=== PATIENT | female | born 1945 | race Caucasian/White ===

== ENCOUNTER 2017-05-21 22:20 | Inpatient (IN) | payer OTHER, MEDICARE ==
[~2017-05-21] VITALS: Ht 152.4 cm; Wt 88.5 kg
[~2017-05-21 22:20] MED LIST: AMLO10TA2 PO; ASPI1TAB69 PO; ATOR40TA16 PO; BACT800T5 PO; CARV3.125 PO; ENAL10TA PO; IMDU60TA PO; SPIRCAP INH; SYNT112T PO; TRIA.025%T TOPICAL
[2017-05-21 22:25] VITALS: BP 148/74; PULSE 82; RESP 20; O2SAT 96
--- NOTE | 2017-05-21 22:58 | PD ---
HPI Chief Complaint: Numbness/Tingling Time Seen by Provider: 22:43 Travel History International Travel<30 days: No Contact w/Intl Traveler<30days: No Traveled to known affect area: No History of Present Illness HPI 72-year-old female presents to the emergency department by private transportation the care of her granddaughter for evaluation of intermittent numbness and weakness of the left upper extremity for the past 2 hours. Patient is also been experiencing right shoulder pain and neck pain. Patient has also been experiencing intermittent headache and dizziness over the past 2 days. Granddaughter states 2 days ago she was having episodes of drooling intermittently that has resolved. Patient's had no facial droop no change in mentation no visual disturbance or difficulty with swallowing. Patient denies any balance disturbance. Granddaughter states that patient has chronic balance disturbance which patient confirms and denies having any increased balance disturbance. Patient presently states that she is having no numbness tingling or weakness of the left upper extremity that has resolved upon arrival into the emergency room. Patient denies any lower extremity numbness tingling or weakness. Patient denies any chest pain or shortness of breath has had no nausea or vomiting and no recent febrile illness. Past history is significant for left breast cancer with lumpectomy for invasive ductal tumor and DCIS as well as completing postoperative radiation and chemotherapy 04/06/15 patient was last seen by her radiation oncologist 05/2015 patient is also the care of Dr. Ponce her park keeper for history of TIAs and possible cardiac arrhythmia and patient is currently being managed with a loop recorder as well as history of CAD hypertension hypothyroidism dyslipidemia and hypothyroidism. Headache the patient describes is not sudden onset thunderclap or worst ever. Patient denies any double vision blurred vision or loss of vision and denies any change in her peripheral vision. PFSH Past Medical History Narrative Medical TIA dyslipidemia hypertension anxiety depression asthma arthritis breast cancer fibromyalgia lumpectomy chemotherapy hysterectomy appendectomy tobacco use nursing notes reviewed Hx Anticoagulant Therapy: Yes AAA: Yes Arthritis: Yes Asthma: Yes Anxiety: Yes Depression: No Heart Rhythm Problems: No Cancer: Yes (RIGHT BREAST, CERVICAL) Cardiac Catheterization: Yes Cardiovascular Problems: Yes (hx TIA) High Cholesterol: Yes Chemotherapy: No Chest Pain: No Congestive Heart Failure: No COPD: Yes Cerebrovascular Accident: Yes (hx) Diabetes: No Diminished Hearing: No Endocrine: Yes Fibromyalgia: Yes Gastrointestinal Disorders: Yes (ACID REFLEX, CURRENT GASTRIC BLEED) GERD: Yes Genitourinary: No Headaches: Yes Hepatitis: No Hiatal Hernia: No Hypertension: Yes Immune Disorder: Yes (FIBROMYALGIA) Kidney Stones: No Musculoskeletal: Yes (BACK PAIN,ARTHRITIS) Neurologic: Yes (STROKE HX) Psychiatric: Yes Reproductive: No Respiratory: Yes (ASTHMA, COPD) 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) Immunizations Current: Yes Migraines: No Myocardial Infarction: Yes Radiation Therapy: Yes Renal Failure: No Seizures: No Sleep Apnea: No Thyroid Disease: Yes Ulcer: Yes (PEPTIC) ?: Not Menopausal: Yes : 2 Para: 2 Past Surgical History Abdominal Surgery: No AICD: No Appendectomy: Yes Cardiac Surgery: No Cholecystectomy: No Coronary Artery Bypass Graft: No Ear Surgery: No Endocrine Surgery: No Eye Surgery: No Genitourinary Surgery: No Gynecologic Surgery: Yes (CERVICAL BX, HYSTERECTOMY) Hysterectomy: Yes Joint Replacement: No Mastectomy: Yes (RT) Oral Surgery: No Pacemaker: No Thoracic Surgery: No Other Surgery: Yes (RT MASTECTOMY WITH BREAST RECONSTRUCTION) Social History Alcohol Use: No Tobacco Use: Yes (1PPD) Substance Use: No Allergies-Medications (Allergen,Severity, Reaction): Coded Allergies: doxycycline (Unverified Allergy, Severe, SHORTNESS OF BREATH, 02/28/17) minocycline (Unverified Allergy, Severe, SHORTNESS OF BREATH, 02/28/17) oxycodone (Unverified Allergy, Severe, UNKNOWN, 02/28/17) penicillin G (Unverified Allergy, Severe, SHORTNESS OF BREATH, 02/28/17) tetanus toxoid, adsorbed (Unverified Allergy, Severe, SHORTNESS OF BREATH , 02/28/17) tigecycline (Unverified Allergy, Severe, SHORTNESS OF BREATH, 02/28/17) diazepam (Unverified Adverse Reaction, Intermediate, HYPER, 02/28/17) Uncoded Allergies: PAPER TAPE (Allergy, Severe, SKIN BLISTERS, 05/17/16) . Reported Meds & Prescriptions Reported Meds & Active Scripts Active Reported Tylenol (Acetaminophen) 325 Mg Tab 500 Mg PO ONCE PRN Isosorbide Mononitrate ER (Isosorbide Mononitrate) 60 Mg Tab 60 Mg PO DAILY Prilosec (Omeprazole Magnesium) 20 Mg Tab DAILY Aspirin Children's (Aspirin) 81 Mg Chew 81 Mg CHEW DAILY Amlodipine (Amlodipine Besylate) 10 Mg Tab 10 Mg PO DAILY Enalapril (Enalapril Maleate) 10 Mg Tab 10 Mg PO DAILY Synthroid (Levothyroxine Sodium) 112 Mcg Tab 112 Mcg PO DAILY Coreg (Carvedilol) 3.125 Mg Tab 3.125 Mg PO DAILY Atorvastatin (Atorvastatin Calcium) 40 Mg Tab 40 Mg PO HS Spiriva Handihaler (Tiotropium Inh) 18 Mcg Cap 18 Mcg INH DAILY 1 capsule = 18 mcg Review of Systems Except as stated in HPI: all other systems reviewed are Neg Physical Exam Narrative GENERAL: Well-developed well-nourished female in distress and appears anxious but no respiratory distress. GCS 15 SKIN: Warm and dry. HEAD: Atraumatic. Normocephalic. EYES: Pupils equal and round. No scleral icterus. No injection or drainage. ENT: No nasal bleeding or discharge. Mucous membranes pink and moist. NECK: Trachea midline. No JVD. CARDIOVASCULAR: Regular rate and rhythm. RESPIRATORY: No accessory muscle use. Clear to auscultation. Breath sounds equal bilaterally. GASTROINTESTINAL: Abdomen soft, non-tender, nondistended. Hepatic and splenic margins not palpable. MUSCULOSKELETAL: Extremities without clubbing, cyanosis, or edema. No obvious deformities. NEUROLOGICAL: Awake and alert. No obvious cranial nerve deficits. Motor grossly within normal limits. Five out of 5 muscle strength in the arms and legs. Normal speech. PSYCHIATRIC: Appropriate mood and affect; insight and judgment normal. Data Data Last Documented VS Vital Signs Date Time Temp Pulse Resp B/P (MAP) Pulse Ox O2 Delivery O2 Flow Rate FiO2 05/21/17 23:01 98 Nasal Cannula 2.00 05/21/17 23:01 97.9 75 20 126/63 (84) Orders Orders Ct Brain W/O Iv Contrast(Rout) (05/21/17 ) Electrocardiogram (05/21/17 23:42) Prothrombin Time / Inr (Pt) (05/21/17 23:42) Act Partial Throm Time (Ptt) (05/21/17 23:42) Complete Blood Count With Diff (05/21/17 23:42) Comprehensive Metabolic Panel (05/21/17 23:42) Creatine Kinase (Cpk) (05/21/17 23:42) Drug Screen, Random Urine (05/21/17 23:42) Troponin I (05/21/17 23:42) Urinalysis - C+S If Indicated (05/21/17 23:42) Chest, Single Ap (05/21/17 23:42) Ecg Monitoring (05/21/17 23:42) Iv Access Insert/Monitor (05/21/17 23:42) Oximetry (05/21/17 23:42) Blood Glucose (05/21/17 23:42) Sodium Chloride 0.9% Flush (Ns Flush) (05/21/17 23:45) Acetaminophen (Tylenol) (05/22/17 00:15) Urine Culture (05/22/17 00:00) Blood Culture (05/22/17 01:04) Ceftriaxone Inj (Rocephin Inj) (05/22/17 01:15) Admit Order (Ed Use Only) (05/22/17 ) Boiler Inspector / Telemetry [id number].[id number] (05/22/17 01:31) Activity Oob With Assistance (05/22/17 01:31) Notify Dr: Other (05/22/17 01:31) Labs Laboratory Tests Test 05/21/17 23:25 05/22/17 00:00 White Blood Count 9.3 TH/MM3 Red Blood Count 3.84 MIL/MM3 Hemoglobin 9.9 GM/DL Hematocrit 31.5 % Mean Corpuscular Volume 82.0 FL Mean Corpuscular Hemoglobin 25.9 PG Mean Corpuscular Hemoglobin Concent 31.6 % Red Cell Distribution Width 17.6 % Platelet Count 310 TH/MM3 Mean Platelet Volume 10.5 FL Neutrophils (%) (Auto) 64.0 % Lymphocytes (%) (Auto) 28.1 % Monocytes (%) (Auto) 3.3 % Eosinophils (%) (Auto) 3.2 % Basophils (%) (Auto) 1.4 % Neutrophils # (Auto) 6.0 TH/MM3 Lymphocytes # (Auto) 2.6 TH/MM3 Monocytes # (Auto) 0.3 TH/MM3 Eosinophils # (Auto) 0.3 TH/MM3 Basophils # (Auto) 0.1 TH/MM3 CBC Comment DIFF FINAL Differential Comment Prothrombin Time 9.9 SEC Prothromb Time International Ratio 0.9 RATIO Activated Partial Thromboplast Time 24.5 SEC Blood Urea Nitrogen 10 MG/DL Creatinine 1.20 MG/DL Random Glucose 121 MG/DL Total Protein 7.9 GM/DL Albumin 3.6 GM/DL Calcium Level 9.0 MG/DL Alkaline Phosphatase 152 U/L Aspartate Amino Transf (AST/SGOT) 9 U/L Alanine Aminotransferase (ALT/SGPT) 16 U/L Total Bilirubin 0.3 MG/DL Sodium Level 137 MEQ/L Potassium Level 3.7 MEQ/L Chloride Level 102 MEQ/L Carbon Dioxide Level 27.7 MEQ/L Anion Gap 7 MEQ/L Estimat Glomerular Filtration Rate 44 ML/MIN Total Creatine Kinase 32 U/L Troponin I LESS THAN 0.02 NG/ML Urine Color YELLOW Urine Turbidity SLIGHT Urine pH 5.5 Urine Specific [place] 1.021 Urine Protein NEG mg/dL Urine Glucose (UA) NEG mg/dL Urine Ketones TRACE mg/dL Urine Occult Blood NEG Urine Nitrite NEG Urine Bilirubin NEG Urine Leukocyte Esterase SMALL Urine WBC 6-8 /hpf Urine WBC Clumps FEW Urine Squamous Epithelial Cells > 8 /hpf Urine Amorphous Sediment SMALL Urine Bacteria FEW /hpf Urine Hyaline Casts 0-2 /lpf Urine Mucus OCC /lpf Microscopic Urinalysis Comment CULTURE INDICATED Hemoglobin A1c 6.3 % Urine Opiates Screen NEG Urine Barbiturates Screen NEG Urine Amphetamines Screen NEG Urine Benzodiazepines Screen NEG Urine Cocaine Screen NEG Urine Cannabinoids Screen NEG MDM Medical Decision Making Medical Screen Exam Complete: Yes Emergency Medical Condition: Yes Medical Record Reviewed: Yes Interpretation(s) @ 23:10 CT brain w/o --no acute process CONCLUSION: 1. No evidence of acute intracranial pathology. No masses are identified. Mark Kirkland MD on May 21, 2017 at 23:08 Board Certified Radiologist. This report was verified electronically. Vital Signs Date Time Temp Pulse Resp B/P (MAP) Pulse Ox O2 Delivery O2 Flow Rate FiO2 05/21/17 23:01 97.9 75 20 126/63 (84) 98 Nasal Cannula 2.00 05/21/17 22:25 82 20 148/74 (98) 96 05/21/17 22:25 Nasal Cannula 2.00 EKG normal sinus rhythm rate [address] elevation or injury pattern or ectopy noted CBC & BMP Diagram 05/21/17 23:25 Total Protein 7.9, Albumin 3.6, Calcium Level 9.0, Alkaline Phosphatase 152 H, Aspartate Amino Transf (AST/SGOT) 9 L, Alanine Aminotransferase (ALT/SGPT) 16, Total Bilirubin 0.3 Troponin I less than 0.02, not elevated Differential Diagnosis Generalized weakness, TIA, stuttering TIA, CVA, adverse medication reaction Narrative Course NIHSS:0 Patient placed on monitor IV access obtained specimens collected and sent for resulting EKG performed patient sent for stat CT brain noncontrast call placed to neurology @ 2305 patient has return to the exam room sitting upright conversing with granddaughter are at bedside complaining of 7/10 headache but no facial numbness or weakness no change in vision no double vision no dizziness no difficulty with speech no difficulty swallowing no upper extremity numbness tingling or weakness no lower extremity numbness tingling or weakness no balance disturbance no chest pain no shortness of breath no nausea no abdominal pain no flank pain. Patient states she feels well except for her headache which is not worst ever. NIHSS: 0. Patient states she would normally take Ramona aspirin for her headache and did take Ramona before she came to the emergency room and would take an extra strength Tylenol 500 mg which she typically takes for her chronic recurrent back pain or headaches. Patient now reports that since medications for her blood pressure have been changes in the past 3 months she has noticed frequent episodes of dizziness and weakness but has not contacted her primary care/managing provider regarding these symptoms. 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 president industrial relations neurologist Dr Sanderson regarding stuttering symptoms take asa 81 mg daily loop recorder--not tpa candidate --admit for further tia/cva evaluation --no change current asa regimen at this time @ 1:05 AM call placed to [facility] service Diagnosis Primary Impression: TIA (transient ischemic attack) Qualified Codes: G45.9 - Transient cerebral ischemic attack, unspecified Additional Impression: UTI (urinary tract infection) Qualified Codes: N39.0 - Urinary tract infection, site not specified Admitting Information Admitting Physician Requests: Observation Daisy De Luna MD May 21, 2017 22:58
[2017-05-21 23:01] VITALS: BP 126/63; PULSE 75; RESP 20; TEMP 97.9; O2SAT 98
--- NOTE | 2017-05-21 23:10 | RADRPT ---
EXAM DATE/TIME: 05/21/2017 22:45 [facility] COMPARISON: CT BRAIN W/O CONTRAST, December 31, 2014, 14:51. INDICATIONS : Left side weakness. Evaluate for cerebrovascular accident. RADIATION DOSE: 58.86 CTDIvol (mGy) MEDICAL HISTORY : Cerebrovascular disease. Chronic obstructive pulmonary disease. Hypertension. SURGICAL HISTORY : None. ENCOUNTER: Initial ACUITY: 1 day PAIN SCALE: 0/10 LOCATION: cranial TECHNIQUE: Multiple contiguous axial images were obtained of the head. Using automated exposure control and adj ustment of the mA and/or kV according to patient size, radiation dose was kept as low as reasonably a chievable to obtain optimal diagnostic quality images. DICOM format image data is available electro nically for review and comparison. FINDINGS: CEREBRUM: The ventricles are normal for age. No evidence of midline shift, mass lesion, hemorrhage or acute in farction. No extra-axial fluid collections are seen. POSTERIOR FOSSA: The cerebellum and brainstem are intact. The 4th ventricle is midline. The cerebellopontine angle i s unremarkable. EXTRACRANIAL: The visualized portion of the orbits is intact. SKULL: The calvaria is intact. No evidence of skull fracture. CONCLUSION: 1. No evidence of acute intracranial pathology. No masses are identified. Mark Kirkland MD on May 21, 2017 at 23:08 Board Certified Radiologist. This report was verified electronically.
[2017-05-21] MEDS ORDERED: PRIL20TA2 (23:18)
[2017-05-21] MEDS ORDERED: ISOS60TA PO (23:18)
[2017-05-21] MEDS ORDERED: ASPI81CH7 CHEW (23:18)
[2017-05-21] MEDS ORDERED: TYLE325T PO (23:20)
[2017-05-21] MEDS ORDERED: SODIUM CHLORIDE 0.9% FLUSH 10 ML FLUSH IVF PRN (23:45)
[2017-05-22] VITALS (10 sets, daily range): BP systolic 103–142; BP diastolic 53–64; PULSE 61–80; RESP 18–20; TEMP 96.3–99.7; O2SAT 92–97
[2017-05-22 00:13] LABS: BASOPHIL # 0.1 TH/MM3 (0-0.2); BASOPHIL % 1.4 % (0.0-2.0); EOSINOPHIL # 0.3 TH/MM3 (0-0.4); EOSINOPHIL % 3.2 % (0.0-4.0); HEMATOCRIT 31.5 % (35.0-46.0); LYMPH % 28.1 % (9.0-44.0); LYMPHOCYTE # 2.6 TH/MM3 (1.0-4.8); MEAN CORPUSCULAR HEMOGLOBIN 25.9 PG (27.0-34.0); MEAN CORPUSCULAR HGB CONC 31.6 % (32.0-36.0); MONO % 3.3 % (0.0-8.0); PLATELET COUNT 310 TH/MM3 (150-450); RED BLOOD COUNT 3.84 MIL/MM3 (4.00-5.30); RED CELL DISTRIBUTION WIDTH 17.6 % (11.6-17.2); WHITE BLOOD COUNT 9.3 TH/MM3 (4.0-11.0)
[2017-05-22] MEDS ORDERED: ACETAMINOPHEN 325 MG TAB PO ONE (00:15)
--- NOTE | 2017-05-22 00:16 | RADRPT ---
EXAM DATE/TIME: 05/21/2017 23:50 [facility] COMPARISON: CHEST SINGLE AP, December 31, 2014, 15:03. INDICATIONS : Shortness of breath. MEDICAL HISTORY : Hypertension. Chronic obstructive pulmonary disease. Aneurysm, abdominal. Myocardial infarction. Asthma. Carcinoma, breast. SURGICAL HISTORY : Mastectomy, right. Kyphoplasty. Cardiac catheterization. Breast reconstruction. ENCOUNTER: Initial ACUITY: 1 day PAIN SCORE: 0/10 LOCATION: Bilateral chest FINDINGS: The cardiac silhouette is normal in transverse diameter. There is prominence of the aortic knob is wi th calcification characteristic of atherosclerotic vascular disease. The lungs are free of acute pare nchymal opacity. No effusions are identified. Multiple previous kyphoplasties are present. CONCLUSION: 1. No acute cardiopulmonary disease. Mark Kirkland MD on May 22, 2017 at 0:14 Board Certified Radiologist. This report was verified electronically.
[2017-05-22 00:18] LABS: BLOOD, URINE NEG (NEG); GLUCOSE,URINE NEG (NEG); KETONE, URINE TRACE mg/dL (NEG); NITRITE,URINE NEG (NEG); PH, URINE 5.5 (5.0-8.5)
[2017-05-22 00:21] LABS: HEMO FLAGS DIFF FINAL
[2017-05-22 00:26] LABS: CHLORIDE 102 MEQ/L (98-107); POTASSIUM 3.7 MEQ/L (3.5-5.1); SODIUM (NA) 137 MEQ/L (136-145)
[2017-05-22 00:29] LABS: ANION GAP 7 MEQ/L (5-15); BICARBONATE 27.7 MEQ/L (21.0-32.0)
[2017-05-22 00:29] LABS: URINE COLOR YELLOW (YELLW/STRAW)
[2017-05-22 00:30] LABS: BLOOD UREA NITROGEN 10 MG/DL (7-18)
[2017-05-22 00:31] LABS: HYALINE CAST, URINE 0-2 /lpf (RARE); MUCUS URINE OCC /lpf (OCC)
[2017-05-22 00:32] LABS: BACTERIA, URINE FEW /hpf; SQUAMOUS EPITHELIAL CELL URINE > 8 /hpf (0-5)
[2017-05-22 00:32] LABS: ALT (GPT) 16 U/L (10-53); APTT (PATIENT) 24.5 SEC (24.3-30.1); INTERNATIONAL NORMALIZED RATIO 0.9 RATIO; PROTHROMBIN TIME - PATIENT 9.9 SEC (9.8-11.6)
[2017-05-22 00:33] LABS: COMMENT (UR) CULTURE INDICATED; CULTURE IF INDICATED CULTURE INDICATED
[2017-05-22 00:33] LABS: AST (GOT) 9 U/L (15-37); GLOMERULAR FILTRATION RATE 44 ML/MIN (>89)
[2017-05-22 00:34] LABS: TOTAL BILIRUBIN ADULT 0.3 MG/DL (0.2-1.0)
[2017-05-22 00:35] LABS: ALKALINE PHOSPHATASE 152 U/L (45-117)
[2017-05-22 00:55] LABS: CREATINE KINASE 32 U/L (26-192)
[2017-05-22] MEDS ORDERED: cefTRIAXone INJ 1,000 MG in SODIUM CHLORIDE 0.9% INJ 100 ML IV ONE (01:15)
[2017-05-22] MEDS ORDERED: DEXTROSE 50% IN WATER 50 ML VIAL(D50) IV PUSH PRN (01:30)
[2017-05-22] MEDS ORDERED: SODIUM CHLORIDE 0.9% FLUSH 5 ML FLUSH IV FLUSH PRN (01:30)
[2017-05-22] MEDS ORDERED: GLUCAGON 1 MG/ML VIAL OTHER PRN (01:30)
[2017-05-22] MEDS: SODIUM CHLOR 0.9% 1000 ML INJ 1,000 ML IV SCH ×2 (01:49→15:47)
[2017-05-22] MEDS: INSULIN ASPART SUPPLEMENTAL SCALE SQ SCH ×4 (08:00→20:38)
--- NOTE | 2017-05-22 08:21 | EKG ---
Date Performed: 05/21/2017 Time Performed: 23:48:53 PTAGE: 72 years EKG: Sinus rhythm BORDERLINE LEFT AXIS DEVIATION BORDERLINE ECG PREVIOUS TRACING : 12/31/2014 15.13 No significant change from previous tracing noted. DOCTOR: Wesley Gaffney Interpretating Date/Time 05/22/2017 08:20:30
[2017-05-22] MEDS: HEPARIN SODIUM - SQ 10,000 UNITS/ML VIAL SQ SCH ×2 (09:00→20:37)
[2017-05-22] MEDS: SODIUM CHLORIDE 0.9% FLUSH 5 ML FLUSH IV FLUSH SCH ×2 (09:00→20:38)
--- NOTE | 2017-05-22 09:13 | RADRPT ---
EXAM DATE/TIME: 05/22/2017 13:10 [facility] COMPARISON: CTA CAROTID ARTERIES W 3D RECON, December 31, 2014, 18:18. INDICATIONS : Transient ischemic attack. MEDICAL HISTORY : Chronic obstructive pulmonary disease. Gastroesophageal reflux disease. Thyroid disease. Cerebrova scular accident. Myocardial infarction. Abdominal aortic aneurysm. Hypercholesterolemia. Hyperten lizett. Fibromyalgia. Osteoporosis. Cervical cancer. Right breast cancer. SURGICAL HISTORY : Appendectomy. Mastectomy, right. Hysterectomy. Cardiac catheterization. Thoracic kyphoplasty. ENCOUNTER: Initial ACUITY: 1 day PAIN SCORE: 0/10 LOCATION: Bilateral neck PEAK SYSTOLIC VELOCITIES (cm/sec): ICA/CCA RATIO: Right: 2.2 Left: 2.0 ICA: Right: 150.1 Left: 263.7 CCA: Right: 69.8 Left: 132.2 ECA: Right: NOT VISUALIZED Left: 72.7 VERTEBRAL: Right: NOT VISUALIZED antegrade Left: 95.0 antegrade Elevated flow velocities and ICA/CCA ratios have been found to correlate with increased degrees of vessel stenosis, calculated as percentage of diameter relative to a normal segment of distal ICA/CCA FINDINGS: RIGHT CAROTID: There increased ratios in the right internal carotid extensive calcific plaque. LEFT CAROTID: Increased ratios and velocities consistent with be hemodynamically significant stenosis, borderl ine critical. VERTEBRAL ARTERIES: Right vertebral is not visualized. MISCELLANEOUS: None. CONCLUSION: Hemodynamically significant stenosis slightly worse on the left than the right. CT angiogram would b e of benefit. Dennis Dumont MD FACR on May 22, 2017 at 9:09 Board Certified Radiologist. This report was verified electronically.
--- NOTE | 2017-05-22 10:01 | HHI.HP ---
[facility] Jhony Curtis MD Admission Diagnosis TIA; poss uti Diagnoses: (1) Left arm numbness Diagnosis: Principal (2) Left arm weakness Diagnosis: Principal (3) TIA (transient ischemic attack) Diagnosis: Principal (4) UTI (urinary tract infection) Diagnosis: Principal Travel History International Travel<30 Days: No Contact w/Intl Traveler <30 Da: No Traveled to Known Affected Are: No History of Present Illness Mrs. Peterson is a 72-year-old female. She came into the hospital overnight secondary to left arm weakness. She has a history of numerous TIAs in the past with her last TIA approximately 6 months ago. Typically her TIA causes left facial numbness and weakness. She will have slurred speech with these episodes. This episode did not include her left face or speech. She has left arm numbness and weakness that was lasting 2 hours prior to arrival to the ER. CT of the brain shows no evidence of CVA. She will not be able to obtain an MRI secondary to electrical recorder implant. This morning when seen she has full resolution of her symptoms from yesterday. She says that her left arm feels back to normal for her. No headaches at the time I see her this morning. She did complain of a headache last night. Additionally, UTI was discovered in the ER and she's been started on treatment of Rocephin probiotics. No other complaints today. No changes in cognition, vision, or speech pattern. Review of Systems Constitutional: DENIES: Diaphoretic episodes, Fatigue, Fever, Chills, Night Sweats Eyes: DENIES: Blurred vision, Diplopia, Eye inflammation, Eye pain Ears, nose, mouth, throat: DENIES: Hearing loss, Vertigo, Nasal discharge Respiratory: DENIES: Apneas, Cough, Snoring, Wheezing, Hemoptysis Cardiovascular: DENIES: Chest pain, Palpitations, Syncope Gastrointestinal: DENIES: Abdominal pain, Black stools, Bloody stools, Constipation Musculoskeletal: DENIES: Joint pain, Muscle aches, Stiffness, Joint Swelling, Back pain, Neck pain Integumentary: DENIES: Abnormal pigmentation, Pruritus, Rash, Nail changes Hematologic/lymphatic: DENIES: Bruising, Lymphadenopathy Immunologic/allergic: DENIES: Eczema, Urticaria Neurologic: COMPLAINS OF: Localized weakness, DENIES: Abnormal gait, Headache, Paresthesias, Speech Problems Psychiatric: DENIES: Anxiety, Confusion, Hallucinations Past Family Social History Past Medical History Abdominal aortic aneurysm Osteoarthritis Asthma Gen. anxiety disorder History of right breast cancer History of cervical cancer Coronary artery disease History of TIA Hyperlipidemia next line COPD History of CVA Fibromyalgia Gastroesophageal reflux disease History of gastric bleed Headaches Hypertension Chronic back pain History of melanoma hand, removed Myocardial infarction History of radiation therapy Hypothyroidism Peptic ulcer Past Surgical History Appendectomy Hysterectomy Mastectomy of right breast Reported Medications Reported Meds & Active Scripts Active Reported Tylenol (Acetaminophen) 325 Mg Tab 500 Mg PO ONCE PRN Isosorbide Mononitrate ER (Isosorbide Mononitrate) 60 Mg Tab 60 Mg PO DAILY Prilosec (Omeprazole Magnesium) 20 Mg Tab DAILY Aspirin Children's (Aspirin) 81 Mg Chew 81 Mg CHEW DAILY Amlodipine (Amlodipine Besylate) 10 Mg Tab 10 Mg PO DAILY Enalapril (Enalapril Maleate) 10 Mg Tab 10 Mg PO DAILY Synthroid (Levothyroxine Sodium) 112 Mcg Tab 112 Mcg PO DAILY Coreg (Carvedilol) 3.125 Mg Tab 3.125 Mg PO DAILY Atorvastatin (Atorvastatin Calcium) 40 Mg Tab 40 Mg PO HS Spiriva Handihaler (Tiotropium Inh) 18 Mcg Cap 18 Mcg INH DAILY 1 capsule = 18 mcg Allergies: Coded Allergies: acetaminophen (Unverified Allergy, Severe, UNKNOWN, 05/21/17) takes apap 500 mg a day- per pt doxycycline (Unverified Allergy, Severe, SHORTNESS OF BREATH, 02/28/17) minocycline (Unverified Allergy, Severe, SHORTNESS OF BREATH, 02/28/17) oxycodone (Unverified Allergy, Severe, UNKNOWN, 02/28/17) penicillin G (Unverified Allergy, Severe, SHORTNESS OF BREATH, 02/28/17) tetanus toxoid, adsorbed (Unverified Allergy, Severe, SHORTNESS OF BREATH , 02/28/17) tigecycline (Unverified Allergy, Severe, SHORTNESS OF BREATH, 02/28/17) diazepam (Unverified Adverse Reaction, Intermediate, HYPER, 02/28/17) Uncoded Allergies: PAPER TAPE (Allergy, Severe, SKIN BLISTERS, 05/17/16) . Active Ordered Medications Administered Medications Medications (Trade) Dose Ordered Sig/Carlo Route PRN Reason Start Time Stop Time Status Last Admin Dose Admin Sodium Chloride 1,000 ml @ 70 mls/hr [id number] IV 05/22/17 01:29 05/22/17 01:49 Heparin Sodium (Porcine) (Heparin Inj) 5,000 units Q12HR SQ 05/22/17 09:00 05/22/17 09:00 Family History Myocardial infarction in patient's mother Social History Patient smokes 1 pack per day nicotine No illicit drug abuse No alcohol use Physical Exam Vital Signs Vital Signs Date Time Temp Pulse Resp B/P (MAP) Pulse Ox O2 Delivery O2 Flow Rate FiO2 05/22/17 09:09 Nasal Cannula 2.00 05/22/17 09:00 61 05/22/17 08:00 97.4 65 18 111/63 (79) 94 05/22/17 04:00 98.3 67 20 103/53 (70) 97 05/22/17 03:51 67 05/22/17 03:36 97 Nasal Cannula 2.00 05/21/17 23:01 98 Nasal Cannula 2.00 05/21/17 23:01 97.9 75 20 126/63 (84) 98 Nasal Cannula 2.00 05/21/17 22:25 82 20 148/74 (98) 96 05/21/17 22:25 Nasal Cannula 2.00 05/21/17 22:25 96 Nasal Cannula 2.00 Physical Exam GENERAL: NAD, A&Ox3 HEAD: Normocephalic. NECK: Supple, trachea midline. No lymphadenopathy. EYES: No scleral icterus. No injection or drainage. CARDIOVASCULAR: Regular rate and rhythm without murmurs, gallops, or rubs. RESPIRATORY: Breath sounds equal bilaterally. No accessory muscle use. GASTROINTESTINAL: Abdomen soft, non-tender, nondistended. MUSCULOSKELETAL: No cyanosis, or edema. SKIN: Warm and dry. NEURO: No focal neurological deficitis. Laboratory Laboratory Tests Test 05/21/17 23:25 05/22/17 00:00 White Blood Count 9.3 Red Blood Count 3.84 Hemoglobin 9.9 Hematocrit 31.5 Mean Corpuscular Volume 82.0 Mean Corpuscular Hemoglobin 25.9 Mean Corpuscular Hemoglobin Concent 31.6 Red Cell Distribution Width 17.6 Platelet Count 310 Mean Platelet Volume 10.5 Neutrophils (%) (Auto) 64.0 Lymphocytes (%) (Auto) 28.1 Monocytes (%) (Auto) 3.3 Eosinophils (%) (Auto) 3.2 Basophils (%) (Auto) 1.4 Neutrophils # (Auto) 6.0 Lymphocytes # (Auto) 2.6 Monocytes # (Auto) 0.3 Eosinophils # (Auto) 0.3 Basophils # (Auto) 0.1 CBC Comment DIFF FINAL Differential Comment Prothrombin Time 9.9 Prothromb Time International Ratio 0.9 Activated Partial Thromboplast Time 24.5 Blood Urea Nitrogen 10 Creatinine 1.20 Random Glucose 121 Total Protein 7.9 Albumin 3.6 Calcium Level 9.0 Alkaline Phosphatase 152 Aspartate Amino Transf (AST/SGOT) 9 Alanine Aminotransferase (ALT/SGPT) 16 Total Bilirubin 0.3 Sodium Level 137 Potassium Level 3.7 Chloride Level 102 Carbon Dioxide Level 27.7 Anion Gap 7 Estimat Glomerular Filtration Rate 44 Total Creatine Kinase 32 Troponin I LESS THAN 0.02 Urine Color YELLOW Urine Turbidity SLIGHT Urine pH 5.5 Urine Specific Jber 1.021 Urine Protein NEG Urine Glucose (UA) NEG Urine Ketones TRACE Urine Occult Blood NEG Urine Nitrite NEG Urine Bilirubin NEG Urine Leukocyte Esterase SMALL Urine WBC 6-8 Urine WBC Clumps FEW Urine Squamous Epithelial Cells > 8 Urine Amorphous Sediment SMALL Urine Bacteria FEW Urine Hyaline Casts 0-2 Urine Mucus OCC Microscopic Urinalysis Comment CULTURE INDICATED Urine Opiates Screen NEG Urine Barbiturates Screen NEG Urine Amphetamines Screen NEG Urine Benzodiazepines Screen NEG Urine Cocaine Screen NEG Urine Cannabinoids Screen NEG Date/Time Source Procedure Growth Status 05/22/17 01:50 Blood Peripheral Aerobic Blood Culture Pending Received 05/22/17 01:50 Blood Peripheral Anaerobic Blood Culture Pending Received 05/22/17 00:00 Urine Clean Catch Urine Culture Pending Received Result Diagram: 05/21/17 2325 05/21/172324 Imaging Last Impressions Carotid Artery Ultrasound 05/22/17 0000 Signed Impressions: Service Date/Time: Monday, May 22, 2017 13:10 - CONCLUSION: Hemodynamically significant stenosis slightly worse on the left than the right. CT angiogram would be of benefit. Dennis Dumont MD FACR Chest X-Ray 05/21/17 [id number] Signed Impressions: Service Date/Time: Sunday, May 21, 2017 23:50 - CONCLUSION: 1. No acute cardiopulmonary disease. Mark Kirkland MD Head CT 05/21/17 0000 Signed Impressions: Service Date/Time: Sunday, May 21, 2017 22:45 - CONCLUSION: 1. No evidence of acute intracranial pathology. No masses are identified. MD Irasema Chavarria VTE Risk Assessment Irasema VTE Risk Assessment: Mod/High Risk (score >= 2) VTE Pharm Contraindication: High risk for bleeding Caprini Risk Assessment Model Point Value = 1 Point Value = 2 Point Value = 3 Point Value = 5 Age 41-60 Minor surgery BMI > 25 kg/m2 Swollen legs Varicose veins or History of unexplained or recurrent spontaneous Oral contraceptives or hormone replacement Sepsis (< 1 month) Serious lung disease, including pneumonia (< 1 month) Abnormal pulmonary function Acute myocardial infarction Congestive heart failure (< 1 month) History of inflammatory bowel disease Medical patient at bed rest Age 61-74 Arthroscopic surgery Major open surgery (> 45 min) Laparoscopic surgery (> 45 min) Malignancy Confined to bed (> 72 hours) Immobilizing plaster cast Central venous access Age >= 75 History of VTE Family history of VTE Factor V Leiden Prothrombin [id number] Lupus anticoagulant Anticardiolipin antibodies Elevated serum homocysteine Heparin-induced thrombocytopenia Other congenital or acquired thrombophilia Stroke (< 1 month) Elective arthroplasty Hip, pelvis, or leg fracture Acute spinal cord injury (< 1 month) Prophylaxis Regimen Total Risk Factor Score Risk Level Prophylaxis Regimen 0-1 Low Early ambulation 2 Moderate Order ONE of the following: *Sequential Compression Device (SCD) *Heparin 5000 units SQ BID 3-4 Higher Order ONE of the following medications: *Heparin 5000 units SQ TID *Enoxaparin/Lovenox 40 mg SQ daily (WT < 150 kg, CrCl > 30 mL/min) *Enoxaparin/Lovenox 30 mg SQ daily (WT < 150 kg, CrCl > 10-29 mL/min) *Enoxaparin/Lovenox 30 mg SQ BID (WT < 150 kg, CrCl > 30 mL/min) AND/OR *Sequential Compression Device (SCD) 5 or more Highest Order ONE of the following medications: *Heparin 5000 units SQ TID (Preferred with Epidurals) *Enoxaparin/Lovenox 40 mg SQ daily (WT < 150 kg, CrCl > 30 mL/min) *Enoxaparin/Lovenox 30 mg SQ daily (WT < 150 kg, CrCl > 10-29 mL/min) *Enoxaparin/Lovenox 30 mg SQ BID (WT < 150 kg, CrCl > 30 mL/min) AND *Sequential Compression Device (SCD) Assessment and Plan Problem List: (1) Left arm weakness ICD Code: R29.898 - Other symptoms and signs involving the musculoskeletal system (2) Left arm numbness ICD Code: R20.0 - Anesthesia of skin (3) UTI (urinary tract infection) ICD Code: N39.0 - Urinary tract infection, site not specified Status: Acute (4) TIA (transient ischemic attack) ICD Code: G45.9 - Transient cerebral ischemic attack, unspecified Status: Acute Assessment and Plan Assessment and plan 72-year-old female admitted secondary to left arm weakness and numbness, with UTI. Left arm weakness Left arm numbness History of TIA Symptoms not resolved MRI and MRA pending CTA of carotid arteries pending Neurology following Continue to monitor neurologic status UTI Rocephin Follow urine cultures May be contributory to neurologic changes Hypertension Allow for elevations in blood pressures for now till CVA is ruled out Follow blood pressures Abdominal aortic aneurysm Osteoarthritis Asthma Gen. anxiety disorder History of right breast cancer History of cervical cancer Coronary artery disease Hyperlipidemia COPD History of CVA Fibromyalgia Gastroesophageal reflux disease History of gastric bleed Headaches Chronic back pain History of melanoma hand, removed Myocardial infarction history History of radiation therapy Hypothyroidism Peptic ulcer No acute changes of these chronic conditions Follow clinically No change to baseline treatments DVT Prophylaxis SCDs Problem Qualifiers (1) TIA (transient ischemic attack): Qualified Codes: G45.9 - Transient cerebral ischemic attack, unspecified (2) UTI (urinary tract infection): Qualified Codes: N39.0 - Urinary tract infection, site not specified Gary Terrazas MD May 22, 2017 10:01
--- NOTE | 2017-05-22 11:59 | RADRPT ---
EXAM DATE/TIME: 05/22/2017 11:32 [facility] COMPARISON: MRI BRAIN W & W/O CONTRAST, December 31, 2014, 16:10. INDICATIONS : TIA. Left sided numbness. MEDICAL HISTORY : Hypertension. Myocardial infarction. Carcinoma, breast. SURGICAL HISTORY : Mastectomy, right. Abdominal aortic aneurysm repair. [employer] loop recorder ENCOUNTER: Initial ACUITY: 2 day PAIN SCORE: 2/10 LOCATION: Left hand and forearm. TECHNIQUE: Multiplanar, multisequence MRI of the brain was performed without contrast. FINDINGS: CEREBRUM: Tiny area of restricted diffusion along the left insular cortex. No definite correlative T2 signal ab normality. The ventricles are normal for age. No evidence of midline shift, mass lesion, hemorrhage or acute infarction. No extraaxial fluid collections are seen. The pituitary gland and suprasellar cistern are normal in configuration. WHITE MATTER: Scattered foci of bright T2 signal abnormalities are seen in the white matter. POSTERIOR FOSSA: The cerebellum and brainstem are intact. The 4th ventricle is midline. The cerebellopontine angle is unremarkable. The cerebellar tonsils are normal in position. DIFFUSION IMAGING: No focal areas of restricted diffusion are seen. No evidence of acute infarction. EXTRACRANIAL: The visualized portions of the orbits and paranasal sinuses are unremarkable. CONCLUSION: 1. Tiny punctate restricted effusion along the left insular cortex but uncertain if this is related t o acute lacunar infarct versus artifact. 2. No midline shift or mass effect. 3. Nonspecific white matter changes. Lawrence Ramirez MD on May 22, 2017 at 11:51 Board Certified Radiologist. This report was verified electronically.
[2017-05-22] MEDS ORDERED: ACETAMINOPHEN 500 MG CPLT PO PRN (12:00)
[2017-05-22 12:08] LABS: HEMOGLOBIN A1a 1.2 %; HEMOGLOBIN A1b 1.8 %; HEMOGLOBIN Ao 84.6 %; HEMOGLOBIN P3 3.7 %
[2017-05-22] MEDS: LACTOBACILLUS ACIDOPHILUS TAB PO SCH ×2 (12:47→17:42)
--- NOTE | 2017-05-22 13:13 | RADRPT ---
EXAM DATE/TIME: 05/22/2017 11:32 [facility] COMPARISON: CTA BRAIN W 3D RECON, December 31, 2014, 18:18. MRI BRAIN W/O CONTRAST, May 22, 2017, 11:32. MRA B RAIN W/O CONTRAST, December 31, 2014, 16:10. INDICATIONS : TIA. Left sided weakness. MEDICAL HISTORY : Hypertension. Carcinoma, breast. Myocardial infarction. COPD SURGICAL HISTORY : Mastectomy, right. Abdominal aortic aneurysm repair. [employer] loop recorder. ENCOUNTER: Initial ACUITY: 2 day PAIN SCORE: 2/10 LOCATION: Left hand and forearm. Please note a normal MRA of the brain does not entirely exclude the possibility of a small aneurysm, nor the possibility of distal intracranial vessel disease. TECHNIQUE: 3D time of flight MRA was performed. Source images, multiplanar STS MIP, and 3D volume MIP reconstru ctions were reviewed. FINDINGS: One revisualization M1 segment right anterior super artery. takeoff of right posterior several artery. There is no major branch vessel occlusion. Mild atherosclerotic disease is present in the carotid siphon worse on the left than the right. CONCLUSION: Atherosclerotic disease as described above. Significant disease in the carotid siphon on the left. Dennis Dumont MD FACR on May 22, 2017 at 13:09 Board Certified Radiologist. This report was verified electronically.
[2017-05-22] MEDS: ACETAMINOPHEN/HYDROcodone 325 MG/5 MG TAB PO PRN (15:26)
--- NOTE | 2017-05-22 15:56 | ECHRPT ---
Indication: CVA/TIA CONCLUSIONS Normal left ventricular size. Mild concentric left ventricular hypertrophy. The left ventricular systolic function is low normal with an estimated ejection fraction in the rang e of 50%. BP: / HR: Rhythm: MEASUREMENTS (Male / Female) Normal Values Technical Quality:Fair 2D ECHO LV Diastolic Diameter PLAX 3.9 cm 4.2 - 5.9 / 3.9 - 5.3 cm LV Systolic Diameter PLAX 3.1 cm IVS Diastolic Thickness 1.4 cm 0.6 - 1.0 / 0.6 - 0.9 cm LVPW Diastolic Thickness 0.8 cm 0.6 - 1.0 / 0.6 - 0.9 cm LV Relative Wall Thickness 0.6 RV Internal Dim ED PLAX 1.3 cm LA Systolic Diameter LX 2.5 cm 3.0 - 4.0 / 2.7 - 3.8 cm M-MODE Aortic Root Diameter MM 3.0 cm AV Cusp Separation MM 1.8 cm DOPPLER Mitral E Point Velocity 68.1 cm/s Mitral A Point Velocity 114.0 cm/s Mitral E to A Ratio 0.6 TR Peak Velocity 145.0 cm/s TR Peak Gradient 8.4 mmHg FINDINGS LEFT VENTRICLE Normal left ventricular size. Mild concentric left ventricular hypertrophy. The left ventricular systolic function is low normal with an estimated ejection fraction in the rang e of 50%. RIGHT VENTRICLE Normal right ventricular size and systolic function. LEFT ATRIUM The left atrial size is normal. RIGHT ATRIUM The right atrial size is normal. ATRIAL SEPTUM Normal atrial septal thickness without atrial level shunting by limited color doppler interrogation. AORTA The aortic root and proximal ascending aorta are normal in size on limited imaging. MITRAL VALVE Structurally normal mitral valve. No mitral valve stenosis or regurgitation. AORTIC VALVE Trileaflet aortic valve. No aortic valve stenosis or regurgitation. TRICUSPID VALVE Structurally normal tricuspid valve. No tricuspid valve stenosis or regurgitation. PULMONARY VALVE The pulmonary valve is not well visualized. VESSELS The inferior vena cava is normal in size. PERICARDIUM No pericardial effusion. Mina Hernandez MD (Electronically Signed) Final Date:22 May 2017 15:55
[2017-05-22] MEDS ORDERED: CLOPIDOGREL 75 MG TAB PO ONE (19:45)
--- NOTE | 2017-05-22 21:17 | MB ---
cc: ANABEL HUGHES M.D. DATE OF CONSULTATION: 05/22/2017 REASON FOR CONSULTATION: Left upper extremity numbness. HISTORY OF PRESENT ILLNESS: The patient is a 72-year-old seen in neurological consultation in regards to left upper extremity numbness. The patient had symptoms yesterday and the day before. They lasted about 30 minutes each time. She describes some numbness in the left hand that radiated up towards the shoulder. There was no other symptoms such as difficulty with speech, leg symptoms. She has had some headaches as well but she describes that this is nothing unusual. She normally takes a baby aspirin daily. She denies stroke or TIAs. She has a history of hypertension, coronary artery disease. She takes blood pressure medications and she also takes a statin. No cancer history. SOCIAL HISTORY: She smokes and she does not drink alcohol. NEUROLOGICAL EXAMINATION: The neurological exam showed an alert and pleasant woman. Mentation was normal. There is slight flattening on the left face of questionable value. Ocular movements and visual french full. Reflexes were 1+ at the knees and trace at the elbows and ankles. She seems to have symmetrical strength in the upper and lower extremities though there was some questionable drift of the left upper extremity. IMAGING STUDIES: She has had a number of studies. MRI brain showed questionable tiny acute lacunar on the left insular region. MRA head with questionable significant stenosis on the left carotid siphon. Carotid ultrasound showed suggestion of significant stenosis left more than right. LABORATORY DATA: CBC with white count 9.3, hemoglobin 9.9, platelet count 310, creatinine 1.2, glucose 121, sodium, potassium normal. Negative toxicology. ASSESSMENT TIA involving left upper extremity on two occasions. The imaging studies is not showing obvious disease in relationship to the TIA except for some possible carotid artery disease. Actually the carotid artery disease seems worse on the left than right. The MRI showed a questionable tiny acute lacunar on the left insular which does not correlate to her symptoms. The echocardiogram is unremarkable and the EKG is sinus rhythm. PLAN: There is a plan for CT angio. We will see if this can be done and I would agree with CT angio head and neck. We will check a lipid profile. Continue the aspirin therapy and possibly start Plavix for 6 weeks as well. I will follow the neurological course. Thank you for asking us to assist in her care. MD HAYDE Roe/IVY /7:44 PM /8:19 PM
[2017-05-23] VITALS (9 sets, daily range): BP systolic 118–168; BP diastolic 58–70; PULSE 74–79; RESP 18–22; TEMP 97.2–97.8; O2SAT 93–95
[2017-05-23] MEDS ORDERED: IOHEXOL 350 MG/ML 10 ML VIAL (for RAD DIAG) IVCONTRAST ONE (00:15)
--- NOTE | 2017-05-23 02:08 | RADRPT ---
EXAM DATE/TIME: 05/23/2017 00:05 [facility] COMPARISON: CTA BRAIN W 3D RECON, December 31, 2014, 18:18. INDICATIONS : Evaluate for stenosis. Abnormal carotid ultrasound. IV CONTRAST: 100 cc Omnipaque 350 (iohexol) IV ; Cumulative dose for multiple exams. RADIATION DOSE: 13.74 CTDIvol (mGy) ; Combined studies MEDICAL HISTORY : Cerebrovascular disease. Hypertension. Chronic obstructive pulmonary disease. SURGICAL HISTORY : Appendectomy. Mastectomy, right. Hysterectomy. Cardiac catheterization. Thoracic kyphoplasty. ENCOUNTER: Initial ACUITY: 1 day PAIN SCALE: 0/10 LOCATION: cranial TECHNIQUE: Volumetric scanning was performed using a multi-row detector CT scanner. The data was post processed with a variety of visualization algorithms including full volume maximum intensity projection, multi -planar sliding thin slab reformation, curved planar reformation, and surface rendering techniques. Using automated exposure control and adjustment of the mA and/or kV according to patient size, radiat ion dose was kept as low as reasonably achievable to obtain optimal diagnostic quality images. DICO M format image data is available electronically for review and comparison. FINDINGS: Examination of the anterior circulation demonstrates no evidence of aneurysm or vascular information. No intracranial stenosis is identified. The distal cerebral vessels fill normally. There is a hypopl astic A1 segment on the right. There is a origin of the posterior cerebral artery on the right. The right vertebral artery is not visualized. The left vertebral artery and basilar segment are paten t. CONCLUSION: 1. Unremarkable CT angiography of the brain. Mark Kirkland MD on May 23, 2017 at 1:59 Board Certified Radiologist. This report was verified electronically.
--- NOTE | 2017-05-23 02:16 | RADRPT ---
EXAM DATE/TIME: 05/23/2017 00:05 [place] COMPARISON: US CAROTID ARTERIES, May 22, 2017, 13:10. CTA CAROTID ARTERIES W 3D RECON, December 31, 2014, 18:18 . INDICATIONS : Evaluate for stenosis. Abnormal carotid ultrasound. IV CONTRAST: 100 cc Omnipaque 350 (iohexol) IV ; Cumulative dose for multiple exams. RADIATION DOSE: 13.74 CTDIvol (mGy) ; Combined studies MEDICAL HISTORY : Cerebrovascular disease. Hypertension. Chronic obstructive pulmonary disease. Gastroesophageal reflux disease. Thyroid disease. Cerebrovascular accident. Myocardial infarction. Abdominal aortic aneurysm . Hypercholesterolemia. Hypertension. Fibromyalgia. Osteoporosis. Cervical cancer. Right breast cance r. SURGICAL HISTORY : Appendectomy. Mastectomy, right. Hysterectomy. Cardiac catheterization. Thoracic kyphoplasty. ENCOUNTER: Initial ACUITY: 1 day PAIN SCALE: 0/10 LOCATION: neck Elevated flow velocities and ICA/CCA ratios have been found to correlate with increased degrees of vessel stenosis, calculated as percentage of diameter relative to a normal segment of distal ICA/CCA. TECHNIQUE: Volumetric scanning was performed using a multirow detector CT scanner. The data was post processed with a variety of visualization algorithms including full-volume maximum intensity projection, multip lanar sliding thin-slab reformation, curved-planar reformation, and surface-rendering techniques. Us ing automated exposure control and adjustment of the mA and/or kV according to patient size, radiatio n dose was kept as low as reasonably achievable to obtain optimal diagnostic quality images. DICOM f ormat image data is available electronically for review and comparison. FINDINGS: No abnormality is identified within the lung apices. There is normal origin of vessels from the arch without evidence of proximal stenosis. There is extensive atherosclerotic disease involving the trans verse arch. The right vertebral artery is not visualized with a patent left vertebral artery Examination of the right common carotid artery demonstrates the vessel to be widely patent. There is greater than 90% stenosis at the origin of the right internal carotid artery with extensive calcific plaque present. More distally the cervical internal carotid artery is intact. Examination of the left common carotid artery demonstrates the vessel to be widely patent. There is g reater than 80% stenosis at the origin of the left internal carotid artery. Extensive calcific plaque is present More distally the cervical internal carotid artery is intact. Percent stenosis is calculated using the diameter of the stenotic region over the diameter of the nor mal distal internal carotid artery. CONCLUSION: 1. High grade stenosis bilaterally 90% on the right and 80% on the left. Extensive calcific plaque is present Mark Kirkland MD on May 23, 2017 at 2:07 Board Certified Radiologist. This report was verified electronically.
[2017-05-23] MEDS: SODIUM CHLOR 0.9% 1000 ML INJ 1,000 ML IV SCH (05:32)
[2017-05-23] MEDS: INSULIN ASPART SUPPLEMENTAL SCALE SQ SCH ×4 (08:00→20:21)
[2017-05-23] MEDS: LACTOBACILLUS ACIDOPHILUS TAB PO SCH ×3 (08:31→17:36)
[2017-05-23] MEDS: ASPIRIN 325 MG TAB PO SCH (08:31)
[2017-05-23] MEDS: HEPARIN SODIUM - SQ 10,000 UNITS/ML VIAL SQ SCH ×2 (08:32→20:19)
[2017-05-23] MEDS: SODIUM CHLORIDE 0.9% FLUSH 5 ML FLUSH IV FLUSH SCH ×2 (08:32→20:20)
[2017-05-23] MEDS: ACETAMINOPHEN/HYDROcodone 325 MG/5 MG TAB PO PRN ×2 (08:36→18:46)
[2017-05-23 09:26] LABS: HDL CHOLESTEROL 26.2 MG/DL (40.0-60.0)
[2017-05-23] MEDS ORDERED: ATORVASTATIN 40 MG TAB PO ONE (10:15)
--- NOTE | 2017-05-23 11:42 | HHI.PR ---
Subjective Remarks No acute deterioration since last night. Patient herself denies any persistent focal weakness in the left arm but says that overall she feels weaker and more short of breath today. She does admit to having COPD and does admit to having a runny nose and a cold for the past few days prior to admission. She denies any recurrent symptoms of double vision or acute visual loss in the last 24 hours. She does mention something about drooling at home from the right side of her mouth over the last 2 weeks intermittently, says she has not drooled since coming to the hospital. Objective Vital Signs Date Time Temp Pulse Resp B/P (MAP) Pulse Ox O2 Delivery O2 Flow Rate FiO2 05/23/17 09:36 18 05/23/17 08:00 95 Room Air 05/23/17 08:00 97.4 77 20 148/65 (92) 95 05/23/17 07:49 95 21 05/23/17 04:00 97.6 79 18 143/65 (91) 93 05/23/17 00:00 97.6 74 18 118/58 (78) 95 05/22/17 23:45 95 Nasal Cannula 2.00 05/22/17 20:35 92 21 05/22/17 20:00 92 Room Air 05/22/17 20:00 74 05/22/17 20:00 96.3 65 18 112/57 (75) 94 05/22/17 16:00 97.2 68 20 110/61 (77) 94 05/22/17 12:00 99.7 80 18 142/64 (90) 95 I/O 05/22/17 05/22/17 05/22/17 05/23/17 05/23/17 05/23/17 07:00 15:00 23:00 07:00 15:00 23:00 Intake Total 100 ml 550 ml 240 ml Output Total 450 ml Balance 100 ml 550 ml -210 ml Intake Oral 0 ml 550 ml 240 ml IV Total 100 ml Output Urine Total 450 ml # Voids 1 2 1 # Bowel Movements 0 0 0 Result Diagram: 05/21/17232405/21/172324 Objective Remarks Extracted motions intact, pupils equal and reactive bilaterally, symmetrical face he's, no facial droop, no slurred speech, uvula and tongue are in midline Has 4 out of 5 strength bilaterally in proximal upper and lower extremities with no focal weakness appreciated on either side Unable to appreciate any carotid bruits bilaterally, instead I hear expiratory wheezing which is likely being transmitted from her airway Mildly labored abdominal breathing with mild expiratory wheezing over lung french bilaterally, no conversive dyspnea A/P Assessment and Plan Assessment and plan 72-year-old female admitted secondary to left arm weakness and numbness, with possible UTI. Left arm weakness - resolved History of TIA MRI showing questionable left-sided lesion which may or may not be infarct, but per neurology does not correlate with the patient's symptoms However there is significant carotid atherosclerosis which is a new finding, discussed case with vascular surgery, if patient is okay with at least the consultation, will transfer patient over to main unit continue Plavix (per neurology), aspirin, and Lipitor Shortness of breath - new problem - Suspect COPD exacerbation, will start patient on 125 g every 8 hours of starting Medrol, plan to taper tomorrow - Starting duo nebs possible UTI Rocephin Follow urine cultures - still pending, needs to stop Rocephin once culture shows no growth May be contributory to neurologic changes Hypertension completed permissive HTN window, will stop permissive HTN and now control pressures w/ home BPs Abdominal aortic aneurysm Osteoarthritis Asthma Gen. anxiety disorder History of right breast cancer History of cervical cancer Coronary artery disease Hyperlipidemia COPD History of CVA Fibromyalgia Gastroesophageal reflux disease History of gastric bleed Headaches Chronic back pain History of melanoma hand, removed Myocardial infarction history History of radiation therapy Hypothyroidism Peptic ulcer No acute changes of these chronic conditions Follow clinically No change to baseline treatments DVT Prophylaxis heparin Negrito Tay MD May 23, 2017 11:42
[2017-05-23] MEDS: methylPREDNISolone SOD SUCC 125 MG/2 ML VIAL IV PUSH SCH ×2 (12:21→20:20)
--- NOTE | 2017-05-23 17:24 | HHI.PR ---
Review/Management Daily Summary 05/23 Patient not seen today but ct angio results reviewed Hospitalist note seen Agree with vascular surgery consultation, would suggest Right CEA first due to tia sx involving left upper extremity Subjective Active Medications Current Medications Medications (Trade) Dose Ordered Sig/Carlo Route Start Time Stop Time Status Last Admin (NS Flush) 2 ml BID IV FLUSH 05/22/17 09:00 05/22/17 20:38 (NS Flush) 2 ml UNSCH PRN IV FLUSH 05/22/17 01:30 Sodium Chloride 1,000 ml @ 70 mls/hr [id number] IV 05/22/17 01:29 05/23/17 05:32 (NovoLOG SUPPLEMENTAL SCALE) 1 ACHS SQ 05/22/17 08:00 (D50w (Vial) Inj) 50 ml UNSCH PRN IV PUSH 05/22/17 01:30 (Glucagon Inj) 1 mg UNSCH PRN OTHER 05/22/17 01:30 (Heparin Inj) 5,000 units Q12HR SQ 05/22/17 09:00 05/23/17 08:32 (Lactinex) 1 tab TID PO 05/22/17 13:00 05/23/17 12:21 ([place] 5-325 Mg) 1 tab Q4H PRN PO 05/22/17 14:45 05/23/17 08:36 ([place] 10-325 Mg) 1 tab Q4H PRN PO 05/22/17 14:45 (Aspirin) 325 mg DAILY PO 05/23/17 09:00 05/23/17 08:31 (Lipitor) 40 mg HS PO 05/24/17 21:00 (SoluMEDROL INJ) 125 mg Q8H IV PUSH 05/23/17 12:00 05/23/17 12:21 Allergies Allergies Coded Allergies doxycycline (Unverified Allergy, Severe, SHORTNESS OF BREATH, 02/28/17) minocycline (Unverified Allergy, Severe, SHORTNESS OF BREATH, 02/28/17) oxycodone (Unverified Allergy, Severe, UNKNOWN, 02/28/17) penicillin G (Unverified Allergy, Severe, SHORTNESS OF BREATH, 02/28/17) tetanus toxoid, adsorbed (Unverified Allergy, Severe, SHORTNESS OF BREATH, ) tigecycline (Unverified Allergy, Severe, SHORTNESS OF BREATH, 02/28/17) diazepam (Unverified Adverse Reaction, Intermediate, HYPER, 02/28/17) Uncoded Allergies PAPER TAPE ( Allergy, Severe, SKIN BLISTERS, 05/17/16) Exam I&O / VS Vital Signs Date Time Temp Pulse Resp B/P (MAP) Pulse Ox O2 Delivery O2 Flow Rate FiO2 05/23/17 16:00 97.8 76 18 142/70 (94) 95 05/23/17 12:00 97.2 74 20 151/66 (94) 94 05/23/17 09:36 18 05/23/17 08:00 95 Room Air 05/23/17 08:00 97.4 77 20 148/65 (92) 95 05/23/17 07:49 95 21 05/23/17 04:00 97.6 79 18 143/65 (91) 93 05/23/17 00:00 97.6 74 18 118/58 (78) 95 05/22/17 23:45 95 Nasal Cannula 2.00 05/22/17 20:35 92 21 05/22/17 20:00 92 Room Air 05/22/17 20:00 74 05/22/17 20:00 96.3 65 18 112/57 (75) 94 Objective Micro and Labs Laboratory Tests Test 05/23/17 06:47 Triglycerides Level 162 Cholesterol Level 117 LDL Cholesterol 58 HDL Cholesterol 26.2 Cholesterol/HDL Ratio 4.46 Date/Time Source Procedure Growth Status 05/22/17 01:50 Blood Peripheral Aerobic Blood Culture - Preliminary NO GROWTH IN 1 DAY Resulted 05/22/17 01:50 Blood Peripheral Anaerobic Blood Culture - Preliminary NO GROWTH IN 1 DAY Resulted 05/22/17 00:00 Urine Clean Catch Urine Culture - Final 50-100,000 CFU/ML MIXED GRAM POSITIVE... Complete Rolando Lee MD May 23, 2017 17:24
[2017-05-23] MEDS ORDERED: SODIUM CHLOR 0.9% 1000 ML INJ 1,000 ML IV ONE (17:30)
[2017-05-23] MEDS: LEVOTHYROXINE SODIUM 112 MCG TAB PO SCH (18:15)
[2017-05-23] MEDS ORDERED: TIOTROPIUM BROMIDE 18 MCG INH INH SCH (18:15)
[2017-05-23] MEDS ORDERED: CARVEDILOL 3.125 MG TAB PO SCH (18:30)
[2017-05-23] MEDS: CARVEDILOL 3.125 MG TAB PO SCH (20:19)
[2017-05-23] MEDS: ATORVASTATIN 40 MG TAB PO SCH (20:20)
[2017-05-24] VITALS (9 sets, daily range): BP systolic 108–139; BP diastolic 53–61; PULSE 69–88; RESP 18–24; TEMP 97.9–98.8; O2SAT 91–96
[2017-05-24] MEDS: ACETAMINOPHEN/HYDROcodone 325 MG/5 MG TAB PO PRN ×2 (03:28→08:25)
[2017-05-24] MEDS: TIOTROPIUM BROMIDE 18 MCG INH INH SCH ×2 (03:31→08:17)
[2017-05-24] MEDS: LEVOTHYROXINE SODIUM 112 MCG TAB PO SCH (05:12)
[2017-05-24] MEDS: methylPREDNISolone SOD SUCC 125 MG/2 ML VIAL IV PUSH SCH (05:13)
[2017-05-24 07:07] LABS: BICARBONATE 22.9 MEQ/L (21.0-32.0)
[2017-05-24] MEDS: ASPIRIN 325 MG TAB PO SCH (08:17)
[2017-05-24] MEDS: CARVEDILOL 3.125 MG TAB PO SCH ×2 (08:17→21:41)
[2017-05-24] MEDS: HEPARIN SODIUM - SQ 10,000 UNITS/ML VIAL SQ SCH ×2 (08:17→21:42)
[2017-05-24] MEDS: LACTOBACILLUS ACIDOPHILUS TAB PO SCH ×3 (08:17→18:05)
[2017-05-24] MEDS: INSULIN ASPART SUPPLEMENTAL SCALE SQ SCH ×4 (08:18→21:00)
[2017-05-24] MEDS: SODIUM CHLORIDE 0.9% FLUSH 5 ML FLUSH IV FLUSH SCH ×2 (08:18→21:00)
--- NOTE | 2017-05-24 08:32 | HHI.PR ---
Subjective Remarks in no distress. no weakness of the left arm. no new complaints. d/w the RN and no acute issues over night. Objective Vitals Vital Signs Date Time Temp Pulse Resp B/P (MAP) Pulse Ox O2 Delivery O2 Flow Rate FiO2 05/24/17 04:00 98.2 80 20 125/58 (80) 94 05/24/17 00:00 97.9 80 24 139/60 (86) 95 05/23/17 21:24 Room Air 05/23/17 21:00 97.4 76 22 168/70 (102) 94 05/23/17 20:45 94 21 05/23/17 20:00 97.2 78 18 137/64 (88) 93 05/23/17 20:00 93 Room Air 05/23/17 16:00 97.8 76 18 142/70 (94) 95 05/23/17 12:00 97.2 74 20 151/66 (94) 94 05/23/17 09:36 18 I/O 05/23/17 05/23/17 05/23/17 05/24/17 05/24/17 05/24/17 06:59 14:59 22:59 06:59 14:59 22:59 Intake Total 240 ml 575 ml 800 ml 440 ml Output Total 450 ml 600 ml Balance -210 ml 575 ml 800 ml -160 ml Intake Oral 240 ml 575 ml 440 ml IV Total 800 ml Output Urine Total 450 ml 600 ml # Voids 1 3 2 # Bowel Movements 0 0 Result Diagram: 05/21/17 2325 05/24/17 0600 Imaging Last Impressions Head CTA 05/23/17 0028 Signed Impressions: Service Date/Time: Tuesday, May 23, 2017 00:05 - CONCLUSION: 1. Unremarkable CT angiography of the brain. Mark Kirkland MD Neck CTA 05/23/17 0000 Signed Impressions: Service Date/Time: Tuesday, May 23, 2017 00:05 - CONCLUSION: 1. High grade stenosis bilaterally 90%% on the right and 80%% on the left. Extensive calcific plaque is present Mark Kirkland MD Head Magnetic Resonance Angiography 05/22/17 0000 Signed Impressions: Service Date/Time: Monday, May 22, 2017 11:32 - CONCLUSION: Atherosclerotic disease as described above. Significant disease in the carotid siphon on the left. Dennis Dumont MD FACR Carotid Artery Ultrasound 05/22/17 0000 Signed Impressions: Service Date/Time: Monday, May 22, 2017 13:10 - CONCLUSION: Hemodynamically significant stenosis slightly worse on the left than the right. CT angiogram would be of benefit. Dennis Dumont MD FACR Brain MRI 05/22/17 0000 Signed Impressions: Service Date/Time: Monday, May 22, 2017 11:32 - CONCLUSION: 1. Tiny punctate restricted effusion along the left insular cortex but uncertain if this is related to acute lacunar infarct versus artifact. 2. No midline shift or mass effect. 3. Nonspecific white matter changes. Lawrence Ramirez MD Chest X-Ray 05/21/17 2342 Signed Impressions: Service Date/Time: Sunday, May 21, 2017 23:50 - CONCLUSION: 1. No acute cardiopulmonary disease. Mark Kirkland MD Head CT 05/21/17 0000 Signed Impressions: Service Date/Time: Sunday, May 21, 2017 22:45 - CONCLUSION: 1. No evidence of acute intracranial pathology. No masses are identified. Mark Kirkland MD Objective Remarks GENERAL: This is a well-nourished, well-developed patient, in no apparent distress. CARDIOVASCULAR: Regular rate and regular rhythm without murmurs, gallops, or rubs. RESPIRATORY: Clear to auscultation. Breath sounds equal bilaterally. No wheezes , rales, or rhonchi. GASTROINTESTINAL: Abdomen soft, non-tender, nondistended. Normal, active bowel sounds MUSCULOSKELETAL: Extremities without clubbing, cyanosis, or edema. NEURO: Alert & Oriented x4 to person, place, time, situation. Moves all ext x4 Medications and IVs Current Medications Sodium Chloride (NS Flush) 2 ml UNSCH PRN IVF FLUSH AFTER USING IV ACCESS; Start 05/21/17 at 23:45; Stop 05/22/17 at 01:36; Status DC Acetaminophen (Tylenol) 650 mg ONCE ONCE PO Last administered on 05/22/17 00: 10; Start 05/22/17 at 00:15; Stop 05/22/17 at 00:16; Status DC Ceftriaxone Sodium 1000 mg/ Sodium Chloride 100 ml @ 200 mls/hr ONCE ONCE IV Last administered on 05/22/17 01:49; Start 05/22/17 at 01:15; Stop 05/22/17 at 01:44; Status DC IV Flush (NS Flush) 2 ml BID IV FLUSH Last administered on 05/23/17 20:20; Start 05/22/17 at 09:00 IV Flush (NS Flush) 2 ml UNSCH PRN IV FLUSH FLUSH AFTER USING IV ACCESS; Start 05/22/17 at 01:30 Sodium Chloride 1,000 ml @ 70 mls/hr [id number] IV Last administered on 05:32; Start 05/22/17 at 01:29; Stop 05/23/17 at 18:14; Status DC Insulin Aspart (NovoLOG SUPPLEMENTAL SCALE) 1 ACHS SQ Last administered on 05/23 20:21; Start 05/22/17 at 08:00 Dextrose (D50w (Vial) Inj) 50 ml UNSCH PRN IV PUSH HYPOGLYCEMIA-SEE COMMENTS; Start 05/22/17 at 01:30 Glucagon (Glucagon Inj) 1 mg UNSCH PRN OTHER HYPOGLYCEMIA-SEE COMMENTS; Start 05/22/17 at 01:30 Heparin Sodium (Porcine) (Heparin Inj) 5,000 units Q12HR SQ Last administered on 05/23/17 20:19; Start 05/22/17 at 09:00 Lactobacillus Acidophilus (Lactinex) 1 tab TID PO Last administered on 17:36; Start 05/22/17 at 13:00 Acetaminophen (Tylenol) 500 mg Q6H PRN PO Headache Last administered on 12:47; Start 05/22/17 at 12:00; Stop 05/22/17 at 14:37; Status DC Acetaminophen/ Hydrocodone Bitart ([place] 5-325 Mg) 1 tab Q4H PRN PO Pain 3 to 6 Last administered on 05/24/17 03:28; Start 05/22/17 at 14:45 Acetaminophen/ Hydrocodone Bitart ([place] 10-325 Mg) 1 tab Q4H PRN PO Pain 7 to 10; Start 05/22/17 at 14:45 Aspirin (Aspirin) 325 mg DAILY PO Last administered on 05/23/17 08:31; Start 05/23/17 at 09:00 Clopidogrel Bisulfate (Plavix) 75 mg ONCE ONCE PO Last administered on 20:36; Start 05/22/17 at 19:45; Stop 05/22/17 at 19:51; Status DC Iohexol (Omnipaque 350 Inj) 100 ml STK-MED ONCE IVCONTRAST Last administered on 05/23/17 00:15; Start 05/23/17 at 00:15; Stop 05/23/17 at 01:36; Status DC Atorvastatin Calcium (Lipitor) 40 mg ONCE ONCE PO Last administered on 10:53; Start 05/23/17 at 10:15; Stop 05/23/17 at 10:16; Status DC Atorvastatin Calcium (Lipitor) 40 mg HS PO ; Start 05/24/17 at 21:00; Stop 05/24 at 21:00; Status DC Methylprednisolone Sodium Succinate (SoluMEDROL INJ) 125 mg Q8H IV PUSH Last administered on 05/24/17 05:13; Start 05/23/17 at 12:00 Sodium Chloride 1,000 ml @ 999 mls/hr BOLUS ONCE IV ; Start 05/23/17 at 17:30 ; Stop 05/23/17 at 18:14; Status DC Atorvastatin Calcium (Lipitor) 40 mg HS PO Last administered on 05/23/17 20:20 ; Start 05/23/17 at 21:00 Levothyroxine Sodium (Synthroid) 112 mcg DAILY@0600 PO Last administered on 05:12; Start 05/23/17 at 18:15 Tiotropium [place] (Spiriva Inh) 18 mcg DAILY INH ; Start 05/23/17 at 18:15; Stop 05/23/17 at 18:41; Status DC Carvedilol (Coreg) 3.125 mg BID PO ; Start 05/23/17 at 18:30; Stop 05/23/17 at 18:39; Status DC Tiotropium [place] (Spiriva Inh) 18 mcg DAILY INH Last administered on 03:31; Start 05/23/17 at 21:00 Carvedilol (Coreg) 3.125 mg BID PO Last administered on 05/23/17 20:19; Start 05/23/17 at 21:00 A/P Problem List: (1) Left arm weakness ICD Code: R29.898 - Other symptoms and signs involving the musculoskeletal system (2) Left arm numbness ICD Code: R20.0 - Anesthesia of skin (3) UTI (urinary tract infection) ICD Code: N39.0 - Urinary tract infection, site not specified Status: Acute (4) TIA (transient ischemic attack) ICD Code: G45.9 - Transient cerebral ischemic attack, unspecified Status: Acute Assessment and Plan A/P Left arm weakness - resolved History of TIA MRI showing questionable left-sided lesion which may or may not be infarct, but per neurology does not correlate with the patient's symptoms However there is significant carotid atherosclerosis which is a new finding- vascular surgery consulted. continue aspirin, and Lipitor Shortness of breath - new problem - Suspect COPD exacerbation, will start to taper IV steroids. - cntinue duo nebs abnormal UA - however with UC with gram-positive mixed tyrone dc IV antibiotic. Hypertension resumed home meds- continue to monitor. Abdominal aortic aneurysm Osteoarthritis Asthma Gen. anxiety disorder History of right breast cancer History of cervical cancer Coronary artery disease Hyperlipidemia COPD History of CVA Fibromyalgia Gastroesophageal reflux disease History of gastric bleed Headaches Chronic back pain History of melanoma hand, removed Myocardial infarction history History of radiation therapy Hypothyroidism Peptic ulcer No acute changes of these chronic conditions Follow clinically No change to baseline treatments Discharge Planning awaiting vascular surgery evaluation. Problem Qualifiers (1) UTI (urinary tract infection): Qualified Codes: N39.0 - Urinary tract infection, site not specified (2) TIA (transient ischemic attack): Qualified Codes: G45.9 - Transient cerebral ischemic attack, unspecified Davide Holman MD May 24, 2017 08:32
--- NOTE | 2017-05-24 12:00 | PD.VS.CON ---
History of Present Illness Chief Complaint: Carotid Stenosis Consult Requested by: Dr. Tay History of Present Illness Pt arrived to [facility] a few days ago for sudden onset left arm weakness/ Left sided facial weakness (lasting 2H) Pt reported several episodes over the past 6M of left sided facial numbness, speech difficulties and LEFT arm weakness Pt asymptomatic at time of assessment w/o any new onset neurological deficits (AlbertoVelmacristian CISNEROS) Past/Family/Social History Past Medical History Abdominal aortic aneurysm Osteoarthritis Asthma Gen. anxiety disorder History of right breast cancer History of cervical cancer Coronary artery disease History of TIA Hyperlipidemia next line COPD History of CVA Fibromyalgia Gastroesophageal reflux disease History of gastric bleed Headaches Hypertension Chronic back pain History of melanoma hand, removed Myocardial infarction History of radiation therapy Hypothyroidism Peptic ulcer Past Surgical History Appendectomy Hysterectomy Mastectomy of right breast Social History Current daily smoker Lives with her granddaughter (Velma Dominguez Rosalino CISNEROS) Home Medications Reported Medications Acetaminophen (Tylenol) 325 Mg Tab, 500 MG PO ONCE Y for prn, #1 TAB 0 Refills 05/21/17 Isosorbide Mononitrate ER (Isosorbide Mononitrate ER) 60 Mg Tab, 60 MG PO DAILY for Prevent Chest Pain, #30 TAB 0 Refills 05/21/17 Omeprazole Magnesium (Prilosec) 20 Mg Tab, DAILY 05/21/17 Aspirin (Aspirin Children's) 81 Mg Chew, 81 MG CHEW DAILY, TAB 0 Refills 05/21/17 Amlodipine (Amlodipine) 10 Mg Tab, 10 MG PO DAILY for Blood Pressure Management , #30 TAB 0 Refills 05/17/16 Enalapril (Enalapril) 10 Mg Tab, 10 MG PO DAILY, #30 TAB 0 Refills 05/17/16 Levothyroxine (Synthroid) 112 Mcg Tab, 112 MCG PO DAILY for Thyroid, #30 TAB 0 Refills 05/17/16 Carvedilol (Coreg) 3.125 Mg Tab, 3.125 MG PO DAILY, #60 TAB 0 Refills 05/17/16 Atorvastatin (Atorvastatin) 40 Mg Tab, 40 MG PO HS for Cholesterol Management, # 30 TAB 0 Refills 05/17/16 Tiotropium Inh (Spiriva Handihaler) 18 Mcg Cap, 18 MCG INH DAILY for COPD, #30 CAP 0 Refills 1 capsule = 18 mcg 05/17/16 Discontinued Scripts Triamcinolone Topical (Triamcinolone Topical) 0.025% Cream, 1 APPLIC TOPICAL Q12HR for Inflammation, #1 TUBE 0 Refills Prov:Wellington Boss MD 05/17/16 Sulfamethoxazole-Trimethoprim (Bactrim DS) 800-160 Mg Tab, 1 TAB PO BID for Infection, #20 TAB 0 Refills Prov:Wellington Boss MD 05/17/16 Coded Allergies: doxycycline (Unverified Allergy, Severe, SHORTNESS OF BREATH, 02/28/17) minocycline (Unverified Allergy, Severe, SHORTNESS OF BREATH, 02/28/17) oxycodone (Unverified Allergy, Severe, UNKNOWN, 02/28/17) penicillin G (Unverified Allergy, Severe, SHORTNESS OF BREATH, 02/28/17) tetanus toxoid, adsorbed (Unverified Allergy, Severe, SHORTNESS OF BREATH , 02/28/17) tigecycline (Unverified Allergy, Severe, SHORTNESS OF BREATH, 02/28/17) diazepam (Unverified Adverse Reaction, Intermediate, HYPER, 02/28/17) Uncoded Allergies: PAPER TAPE (Allergy, Severe, SKIN BLISTERS, 05/17/16) . Physical Exam Vitals/I&O Date Time Temp Pulse Resp B/P (MAP) Pulse Ox O2 Delivery O2 Flow Rate FiO2 05/24/17 08:12 Room Air 05/24/17 08:12 69 05/24/17 08:00 98.3 81 18 109/53 (71) 91 05/24/17 04:00 98.2 80 20 125/58 (80) 94 05/24/17 00:00 97.9 80 24 139/60 (86) 95 05/23/17 21:24 Room Air 05/23/17 21:00 97.4 76 22 168/70 (102) 94 05/23/17 20:45 94 21 05/23/17 20:00 97.2 78 18 137/64 (88) 93 05/23/17 20:00 93 Room Air 05/23/17 16:00 97.8 76 18 142/70 (94) 95 05/23/17 12:00 97.2 74 20 151/66 (94) 94 05/24/17 05/24/17 05/24/17 07:00 15:00 23:00 Intake Total 440 ml Output Total 600 ml Balance -160 ml Neuro: A&OX3 No neurological deficits present Neck: NO JVD distention Heart: Holosystolic ejection murmur present Lungs: CTA (Velma Dominguez) Laboratory Tests Test 05/24/17 06:00 Blood Urea Nitrogen 12 Creatinine 0.99 Random Glucose 152 Calcium Level 9.3 Sodium Level 135 Potassium Level 4.0 Chloride Level 101 Carbon Dioxide Level 22.9 Anion Gap 11 Estimat Glomerular Filtration Rate 55 Date/Time Source Procedure Growth Status 05/22/17 01:50 Blood Peripheral Aerobic Blood Culture - Preliminary NO GROWTH IN 2 DAYS Resulted 05/22/17 01:50 Blood Peripheral Anaerobic Blood Culture - Preliminary NO GROWTH IN 2 DAYS Resulted 05/22/17 00:00 Urine Clean Catch Urine Culture - Final 50-100,000 CFU/ML MIXED GRAM POSITIVE... Complete Last 48 hours Impressions Head CTA 05/23/17 0028 Signed Impressions: Service Date/Time: Tuesday, May 23, 2017 00:05 - CONCLUSION: 1. Unremarkable CT angiography of the brain. Mark Kirkland MD Neck CTA 05/23/17 0000 Signed Impressions: Service Date/Time: Tuesday, May 23, 2017 00:05 - CONCLUSION: 1. High grade stenosis bilaterally 90%% on the right and 80%% on the left. Extensive calcific plaque is present Mark Kirkland MD (Velma Dominguez) Assessment and Plan Assessment: (1) Carotid stenosis, bilateral (2) TIA (transient ischemic attack) Status: Acute Plan 72/F with recurrent LEFT sided arm/facial weakness and speech deficit over the past 6M Most recent several days ago (lasting 2H) Reviewed CTA with Dr. Moran Pt with symptomatic RIGHT sided carotid stenosis Plan Discussed and reviewed CTA results w/ patient and R CEA surgical intervention Dr. Moran offered a R CEA Pt agrees w/ plan Questions answered Consent signed and placed in the chart Pt scheduled for tomorrow AM w/ Dr. Moran (R CEA) Pt NPO after midnight Velma CISNEROS [facility] [phone] (Velma Dominguez) Plan Symptomatic R carotid stenosis, manifesting as recurrent L UE TIA. CTA reviewed - high grade calcific stenosis. Discsused CEA with the patient. Will plan for tomorrow. Samy Moran MD FACS RPVI pasteurizer helper [facility] at [facility] [phone] (Samy Moran MD) Problem Qualifiers (1) TIA (transient ischemic attack): Qualified Codes: G45.9 - Transient cerebral ischemic attack, unspecified Velma Dominguez May 24, 2017 12:00 Samy Moran MD May 24, 2017 16:02
[2017-05-24] MEDS: methylPREDNISolone SOD SUCC 40 MG/1 ML VIAL IV PUSH SCH ×2 (12:03→21:42)
[2017-05-24] MEDS ORDERED: ALUMINUM/MAGNESIUM/SIMETH 30 ML CUP PO SCH (16:00)
[2017-05-24] MEDS: PANTOPRAZOLE SOD 40 MG DELAYED RELEASE TAB PO SCH (18:14)
[2017-05-24] MEDS ORDERED: ALUMINUM/MAGNESIUM/SIMETH 30 ML CUP PO PRN (18:15)
[2017-05-24] MEDS ORDERED: ATORVASTATIN 40 MG TAB PO SCH (21:00)
[2017-05-24] MEDS: ATORVASTATIN 40 MG TAB PO SCH (21:40)
[2017-05-25] VITALS (12 sets, daily range): BP systolic 108–166; BP diastolic 49–89; PULSE 43–86; RESP 18–20; TEMP 96.8–98.6; O2SAT 88–97
[2017-05-25] MEDS ORDERED: SODIUM CHLORID 0.9% 500 ML IV PRN (03:00)
[2017-05-25] MEDS ORDERED: POVIDONE IODINE 5% (ANTISEPSIS KIT) 4 APPLICATIONS EACH NARE PRN (03:00)
[2017-05-25] MEDS ORDERED: LACTATED RINGER'S 1000 ML IV PRN (03:00)
[2017-05-25] MEDS ORDERED: CHLORHEXIDINE GLUCONATE 2 % 1 PACK (2 CLOTHS) TOPICAL PRN (03:00)
[2017-05-25] MEDS: LEVOTHYROXINE SODIUM 112 MCG TAB PO SCH (05:38)
[2017-05-25] MEDS: methylPREDNISolone SOD SUCC 40 MG/1 ML VIAL IV PUSH SCH ×2 (05:38→22:13)
[2017-05-25] MEDS ORDERED: NITROGLYCERIN-D5W 50 MG/250 ML 250 ML ONE (06:59)
--- NOTE | 2017-05-25 07:54 | HHI.PR ---
Subjective Remarks resting comfortably with no distress. denies pain. no focal weakness or numbness. awaiting vascular intervention. Objective Vitals Vital Signs Date Time Temp Pulse Resp B/P (MAP) Pulse Ox O2 Delivery O2 Flow Rate FiO2 05/25/17 04:00 98.3 72 20 108/52 (70) 96 05/25/17 00:00 98.6 86 20 115/89 (98) 96 05/24/17 20:35 92 05/24/17 20:15 75 05/24/17 20:15 Room Air 21 05/24/17 20:00 98.2 88 22 110/57 (74) 96 05/24/17 16:00 97.9 75 18 131/60 (83) 91 05/24/17 15:51 Room Air 05/24/17 12:00 98.8 83 18 108/61 (77) 94 05/24/17 08:12 Room Air 05/24/17 08:12 69 05/24/17 08:00 98.3 81 18 109/53 (71) 91 I/O 05/24/17 05/24/17 05/24/17 05/25/17 05/25/17 05/25/17 07:00 15:00 23:00 07:00 15:00 23:00 Intake Total 440 ml 720 ml Output Total 600 ml Balance -160 ml 720 ml Intake Oral 440 ml 720 ml Output Urine Total 600 ml # Voids 2 1 # Bowel Movements 0 1 Result Diagram: 05/21/17 2325 05/24/17 0600 Imaging Last Impressions Head CTA 05/23/17 0028 Signed Impressions: Service Date/Time: Tuesday, May 23, 2017 00:05 - CONCLUSION: 1. Unremarkable CT angiography of the brain. Mark Kirkland MD Neck CTA 05/23/17 0000 Signed Impressions: Service Date/Time: Tuesday, May 23, 2017 00:05 - CONCLUSION: 1. High grade stenosis bilaterally 90%% on the right and 80%% on the left. Extensive calcific plaque is present Mark Kirkland MD Head Magnetic Resonance Angiography 05/22/17 0000 Signed Impressions: Service Date/Time: Monday, May 22, 2017 11:32 - CONCLUSION: Atherosclerotic disease as described above. Significant disease in the carotid siphon on the left. Dennis Dumont MD FACR Carotid Artery Ultrasound 05/22/17 0000 Signed Impressions: Service Date/Time: Monday, May 22, 2017 13:10 - CONCLUSION: Hemodynamically significant stenosis slightly worse on the left than the right. CT angiogram would be of benefit. Dennis Dumont MD FACR Brain MRI 05/22/17 0000 Signed Impressions: Service Date/Time: Monday, May 22, 2017 11:32 - CONCLUSION: 1. Tiny punctate restricted effusion along the left insular cortex but uncertain if this is related to acute lacunar infarct versus artifact. 2. No midline shift or mass effect. 3. Nonspecific white matter changes. Lawrence Ramirez MD Chest X-Ray 05/21/17 2342 Signed Impressions: Service Date/Time: Sunday, May 21, 2017 23:50 - CONCLUSION: 1. No acute cardiopulmonary disease. Mark Kirkland MD Head CT 05/21/17 0000 Signed Impressions: Service Date/Time: Sunday, May 21, 2017 22:45 - CONCLUSION: 1. No evidence of acute intracranial pathology. No masses are identified. Mark Kirkland MD Objective Remarks GENERAL: This is a well-nourished, well-developed patient, in no apparent distress. CARDIOVASCULAR: Regular rate and regular rhythm without murmurs, gallops, or rubs. RESPIRATORY: Clear to auscultation. Breath sounds equal bilaterally. No wheezes , rales, or rhonchi. GASTROINTESTINAL: Abdomen soft, non-tender, nondistended. Normal, active bowel sounds MUSCULOSKELETAL: Extremities without clubbing, cyanosis, or edema. NEURO: Alert & Oriented x4 to person, place, time, situation. Moves all ext x4 Medications and IVs Current Medications Sodium Chloride (NS Flush) 2 ml UNSCH PRN IVF FLUSH AFTER USING IV ACCESS; Start 05/21/17 at 23:45; Stop 05/22/17 at 01:36; Status DC Acetaminophen (Tylenol) 650 mg ONCE ONCE PO Last administered on 05/22/17 00: 10; Start 05/22/17 at 00:15; Stop 05/22/17 at 00:16; Status DC Ceftriaxone Sodium 1000 mg/ Sodium Chloride 100 ml @ 200 mls/hr ONCE ONCE IV Last administered on 05/22/17 01:49; Start 05/22/17 at 01:15; Stop 05/22/17 at 01:44; Status DC IV Flush (NS Flush) 2 ml BID IV FLUSH Last administered on 05/24/17 21:00; Start 05/22/17 at 09:00 IV Flush (NS Flush) 2 ml UNSCH PRN IV FLUSH FLUSH AFTER USING IV ACCESS; Start 05/22/17 at 01:30 Sodium Chloride 1,000 ml @ 70 mls/hr [id number] IV Last administered on 05:32; Start 05/22/17 at 01:29; Stop 05/23/17 at 18:14; Status DC Insulin Aspart (NovoLOG SUPPLEMENTAL SCALE) 1 ACHS SQ Last administered on 05/24 18:05; Start 05/22/17 at 08:00 Dextrose (D50w (Vial) Inj) 50 ml UNSCH PRN IV PUSH HYPOGLYCEMIA-SEE COMMENTS; Start 05/22/17 at 01:30 Glucagon (Glucagon Inj) 1 mg UNSCH PRN OTHER HYPOGLYCEMIA-SEE COMMENTS; Start 05/22/17 at 01:30 Heparin Sodium (Porcine) (Heparin Inj) 5,000 units Q12HR SQ Last administered on 05/24/17 21:42; Start 05/22/17 at 09:00 Lactobacillus Acidophilus (Lactinex) 1 tab TID PO Last administered on 18:05; Start 05/22/17 at 13:00 Acetaminophen (Tylenol) 500 mg Q6H PRN PO Headache Last administered on 12:47; Start 05/22/17 at 12:00; Stop 05/22/17 at 14:37; Status DC Acetaminophen/ Hydrocodone Bitart ([place] 5-325 Mg) 1 tab Q4H PRN PO Pain 3 to 6 Last administered on 05/24/17 08:25; Start 05/22/17 at 14:45 Acetaminophen/ Hydrocodone Bitart ([place] 10-325 Mg) 1 tab Q4H PRN PO Pain 7 to 10; Start 05/22/17 at 14:45 Aspirin (Aspirin) 325 mg DAILY PO Last administered on 05/24/17 08:17; Start 05/23/17 at 09:00 Clopidogrel Bisulfate (Plavix) 75 mg ONCE ONCE PO Last administered on 20:36; Start 05/22/17 at 19:45; Stop 05/22/17 at 19:51; Status DC Iohexol (Omnipaque 350 Inj) 100 ml STK-MED ONCE IVCONTRAST Last administered on 05/23/17 00:15; Start 05/23/17 at 00:15; Stop 05/23/17 at 01:36; Status DC Atorvastatin Calcium (Lipitor) 40 mg ONCE ONCE PO Last administered on 10:53; Start 05/23/17 at 10:15; Stop 05/23/17 at 10:16; Status DC Atorvastatin Calcium (Lipitor) 40 mg HS PO ; Start 05/24/17 at 21:00; Stop 05/24 at 21:00; Status DC Methylprednisolone Sodium Succinate (SoluMEDROL INJ) 125 mg Q8H IV PUSH Last administered on 05/24/17 05:13; Start 05/23/17 at 12:00; Stop 05/24/17 at 08:34 ; Status DC Sodium Chloride 1,000 ml @ 999 mls/hr BOLUS ONCE IV ; Start 05/23/17 at 17:30 ; Stop 05/23/17 at 18:14; Status DC Atorvastatin Calcium (Lipitor) 40 mg HS PO Last administered on 05/24/17 21:40 ; Start 05/23/17 at 21:00 Levothyroxine Sodium (Synthroid) 112 mcg DAILY@0600 PO Last administered on 05:12; Start 05/23/17 at 18:15 Tiotropium [place] (Spiriva Inh) 18 mcg DAILY INH ; Start 05/23/17 at 18:15; Stop 05/23/17 at 18:41; Status DC Carvedilol (Coreg) 3.125 mg BID PO ; Start 05/23/17 at 18:30; Stop 05/23/17 at 18:39; Status DC Tiotropium [place] (Spiriva Inh) 18 mcg DAILY INH Last administered on 08:17; Start 05/23/17 at 21:00 Carvedilol (Coreg) 3.125 mg BID PO Last administered on 05/24/17 21:41; Start 05/23/17 at 21:00 Methylprednisolone Sodium Succinate (SoluMEDROL INJ) 40 mg Q8H IV PUSH Last administered on 05/25/17 05:38; Start 05/24/17 at 12:00 Al Hydrox/Mg Hydrox/Simethicone (Mag-Al Plus Susp Liq) 15 ml Q4H PO Last administered on 05/24/17 15:51; Start 05/24/17 at 16:00; Stop 05/24/17 at 18:07 ; Status DC Pantoprazole Sodium (Protonix) 40 mg DAILY PO Last administered on 05/24/17 18 :14; Start 05/24/17 at 18:15 Al Hydrox/Mg Hydrox/Simethicone (Mag-Al Plus Susp Liq) 15 ml Q4H PRN PO INDIGESTION Last administered on 05/24/17 21:51; Start 05/24/17 at 18:15 Lactated Ringer's 1,000 ml @ 30 mls/hr Q24H PRN IV SEE LABEL COMMENTS; Start 05/25/17 at 03:00; Stop 05/28/17 at 02:59 Sodium Chloride 500 ml @ 30 mls/hr [id number] PRN IV SEE LABEL COMMENTS; Start at 03:00; Stop 05/28/17 at 02:59 Povidone Iodine (Betadine 5% Antisepsis Kit) 1 applic CUSTOMER SUPPORT PROFESSIONAL PRN EACH NARE SEE LABEL COMMENTS; Start 05/25/17 at 03:00; Stop 05/28/17 at 02:59 Chlorhexidine Gluconate (Chlorhexidine 2% Cloth) 3 pack CUSTOMER SUPPORT PROFESSIONAL PRN TOPICAL SEE LABEL COMMENTS; Start 05/25/17 at 03:00; Stop 05/28/17 at 02:59 Nitroglycerin/ Dextrose 250 ml @ As Directed STK-MED ONCE .ROUTE ; Start at 06:59; Stop 05/25/17 at 07:00; Status DC A/P Problem List: (1) Left arm weakness ICD Code: R29.898 - Other symptoms and signs involving the musculoskeletal system (2) Left arm numbness ICD Code: R20.0 - Anesthesia of skin (3) UTI (urinary tract infection) ICD Code: N39.0 - Urinary tract infection, site not specified Status: Acute (4) TIA (transient ischemic attack) ICD Code: G45.9 - Transient cerebral ischemic attack, unspecified Status: Acute Assessment and Plan A/P Left arm weakness - resolved History of TIA MRI showing questionable left-sided lesion which may or may not be infarct, but per neurology does not correlate with the patient's symptoms However there is significant carotid atherosclerosis which is a new finding- continue aspirin, and Lipitor vascular surgery consult appreciated; plan for endarterectomy today. Shortness of breath - improved - Suspect COPD exacerbation, continue to taper IV steroids. - continue duo nebs abnormal UA - however with UC with gram-positive mixed tyrone dc'ed IV antibiotic. Hypertension resumed home meds- continue to monitor. Abdominal aortic aneurysm Osteoarthritis Asthma Gen. anxiety disorder History of right breast cancer History of cervical cancer Coronary artery disease Hyperlipidemia COPD History of CVA Fibromyalgia Gastroesophageal reflux disease History of gastric bleed Headaches Chronic back pain History of melanoma hand, removed Myocardial infarction history History of radiation therapy Hypothyroidism Peptic ulcer No acute changes of these chronic conditions Follow clinically No change to baseline treatments Discharge Planning for vascular intervention today; dc home when cleared by vascular surgery. consult case management for [facility] upon discharge. Problem Qualifiers (1) UTI (urinary tract infection): Qualified Codes: N39.0 - Urinary tract infection, site not specified (2) TIA (transient ischemic attack): Qualified Codes: G45.9 - Transient cerebral ischemic attack, unspecified Davide Holman MD May 25, 2017 07:54
[2017-05-25] MEDS ORDERED: HEPARIN SODIUM - SQ 10,000 UNITS/ML VIAL ONE (07:55)
--- NOTE | 2017-05-25 07:55 | HHI.FF ---
Face to Face Verification Diagnosis: (1) TIA (transient ischemic attack) Physical Therapy Order: Evaluate and Treat Occupational Therapy Order: Evaluate and Treat Home Health Nursing Order: Medical education Signs/symptoms of disease process Medication education-adverse effect Nursing assessment with vital signs I have seen patient Liz Peterson on 05/25/17. My clinical findings support the need for the requested home health care services because: Ltd mobility - disease progression I certify that my clinical findings support that this patient is homebound because: Unsteady gait/balance Davide Holman MD May 25, 2017 07:55
[2017-05-25] MEDS ORDERED: BUPIVACAINE HCL PF 0.5% 30 ML VIAL ONE (07:56)
[2017-05-25] MEDS ORDERED: PROTAMINE SULFATE 50 MG/5 ML VIAL ONE ×2 (07:57→08:30)
[2017-05-25] MEDS ORDERED: PRED5TAB PO (07:58)
[2017-05-25] MEDS: INSULIN ASPART SUPPLEMENTAL SCALE SQ SCH ×4 (08:00→21:00)
[2017-05-25] MEDS: CARVEDILOL 3.125 MG TAB PO SCH (08:05)
[2017-05-25] MEDS: PANTOPRAZOLE SOD 40 MG DELAYED RELEASE TAB PO SCH (08:05)
[2017-05-25] MEDS: LACTOBACILLUS ACIDOPHILUS TAB PO SCH ×2 (08:05→18:00)
[2017-05-25] MEDS: ASPIRIN 325 MG TAB PO SCH (08:20)
[2017-05-25] MEDS: SODIUM CHLORIDE 0.9% FLUSH 5 ML FLUSH IV FLUSH SCH ×2 (08:20→21:00)
[2017-05-25] MEDS: HEPARIN SODIUM - SQ 10,000 UNITS/ML VIAL SQ SCH ×2 (08:21→22:13)
[2017-05-25] MEDS: TIOTROPIUM BROMIDE 18 MCG INH INH SCH (08:22)
[2017-05-25] MEDS ORDERED: HEPARIN SODIUM - IV 10,000 UNITS/10 ML VIAL ONE (08:30)
[2017-05-25] MEDS ORDERED: HEPARIN-NS/PF INJ 500 ML ONE (08:30)
--- NOTE | 2017-05-25 08:32 | HHI.PR ---
Review/Management Daily Summary 05/23 Patient not seen today but ct angio results reviewed Hospitalist note seen Agree with vascular surgery consultation, would suggest Right CEA first due to tia sx involving left upper extremity 05/25 doing well no recurrence of sx neuro timmons going for Right CEA this am please call prn Subjective Subjective Comments No acute events reported No headache Active Medications Current Medications Medications (Trade) Dose Ordered Sig/Carlo Route Start Time Stop Time Status Last Admin (NS Flush) 2 ml BID IV FLUSH 05/22/17 09:00 05/24/17 21:00 (NS Flush) 2 ml UNSCH PRN IV FLUSH 05/22/17 01:30 (NovoLOG SUPPLEMENTAL SCALE) 1 ACHS SQ 05/22/17 08:00 05/24/17 18:05 (D50w (Vial) Inj) 50 ml UNSCH PRN IV PUSH 05/22/17 01:30 (Glucagon Inj) 1 mg UNSCH PRN OTHER 05/22/17 01:30 (Heparin Inj) 5,000 units Q12HR SQ 05/22/17 09:00 05/24/17 21:42 (Lactinex) 1 tab TID PO 05/22/17 13:00 05/25/17 08:05 ([place] 5-325 Mg) 1 tab Q4H PRN PO 05/22/17 14:45 05/24/17 08:25 ([place] 10-325 Mg) 1 tab Q4H PRN PO 05/22/17 14:45 (Aspirin) 325 mg DAILY PO 05/23/17 09:00 05/24/17 08:17 (Lipitor) 40 mg HS PO 05/23/17 21:00 05/24/17 21:40 (Synthroid) 112 mcg DAILY@0600 PO 05/23/17 18:15 05/24/17 05:12 (Spiriva Inh) 18 mcg DAILY INH 05/23/17 21:00 05/24/17 08:17 (Coreg) 3.125 mg BID PO 05/23/17 21:00 05/25/17 08:05 (Protonix) 40 mg DAILY PO 05/24/17 18:15 05/25/17 08:05 (Mag-Al Plus Susp Liq) 15 ml Q4H PRN PO 05/24/17 18:15 05/24/17 21:51 Lactated Ringer's 1,000 ml @ 30 mls/hr Q24H PRN IV 05/25/17 03:00 05/28/17 02:59 Sodium Chloride 500 ml @ 30 mls/hr [id number] PRN IV 05/25/17 03:00 05/28/17 02:59 (Betadine 5% Antisepsis Kit) 1 applic CARPORT ERECTOR PRN EACH NARE 05/25/17 03:00 05/28/17 02:59 (Chlorhexidine 2% Cloth) 3 pack CARPORT ERECTOR PRN TOPICAL 05/25/17 03:00 05/28/17 02:59 (SoluMEDROL INJ) 40 mg Q12HR IV PUSH 05/25/17 21:00 Allergies Allergies Coded Allergies doxycycline (Unverified Allergy, Severe, SHORTNESS OF BREATH, 02/28/17) minocycline (Unverified Allergy, Severe, SHORTNESS OF BREATH, 02/28/17) oxycodone (Unverified Allergy, Severe, UNKNOWN, 02/28/17) penicillin G (Unverified Allergy, Severe, SHORTNESS OF BREATH, 02/28/17) tetanus toxoid, adsorbed (Unverified Allergy, Severe, SHORTNESS OF BREATH, ) tigecycline (Unverified Allergy, Severe, SHORTNESS OF BREATH, 02/28/17) diazepam (Unverified Adverse Reaction, Intermediate, HYPER, 02/28/17) Uncoded Allergies PAPER TAPE ( Allergy, Severe, SKIN BLISTERS, 05/17/16) Exam I&O / VS Vital Signs Date Time Temp Pulse Resp B/P (MAP) Pulse Ox O2 Delivery O2 Flow Rate FiO2 05/25/17 04:00 98.3 72 20 108/52 (70) 96 05/25/17 00:00 98.6 86 20 115/89 (98) 96 05/24/17 20:35 92 05/24/17 20:15 75 05/24/17 20:15 Room Air 21 05/24/17 20:00 98.2 88 22 110/57 (74) 96 05/24/17 16:00 97.9 75 18 131/60 (83) 91 05/24/17 15:51 Room Air 05/24/17 12:00 98.8 83 18 108/61 (77) 94 Objective Micro and Labs Date/Time Source Procedure Growth Status 05/22/17 01:50 Blood Peripheral Aerobic Blood Culture - Preliminary NO GROWTH IN 2 DAYS Resulted 05/22/17 01:50 Blood Peripheral Anaerobic Blood Culture - Preliminary NO GROWTH IN 2 DAYS Resulted 05/22/17 00:00 Urine Clean Catch Urine Culture - Final 50-100,000 CFU/ML MIXED GRAM POSITIVE... Complete Rolando Lee MD May 25, 2017 08:32
[2017-05-25] MEDS ORDERED: THROMBIN (TOPICAL) 20,000 UNIT SPRAY KIT ONE (08:33)
[2017-05-25] MEDS ORDERED: CLINDAMYCIN PHOS 900 MG/6 ML VIAL ONE (09:16)
[2017-05-25] MEDS ORDERED: HEPARIN SODIUM - IV 10,000 UNITS/10 ML VIAL IV PUSH ONE (10:27)
[2017-05-25] MEDS ORDERED: BUPIVACAINE HCL PF 0.5% 30 ML VIAL INFIL ONE (10:51)
--- NOTE | 2017-05-25 11:18 | HHI.PR ---
Immediate Post Op Note Procedure Date: May 25, 2017 Pre Op Diagnosis: Symptomatic R carotid stenosis Post Op Diagnosis: Symptomatic R carotid stenosis Surgeon: Samy Moran [employer] Teachers(s): Mehdi Paz Procedure: R CEA Findings: high grade carotid stenosis Additional Information: Neuro intact after extubation Complications: none apparent Specimen(s) removed: carotid plaque, not for pathology Estimated blood loss: 50mL Anesthesia: General Drains: None Fluids: 950mL IVF Urinary Output (mLs): 75 Patient to: PACU Patient Condition: Good Implant/Devices: SEE IMPLANT LOG (if applicable) Date/Time of Procedure: SEE SURGICAL CARE RECORD Samy Moran MD May 25, 2017 11:18
[2017-05-25] MEDS: SODIUM CHLOR 0.9% 1000 ML INJ 1,000 ML IV SCH (11:35)
[2017-05-25] MEDS ORDERED: PHENYLEPHRINE HCL 10 MG/ML VIAL ONE (11:36)
[2017-05-25] MEDS: PHENYLEPHRINE 40 MG in D5W 500 ML IV PRN ×2 (11:40→20:48)
[2017-05-25] MEDS ORDERED: *morphine SULFATE 8 MG/ML PERIprocedure ONLY ONE (12:04)
[2017-05-25] MEDS ORDERED: *RESP: ALBUTEROL 2.5 MG/3 ML NEB (PRN) PERIprocedural Use ONLY NEB ONE (12:23)
[2017-05-25] MEDS ORDERED: SODIUM CHLORID 0.9% 500 ML INJ 500 ML IV ONE ×3 (12:30→13:30)
--- NOTE | 2017-05-25 12:58 | MP ---
cc: VANESSA MORAN MD DATE OF SURGERY 05/25/2017 PREOPERATIVE DIAGNOSIS Symptomatic right carotid stenosis. POSTOPERATIVE DIAGNOSIS Symptomatic right carotid stenosis. PROCEDURE Right carotid endarterectomy MEDICATIONS Vanessa Moran MD [employer] SURGEON Mehdi Paz ANESTHESIA General INDICATIONS Ms. Peterson is a 72-year-old lady who has three episodes of left arm numbness over the past week and a CT scan that showed greater than 80% right carotid stenosis. A discussion was had with the patient. She was offered a prophylactic carotid endarterectomy. DESCRIPTION OF THE PROCEDURE Informed consent obtained from the patient. She was taken to the operating room, placed supine on the operating table and an appropriate time-out was taken to ensure the patient's identity, operative site and planned procedure. The administration of 900 mg of clindamycin was initiated prior to the skin incision and will be discontinued after a single preoperative dose. Clindamycin was chosen because of the patient's PENICILLIN allergy. Everyone in the room agreed with the time-out and we proceeded. Her right neck was prepped and draped and an incision made along the anterior sternocleidomastoid and carried down through the subcutaneous tissue with electrocautery. The sternocleidomastoid was retracted laterally. The facial vein was divided between 3-0 silks and the carotid artery was identified. The common carotid artery was encircled with a vessel loop and the carotid bifurcation was dissected free, as well as superior thyroid artery. The internal carotid artery was noted to be quite tortuous, but soft distally. It was encircled with a Vesseloop. The patient systemically heparinized with 8000 units of IV heparin and the ACT was confirmed to be over 250. Proximal and distal control of the carotid artery was obtained with profunda clamps and a longitudinal arteriotomy was made with an 11 blade and extended with [place] scissors. The artery was endarterectomized without difficulty. Throughout the entire arterial clamping, there were no EEG changes on neurological monitoring. We achieved a nice distal end point and the endarterectomized artery was irrigated copiously. The bovine pericardial patch was brought up on the field and sewn on with running 5-0 Prolene suture. At the completion it was flushed and hemostatic. The clamps were released. Again, there were no neurological monitoring changes on electrical waves and hemostasis was achieved in the neck. The wound was infiltrated with Marcaine and closed with 2-0 Polysorb, 3-0 Polysorb, and 4-0 Monocryl. The sponge and needle counts were correct at the end of the case. I was present and scrubbed for the entire procedure. At the conclusion of the case, the patient was awoken and moving all extremities prior to transferring to the recovery room. MD VISHAL Mejia/LEXIE /12:19 PM /12:56 PM
--- NOTE | 2017-05-25 13:06 | PD.CONS ---
[facility] Service Critical Care Medicine Consult Requested By Dr. Moran Reason for Consult s/p Right CEA Hypotension requiring pressors Severe bilateral carotid stenosis Primary Care Physician Jhony Curtis MD History of Present Illness Patient is a 72-year-old female with past medical history significant for previous CVA/TIA, abdominal aortic aneurysm, coronary artery disease, COPD, hypertension, dyslipidemia, hypothyroidism who presented to the emergency department on 05/22/17 with symptoms of TIA. Reportedly left arm weakness. CT of the brain shows no acute stroke Patient symptoms resolved within next 24 hours. Neurology was consulted and further workup included CT angiogram of the neck which showed severe bilateral carotid stenosis right more than left. Dr. Moran was consulted and patient underwent right carotid endarterectomy today . EBL was approximately 50 mL and urine output was 75 mill for the case. Patient received 900 ML of crystalloids I examined the patient in the PACU. Target blood pressure is 140-160 and patient is borderline hypotensive. Patient has received 500 ML normal saline bolus and I have requested additional 500 ml bolus and increasing maintenance fluid to 75 ml per hour. Jl-Synephrine currently at 80 mcg/m, titrate up to keep systolic less than 140. Check CBC. Pain control seems adequate. Oxygen saturation 88-90% on nasal Review of Systems ROS Limitations: Other (as per HPI) Past Family Social History Allergies: Coded Allergies: doxycycline (Unverified Allergy, Severe, SHORTNESS OF BREATH, 02/28/17) minocycline (Unverified Allergy, Severe, SHORTNESS OF BREATH, 02/28/17) oxycodone (Unverified Allergy, Severe, UNKNOWN, 02/28/17) penicillin G (Unverified Allergy, Severe, SHORTNESS OF BREATH, 02/28/17) tetanus toxoid, adsorbed (Unverified Allergy, Severe, SHORTNESS OF BREATH , 02/28/17) tigecycline (Unverified Allergy, Severe, SHORTNESS OF BREATH, 02/28/17) diazepam (Unverified Adverse Reaction, Intermediate, HYPER, 02/28/17) Uncoded Allergies: PAPER TAPE (Allergy, Severe, SKIN BLISTERS, 05/17/16) . Past Medical History Bilateral carotid stenosis Recurrent TIA Abdominal aortic aneurysm Osteoarthritis Asthma/COPD Gen. anxiety disorder History of right breast cancer History of cervical cancer Coronary artery disease History of TIA History of CVA Fibromyalgia Gastroesophageal reflux disease History of GIB Headaches Hypertension Chronic back pain History of melanoma hand, removed Myocardial infarction Hypothyroidism Peptic ulcer Past Surgical History Appendectomy Hysterectomy Mastectomy of right breast Reported Medications Tylenol (Acetaminophen) 325 Mg Tab 500 Mg PO ONCE PRN Isosorbide Mononitrate ER (Isosorbide Mononitrate) 60 Mg Tab 60 Mg PO DAILY Prilosec (Omeprazole Magnesium) 20 Mg Tab DAILY Aspirin Children's (Aspirin) 81 Mg Chew 81 Mg CHEW DAILY Amlodipine (Amlodipine Besylate) 10 Mg Tab 10 Mg PO DAILY Enalapril (Enalapril Maleate) 10 Mg Tab 10 Mg PO DAILY Synthroid (Levothyroxine Sodium) 112 Mcg Tab 112 Mcg PO DAILY Coreg (Carvedilol) 3.125 Mg Tab 3.125 Mg PO DAILY Atorvastatin (Atorvastatin Calcium) 40 Mg Tab 40 Mg PO HS Spiriva [place] (Tiotropium Inh) 18 Mcg Cap 18 Mcg INH DAILY Active Ordered Medications Reviewed Family History Mother had CAD Social History Smokes 1 pk of cigarettes/day. No alcohol use Physical Exam Vital Signs Vital Signs Date Time Temp Pulse Resp B/P (MAP) Pulse Ox O2 Delivery O2 Flow Rate FiO2 05/25/17 12:45 51 19 143/47 (79) 97 05/25/17 12:30 51 21 129/50 (76) 98 05/25/17 12:15 51 15 135/59 (84) 93 05/25/17 12:00 56 19 133/54 (80) 91 05/25/17 11:45 59 15 110/54 (72) 93 05/25/17 11:40 59 110/54 05/25/17 11:30 64 20 97/49 (65) 90 Nasal Cannula 4 05/25/17 11:24 97.0 64 14 109/53 (71) 97 Nasal Cannula 4 05/25/17 08:20 Room Air 05/25/17 04:00 98.3 72 20 108/52 (70) 96 05/25/17 00:00 98.6 86 20 115/89 (98) 96 05/24/17 20:35 92 05/24/17 20:15 75 05/24/17 20:15 Room Air 21 05/24/17 20:00 98.2 88 22 110/57 (74) 96 05/24/17 16:00 97.9 75 18 131/60 (83) 91 05/24/17 15:51 Room Air Physical Exam GENERAL: Well-developed well-nourished female lying in bed, hypotensive on Jl- Synephrine SKIN: Warm and dry. HEAD: Atraumatic. Normocephalic. EYES: Pupils equal and round. ENT: No nasal bleeding or discharge. Airway patent NECK: Trachea midline. Right carotid endarterectomy incision C/D/I CARDIOVASCULAR: Regular rate and rhythm. RESPIRATORY: No accessory muscle use. Mild bilateral wheezing. Breath sounds equal bilaterally. GASTROINTESTINAL: Abdomen soft, non-tender, nondistended. Hepatic and splenic margins not palpable. MUSCULOSKELETAL: Extremities without clubbing, cyanosis, or edema. NEUROLOGICAL: Awake and alert. No obvious cranial nerve deficits. Motor grossly within normal limits. Laboratory Date/Time Source Procedure Growth Status 05/22/17 01:50 Blood Peripheral Aerobic Blood Culture - Preliminary NO GROWTH IN 3 DAYS Resulted 05/22/17 01:50 Blood Peripheral Anaerobic Blood Culture - Preliminary NO GROWTH IN 3 DAYS Resulted 05/22/17 00:00 Urine Clean Catch Urine Culture - Final 50-100,000 CFU/ML MIXED GRAM POSITIVE... Complete Result Diagram: 05/21/17 2325 05/24/17 0600 Assessment and Plan Assessment and Plan NEURO: Recurrent TIA/CVA Postoperative pain management - [place] when necessary for pain control - Minimize sedation - CT head negative for acute findings - Continue aspirin RESP: COPD with exacerbation Respiratory insufficiency/hypoxia Tobacco abuse - Nasal cannula oxygen, keep saturation more than 90% - Continue IV Solu-Medrol 40 mg every 12 - DuoNeb every 6 hours scheduled and when necessary - Continue Spiriva - Strongly counseled to quit smoking - Check CXR stat CV: Bilateral carotid stenosis Status post right carotid endarterectomy Hypotension on pressors - Post operative management per Dr. Moran - Normal saline IV fluids 1L bolus and 75 ml per hour - Jl-Synephrine to keep SBP 140-160 - Hold Coreg and continue aspirin and Lipitor GI: - Diet when cleared by Dr. Moran : - Monitor renal function closely. ID: - Perioperative antibiotics per Dr. Moran HEME: - Monitor CBC, CMP, coags ENDO: Prediabetes Hypothyroidism - HbA1c is 6.3 continue sliding scale - Continue levothyroxine PROPH: - Bilateral lower extremity SCDs. Subcutaneous heparin, Protonix LINES: - Utilize peripheral IVs, central line if needed CC time 35 min Code Status Full Discussed Condition With Bedside RN Viv Tomlinson MD May 25, 2017 13:06
[2017-05-25] MEDS ORDERED: RESP: ALBUTEROL 2.5 MG/IPRATROPIUM 0.5 MG NEB (PRN) NEB (13:15)
[2017-05-25] MEDS ORDERED: SODIUM CHLOR 0.9% 1000 ML INJ 1,000 ML IV SCH (13:30)
[2017-05-25] MEDS: RESP: ALBUTEROL 2.5 MG/IPRATROPIUM 0.5 MG NEB (SCH) NEB ×2 (14:02→21:17)
--- NOTE | 2017-05-25 15:37 | RADRPT ---
EXAM DATE/TIME: 05/25/2017 14:24 [facility] COMPARISON: CHEST SINGLE AP, May 21, 2017, 23:50. INDICATIONS : Evaluate for respiratory disease. MEDICAL HISTORY : Chronic obstructive pulmonary disease. Cerebrovascular disease. Hypertension. SURGICAL HISTORY : Appendectomy. Hysterectomy. Mastectomy, right. Cardiac catheterization.Thoracic kyphoplasty. ENCOUNTER: Subsequent ACUITY: 4 - 6 days PAIN SCORE: 0/10 LOCATION: Bilateral chest FINDINGS: Portable AP view of the chest demonstrates a normal-sized cardiac silhouette. Lungs are underinflated with mild bibasilar opacity. No pleural effusion or pneumothorax is identified. EKG lines overlie th e patient. There has been prior multilevel vertebroplasty. CONCLUSION: Underinflation and mild bibasilar airspace opacity representing either atelectasis or airspace consol idation. Davi Payne MD on May 25, 2017 at 15:34 Board Certified Radiologist. This report was verified electronically.
[2017-05-25 16:08] LABS: AUTOMATED NEUTROPHIL # 24.3 TH/MM3 (1.8-7.7); BASOPHIL % 0.1 % (0.0-2.0); HEMATOCRIT 26.1 % (35.0-46.0); HEMO FLAGS DIFF FINAL; LYMPH % 6.7 % (9.0-44.0); LYMPHOCYTE # 1.8 TH/MM3 (1.0-4.8); MEAN CELL VOLUME 81.8 FL (80.0-100.0); MEAN CORPUSCULAR HEMOGLOBIN 25.3 PG (27.0-34.0); MEAN CORPUSCULAR HGB CONC 30.9 % (32.0-36.0); MONO % 4.7 % (0.0-8.0); NEUT % 88.5 % (16.0-70.0); PLATELET COUNT 374 TH/MM3 (150-450); RED BLOOD COUNT 3.19 MIL/MM3 (4.00-5.30); RED CELL DISTRIBUTION WIDTH 18.7 % (11.6-17.2); WHITE BLOOD COUNT 27.4 TH/MM3 (4.0-11.0)
[2017-05-25] MEDS: ACETAMINOPHEN/HYDROcodone 325 MG/10 MG TAB PO PRN (16:30)
[2017-05-25] MEDS ORDERED: TERBUTALINE INJ 1 MG/ML AMP SQ PRN (17:00)
[2017-05-25] MEDS ORDERED: DOPamine INJ PREMIX 500 ML IV PRN (17:00)
[2017-05-25] MEDS: ATORVASTATIN 40 MG TAB PO SCH (22:12)
[2017-05-25] MEDS: ACETAMINOPHEN/HYDROcodone 325 MG/5 MG TAB PO PRN (22:24)
[2017-05-26] VITALS (12 sets, daily range): BP systolic 120–151; BP diastolic 41–82; PULSE 46–59; RESP 12–20; TEMP 97.6–98.3; O2SAT 92–96
[2017-05-26] MEDS: SODIUM CHLOR 0.9% 1000 ML INJ 1,000 ML IV SCH (01:45)
[2017-05-26] MEDS: RESP: ALBUTEROL 2.5 MG/IPRATROPIUM 0.5 MG NEB (SCH) NEB ×4 (03:36→20:54)
[2017-05-26] MEDS: ACETAMINOPHEN/HYDROcodone 325 MG/10 MG TAB PO PRN ×3 (04:29→23:15)
[2017-05-26] MEDS: LEVOTHYROXINE SODIUM 112 MCG TAB PO SCH (04:29)
[2017-05-26 04:56] LABS: HEMATOCRIT 25.1 % (35.0-46.0); MEAN CELL VOLUME 81.6 FL (80.0-100.0); MEAN CORPUSCULAR HEMOGLOBIN 25.3 PG (27.0-34.0); PLATELET COUNT 360 TH/MM3 (150-450); RED BLOOD COUNT 3.08 MIL/MM3 (4.00-5.30); RED CELL DISTRIBUTION WIDTH 18.1 % (11.6-17.2); REVIEW FLAG FINAL; WHITE BLOOD COUNT 21.6 TH/MM3 (4.0-11.0)
[2017-05-26 05:42] LABS: BICARBONATE 23.8 MEQ/L (21.0-32.0); POTASSIUM 4.4 MEQ/L (3.5-5.1)
[2017-05-26] MEDS: PHENYLEPHRINE 40 MG in D5W 500 ML IV PRN (06:34)
[2017-05-26] MEDS: INSULIN ASPART SUPPLEMENTAL SCALE SQ SCH ×4 (07:46→20:47)
[2017-05-26] MEDS: ASPIRIN 325 MG TAB PO SCH (08:36)
[2017-05-26] MEDS: PANTOPRAZOLE SOD 40 MG DELAYED RELEASE TAB PO SCH (08:36)
[2017-05-26] MEDS: methylPREDNISolone SOD SUCC 40 MG/1 ML VIAL IV PUSH SCH ×2 (08:36→20:46)
[2017-05-26] MEDS: TIOTROPIUM BROMIDE 18 MCG INH INH SCH (08:36)
[2017-05-26] MEDS: HEPARIN SODIUM - SQ 10,000 UNITS/ML VIAL SQ SCH ×2 (08:37→20:46)
[2017-05-26] MEDS: SODIUM CHLORIDE 0.9% FLUSH 5 ML FLUSH IV FLUSH SCH ×2 (08:37→20:47)
[2017-05-26] MEDS: LACTOBACILLUS ACIDOPHILUS TAB PO SCH ×3 (08:39→17:49)
--- NOTE | 2017-05-26 08:48 | HHI.CCPN ---
Subjective Remarks/Hospital Course Patient is a 72-year-old female with past medical history significant for previous CVA/TIA, abdominal aortic aneurysm, coronary artery disease, COPD, hypertension, dyslipidemia, hypothyroidism who presented to the emergency department on 05/22/17 with symptoms of TIA. Reportedly left arm weakness. CT of the brain shows no acute stroke Patient symptoms resolved within next 24 hours. Neurology was consulted and further workup included CT angiogram of the neck which showed severe bilateral carotid stenosis right more than left. Dr. Moran was consulted and patient underwent right carotid endarterectomy today . EBL was approximately 50 mL and urine output was 75 mill for the case. Patient received 900 ML of crystalloids I examined the patient in the PACU. Target blood pressure is 140-160 and patient is borderline hypotensive. Patient has received 500 ML normal saline bolus and I have requested additional 500 ml bolus and increasing maintenance fluid to 75 ml per hour. Jl-Synephrine currently at 80 mcg/m, titrate up to keep systolic less than 140. Check CBC. Pain control seems adequate. Oxygen saturation 88-90% on nasal SUBJ 05/26: Clinically doing well, asymptomatic bradycardia most likely secondary to carotid endarterectomy. Remains on 60 mcg/m of Jl-Synephrine to maintain systolic blood pressure 140-160. UO 1.3L in 24 hours. WBC count trending down Objective Vital Signs Date Time Temp Pulse Resp B/P (MAP) Pulse Ox O2 Delivery O2 Flow Rate FiO2 05/26/17 07:38 97.6 46 20 151/41 (77) 92 05/26/17 07:37 Nasal Cannula 3.00 05/24/17 20:15 21 Intake and Output 05/26/17 05/26/17 05/27/17 08:00 16:00 00:00 Intake Total 2062 ml Output Total 1225 ml Balance 837 ml Result Diagram: 05/26/1741905/26/17419 Objective Remarks GENERAL: Well-developed well-nourished female lying in bed, hypotensive on Jl- Synephrine SKIN: Warm and dry. HEAD: Atraumatic. Normocephalic. EYES: Pupils equal and round. ENT: No nasal bleeding or discharge. Airway patent NECK: Trachea midline. Right carotid endarterectomy incision C/D/I CARDIOVASCULAR: Intermittently bradycardic, asymptomatic. No murmur RESPIRATORY: No accessory muscle use. Mild bilateral wheezing. Breath sounds equal bilaterally. GASTROINTESTINAL: Abdomen soft, non-tender, nondistended. Hepatic and splenic margins not palpable. MUSCULOSKELETAL: Extremities without clubbing, cyanosis, or edema. NEUROLOGICAL: Awake and alert. No obvious cranial nerve deficits. Motor grossly within normal limits. A/P Assessment and Plan NEURO: Recurrent TIA/CVA Postoperative pain management - [place] when necessary for pain control - Minimize sedation - CT head negative for acute findings - Continue aspirin RESP: COPD with exacerbation Respiratory insufficiency Tobacco abuse - Nasal cannula oxygen, keep saturation more than 90% - Continue IV Solu-Medrol 40 mg every 12 - DuoNeb every 6 hours scheduled and when necessary - Continue Spiriva - Strongly counseled to quit smoking - Check CXR in am CV: Bilateral carotid stenosis Status post right carotid endarterectomy Hypotension on pressors - Post operative management per Dr. Moran - Normal saline IV fluids 75 ml per hour - Jl-Synephrine to keep SBP 140-160 - Holding Coreg and continue aspirin and Lipitor - Has loop recorder placed by Dr. Gaffney-per patient as part of syncope/TIA work up GI: - Heart healthy Diet : - Monitor renal function closely. ID: - Perioperative antibiotics per Dr. Moran HEME: - Monitor CBC, CMP, coags ENDO: Prediabetes Hypothyroidism - HbA1c is 6.3 continue sliding scale - Continue levothyroxine PROPH: - Bilateral lower extremity SCDs. Subcutaneous heparin, Protonix LINES: - Utilize peripheral IVs, central line if needed Level 3 Remains on Jl-Synephrine. Continue ICU care until pressors were weaned off. Will follow with vascular surgery Viv Tomlinson MD May 26, 2017 08:48
--- NOTE | 2017-05-26 09:48 | PD.VS.PN ---
Subjective POD #: 1 Procedure(s): R CEA Subjective/Hospital Course No neurological events Has R sided headache but she notes that it has been present for 2 weeks and hasn 't changed in intensity or character since surgery BP still req kelly Objective Vitals/I&O Date Time Temp Pulse Resp B/P (MAP) Pulse Ox O2 Delivery O2 Flow Rate FiO2 05/26/17 09:30 54 131/65 05/26/17 09:13 17 05/26/17 07:38 97.6 46 20 151/41 (77) 92 05/26/17 07:37 92 Nasal Cannula 3.00 05/26/17 07:36 46 05/26/17 06:34 64 143/50 05/26/17 04:00 98.3 53 20 149/50 (83) 95 05/26/17 03:53 94 Nasal Cannula 3.00 05/26/17 03:40 50 05/25/17 23:51 94 Nasal Cannula 3.00 05/25/17 23:30 18 05/25/17 23:17 51 05/25/17 23:00 97.9 46 20 149/50 (83) 95 05/25/17 21:20 95 Nasal Cannula 4.00 05/25/17 20:48 52 158/66 05/25/17 20:40 46 05/25/17 20:00 90 Nasal Cannula 4.00 05/25/17 20:00 96.8 46 20 148/49 (82) 90 05/25/17 16:45 97 Nasal Cannula 3.00 05/25/17 16:00 98.0 43 18 150/55 (86) 97 05/25/17 15:30 97.0 56 18 164/68 (100) 88 166/56 (92) 05/25/17 15:30 56 05/25/17 14:02 94 Simple Mask 9.00 05/25/17 13:40 56 05/25/17 13:40 88 Nasal Cannula 4.00 05/25/17 13:15 97.0 52 16 93 Nasal Cannula 3 145/55 (85) 05/25/17 13:10 60 05/25/17 13:00 48 15 140/46 (77) 89 05/25/17 12:45 51 19 143/47 (79) 97 05/25/17 12:40 51 129/49 05/25/17 12:30 51 21 129/50 (76) 98 05/25/17 12:15 51 15 135/59 (84) 93 05/25/17 12:00 56 19 133/54 (80) 91 05/25/17 12:00 56 133/54 05/25/17 11:45 59 15 110/54 (72) 93 05/25/17 11:40 59 110/54 05/25/17 11:30 64 20 97/49 (65) 90 Nasal Cannula 4 05/25/17 11:24 97.0 64 14 109/53 (71) 97 Nasal Cannula 4 05/26/17 05/26/17 05/26/17 07:00 15:00 23:00 Intake Total 2062 ml 150 ml Output Total 1225 ml Balance 837 ml 150 ml Exam: Neuro normal R neck incision c/d/i CN intact Laboratory Laboratory Tests Test 05/25/17 15:33 05/26/17 04:20 White Blood Count 27.4 21.6 Red Blood Count 3.19 3.08 Hemoglobin 8.0 7.8 Hematocrit 26.1 25.1 Mean Corpuscular Volume 81.8 81.6 Mean Corpuscular Hemoglobin 25.3 25.3 Mean Corpuscular Hemoglobin Concent 30.9 31.0 Red Cell Distribution Width 18.7 18.1 Platelet Count 374 360 Mean Platelet Volume 8.5 8.8 Neutrophils (%) (Auto) 88.5 Lymphocytes (%) (Auto) 6.7 Monocytes (%) (Auto) 4.7 Eosinophils (%) (Auto) 0.0 Basophils (%) (Auto) 0.1 Neutrophils # (Auto) 24.3 Lymphocytes # (Auto) 1.8 Monocytes # (Auto) 1.3 Eosinophils # (Auto) 0.0 Basophils # (Auto) 0.0 CBC Comment DIFF FINAL Differential Comment Blood Urea Nitrogen 21 Creatinine 1.16 Random Glucose 152 Calcium Level 7.9 Sodium Level 138 Potassium Level 4.4 Chloride Level 104 Carbon Dioxide Level 23.8 Anion Gap 10 Estimat Glomerular Filtration Rate 46 Date/Time Source Procedure Growth Status 05/22/17 01:50 Blood Peripheral Aerobic Blood Culture - Preliminary NO GROWTH IN 3 DAYS Resulted 05/22/17 01:50 Blood Peripheral Anaerobic Blood Culture - Preliminary NO GROWTH IN 3 DAYS Resulted 05/22/17 00:00 Urine Clean Catch Urine Culture - Final 50-100,000 CFU/ML MIXED GRAM POSITIVE... Complete Assessment and Plan Assessment: (1) Carotid stenosis, bilateral (2) TIA (transient ischemic attack) Status: Acute Plan POD#1 s/p R CEA Neuro intact Normalize ok to d/c [place], a-line goal SBP 120-140 ok to transfer out of ICU Discharge Planning can d/c likely tomorrow (POD#2) from vascular surgery standpoint Problem Qualifiers (1) TIA (transient ischemic attack): Qualified Codes: G45.9 - Transient cerebral ischemic attack, unspecified Samy Moran MD May 26, 2017 09:48
[2017-05-26] MEDS: ACETAMINOPHEN/HYDROcodone 325 MG/5 MG TAB PO PRN (18:03)
--- NOTE | 2017-05-26 18:18 | EKG ---
Date Performed: 05/25/2017 Time Performed: 16:59:26 PTAGE: 72 years EKG: Sinus bradycardia Normal ECG except for rate PREVIOUS TRACING : 05/21/2017 23.48 DOCTOR: Candice Hutton Interpretating Date/Time 05/26/2017 18:14:22
[2017-05-26] MEDS: ATORVASTATIN 40 MG TAB PO SCH (20:46)
[2017-05-27] VITALS (8 sets, daily range): BP systolic 110–126; BP diastolic 36–70; PULSE 54–71; RESP 16–20; TEMP 97.6–98.7; O2SAT 91–98
[2017-05-27] MEDS ORDERED: PHENYLEPHRINE INJ 40 MG in DEXTROSE 5% IN WATE 500 ML INJ 496 ML IV PRN ×2 (01:00)
[2017-05-27] MEDS ORDERED: TERBUTALINE INJ 1 MG/ML AMP SQ PRN (01:00)
[2017-05-27] MEDS: RESP: ALBUTEROL 2.5 MG/IPRATROPIUM 0.5 MG NEB (SCH) NEB ×4 (04:15→21:34)
[2017-05-27 04:25] LABS: ANION GAP 6 MEQ/L (5-15); AST (GOT) 9 U/L (15-37); BICARBONATE 28.4 MEQ/L (21.0-32.0); BLOOD UREA NITROGEN 24 MG/DL (7-18); CHLORIDE 103 MEQ/L (98-107); GLOMERULAR FILTRATION RATE 50 ML/MIN (>89); POTASSIUM 4.5 MEQ/L (3.5-5.1); SODIUM (NA) 137 MEQ/L (136-145)
[2017-05-27 04:27] LABS: ALT (GPT) 17 U/L (10-53)
[2017-05-27] MEDS: ACETAMINOPHEN/HYDROcodone 325 MG/10 MG TAB PO PRN (04:27)
[2017-05-27 04:28] LABS: ALKALINE PHOSPHATASE 92 U/L (45-117); TOTAL BILIRUBIN ADULT 0.2 MG/DL (0.2-1.0)
[2017-05-27 04:55] LABS: AUTOMATED NEUTROPHIL # 12.3 TH/MM3 (1.8-7.7); BASOPHIL % 0.1 % (0.0-2.0); HEMATOCRIT 24.9 % (35.0-46.0); HEMO FLAGS DIFF FINAL; LYMPHOCYTE # 1.6 TH/MM3 (1.0-4.8); MEAN CELL VOLUME 82.8 FL (80.0-100.0); MEAN CORPUSCULAR HEMOGLOBIN 26.3 PG (27.0-34.0); MEAN CORPUSCULAR HGB CONC 31.8 % (32.0-36.0); MONO % 3.8 % (0.0-8.0); NEUT % 85.1 % (16.0-70.0); PLATELET COUNT 268 TH/MM3 (150-450); RED BLOOD COUNT 3.01 MIL/MM3 (4.00-5.30); RED CELL DISTRIBUTION WIDTH 18.5 % (11.6-17.2); WHITE BLOOD COUNT 14.5 TH/MM3 (4.0-11.0)
--- NOTE | 2017-05-27 05:17 | RADRPT ---
EXAM DATE/TIME: 05/27/2017 04:39 [facility] COMPARISON: CHEST SINGLE AP, May 25, 2017, 14:24. INDICATIONS : Shortness of breath MEDICAL HISTORY : Chronic obstructive pulmonary disease. Hypertension Cerebrovascular disease. SURGICAL HISTORY : Appendectomy. Hysterectomy. Mastectomy, right. Thoracic kyphoplasty ENCOUNTER: Subsequent ACUITY: 1 week PAIN SCORE: 7/10 LOCATION: Bilateral chest FINDINGS: The cardiac silhouette is enlarged in transverse diameter. The lungs are hypoinflated. There is left lower lobe atelectasis versus pneumonia. The findings have worsened when compared with the prior exam ination. CONCLUSION: 1. Left lower lobe atelectasis versus pneumonia. The findings have worsened when compared with the pr ior examination. Mark Kirkland MD on May 27, 2017 at 5:15 Board Certified Radiologist. This report was verified electronically.
[2017-05-27] MEDS: LEVOTHYROXINE SODIUM 112 MCG TAB PO SCH (05:29)
[2017-05-27] MEDS: INSULIN ASPART SUPPLEMENTAL SCALE SQ SCH ×4 (08:00→21:00)
[2017-05-27] MEDS ORDERED: SODIUM CHLORID 0.9% 500 ML INJ 500 ML IV ONE (08:30)
[2017-05-27] MEDS: SODIUM CHLORIDE 0.9% FLUSH 5 ML FLUSH IV FLUSH SCH ×2 (09:00→21:00)
[2017-05-27] MEDS: LACTOBACILLUS ACIDOPHILUS TAB PO SCH ×3 (09:20→19:10)
[2017-05-27] MEDS: methylPREDNISolone SOD SUCC 40 MG/1 ML VIAL IV PUSH SCH ×2 (09:20→22:04)
[2017-05-27] MEDS: HEPARIN SODIUM - SQ 10,000 UNITS/ML VIAL SQ SCH ×2 (09:20→22:04)
[2017-05-27] MEDS: PANTOPRAZOLE SOD 40 MG DELAYED RELEASE TAB PO SCH (09:20)
[2017-05-27] MEDS: ASPIRIN 325 MG TAB PO SCH (09:21)
--- NOTE | 2017-05-27 10:13 | PD.VS.PN ---
Subjective POD #: 2 Procedure(s): R CEA Subjective/Hospital Course No neurological events R sided DUFFY stable, not worse BP req relaxed and off kelly no neuro events Objective Vitals/I&O Date Time Temp Pulse Resp B/P (MAP) Pulse Ox O2 Delivery O2 Flow Rate FiO2 05/27/17 03:00 97.7 57 20 121/63 (82) 91 05/27/17 03:00 91 Nasal Cannula 3.00 05/27/17 03:00 58 05/27/17 01:00 55 129/69 05/26/17 23:00 58 05/26/17 23:00 92 Nasal Cannula 3.00 05/26/17 23:00 98.2 52 12 129/60 (83) 92 05/26/17 23:00 52 129/60 05/26/17 22:00 56 136/69 05/26/17 21:31 96 Nasal Cannula 2.00 05/26/17 21:00 55 110/60 05/26/17 20:00 55 142/82 05/26/17 19:30 97.9 55 16 142/82 (102) 92 05/26/17 19:15 92 Nasal Cannula 3.00 05/26/17 19:00 58 05/26/17 16:00 96 Nasal Cannula 3.00 05/26/17 16:00 98.0 51 20 120/69 (86) 94 05/26/17 16:00 59 05/26/17 11:42 94 Nasal Cannula 3.00 05/26/17 11:38 98.2 51 20 133/63 (86) 94 Arterial Line 05/26/17 11:00 51 05/26/17 10:41 45 136/36 05/26/17 10:37 95 Nasal Cannula 3.00 05/27/17 05/27/17 05/27/17 07:00 15:00 23:00 Intake Total 1660 ml Output Total 700 ml Balance 960 ml Exam: Neuro intact R neck incision c/d/i CN intact Laboratory Laboratory Tests Test 05/27/17 03:19 White Blood Count 14.5 Red Blood Count 3.01 Hemoglobin 7.9 Hematocrit 24.9 Mean Corpuscular Volume 82.8 Mean Corpuscular Hemoglobin 26.3 Mean Corpuscular Hemoglobin Concent 31.8 Red Cell Distribution Width 18.5 Platelet Count 268 Mean Platelet Volume 10.1 Neutrophils (%) (Auto) 85.1 Lymphocytes (%) (Auto) 11.0 Monocytes (%) (Auto) 3.8 Eosinophils (%) (Auto) 0.0 Basophils (%) (Auto) 0.1 Neutrophils # (Auto) 12.3 Lymphocytes # (Auto) 1.6 Monocytes # (Auto) 0.6 Eosinophils # (Auto) 0.0 Basophils # (Auto) 0.0 CBC Comment DIFF FINAL Differential Comment Blood Urea Nitrogen 24 Creatinine 1.08 Random Glucose 137 Total Protein 6.4 Albumin 2.9 Calcium Level 8.4 Alkaline Phosphatase 92 Aspartate Amino Transf (AST/SGOT) 9 Alanine Aminotransferase (ALT/SGPT) 17 Total Bilirubin 0.2 Sodium Level 137 Potassium Level 4.5 Chloride Level 103 Carbon Dioxide Level 28.4 Anion Gap 6 Estimat Glomerular Filtration Rate 50 Date/Time Source Procedure Growth Status 05/22/17 01:50 Blood Peripheral Aerobic Blood Culture - Preliminary NO GROWTH IN 4 DAYS Resulted 05/22/17 01:50 Blood Peripheral Anaerobic Blood Culture - Preliminary NO GROWTH IN 4 DAYS Resulted 05/22/17 00:00 Urine Clean Catch Urine Culture - Final 50-100,000 CFU/ML MIXED GRAM POSITIVE... Complete Assessment and Plan Assessment: (1) Carotid stenosis, bilateral (2) TIA (transient ischemic attack) Status: Acute Plan POD#2 s/p R CEA Neuro intact Normalize ok to d/c [place], a-line goal SBP 120-140 ok to transfer out of ICU Discharge Planning can d/c likely tomorrow (POD#3) from vascular surgery standpoint Problem Qualifiers (1) TIA (transient ischemic attack): Qualified Codes: G45.9 - Transient cerebral ischemic attack, unspecified Samy Moran MD May 27, 2017 10:13
[2017-05-27] MEDS: TIOTROPIUM BROMIDE 18 MCG INH INH SCH (10:16)
[2017-05-27] MEDS: ACETAMINOPHEN/HYDROcodone 325 MG/5 MG TAB PO PRN ×2 (10:17→19:50)
--- NOTE | 2017-05-27 14:06 | HHI.PR ---
Subjective Remarks Follow up TIA, COPD, carotid stenosis. Patient states that she is feeling better today. Still with occasional headache. Pain around the surgical site is improving. She reports cough. Dyspnea is at baseline. No chest pain. Objective Vitals Vital Signs Date Time Temp Pulse Resp B/P (MAP) Pulse Ox O2 Delivery O2 Flow Rate FiO2 05/27/17 12:19 92 Nasal Cannula 3.00 05/27/17 11:00 98.7 55 18 113/70 (84) 94 05/27/17 11:00 94 Nasal Cannula 3.00 05/27/17 11:00 54 05/27/17 07:00 95 Nasal Cannula 3.00 05/27/17 07:00 98.3 54 18 121/36 (64) 95 05/27/17 03:00 97.7 57 20 121/63 (82) 91 05/27/17 03:00 91 Nasal Cannula 3.00 05/27/17 03:00 58 05/27/17 01:00 55 129/69 05/26/17 23:00 58 05/26/17 23:00 92 Nasal Cannula 3.00 05/26/17 23:00 98.2 52 12 129/60 (83) 92 05/26/17 23:00 52 129/60 05/26/17 22:00 56 136/69 05/26/17 21:31 96 Nasal Cannula 2.00 05/26/17 21:00 55 110/60 05/26/17 20:00 55 142/82 05/26/17 19:30 97.9 55 16 142/82 (102) 92 05/26/17 19:15 92 Nasal Cannula 3.00 05/26/17 19:00 58 05/26/17 16:00 96 Nasal Cannula 3.00 05/26/17 16:00 98.0 51 20 120/69 (86) 94 05/26/17 16:00 59 I/O 05/26/17 05/26/17 05/26/17 05/27/17 05/27/17 05/27/17 07:00 15:00 23:00 07:00 15:00 23:00 Intake Total 2062 ml 150 ml 1450 ml 1660 ml Output Total 1225 ml 1080 ml 700 ml Balance 837 ml 150 ml 370 ml 960 ml Intake Oral 720 ml 975 ml 960 ml IV Total 1342 ml 150 ml 475 ml 700 ml Output Urine Total 1225 ml 1080 ml 700 ml # Bowel Movements 0 0 0 Result Diagram: 05/27/1731805/27/17318 Imaging Last Impressions Chest X-Ray 05/27/17 0600 Signed Impressions: Service Date/Time: Saturday, May 27, 2017 04:39 - CONCLUSION: 1. Left lower lobe atelectasis versus pneumonia. The findings have worsened when compared with the prior examination. Mark Kirkland MD Head CTA 05/23/17 0028 Signed Impressions: Service Date/Time: Tuesday, May 23, 2017 00:05 - CONCLUSION: 1. Unremarkable CT angiography of the brain. Mark Kirkland MD Neck CTA 05/23/17 0000 Signed Impressions: Service Date/Time: Tuesday, May 23, 2017 00:05 - CONCLUSION: 1. High grade stenosis bilaterally 90%% on the right and 80%% on the left. Extensive calcific plaque is present Mark Kirkland MD Head Magnetic Resonance Angiography 05/22/17 0000 Signed Impressions: Service Date/Time: Monday, May 22, 2017 11:32 - CONCLUSION: Atherosclerotic disease as described above. Significant disease in the carotid siphon on the left. Dennis Dumont MD FACR Carotid Artery Ultrasound 05/22/17 0000 Signed Impressions: Service Date/Time: Monday, May 22, 2017 13:10 - CONCLUSION: Hemodynamically significant stenosis slightly worse on the left than the right. CT angiogram would be of benefit. Dennis Dumont MD FACR Brain MRI 05/22/17 0000 Signed Impressions: Service Date/Time: Monday, May 22, 2017 11:32 - CONCLUSION: 1. Tiny punctate restricted effusion along the left insular cortex but uncertain if this is related to acute lacunar infarct versus artifact. 2. No midline shift or mass effect. 3. Nonspecific white matter changes. Lawrence Ramirez MD Head CT 05/21/17 0000 Signed Impressions: Service Date/Time: Sunday, May 21, 2017 22:45 - CONCLUSION: 1. No evidence of acute intracranial pathology. No masses are identified. Mark Kirkland MD Objective Remarks General: No acute distress. Sitting up in a chair. Heart: Regular rate and rhythm. No murmur. Lungs: Diffuse wheeze. Decreased breath sounds in the left base.. Breathing is nonlabored. Abdomen: Soft, nontender, nondistended. Extremities: No lower extremity edema. Psych: Alert and oriented. Procedures 05/25/17 right carotid endarterectomy Urinary Catheter: No Vascular Central Line Catheter: No A/P Problem List: (1) Left arm weakness ICD Code: R29.898 - Other symptoms and signs involving the musculoskeletal system (2) Left arm numbness ICD Code: R20.0 - Anesthesia of skin (3) UTI (urinary tract infection) ICD Code: N39.0 - Urinary tract infection, site not specified Status: Acute (4) TIA (transient ischemic attack) ICD Code: G45.9 - Transient cerebral ischemic attack, unspecified Status: Acute (5) COPD (chronic obstructive pulmonary disease) ICD Code: J44.9 - Chronic obstructive pulmonary disease, unspecified Status: Chronic (6) Carotid stenosis, bilateral ICD Code: I65.23 - Occlusion and stenosis of bilateral carotid arteries (7) Pneumonia ICD Code: J18.9 - Pneumonia Status: Acute Assessment and Plan 1. Recurrent TIA/CVA, carotid artery stenosis: Status post carotid endarterectomy. Neurologic symptoms have improved. Appreciate vascular surgery recommendations. 2. COPD exacerbation: Continue oxygen, steroids, bronchodilators, Spiriva. 3. Pneumonia: Chest x-ray showing worsening left lower lobe infiltrate. Start Levaquin. 4. Tobacco abuse: Counseled to quit smoking. 5. Hypothyroidism: Continue Synthroid. 6. GI prophylaxis: Protonix. 7. DVT prophylaxis: SCDs, heparin. 8. Hypotension: Resolved. Patient has been weaned off pressors. Discharge Planning Transferred to [facility] when a bed is available. Problem Qualifiers (1) UTI (urinary tract infection): Qualified Codes: N39.0 - Urinary tract infection, site not specified (2) TIA (transient ischemic attack): Qualified Codes: G45.9 - Transient cerebral ischemic attack, unspecified (3) COPD (chronic obstructive pulmonary disease): Qualified Codes: J44.1 - Chronic obstructive pulmonary disease with (acute) exacerbation Ilia Shah MD May 27, 2017 14:06
[2017-05-27] MEDS ORDERED: LEVOFLOXACIN 500 MG PREMIX INJ 100 ML IV ONE (15:00)
[2017-05-27] MEDS: ATORVASTATIN 40 MG TAB PO SCH (22:04)
[2017-05-28] VITALS (15 sets, daily range): BP systolic 114–147; BP diastolic 55–67; PULSE 52–114; RESP 14–18; TEMP 97.6–98.6; O2SAT 94–99
[2017-05-28] MEDS: ACETAMINOPHEN/HYDROcodone 325 MG/5 MG TAB PO PRN ×4 (02:16→18:18)
[2017-05-28] MEDS: RESP: ALBUTEROL 2.5 MG/IPRATROPIUM 0.5 MG NEB (SCH) NEB ×4 (05:10→21:14)
[2017-05-28 05:30] LABS: AUTOMATED NEUTROPHIL # 7.7 TH/MM3 (1.8-7.7); BASOPHIL % 0.4 % (0.0-2.0); HEMATOCRIT 22.6 % (35.0-46.0); HEMO FLAGS DIFF FINAL; LYMPHOCYTE # 1.3 TH/MM3 (1.0-4.8); MEAN CELL VOLUME 82.8 FL (80.0-100.0); MEAN CORPUSCULAR HEMOGLOBIN 26.8 PG (27.0-34.0); MEAN CORPUSCULAR HGB CONC 32.3 % (32.0-36.0); MONO % 4.4 % (0.0-8.0); NEUT % 81.2 % (16.0-70.0); PLATELET COUNT 267 TH/MM3 (150-450); RED BLOOD COUNT 2.73 MIL/MM3 (4.00-5.30); RED CELL DISTRIBUTION WIDTH 18.8 % (11.6-17.2); WHITE BLOOD COUNT 9.4 TH/MM3 (4.0-11.0)
[2017-05-28 05:48] LABS: BICARBONATE 21.2 MEQ/L (21.0-32.0); POTASSIUM 4.3 MEQ/L (3.5-5.1)
[2017-05-28] MEDS: LEVOTHYROXINE SODIUM 112 MCG TAB PO SCH (06:00)
--- NOTE | 2017-05-28 07:59 | HHI.PR ---
Subjective Remarks Follow-up TIA, carotid stenosis, COPD. Patient still having headache in the top of her head and the occipital region. Denies chest pain or dyspnea. No nausea, vomiting. No bowel movement. Objective Vitals Vital Signs Date Time Temp Pulse Resp B/P (MAP) Pulse Ox O2 Delivery O2 Flow Rate FiO2 05/28/17 03:16 18 05/28/17 03:00 62 05/28/17 03:00 98.4 62 18 114/67 (83) 98 05/28/17 03:00 98 Nasal Cannula 2.00 05/27/17 23:00 96 Nasal Cannula 2.00 05/27/17 23:00 97.9 59 20 126/67 (86) 96 05/27/17 23:00 59 05/27/17 21:34 98 Nasal Cannula 2.00 05/27/17 19:00 61 05/27/17 19:00 97 Nasal Cannula 2.00 05/27/17 19:00 97.9 61 18 110/39 (62) 97 05/27/17 15:00 97.6 71 16 124/58 (80) 97 05/27/17 15:00 54 05/27/17 15:00 97 Nasal Cannula 3.00 05/27/17 12:19 92 Nasal Cannula 3.00 05/27/17 11:00 98.7 55 18 113/70 (84) 94 05/27/17 11:00 94 Nasal Cannula 3.00 05/27/17 11:00 54 I/O 05/27/17 05/27/17 05/27/17 05/28/17 05/28/17 05/28/17 07:00 15:00 23:00 07:00 15:00 23:00 Intake Total 1660 ml 545 ml 1060 ml 660 ml Output Total 700 ml 450 ml 1000 ml Balance 960 ml 545 ml 610 ml -340 ml Intake Oral 960 ml 960 ml 660 ml IV Total 700 ml 545 ml 100 ml Output Urine Total 700 ml 450 ml 1000 ml # Voids 2 # Bowel Movements 0 0 0 Result Diagram: 05/28/1742405/28/17424 Imaging Last Impressions Chest X-Ray 05/27/17 0600 Signed Impressions: Service Date/Time: Saturday, May 27, 2017 04:39 - CONCLUSION: 1. Left lower lobe atelectasis versus pneumonia. The findings have worsened when compared with the prior examination. Mark Kirkland MD Head CTA 05/23/17 0028 Signed Impressions: Service Date/Time: Tuesday, May 23, 2017 00:05 - CONCLUSION: 1. Unremarkable CT angiography of the brain. Mark Kirkland MD Neck CTA 05/23/17 0000 Signed Impressions: Service Date/Time: Tuesday, May 23, 2017 00:05 - CONCLUSION: 1. High grade stenosis bilaterally 90%% on the right and 80%% on the left. Extensive calcific plaque is present Mark Kirkland MD Head Magnetic Resonance Angiography 05/22/17 0000 Signed Impressions: Service Date/Time: Monday, May 22, 2017 11:32 - CONCLUSION: Atherosclerotic disease as described above. Significant disease in the carotid siphon on the left. Dennis Dumont MD FACR Carotid Artery Ultrasound 05/22/17 0000 Signed Impressions: Service Date/Time: Monday, May 22, 2017 13:10 - CONCLUSION: Hemodynamically significant stenosis slightly worse on the left than the right. CT angiogram would be of benefit. Dennis Dumont MD FACR Brain MRI 05/22/17 0000 Signed Impressions: Service Date/Time: Monday, May 22, 2017 11:32 - CONCLUSION: 1. Tiny punctate restricted effusion along the left insular cortex but uncertain if this is related to acute lacunar infarct versus artifact. 2. No midline shift or mass effect. 3. Nonspecific white matter changes. Lawrence Ramirez MD Head CT 05/21/17 0000 Signed Impressions: Service Date/Time: Sunday, May 21, 2017 22:45 - CONCLUSION: 1. No evidence of acute intracranial pathology. No masses are identified. Mark Kirkland MD Objective Remarks General: No acute distress. Heart: Regular rate and rhythm. No murmur. Lungs: Scattered wheeze. Decreased breath sounds in the left base. Breathing is nonlabored. Abdomen: Soft, nontender, nondistended. Extremities: Trace bilateral lower extremity edema. Psych: Alert and oriented. Procedures 05/25/17 right carotid endarterectomy Urinary Catheter: No Vascular Central Line Catheter: No A/P Problem List: (1) Left arm weakness ICD Code: R29.898 - Other symptoms and signs involving the musculoskeletal system (2) Left arm numbness ICD Code: R20.0 - Anesthesia of skin (3) UTI (urinary tract infection) ICD Code: N39.0 - Urinary tract infection, site not specified Status: Acute (4) TIA (transient ischemic attack) ICD Code: G45.9 - Transient cerebral ischemic attack, unspecified Status: Acute (5) COPD (chronic obstructive pulmonary disease) ICD Code: J44.9 - Chronic obstructive pulmonary disease, unspecified Status: Chronic (6) Carotid stenosis, bilateral ICD Code: I65.23 - Occlusion and stenosis of bilateral carotid arteries (7) Pneumonia ICD Code: J18.9 - Pneumonia Status: Acute Assessment and Plan 1. Recurrent TIA/CVA, carotid artery stenosis: Status post carotid endarterectomy. Neurologic symptoms have improved. Appreciate vascular surgery recommendations. Continue aspirin. Patient still having headache. 2. COPD exacerbation: Continue oxygen, bronchodilators, Spiriva. Discontinue Solu-Medrol, start prednisone. 3. Pneumonia: Chest x-ray showing worsening left lower lobe infiltrate. Continue Levaquin. Incentive spirometry. 4. Tobacco abuse: Counseled to quit smoking. 5. Hypothyroidism: Continue Synthroid. 6. GI prophylaxis: Protonix. 7. DVT prophylaxis: SCDs, heparin. 8. Hypotension: Resolved. Patient has been weaned off pressors. 9. Acute kidney injury superimposed on chronic kidney disease: Creatinine slightly improved today. Avoid nephrotoxins. Renally dose antibiotics. Discharge Planning Transfer to [facility] when a bed is available. Problem Qualifiers (1) UTI (urinary tract infection): Qualified Codes: N39.0 - Urinary tract infection, site not specified (2) TIA (transient ischemic attack): Qualified Codes: G45.9 - Transient cerebral ischemic attack, unspecified (3) COPD (chronic obstructive pulmonary disease): Qualified Codes: J44.1 - Chronic obstructive pulmonary disease with (acute) exacerbation Ilia Shah MD May 28, 2017 07:59
[2017-05-28] MEDS: INSULIN ASPART SUPPLEMENTAL SCALE SQ SCH ×4 (08:00→21:00)
--- NOTE | 2017-05-28 08:33 | PD.VS.PN ---
Subjective POD #: 3 Procedure(s): R CEA Subjective/Hospital Course No neurological events R sided DUFFY stable, not worse BP req relaxed and off kelly no neuro events Objective Vitals/I&O Date Time Temp Pulse Resp B/P (MAP) Pulse Ox O2 Delivery O2 Flow Rate FiO2 05/28/17 03:16 18 05/28/17 03:00 62 05/28/17 03:00 98.4 62 18 114/67 (83) 98 05/28/17 03:00 98 Nasal Cannula 2.00 05/27/17 23:00 96 Nasal Cannula 2.00 05/27/17 23:00 97.9 59 20 126/67 (86) 96 05/27/17 23:00 59 05/27/17 21:34 98 Nasal Cannula 2.00 05/27/17 19:00 61 05/27/17 19:00 97 Nasal Cannula 2.00 05/27/17 19:00 97.9 61 18 110/39 (62) 97 05/27/17 15:00 97.6 71 16 124/58 (80) 97 05/27/17 15:00 54 05/27/17 15:00 97 Nasal Cannula 3.00 05/27/17 12:19 92 Nasal Cannula 3.00 05/27/17 11:00 98.7 55 18 113/70 (84) 94 05/27/17 11:00 94 Nasal Cannula 3.00 05/27/17 11:00 54 05/28/17 05/28/17 05/28/17 07:00 15:00 23:00 Intake Total 660 ml Output Total 1000 ml Balance -340 ml Exam: Neuro intact incision slight ecchymoses caudally but no hematoma CN intact Laboratory Laboratory Tests Test 05/28/17 04:25 White Blood Count 9.4 Red Blood Count 2.73 Hemoglobin 7.3 Hematocrit 22.6 Mean Corpuscular Volume 82.8 Mean Corpuscular Hemoglobin 26.8 Mean Corpuscular Hemoglobin Concent 32.3 Red Cell Distribution Width 18.8 Platelet Count 267 Mean Platelet Volume 10.1 Neutrophils (%) (Auto) 81.2 Lymphocytes (%) (Auto) 14.0 Monocytes (%) (Auto) 4.4 Eosinophils (%) (Auto) 0.0 Basophils (%) (Auto) 0.4 Neutrophils # (Auto) 7.7 Lymphocytes # (Auto) 1.3 Monocytes # (Auto) 0.4 Eosinophils # (Auto) 0.0 Basophils # (Auto) 0.0 CBC Comment DIFF FINAL Differential Comment Blood Urea Nitrogen 27 Creatinine 1.08 Random Glucose 156 Calcium Level 8.3 Sodium Level 135 Potassium Level 4.3 Chloride Level 105 Carbon Dioxide Level 21.2 Anion Gap 9 Estimat Glomerular Filtration Rate 50 Date/Time Source Procedure Growth Status 05/22/17 01:50 Blood Peripheral Aerobic Blood Culture - Final NO GROWTH IN 5 DAYS Complete 05/22/17 01:50 Blood Peripheral Anaerobic Blood Culture - Final NO GROWTH IN 5 DAYS Complete 05/22/17 00:00 Urine Clean Catch Urine Culture - Final 50-100,000 CFU/ML MIXED GRAM POSITIVE... Complete Assessment and Plan Assessment: (1) Carotid stenosis, bilateral (2) TIA (transient ischemic attack) Status: Acute Plan POD#3 s/p R CEA Neuro intact ok to d/c home from vascular surgery standpoint will arrange f/u in 1m with carotid duplex needs ASA and statin only Discharge Planning anytime from vascular surgery standpoint. I discussed smoking cessation again with the patient today. Problem Qualifiers (1) TIA (transient ischemic attack): Qualified Codes: G45.9 - Transient cerebral ischemic attack, unspecified Samy Moran MD May 28, 2017 08:33
[2017-05-28] MEDS: PANTOPRAZOLE SOD 40 MG DELAYED RELEASE TAB PO SCH (08:57)
[2017-05-28] MEDS: predniSONE 20 MG TAB PO SCH ×2 (08:57→21:30)
[2017-05-28] MEDS: LACTOBACILLUS ACIDOPHILUS TAB PO SCH ×3 (08:57→18:13)
[2017-05-28] MEDS: ASPIRIN 325 MG TAB PO SCH (08:57)
[2017-05-28] MEDS: HEPARIN SODIUM - SQ 10,000 UNITS/ML VIAL SQ SCH ×2 (08:58→21:30)
[2017-05-28] MEDS: SODIUM CHLORIDE 0.9% FLUSH 5 ML FLUSH IV FLUSH SCH ×2 (09:00→21:00)
[2017-05-28] MEDS: TIOTROPIUM BROMIDE 18 MCG INH INH SCH (09:36)
[2017-05-28] MEDS: LEVOFLOXACIN 250 MG PREMIX INJ 50 ML IV SCH (15:16)
[2017-05-28] MEDS: ATORVASTATIN 40 MG TAB PO SCH (21:30)
[2017-05-29] MEDS: ACETAMINOPHEN/HYDROcodone 325 MG/5 MG TAB PO PRN ×3 (00:02→08:45)
[2017-05-29 03:00] VITALS: BP 124/63; PULSE 53; PULSE 74; RESP 16; TEMP 98.2; O2SAT 98
[2017-05-29] MEDS: RESP: ALBUTEROL 2.5 MG/IPRATROPIUM 0.5 MG NEB (SCH) NEB ×3 (03:04→15:44)
[2017-05-29 04:59] LABS: AUTOMATED NEUTROPHIL # 8.7 TH/MM3 (1.8-7.7); BASOPHIL % 0.3 % (0.0-2.0); EOSINOPHIL % 0.1 % (0.0-4.0); HEMATOCRIT 26.1 % (35.0-46.0); HEMO FLAGS DIFF FINAL; LYMPH % 17.6 % (9.0-44.0); MEAN CELL VOLUME 81.9 FL (80.0-100.0); MEAN CORPUSCULAR HEMOGLOBIN 25.7 PG (27.0-34.0); MEAN CORPUSCULAR HGB CONC 31.4 % (32.0-36.0); MONO % 5.8 % (0.0-8.0); NEUT % 76.2 % (16.0-70.0); PLATELET COUNT 337 TH/MM3 (150-450); RED BLOOD COUNT 3.18 MIL/MM3 (4.00-5.30); RED CELL DISTRIBUTION WIDTH 18.1 % (11.6-17.2); WHITE BLOOD COUNT 11.4 TH/MM3 (4.0-11.0)
[2017-05-29 05:10] LABS: BICARBONATE 26.2 MEQ/L (21.0-32.0); POTASSIUM 4.1 MEQ/L (3.5-5.1)
[2017-05-29] MEDS: LEVOTHYROXINE SODIUM 112 MCG TAB PO SCH (05:42)
[2017-05-29 07:45] VITALS: BP 123/61; PULSE 59; RESP 20; TEMP 98.4; O2SAT 95
[2017-05-29] MEDS: ASPIRIN 325 MG TAB PO SCH (08:44)
[2017-05-29] MEDS: predniSONE 20 MG TAB PO SCH (08:45)
[2017-05-29] MEDS: PANTOPRAZOLE SOD 40 MG DELAYED RELEASE TAB PO SCH (08:45)
[2017-05-29] MEDS: LACTOBACILLUS ACIDOPHILUS TAB PO SCH ×2 (08:45→11:44)
[2017-05-29] MEDS: HEPARIN SODIUM - SQ 10,000 UNITS/ML VIAL SQ SCH (08:46)
[2017-05-29] MEDS: SODIUM CHLORIDE 0.9% FLUSH 5 ML FLUSH IV FLUSH SCH (09:00)
[2017-05-29 09:43] VITALS: O2SAT 95
[2017-05-29 11:30] VITALS: BP 123/61; PULSE 61; RESP 18; TEMP 98.4; O2SAT 95
[2017-05-29] MEDS: TIOTROPIUM BROMIDE 18 MCG INH INH SCH (11:43)
[2017-05-29] MEDS: INSULIN ASPART SUPPLEMENTAL SCALE SQ SCH (12:21)
[2017-05-29] MEDS: LEVOFLOXACIN 250 MG PREMIX INJ 50 ML IV SCH (15:15)
[2017-05-29] MEDS ORDERED: HYDR-3516 PO (15:25)
[2017-05-29 15:30] VITALS: BP 132/67; PULSE 61; PULSE 64; RESP 18; TEMP 97.9; O2SAT 95
--- NOTE | 2017-05-29 16:13 | HHI.DS ---
Discharge Summary Admission Date May 22, 2017 at 01:34 Discharge Date: May 29, 2017 Admitting Diagnosis TIA; poss uti (1) Left arm weakness ICD Code: R29.898 - Other symptoms and signs involving the musculoskeletal system Diagnosis: Principal (2) Left arm numbness ICD Code: R20.0 - Anesthesia of skin Diagnosis: Principal (3) UTI (urinary tract infection) ICD Code: N39.0 - Urinary tract infection, site not specified Diagnosis: Principal Status: Acute (4) TIA (transient ischemic attack) ICD Code: G45.9 - Transient cerebral ischemic attack, unspecified Diagnosis: Principal Status: Acute (5) COPD (chronic obstructive pulmonary disease) ICD Code: J44.9 - Chronic obstructive pulmonary disease, unspecified Diagnosis: Secondary Status: Chronic (6) Carotid stenosis, bilateral ICD Code: I65.23 - Occlusion and stenosis of bilateral carotid arteries Diagnosis: Principal (7) Pneumonia ICD Code: J18.9 - Pneumonia Diagnosis: Principal Status: Acute Procedures 05/25/17 right carotid endarterectomy Brief History - From Admission Mrs. Peterson is a 72-year-old female. She came into the hospital overnight secondary to left arm weakness. She has a history of numerous TIAs in the past with her last TIA approximately 6 months ago. Typically her TIA causes left facial numbness and weakness. She will have slurred speech with these episodes. This episode did not include her left face or speech. She has left arm numbness and weakness that was lasting 2 hours prior to arrival to the ER. CT of the brain shows no evidence of CVA. She will not be able to obtain an MRI secondary to electrical recorder implant. This morning when seen she has full resolution of her symptoms from yesterday. She says that her left arm feels back to normal for her. No headaches at the time I see her this morning. She did complain of a headache last night. Additionally, UTI was discovered in the ER and she's been started on treatment of Rocephin probiotics. No other complaints today. No changes in cognition, vision, or speech pattern. CBC/BMP: 05/29/17 0430 05/29/17 0430 Significant Findings Laboratory Tests Test 05/27/17 03:19 05/28/17 04:25 05/29/17 04:30 White Blood Count 14.5 TH/MM3 (4.0-11.0) 11.4 TH/MM3 (4.0-11.0) Red Blood Count 3.01 MIL/MM3 (4.00-5.30) 2.73 MIL/MM3 (4.00-5.30) 3.18 MIL/MM3 (4.00-5.30) Hemoglobin 7.9 GM/DL (11.6-15.3) 7.3 GM/DL (11.6-15.3) 8.2 GM/DL (11.6-15.3) Hematocrit 24.9 % (35.0-46.0) 22.6 % (35.0-46.0) 26.1 % (35.0-46.0) Mean Corpuscular Hemoglobin 26.3 PG (27.0-34.0) 26.8 PG (27.0-34.0) 25.7 PG (27.0-34.0) Mean Corpuscular Hemoglobin Concent 31.8 % (32.0-36.0) 31.4 % (32.0-36.0) Red Cell Distribution Width 18.5 % (11.6-17.2) 18.8 % (11.6-17.2) 18.1 % (11.6-17.2) Neutrophils (%) (Auto) 85.1 % (16.0-70.0) 81.2 % (16.0-70.0) 76.2 % (16.0-70.0) Neutrophils # (Auto) 12.3 TH/MM3 (1.8-7.7) 8.7 TH/MM3 (1.8-7.7) Blood Urea Nitrogen 24 MG/DL (7-18) 27 MG/DL (7-18) 28 MG/DL (7-18) Creatinine 1.08 MG/DL (0.50-1.00) 1.08 MG/DL (0.50-1.00) 1.17 MG/DL (0.50-1.00) Random Glucose 137 MG/DL (74-106) 156 MG/DL (74-106) 116 MG/DL (74-106) Albumin 2.9 GM/DL (3.4-5.0) Calcium Level 8.4 MG/DL (8.5-10.1) 8.3 MG/DL (8.5-10.1) Aspartate Amino Transf (AST/SGOT) 9 U/L (15-37) Estimat Glomerular Filtration Rate 50 ML/MIN (>89) 50 ML/MIN (>89) 45 ML/MIN (>89) Sodium Level 135 MEQ/L (136-145) PE at Discharge General: No acute distress. Heart: Regular rate and rhythm. No murmur. Lungs: Scattered wheeze. Decreased breath sounds in the left base. Breathing is nonlabored. Abdomen: Soft, nontender, nondistended. Extremities: Trace bilateral lower extremity edema. Psych: Alert and oriented. Hospital Course Mrs. Peterson is a 72-year-old female. She was admitted secondary to TIA with left arm weakness. Findings of right carotid artery stenosis resulted in right- sided endarterectomy hospitalized. She's been doing well postop. She is cleared by vascular surgery for discharge. Medically stable for discharge to home today. New treatments are prednisone taper and as needed pain treatments. Amlodipine, enalapril, and isosorbide have been discontinued. All other medications remain the same. Pt Condition on Discharge: Stable Discharge Disposition: Discharge Home Discharge Time: <= 30 minutes Discharge Instructions DIET: Follow Instructions for: Heart Healthy Diet Speech Therapy-Diet Recommends: Regular Activities you can perform: Regular-No Restrictions Follow up Referrals: Neurology PCP Follow-up Vascular Surgery @ Vascular Surgery with Samy Moran MD Surveillance Carotid duplex exam on 06/26/17 at 11:30 POST OP Follow UP appointment in on at 2:15 New Medications: Prednisone (Prednisone) 5 Mg Tab 5 MG PO DIRECTED for copd for 8 Days, TAB 0 Refills 30 mg po daily for two days then 20 mg po daily for two days then 10 mg po daily for two days then 5 mg po daily for two days then stop. Hydrocodone/Acetaminophen (Hydrocodone-Acetamin 5-325 mg) 5 Mg-325 Mg Tablet 1 TAB PO Q4H PRN for Pain, #40 TAB Continued Medications: Acetaminophen (Tylenol) 325 Mg Tab 500 MG PO ONCE PRN for prn, #1 TAB 0 Refills Aspirin (Aspirin Children's) 81 Mg Chew 81 MG CHEW DAILY, TAB 0 Refills Atorvastatin (Atorvastatin) 40 Mg Tab 40 MG PO HS for Cholesterol Management, #30 TAB 0 Refills Carvedilol (Coreg) 3.125 Mg Tab 3.125 MG PO DAILY, #60 TAB 0 Refills Levothyroxine (Synthroid) 112 Mcg Tab 112 MCG PO DAILY for Thyroid, #30 TAB 0 Refills Omeprazole Magnesium (Prilosec) 20 Mg Tab DAILY Tiotropium Inh (Spiriva Handihaler) 18 Mcg Cap 18 MCG INH DAILY for COPD, #30 CAP 0 Refills 1 capsule = 18 mcg Discontinued Medications: Amlodipine (Amlodipine) 10 Mg Tab 10 MG PO DAILY for Blood Pressure Management, #30 TAB 0 Refills Enalapril (Enalapril) 10 Mg Tab 10 MG PO DAILY, #30 TAB 0 Refills Isosorbide Mononitrate ER (Isosorbide Mononitrate ER) 60 Mg Tab 60 MG PO DAILY for Prevent Chest Pain, #30 TAB 0 Refills Gary Terrazas MD May 29, 2017 16:13
== END 2017-05-29 17:23 | disposition home or self-care (01) | DRG 37 ==
LOC: PHED 22:20 → PHEDA 05-22 01:33 → OBSVTOIN 05-22 01:34 → PH3B 05-22 02:40 → N04A 05-23 20:58 → HCPC 05-25 09:10 → HCVI 05-25 13:40 → HCPC 05-28 17:30
PROVIDERS: ADMIT Hospitalist; ATTEND Hospitalist
PROC: 03UK0KZ Supplement Right Internal Carotid Artery with Nonautologous Tissue Substitute, Open Approach (ICD-10-PCS; 2017-05-25)
PROC: 03CK0ZZ Extirpation of Matter from Right Internal Carotid Artery, Open Approach (ICD-10-PCS; principal; 2017-05-25 09:10)
DX: I65.23 Occlusion and stenosis of bilateral carotid arteries (principal); J18.9 Pneumonia, unspecified organism; N17.9 Acute kidney failure, unspecified; I95.9 Hypotension, unspecified; R00.1 Bradycardia, unspecified; J44.0 Chronic obstructive pulmonary disease with (acute) lower respiratory infection; J44.1 Chronic obstructive pulmonary disease with (acute) exacerbation; E03.9 Hypothyroidism, unspecified; M19.90 Unspecified osteoarthritis, unspecified site; M79.7 Fibromyalgia; K21.9 Gastro-esophageal reflux disease without esophagitis; R73.03 Prediabetes; R29.700 NIHSS score 0; R09.02 Hypoxemia; N18.9 Chronic kidney disease, unspecified; I71.4 Abdominal aortic aneurysm, without rupture; I25.10 Atherosclerotic heart disease of native coronary artery without angina pectoris; F17.210 Nicotine dependence, cigarettes, uncomplicated; E78.5 Hyperlipidemia, unspecified; I12.9 Hypertensive chronic kidney disease with stage 1 through stage 4 chronic kidney disease, or unspecified chronic kidney disease; G89.29 Other chronic pain; M54.9 Dorsalgia, unspecified; F41.1 Generalized anxiety disorder; Z79.82 Long term (current) use of aspirin; Z85.41 Personal history of malignant neoplasm of cervix uteri; Z92.3 Personal history of irradiation; Z85.3 Personal history of malignant neoplasm of breast; Z85.820 Personal history of malignant melanoma of skin; Z86.73 Personal history of transient ischemic attack (TIA), and cerebral infarction without residual deficits; I25.2 Old myocardial infarction
CPT/HCPCS: 70450; 70496; 70498; 70544; 70551; 71010; 76937; 80048; 80053; 80061; 80307; 81001; 82550; 82948; 83036; 84484; 85025; 85027; 85610; 85730; 86850; 86900; 86901; 87040; 87086; 93005; 93306; 93880; 94150; 94640; 94664; 99285; G8987-GP; G8988-GP; J0696; J1644; J1815; J1956; J2270; J2370; J2720; J2920; J2930; J7030; J7040; J7060; J7512; J7613; Q9967

== ENCOUNTER 2017-06-01 22:57 | Inpatient (IN) | payer OTHER, MEDICARE ==
[~2017-06-01] VITALS: Ht 152.4 cm; Wt 86.3 kg
[~2017-06-01 22:57] MED LIST changes: -AMLO10TA2 PO; -ASPI1TAB69 PO; +ASPI81CH7 CHEW; -BACT800T5 PO; -ENAL10TA PO; +HYDR-3516 PO; -IMDU60TA PO; +PRED5TAB PO; +PRIL20TA2; -TRIA.025%T TOPICAL; +TYLE325T PO
[2017-06-01 23:00] VITALS: BP 202/94; PULSE 88; RESP 18; TEMP 98.2; O2SAT 97
[2017-06-01] MEDS ORDERED: SODIUM CHLORIDE 0.9% FLUSH 10 ML FLUSH IVF PRN (23:15)
--- NOTE | 2017-06-01 23:42 | RADRPT ---
EXAM DATE/TIME: 06/01/2017 23:19 [facility] COMPARISON: CT BRAIN W/O CONTRAST, May 21, 2017, 22:45. INDICATIONS : Numbness in left upper extremity. Headache. Recent carotid surgery. RADIATION DOSE: 56.79 CTDIvol (mGy) MEDICAL HISTORY : Hypertension. SURGICAL HISTORY : Carotid endarterectomy. ENCOUNTER: Initial ACUITY: 1 day PAIN SCALE: 0/10 LOCATION: Left cranial and upper extremity TECHNIQUE: Multiple contiguous axial images were obtained of the head. Using automated exposure control and adj ustment of the mA and/or kV according to patient size, radiation dose was kept as low as reasonably a chievable to obtain optimal diagnostic quality images. DICOM format image data is available electro nically for review and comparison. FINDINGS: CEREBRUM: The ventricles are normal for age. No evidence of midline shift, mass lesion, hemorrhage or acute in farction. No extra-axial fluid collections are seen. POSTERIOR FOSSA: The cerebellum and brainstem are intact. The 4th ventricle is midline. The cerebellopontine angle i s unremarkable. EXTRACRANIAL: The visualized portion of the orbits is intact. SKULL: The calvaria is intact. No evidence of skull fracture. CONCLUSION: Negative noncontrast CT brain. Joe Lopez MD on June 01, 2017 at 23:39 Board Certified Radiologist. This report was verified electronically.
--- NOTE | 2017-06-01 23:43 | RADRPT ---
EXAM DATE/TIME: 06/01/2017 23:27 [facility] COMPARISON: CHEST SINGLE AP, May 27, 2017, 4:39. INDICATIONS : Chest discomfort, left upper extremity numbness MEDICAL HISTORY : Hypertension. SURGICAL HISTORY : Carotid endarterectomy. ENCOUNTER: Initial ACUITY: 1 day PAIN SCORE: 0/10 LOCATION: Bilateral chest FINDINGS: The patient is rotated towards the right. Heart is enlarged, similar to prior. No focal infiltrates seen. Previously noted infiltrates in left lower lung have resolved. Both hemidiaphragms well delin eated. Vertebroplasty cement is at multiple levels. CONCLUSION: No infiltrates seen. Joe Lopez MD on June 01, 2017 at 23:40 Board Certified Radiologist. This report was verified electronically.
[2017-06-01 23:49] LABS: AUTOMATED NEUTROPHIL # 11.2 TH/MM3 (1.8-7.7); BASOPHIL # 0.4 TH/MM3 (0-0.2); BASOPHIL % 2.8 % (0.0-2.0); EOSINOPHIL # 0.1 TH/MM3 (0-0.4); EOSINOPHIL % 0.6 % (0.0-4.0); HEMATOCRIT 28.9 % (35.0-46.0); LYMPH % 15.6 % (9.0-44.0); LYMPHOCYTE # 2.4 TH/MM3 (1.0-4.8); MEAN CELL VOLUME 78.9 FL (80.0-100.0); MEAN CORPUSCULAR HEMOGLOBIN 25.1 PG (27.0-34.0); MEAN CORPUSCULAR HGB CONC 31.8 % (32.0-36.0); MONO % 9.1 % (0.0-8.0); NEUT % 71.9 % (16.0-70.0); PLATELET COUNT 436 TH/MM3 (150-450); RED BLOOD COUNT 3.67 MIL/MM3 (4.00-5.30); WHITE BLOOD COUNT 15.5 TH/MM3 (4.0-11.0)
[2017-06-01 23:52] LABS: HEMO FLAGS AUTO DIFF
[2017-06-01 23:57] LABS: CHLORIDE 102 MEQ/L (98-107); POTASSIUM 3.9 MEQ/L (3.5-5.1); SODIUM (NA) 137 MEQ/L (136-145)
[2017-06-02] VITALS (10 sets, daily range): BP systolic 126–151; BP diastolic 57–71; PULSE 52–72; RESP 16–20; TEMP 97.2–98.2; O2SAT 95–98
[2017-06-02 00:01] LABS: ANION GAP 8 MEQ/L (5-15); BICARBONATE 26.7 MEQ/L (21.0-32.0); BLOOD UREA NITROGEN 20 MG/DL (7-18)
[2017-06-02 00:03] LABS: APTT (PATIENT) 21.2 SEC (24.3-30.1); INTERNATIONAL NORMALIZED RATIO 0.9 RATIO; PROTHROMBIN TIME - PATIENT 9.8 SEC (9.8-11.6)
[2017-06-02 00:04] LABS: ALT (GPT) 48 U/L (10-53); AST (GOT) 17 U/L (15-37); GLOMERULAR FILTRATION RATE 40 ML/MIN (>89)
[2017-06-02 00:05] LABS: OVALOCYTES 1+ (NORMAL); PLATELET ESTIMATE SMEAR NORMAL (NORMAL); PLATELET MORPHOLOGY NORMAL (NORMAL); SCAN/DIFF AUTO DIFF CONFIRMED
[2017-06-02 00:06] LABS: TOTAL BILIRUBIN ADULT 0.4 MG/DL (0.2-1.0)
[2017-06-02 00:07] LABS: ALKALINE PHOSPHATASE 90 U/L (45-117); CREATINE KINASE 24 U/L (26-192)
--- NOTE | 2017-06-02 00:59 | RADRPT ---
EXAM DATE/TIME: 06/02/2017 00:06 [facility] COMPARISON: No previous studies available for comparison. INDICATIONS : Left leg swelling. MEDICAL HISTORY : Chronic obstructive pulmonary disease. Gastroesophageal reflux disease.Cerebrovascular accident. Myoc ardial infarction. Abdominal aortic aneurysm. Thyroid disease. Hypercholesterolemia. Hypertension. Fi bromyalgia. Osteoporosis. Cervical cancer. Carcinoma, right breast. SURGICAL HISTORY : Appendectomy. Mastectomy, right. Hysterectomy. Cardiac catheterization. Thoracic kyphoplasty. ENCOUNTER: Initial ACUITY: 1 day PAIN SCORE: 2/10 LOCATION: Left leg. TECHNIQUE: Venous ultrasound of the leg was performed from the inguinal ligament to the proximal calf. Real-mariusz e, color Doppler and spectral tracing, compression and augmentation techniques were used. FINDINGS: There is normal compressibility of the deep venous system from the inguinal region to the proximal ca lf. No echogenic clot is seen in the lumen of the common femoral, femoral, popliteal, and posterior tibial veins. There is a normal response of the venous system to proximal and distal augmentation an d respiration. CONCLUSION: The study is negative for deep venous thrombosis left lower extremity. Joe Lopez MD on June 02, 2017 at 0:57 Board Certified Radiologist. This report was verified electronically.
[2017-06-02] MEDS ORDERED: ASPIRIN 81 MG CHEW TAB CHEW ONE (01:15)
[2017-06-02] MEDS ORDERED: ACETAMINOPHEN/HYDROcodone 325 MG/5 MG TAB PO ONE ×2 (01:15→06:15)
[2017-06-02 01:27] LABS: BLOOD, URINE NEG (NEG); GLUCOSE,URINE NEG (NEG); KETONE, URINE NEG (NEG); NITRITE,URINE NEG (NEG)
[2017-06-02] MEDS ORDERED: SODIUM CHLOR 0.9% 1000 ML INJ 1,000 ML IV SCH ×2 (01:29→09:46)
[2017-06-02] MEDS ORDERED: BISACODYL 10 MG SUPP RECTAL PRN (01:30)
[2017-06-02] MEDS ORDERED: ACETAMINOPHEN 325 MG TAB PO PRN (01:30)
[2017-06-02] MEDS ORDERED: SENNOSIDES 8.6 MG TAB PO PRN (01:30)
[2017-06-02] MEDS ORDERED: MAGNESIUM HYDROXIDE SUSP 30 ML CUP PO PRN (01:30)
[2017-06-02] MEDS ORDERED: ONDANSETRON HCL 4 MG/2 ML VIAL IVP PRN (01:30)
[2017-06-02] MEDS ORDERED: SODIUM CHLORIDE 0.9% FLUSH 10 ML FLUSH IV FLUSH PRN (01:30)
[2017-06-02] MEDS ORDERED: LACTULOSE SYRUP 20 GM/30 ML CUP PO PRN (01:30)
--- NOTE | 2017-06-02 01:33 | PD ---
HPI Chief Complaint: Numbness/Tingling Time Seen by Provider: 23:14 Travel History International Travel<30 days: No Contact w/Intl Traveler<30days: No Traveled to known affect area: No History of Present Illness HPI 72-year-old female presents to the emergency department by private transportation for complaint of isolated tingling to the distal tips of the left fourth and fifth digits since approximately 7 PM or 6:50 PM this evening. Patient states that she was recently hospitalized for TIA and during that visit was identified to have had evidence of a possible acute lacunar infarct and was identified to have significant stenosis of the carotid arteries specially 90% stenosis on the right underwent right carotid endarterectomy. Patient was discharged from the hospital as recently as 05/29/17 and has done well until today reportedly. Patient's had no fever or chills. No new neck pain or swelling. No new left upper extremity or left lower extremity numbness tingling or weakness other than the isolated tips of the distal left fourth and fifth digits with tingling. Patient states tingling is persistent but milder and less significant than when it started 4 hours ago. Patient denies any left lower extremity numbness tingling or weakness but has noted some swelling of the left lower extremity which she states is new. Patient has been taking her medications as prescribed. Patient also has had headache 2 weeks 10 in intensity that has not changed. Patient is prescribed hydrocodone 5/325 for headache management. Headache that she has at this time as her headache that she's had for the past 2 weeks not sudden onset not thunderclap not worst of her. Patient's had no confusion no visual disturbance no change in speech and no new facial droop. Patient denies any new neck pain. No difficulty with swallowing. Patient denies any balance disturbance. Patient denies fever chills or drainage from her postoperative site. PFSH Past Medical History Narrative Medical TIA CVA without residua aspirin therapy carotid endarterectomy rhythm disturbance with loop recorder dyslipidemia COPD tobacco use fibromyalgia breast cancer with mastectomy tobaccoism; nursing notes reviewed Hx Anticoagulant Therapy: Yes AAA: Yes Arthritis: Yes Asthma: Yes Autoimmune Disease: No Anxiety: Yes Depression: No Heart Rhythm Problems: Yes (loop recorder) Cancer: Yes (RIGHT BREAST, CERVICAL) Cardiac Catheterization: Yes Cardiovascular Problems: Yes (hx TIA) High Cholesterol: Yes Chemotherapy: No Chest Pain: No Congestive Heart Failure: No COPD: Yes Cerebrovascular Accident: Yes (hx) Diabetes: No Diminished Hearing: Yes ([place]) Endocrine: Yes Fibromyalgia: Yes Gastrointestinal Disorders: Yes (ACID REFLEX, CURRENT GASTRIC BLEED) GERD: Yes Genitourinary: No Headaches: Yes Hepatitis: No Hiatal Hernia: No Hypertension: Yes Immune Disorder: Yes (FIBROMYALGIA) Implanted Vascular Access Dvce: No Kidney Stones: No Medical other: Yes (ANEMIA) Musculoskeletal: Yes (BACK PAIN,ARTHRITIS) Neurologic: Yes (STROKE HX) Psychiatric: Yes Reproductive: No Respiratory: Yes (ASTHMA, COPD) 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) Immunizations Current: Yes Migraines: No Myocardial Infarction: Yes Radiation Therapy: Yes Renal Failure: No Seizures: No Sleep Apnea: No Thyroid Disease: Yes Ulcer: Yes (PEPTIC) Tetanus Vaccination: Unknown Influenza Vaccination: Yes ?: Not Menopausal: Yes : 2 Para: 2 Past Surgical History Abdominal Surgery: No AICD: No Appendectomy: Yes Arteriovenous Shunt: No Body Medical Devices: Loop recorder left chest Cardiac Surgery: No Cholecystectomy: No Coronary Artery Bypass Graft: No Ear Surgery: No Endocrine Surgery: No Eye Surgery: No Genitourinary Surgery: No Gynecologic Surgery: Yes (CERVICAL BX, HYSTERECTOMY) Hysterectomy: Yes Insulin Pump: No Joint Replacement: No Mastectomy: Yes (RT) Neurologic Surgery: No Oral Surgery: No Pacemaker: No Thoracic Surgery: Yes Other Surgery: Yes (RT MASTECTOMY WITH BREAST RECONSTRUCTION, rt carotid endart ) Social History Alcohol Use: No Tobacco Use: Yes (1PPD) Substance Use: No Allergies-Medications (Allergen,Severity, Reaction): Coded Allergies: doxycycline (Unverified Allergy, Severe, SHORTNESS OF BREATH, 06/01/17) minocycline (Unverified Allergy, Severe, SHORTNESS OF BREATH, 06/01/17) oxycodone (Unverified Allergy, Severe, UNKNOWN, 06/01/17) penicillin G (Unverified Allergy, Severe, SHORTNESS OF BREATH, 06/01/17) tetanus toxoid, adsorbed (Unverified Allergy, Severe, SHORTNESS OF BREATH , 06/01/17) tigecycline (Unverified Allergy, Severe, SHORTNESS OF BREATH, 06/01/17) diazepam (Unverified Adverse Reaction, Intermediate, HYPER, 06/01/17) Uncoded Allergies: PAPER TAPE (Allergy, Severe, SKIN BLISTERS, 05/17/16) . Reported Meds & Prescriptions Reported Meds & Active Scripts Active Hydrocodone-Acetamin 5-325 mg (Hydrocodone/Acetaminophen) 5 Mg-325 Mg Tablet 1 Tab PO Q4H PRN Prednisone 5 Mg Tab 5 Mg PO DIRECTED 8 Days 30 mg po daily for two days then 20 mg po daily for two days then 10 mg po daily for two days then 5 mg po daily for two days then stop. Reported Prilosec (Omeprazole Magnesium) 20 Mg Tab DAILY Aspirin Children's (Aspirin) 81 Mg Chew 81 Mg CHEW DAILY Synthroid (Levothyroxine Sodium) 112 Mcg Tab 112 Mcg PO DAILY Coreg (Carvedilol) 3.125 Mg Tab 3.125 Mg PO DAILY Atorvastatin (Atorvastatin Calcium) 40 Mg Tab 40 Mg PO HS Spiriva Handihaler (Tiotropium Inh) 18 Mcg Cap 18 Mcg INH DAILY 1 capsule = 18 mcg Review of Systems Except as stated in HPI: all other systems reviewed are Neg General / Constitutional: No: Fever, Chills Eyes: No: Diploplia, Blurred Vision, Photophobia HENT: Positive: Headaches, No: Neck Stiffness, Neck Pain Cardiovascular: No: Chest Pain or Discomfort (well-healing postsurgical scar), Palpitations, Diaphoresis Respiratory: No: Cough, Shortness of Breath, Wheezing Gastrointestinal: No: Nausea, Vomiting Genitourinary: No: Urgency, Frequency, Dysuria Musculoskeletal: No: Myalgias, Arthralgias Skin: No Rash Neurologic: Positive: Headache, Paresthesia (tingling to the left fourth and fifth digits at the distal aspects), No: Weakness, Dizziness, Syncope, Focal Abnormalities, Coordination Problem, Ataxia, Change in Mentation, Slurred Speech , Incontinence, Sensory Disturbance Psychiatric: No: Anxiety Hematologic/Lymphatic: No: Lymph Node Enlargement Physical Exam Narrative GENERAL: Well-developed well-nourished female in no acute distress no respiratory distress GCS 15 SKIN: Warm and dry. HEAD: Atraumatic. Normocephalic. EYES: Pupils equal and round. No scleral icterus. No injection or drainage. ENT: No nasal bleeding or discharge. Mucous membranes pink and moist. NECK: Trachea midline. No JVD. Well healing scar of the right carotid consistent with recent carotid endarterectomy no drainage no induration no erythema no increased warmth CARDIOVASCULAR: Regular rate and rhythm. RESPIRATORY: No accessory muscle use. Clear to auscultation. Breath sounds equal bilaterally. GASTROINTESTINAL: Abdomen soft, non-tender, nondistended. Hepatic and splenic margins not palpable. MUSCULOSKELETAL: Extremities without clubbing, cyanosis, mild left lower leg edema. No obvious deformities. Bilateral dorsalis pedis pulses 2+ to palpation NEUROLOGICAL: Awake and alert. No obvious cranial nerve deficits. Motor grossly within normal limits. Five out of 5 muscle strength in the arms and legs. Normal speech. PSYCHIATRIC: Appropriate mood and affect; insight and judgment normal. Data Data Last Documented VS Vital Signs Date Time Temp Pulse Resp B/P (MAP) Pulse Ox O2 Delivery O2 Flow Rate FiO2 06/02/17 00:22 65 18 149/67 (94) 95 Room Air 06/01/17 23:00 98.2 Orders Orders Electrocardiogram (06/01/17 23:14) Prothrombin Time / Inr (Pt) (06/01/17 23:14) Act Partial Throm Time (Ptt) (06/01/17 23:14) Complete Blood Count With Diff (06/01/17 23:14) Comprehensive Metabolic Panel (06/01/17 23:14) Creatine Kinase (Cpk) (06/01/17 23:14) Troponin I (06/01/17 23:14) Urinalysis - C+S If Indicated (06/01/17 23:14) Ct Brain W/O Iv Contrast(Rout) (06/01/17 23:14) Chest, Single Ap (06/01/17 23:14) Ecg Monitoring (06/01/17 23:14) Iv Access Insert/Monitor (06/01/17 23:14) Oximetry (06/01/17 23:14) Blood Glucose (06/01/17 23:14) Sodium Chloride 0.9% Flush (Ns Flush) (06/01/17 23:15) Us Leg Venous Doppler (06/02/17 ) Acetamin-Hydrocod 325-5 Mg ([place] 5-325 (06/02/17 01:15) Aspirin Chew (Aspirin Chew) (06/02/17 01:15) Admit Order (Ed Use Only) (06/02/17 ) Fly Raiser Lockstitch / Telemetry EVELYN.Q8H (06/02/17 01:31) Activity Oob With Assistance (06/02/17 01:31) Notify Dr: Other (06/02/17 01:31) Consult Neurology (06/02/17 ) Admit To Inpatient (06/02/17 ) Vital Signs (Adult) Q4H (06/02/17 01:29) Neuro Checks Q4H (06/02/17 01:29) Activity Oob With Assistance (06/02/17 01:29) Fly Raiser Lockstitch / Telemetry .CONTINUOUS (06/02/17 01:29) Intake + Output EVELYN.QSHIFT (06/02/17 01:29) Diet Regular Basic (06/02/17 Breakfast) Sodium Chlor 0.9% 1000 Ml Inj (Ns 1000 M (06/02/17 01:29) Sodium Chloride 0.9% Flush (Ns Flush) (06/02/17 01:30) Sodium Chloride 0.9% Flush (Ns Flush) (06/02/17 09:00) Ondansetron Inj (Zofran Inj) (06/02/17 01:30) Comprehensive Metabolic Panel (06/03/17 06:00) Complete Blood Count With Diff (06/03/17 06:00) Pt Request For Service (06/02/17 01:29) Case Management Consult (06/02/17 01:29) Scd Bilateral/Knee High EVELYN.BID (06/02/17 01:29) Eros Bilateral/Knee High EVELYN.QSHIFT (06/02/17 01:32) Acetaminophen (Tylenol) (06/02/17 01:30) Docusate Sodium-Senna (Jeanine-Colace) (06/02/17 09:00) Magnesium Hydroxide Liq (Milk Of Magnesi (06/02/17 01:30) Sennosides (Senokot) (06/02/17 01:30) Bisacodyl Supp (Dulcolax Supp) (06/02/17 01:30) Lactulose Liq (Lactulose Liq) (06/02/17 01:30) Inpatient Certification (06/02/17 ) Morphine Inj (Morphine Inj) (06/02/17 01:45) Labs Laboratory Tests Test 06/01/17 23:10 06/02/17 01:00 White Blood Count 15.5 TH/MM3 Red Blood Count 3.67 MIL/MM3 Hemoglobin 9.2 GM/DL Hematocrit 28.9 % Mean Corpuscular Volume 78.9 FL Mean Corpuscular Hemoglobin 25.1 PG Mean Corpuscular Hemoglobin Concent 31.8 % Red Cell Distribution Width 18.0 % Platelet Count 436 TH/MM3 Mean Platelet Volume 9.7 FL Neutrophils (%) (Auto) 71.9 % Lymphocytes (%) (Auto) 15.6 % Monocytes (%) (Auto) 9.1 % Eosinophils (%) (Auto) 0.6 % Basophils (%) (Auto) 2.8 % Neutrophils # (Auto) 11.2 TH/MM3 Lymphocytes # (Auto) 2.4 TH/MM3 Monocytes # (Auto) 1.4 TH/MM3 Eosinophils # (Auto) 0.1 TH/MM3 Basophils # (Auto) 0.4 TH/MM3 CBC Comment AUTO DIFF Differential Comment AUTO DIFF CONFIRMED Platelet Estimate NORMAL Platelet Morphology Comment NORMAL Ovalocytes 1+ Prothrombin Time 9.8 SEC Prothromb Time International Ratio 0.9 RATIO Activated Partial Thromboplast Time 21.2 SEC Blood Urea Nitrogen 20 MG/DL Creatinine 1.30 MG/DL Random Glucose 109 MG/DL Total Protein 7.0 GM/DL Albumin 3.3 GM/DL Calcium Level 8.3 MG/DL Alkaline Phosphatase 90 U/L Aspartate Amino Transf (AST/SGOT) 17 U/L Alanine Aminotransferase (ALT/SGPT) 48 U/L Total Bilirubin 0.4 MG/DL Sodium Level 137 MEQ/L Potassium Level 3.9 MEQ/L Chloride Level 102 MEQ/L Carbon Dioxide Level 26.7 MEQ/L Anion Gap 8 MEQ/L Estimat Glomerular Filtration Rate 40 ML/MIN Total Creatine Kinase 24 U/L Troponin I LESS THAN 0.02 NG/ML Urine Color YELLOW Urine Turbidity CLEAR Urine pH 6.0 Urine Specific [place] 1.010 Urine Protein NEG mg/dL Urine Glucose (UA) NEG mg/dL Urine Ketones NEG mg/dL Urine Occult Blood NEG Urine Nitrite NEG Urine Bilirubin NEG Urine Leukocyte Esterase NEG Urine RBC 0-3 /hpf Urine WBC 0-2 /hpf Urine Squamous Epithelial Cells 0-5 /hpf Urine Bacteria NONE /hpf Microscopic Urinalysis Comment CULT NOT INDICATED MDM Medical Decision Making Medical Screen Exam Complete: Yes Emergency Medical Condition: Yes Medical Record Reviewed: Yes Interpretation(s) EKG: Normal sinus rhythm rate [address] elevation or injury pattern or ectopy Differential Diagnosis TIA CVA cervical radiculopathy arrhythmia ulnar nerve contusion medication noncompliance tobaccoism ACS Narrative Course Patient placed on ekg monitor with continuous pulse oximetry; IV access obtained EKG performed sinus rhythm no acute ST elevation or ectopy or injury pattern change noted patient sent for a stat CT brain noncontrast with exception of isolated tingling to the tips the left fourth and fifth digit no acute neurologic finding identified NIHSS of 0 the time of transport to CAT scan ; patient's case discussed with neurologist follow-up Granddaughter are at bedside at this time reports that she thought that she had some facial drooping that she felt was new although not identified at this time. CT brain noncontrast negative for acute process Chest x-ray no acute process EKG is sinus rhythm with no acute ST elevation or injury pattern or ectopy noted Lab values remarkable for mild leukocytosis 15,500 with only 71% neutrophils and hemoglobin of 9.2 this is stable hemoglobin by comparison to prior labs: Patient was identified to have elevation of BUN and creatinine 20/1.30 which is increased from last visit which may reflect patient's white cell count from a hydration status as well as stress demargination; no recent fever Patient is aware of plan for admission Physician Communication Physician Communication discussed patient with follow-up recommends patient to be started on Plavix in consultation to neurology in the a.m. not a thrombolytic candidate; discussed case with Dana ABREU admitted to their services once for TIA Diagnosis Primary Impression: TIA (transient ischemic attack) Admitting Information Admitting Physician Requests: Observation Daisy De Luna MD Jun 02, 2017 01:33
[2017-06-02 01:37] LABS: COMMENT (UR) CULT NOT INDICATED; CULTURE IF INDICATED CULT NOT INDICATED; RBC, URINE 0-3 /hpf (0-3); SQUAMOUS EPITHELIAL CELL URINE 0-5 /hpf (0-5); URINE COLOR YELLOW (YELLW/STRAW); WBC, URINE 0-2 /hpf (0-5)
[2017-06-02] MEDS ORDERED: MORPHINE SULFATE 2 MG/ML INJ IV PRN (01:45)
[2017-06-02] MEDS: LEVOTHYROXINE SODIUM 112 MCG TAB PO SCH (06:00)
[2017-06-02] MEDS ORDERED: LEVOTHYROXINE SODIUM 112 MCG TAB PO SCH (09:00)
[2017-06-02] MEDS: TIOTROPIUM BROMIDE 18 MCG INH INH SCH (09:00)
[2017-06-02] MEDS: CLOPIDOGREL 75 MG TAB PO SCH (09:35)
[2017-06-02] MEDS: ASPIRIN 81 MG CHEW TAB CHEW SCH (09:35)
[2017-06-02] MEDS: DOCUSATE SODIUM 50 MG/SENNA 8.6 MG TAB PO SCH ×2 (09:36→22:01)
[2017-06-02] MEDS: SODIUM CHLORIDE 0.9% FLUSH 10 ML FLUSH IV FLUSH SCH ×2 (09:39→22:01)
--- NOTE | 2017-06-02 12:09 | HHI.HP ---
[facility] Primary Care Physician Jhony Curtis MD Admission Diagnosis TIA Diagnoses: Travel History International Travel<30 Days: No Contact w/Intl Traveler <30 Da: No Traveled to Known Affected Are: No History of Present Illness This is a 72-year-old female with past medical history of TIA and possible lacunar infarct diagnosed one week ago who presented to the ER complaining of paresthesias to the left fourth and fifth finger beginning yesterday. The tingling is now resolved. Patient recently underwent a right carotid endarterectomy with Dr. Moran 1 week ago. She has follow-up appointment with him for repeat ultrasound to have left carotid endarterectomy as she has known 80% stenosis. Yesterday patient had no other neurologic symptoms. No dysarthria no unilateral weakness. Numbness and tingling have resolved. Patient has had intermittent headaches for the past 3 weeks which are global. Patient states Lortab helps the headaches. No difficulty walking. Patient does continue to smoke. She takes a baby aspirin daily. Review of Systems Constitutional: DENIES: Fatigue, Fever Eyes: COMPLAINS OF: Blurred vision, DENIES: Vision loss Ears, nose, mouth, throat: DENIES: Throat pain, Odynophagia Respiratory: DENIES: Cough, Shortness of breath Cardiovascular: DENIES: Chest pain, Palpitations Gastrointestinal: DENIES: Nausea, Vomiting Genitourinary: COMPLAINS OF: Urinary frequency, Dysuria Musculoskeletal: COMPLAINS OF: Stiffness, Back pain Integumentary: DENIES: Pruritus, Rash Hematologic/lymphatic: DENIES: Lymphadenopathy Neurologic: COMPLAINS OF: Headache, Paresthesias, DENIES: Abnormal gait, Localized weakness, Speech Problems, Poor Balance Psychiatric: DENIES: Anxiety, Confusion Past Family Social History Past Medical History TIA/CVA Peripheral vascular disease COPD and continues to smoke Fibromyalgia Borderline diabetes High cholesterol GERD Melanoma resected from left hand Chronic kidney disease stage III Hypothyroidism Breast cancer with mastectomy Cervical cancer status post hysterectomy Chronic back pain status post back surgeries Reported Medications Allergies Coded Allergies Type Severity Reaction Last Updated Verified doxycycline Allergy Severe SHORTNESS OF BREATH 06/01/17 No minocycline Allergy Severe SHORTNESS OF BREATH 06/01/17 No oxycodone Allergy Severe UNKNOWN 06/01/17 No penicillin G Allergy Severe SHORTNESS OF BREATH 06/01/17 No tetanus toxoid, adsorbed Allergy Severe SHORTNESS OF BREATH 06/01/17 No tigecycline Allergy Severe SHORTNESS OF BREATH 06/01/17 No diazepam Adverse Reaction Intermediate HYPER 06/01/17 No Uncoded Allergies Type Severity Reaction Last Updated Verified PAPER TAPE Allergy Severe SKIN BLISTERS 05/17/16 Active Scripts Medications Dose Route/Sig Max Daily Dose Days Date Category Dose Instructions Hydrocodone-Acetamin 5-325 mg (Hydrocodone/Acetaminophen) 5 Mg-325 Mg Tablet 1 Tab PO Q4H PRN 05/29/17 Rx Prednisone 5 Mg Tab 5 Mg PO DIRECTED 8 05/25/17 Rx 30 mg po daily for two days then 20 mg po daily for two days then 10 mg po daily for two days then 5 mg po daily for two days then stop. Prilosec (Omeprazole Magnesium) 20 Mg Tab DAILY 05/21/17 Reported Aspirin Children's (Aspirin) 81 Mg Chew 81 Mg CHEW DAILY 05/21/17 Reported Synthroid (Levothyroxine Sodium) 112 Mcg Tab 112 Mcg PO DAILY 05/17/16 Reported Coreg (Carvedilol) 3.125 Mg Tab 3.125 Mg PO DAILY 05/17/16 Reported Atorvastatin (Atorvastatin Calcium) 40 Mg Tab 40 Mg PO HS 05/17/16 Reported Spiriva Handihaler (Tiotropium Inh) 18 Mcg Cap 18 Mcg INH DAILY 05/17/16 Reported 1 capsule = 18 mcg Allergies: Coded Allergies: doxycycline (Unverified Allergy, Severe, SHORTNESS OF BREATH, 06/01/17) minocycline (Unverified Allergy, Severe, SHORTNESS OF BREATH, 06/01/17) oxycodone (Unverified Allergy, Severe, UNKNOWN, 06/01/17) penicillin G (Unverified Allergy, Severe, SHORTNESS OF BREATH, 06/01/17) tetanus toxoid, adsorbed (Unverified Allergy, Severe, SHORTNESS OF BREATH , 06/01/17) tigecycline (Unverified Allergy, Severe, SHORTNESS OF BREATH, 06/01/17) diazepam (Unverified Adverse Reaction, Intermediate, HYPER, 06/01/17) Uncoded Allergies: PAPER TAPE (Allergy, Severe, SKIN BLISTERS, 05/17/16) . Family History No family history of migraines Social History Positive tobacco use Physical Exam Vital Signs Vital Signs Date Time Temp Pulse Resp B/P (MAP) Pulse Ox O2 Delivery O2 Flow Rate FiO2 06/02/17 08:00 97.2 70 20 135/59 (84) 95 06/02/17 07:33 18 06/02/17 04:00 97.2 52 16 129/63 (85) 96 06/02/17 03:37 66 18 95 06/02/17 03:36 66 18 146/66 (92) 95 Room Air 06/02/17 02:25 68 18 151/68 (95) 95 Room Air 06/02/17 00:22 65 18 149/67 (94) 95 Room Air 06/01/17 23:00 98.2 88 18 202/94 (130) 97 06/01/17 23:00 97 06/01/17 23:00 88 18 97 Room Air Physical Exam GENERAL: This is a well-nourished, well-developed patient, in no apparent distress. SKIN: No rashes, ecchymoses or lesions. Cool and dry. HEAD: Atraumatic. Normocephalic. EYES: Pupils equal round and reactive. Extraocular motions intact. No scleral icterus. No injection or drainage. ENT: Nose without bleeding, purulent drainage or septal hematoma. Throat without erythema, tonsillar hypertrophy or exudate. Uvula midline. Airway patent. NECK: Trachea midline. No JVD or lymphadenopathy. Supple, nontender, no meningeal signs. CARDIOVASCULAR: Regular rate and rhythm without murmurs, gallops, or rubs. RESPIRATORY: Clear to auscultation. Breath sounds equal bilaterally. No wheezes , rales, or rhonchi. GASTROINTESTINAL: Abdomen soft, non-tender, nondistended. No hepato-splenomegaly , or palpable masses. No guarding. MUSCULOSKELETAL: Extremities without clubbing, cyanosis, or edema. NEUROLOGICAL: Awake and alert. Cranial nerves II through XII intact. Motor and sensory grossly within normal limits. Five out of 5 muscle strength in all muscle groups. Normal speech. Laboratory Laboratory Tests Test 06/01/17 23:10 06/02/17 01:00 06/02/17 11:30 White Blood Count 15.5 Red Blood Count 3.67 Hemoglobin 9.2 Hematocrit 28.9 Mean Corpuscular Volume 78.9 Mean Corpuscular Hemoglobin 25.1 Mean Corpuscular Hemoglobin Concent 31.8 Red Cell Distribution Width 18.0 Platelet Count 436 Mean Platelet Volume 9.7 Neutrophils (%) (Auto) 71.9 Lymphocytes (%) (Auto) 15.6 Monocytes (%) (Auto) 9.1 Eosinophils (%) (Auto) 0.6 Basophils (%) (Auto) 2.8 Neutrophils # (Auto) 11.2 Lymphocytes # (Auto) 2.4 Monocytes # (Auto) 1.4 Eosinophils # (Auto) 0.1 Basophils # (Auto) 0.4 CBC Comment AUTO DIFF Differential Comment AUTO DIFF CONFIRMED Platelet Estimate NORMAL Platelet Morphology Comment NORMAL Ovalocytes 1+ Prothrombin Time 9.8 Prothromb Time International Ratio 0.9 Activated Partial Thromboplast Time 21.2 Blood Urea Nitrogen 20 Creatinine 1.30 Random Glucose 109 Total Protein 7.0 Albumin 3.3 Calcium Level 8.3 Alkaline Phosphatase 90 Aspartate Amino Transf (AST/SGOT) 17 Alanine Aminotransferase (ALT/SGPT) 48 Total Bilirubin 0.4 Sodium Level 137 Potassium Level 3.9 Chloride Level 102 Carbon Dioxide Level 26.7 Anion Gap 8 Estimat Glomerular Filtration Rate 40 Total Creatine Kinase 24 Troponin I LESS THAN 0.02 Urine Color YELLOW Urine Turbidity CLEAR Urine pH 6.0 Urine Specific [place] 1.010 Urine Protein NEG Urine Glucose (UA) NEG Urine Ketones NEG Urine Occult Blood NEG Urine Nitrite NEG Urine Bilirubin NEG Urine Leukocyte Esterase NEG Urine RBC 0-3 Urine WBC 0-2 Urine Squamous Epithelial Cells 0-5 Urine Bacteria NONE Microscopic Urinalysis Comment CULT NOT INDICATED Result Diagram: 06/01/17230906/01/172309 Imaging Last Impressions Lower Extremity Ultrasound 06/02/17 0000 Signed Impressions: Service Date/Time: Friday, June 02, 2017 00:06 - CONCLUSION: The study is negative for deep venous thrombosis left lower extremity. Joe Lopez MD Head CT 06/01/172313 Signed Impressions: Service Date/Time: May 23:19 - CONCLUSION: Negative noncontrast CT brain. Joe Lopez MD Chest X-Ray 06/01/172313 Signed Impressions: Service Date/Time: May 23:27 - CONCLUSION: No infiltrates seen. MD Irasema Vega VTE Risk Assessment Caprini VTE Risk Assessment: Mod/High Risk (score >= 2) Caprini Risk Assessment Model Point Value = 1 Point Value = 2 Point Value = 3 Point Value = 5 Age 41-60 Minor surgery BMI > 25 kg/m2 Swollen legs Varicose veins or History of unexplained or recurrent spontaneous Oral contraceptives or hormone replacement Sepsis (< 1 month) Serious lung disease, including pneumonia (< 1 month) Abnormal pulmonary function Acute myocardial infarction Congestive heart failure (< 1 month) History of inflammatory bowel disease Medical patient at bed rest Age 61-74 Arthroscopic surgery Major open surgery (> 45 min) Laparoscopic surgery (> 45 min) Malignancy Confined to bed (> 72 hours) Immobilizing plaster cast Central venous access Age >= 75 History of VTE Family history of VTE Factor V Leiden Prothrombin [id number] Lupus anticoagulant Anticardiolipin antibodies Elevated serum homocysteine Heparin-induced thrombocytopenia Other congenital or acquired thrombophilia Stroke (< 1 month) Elective arthroplasty Hip, pelvis, or leg fracture Acute spinal cord injury (< 1 month) Prophylaxis Regimen Total Risk Factor Score Risk Level Prophylaxis Regimen 0-1 Low Early ambulation 2 Moderate Order ONE of the following: *Sequential Compression Device (SCD) *Heparin 5000 units SQ BID 3-4 Higher Order ONE of the following medications: *Heparin 5000 units SQ TID *Enoxaparin/Lovenox 40 mg SQ daily (WT < 150 kg, CrCl > 30 mL/min) *Enoxaparin/Lovenox 30 mg SQ daily (WT < 150 kg, CrCl > 10-29 mL/min) *Enoxaparin/Lovenox 30 mg SQ BID (WT < 150 kg, CrCl > 30 mL/min) AND/OR *Sequential Compression Device (SCD) 5 or more Highest Order ONE of the following medications: *Heparin 5000 units SQ TID (Preferred with Epidurals) *Enoxaparin/Lovenox 40 mg SQ daily (WT < 150 kg, CrCl > 30 mL/min) *Enoxaparin/Lovenox 30 mg SQ daily (WT < 150 kg, CrCl > 10-29 mL/min) *Enoxaparin/Lovenox 30 mg SQ BID (WT < 150 kg, CrCl > 30 mL/min) AND *Sequential Compression Device (SCD) Assessment and Plan Problem List: (1) Paresthesias in left hand ICD Code: R20.2 - Paresthesia of skin Assessment and Plan -Transient paresthesias of the left fourth and fifth digit now resolved. Patient recently had a possible small acute lacunar infarct one week ago and was found to have 90% stenosis of the right carotid artery and 80% on the left. She underwent right carotid endarterectomy one week ago with Dr. Moran. -Head CT is negative. -Discussed with Dr. Crockett neurology - proceed with MRA brain and carotids , MRI brain, EEG study. -Change aspirin to Plavix-discontinue aspirin and 3 days, continue Lipitor, LDL 10 days ago was 58, echocardiogram at that time had low normal LV function -Smoking cessation again encouraged patient -Tension-type headache. Continue Lortab as needed. -GERD. Continue PPI -Chronic kidney disease stage III -creatinine stable -COPD and continues to smoke - not an acute exacerbation, continue Spiriva. Borderline diabetes - recent A1c was 6.3. Continue diabetic diet. Hypothyroidism - continue Synthroid DVT prophylaxis with SCDs Yola Almaguer MD Jun 02, 2017 12:09
--- NOTE | 2017-06-02 12:31 | MB ---
cc: PREET MARRUFO M.D. DATE OF CONSULTATION: 06/02/2017 HISTORY OF PRESENT ILLNESS The patient is a 72-year-old right-handed woman with hypertension, borderline diabetes, hypercholesterolemia, a cardiac cath 10 years ago which evidently was negative, hypothyroidism, cervical cancer and bilateral breast cancer, the last one 2 years ago without mets. She tells me I saw her about 2 years ago for some left-sided facial droop. She was put on a baby aspirin and we had a loop placed which evidently was negative. About three weeks ago she was having some numbness and tingling in the left arm and some vision change and a headache and was found to have over 90% stenosis she tells me of the right carotid and had a right carotid endarterectomy about three days ago. She went home but then yesterday she felt like her left hand was heavy, a little bit of tingling, maybe a little puffiness or possibly a slight left facial droop and some swelling of the left lower extremity, and came back into the hospital. No chest pain or palpitations. I had seen her in 2014 and at that time I noted she had a history of fatty liver, angioplasty on the heart. She was not on aspirin for about 4 weeks due to a lumpectomy and then she could not talk right, difficulty moving her left arm. The ER thought she had somewhat of an aphasia, some left jaw pain. I noted she had a history of fibromyalgia. She had also been seen in [address] Chavez for possible TIA with some slurred speech and generalized weakness. CTA showed an occluded right vertebral artery. CTA of the carotids were negative. Tox screen was positive for opiates. Echocardiogram in 2007 showed an LA size of 48, normal ejection fraction. Holter was negative, RPR and FTA negative. Thyroid normal. I thought in 2014 she probably had a TIA. Her left arm was slightly ataxic. She did not get TPA. Telemetry showed a few PACs. CTA of the neck and [place] were negative. MRI of the brain did not show any stroke. MRA of the neck and [place] were normal. B12 was 209. LDL and troponin were negative. We put her on aspirin 325 a day. A loop was placed. She was just seen by Dr. Lee on 05/22/2017 with numbness in the left hand, radiated towards the shoulder, headache. Exam was unremarkable. MRI showed a questionable tiny left acute lacunar infarct. MRA of the head showed a questionable left carotid siphon disease. Carotid ultrasound suggested some stenosis, left more than right. She had a CTA of the neck which showed high-grade stenosis, 90% on the right, 80% on the left. Head CTA was normal. Velocity on the left was 263 which is elevated, 100 would be normal. The right was 150 so on the ultrasound the left one looked worse. ALLERGIES 1. DOXYCYCLINE. 2. MINOCYCLINE. 3. OXYCODONE. 4. PENICILLIN-G. 5. TETANUS TOXOID. 6. TIGECYCLINE. 7. VALIUM. MEDICATIONS At home she is on: 1. Hydrocodone. 2. Prednisone taper. 3. Prilosec. 4. 81 of aspirin. 5. Synthroid. 6. Coreg. 7. Atorvastatin. 8. Inhalers. PHYSICAL EXAMINATION VITAL SIGNS: Afebrile. Pulse 70, respiratory rate 20. She did have a blood pressure last night of 202/94. Blood pressure now is 139/59. NECK: There are no carotid bruits including over the well-healing right CEA scar. HEART: Regular rhythm. I do not detect a murmur. NEUROLOGIC: Pupils are equal. Visual french are full. Extraocular movements intact without nystagmus. It is hard to tell with her smile, she might have a little droopiness to the left lower lip but the upper lip seems to move symmetrically, although she does not give me a large smile. Tongue is midline. There is no drift. She has normal strength in upper and lower extremities bilaterally including the left hand. Fast finger movements of the left hand are normal on the left and on the right. She has normal strength in bilateral lower extremities. DTRs are 2+ symmetric throughout. Toes are downgoing bilaterally. Pinprick is intact including the left hand. She is tender on the rotator cuff bilaterally in the shoulders. She is not ataxic on [id number]. Speech is fluent. She is not aphasic. Median and ulnar nerve pinprick is intact. LABORATORY White count 15, hematocrit 29, platelet count normal. She has been anemic since 2013. A sed rate was normal in 2015. Basic metabolic profile is normal. Creatinine is 1.3. Troponin is negative. Albumin 3.3. B12 was 209 in 2015. Thyroid was normal at that time, although she has been hypothyroid in the past. Thiamine level normal in the past. LDL cholesterol was 58 last week. LFTs are normal. Hemoglobin A1c was elevated to 6.3. Coags normal. Urine drug screen has been negative. JOSE in the past was normal as was an RPR. UA is negative on this admission; was mildly positive on last admission. IMPRESSION Some persistent symptoms on the left side, although really no stroke last time on the right side of the brain. It is a little bit odd also why she is having these headaches. She was put on Plavix. RECOMMENDATIONS What we can do is recheck an MRI of the brain here now and an MRA through the endarterectomy site. We can recheck her B12 level and a sed rate with the headaches. Maintain her blood pressure about 120/70. Consider left carotid endarterectomy in the future for what appears to be an asymptomatic left carotid stenosis. Of interest there was no major stenosis of the carotids just two years ago on MRA and CT. Post endarterectomy we should keep her blood pressure lower, about 120/70 would be fine. Will recheck her B12 level also as it was low in the past. It is unclear if she actually was having a small TIA from this recent endarterectomy. On the surface of it possibly some TIAs in the left arm before and still some post-op. She tells me the loop has been negative to this point. I note she was in sinus rhythm on her telemetry. MD ARACELI Lee/ANUJ /9:31 AM /11:59 AM
--- NOTE | 2017-06-02 15:06 | RADRPT ---
EXAM DATE/TIME: 06/02/2017 14:10 [facility] COMPARISON: No previous studies available for comparison. INDICATIONS : CVA. Numbness in the left upper extremity and headaches. Recent carotid surgery. MEDICAL HISTORY : Carcinoma, breast. Hypertension. SURGICAL HISTORY : Mastectomy, right. Hysterectomy. Carotid endarterectomy. ENCOUNTER: Initial ACUITY: 1 day PAIN SCORE: 1/10 LOCATION: Head TECHNIQUE: Multiplanar, multisequence MRI of the brain was performed without contrast. FINDINGS: CEREBRUM: The ventricles are normal for age. No evidence of midline shift, mass lesion, hemorrhage or acute in farction. No extraaxial fluid collections are seen. The pituitary gland and suprasellar cistern are normal in configuration. WHITE MATTER: Increased signal is again noted on the echoplanar weighted images in the periventricular white matter and centrum semiovale. This is stable. POSTERIOR FOSSA: The cerebellum and brainstem are intact. The 4th ventricle is midline. The cerebellopontine angle is unremarkable. The cerebellar tonsils are normal in position. DIFFUSION IMAGING: No focal areas of restricted diffusion are seen. No evidence of acute infarction. EXTRACRANIAL: The visualized portions of the orbits and paranasal sinuses are unremarkable. CONCLUSION: 1. The previously noted tiny punctate area of restricted diffusion is no longer visualized and there is no restricted diffusion on the current study. 2. Mild atrophy and chronic small vessel ischemic change. Paco Hunt MD on June 02, 2017 at 15:01 Board Certified Radiologist. This report was verified electronically.
[2017-06-02] MEDS ORDERED: GADODIAMIDE PF 287 MG/ML 20 ML VIAL (for RAD MRI) IV PUSH ONE (15:14)
--- NOTE | 2017-06-02 15:43 | RADRPT ---
EXAM DATE/TIME: 06/02/2017 14:10 [facility] COMPARISON: CTA CAROTID ARTERIES W 3D RECON, December 31, 2014, 18:18. MRA CAROTIDS W CONTRAST, December 31, 2014, 16:10 . INDICATIONS : TIA. CONTRAST: 20 cc Omniscan (gadodiamide) IV MEDICAL HISTORY : Carcinoma, breast. Hypertension. SURGICAL HISTORY : Carotid endarterectomy. Hysterectomy. ENCOUNTER: Initial ACUITY: 2 day PAIN SCORE: 0/10 LOCATION: neck Percent stenosis is calculated using the diameter of the stenotic region over the diameter of the nor mal distal internal carotid artery. TECHNIQUE: Bolus infused MRA of the extracranial circulation was performed using a neurovascular coil. Post pro cessing was performed including rotating subvolume maximum intensity projections of each carotid john ry, rotating full volume maximum intensity projections of both carotid arteries, sagittal and coronal sliding thin slab reformations of each carotid artery, and left oblique sliding thin slab reformatio n through the aortic arch to include the origin of the arch branch vessels. FINDINGS: Motion artifact degrades the exam somewhat. AORTIC ARCH: There is a three-vessel origin to the arch. Atherosclerotic plaque is seen involving the arch vessels . This is most pronounced involving the origin of the left common carotid artery where there is a 50% stenosis of its origin. No hemodynamically significant stenosis involving the brachiocephalic artery or left subclavian artery origins. The origin of the right common carotid artery is obscured by ines on artifact. RIGHT CAROTID: The common carotid artery is very tortuous particularly within its most inferior extent. Post endarte rectomy changes are seen. These are patent. The extracranial portion of the ICA and ECA are patent. T he endarterectomy changes are new from the prior study. LEFT CAROTID: The common carotid artery is intact. The carotid bulb has a normal configuration without ulceration or narrowing. The internal carotid artery lumen is smooth without stenosis. The external carotid ar britta is intact. VERTEBRALS: The left vertebral artery is dominant and the sole supply to the basilar artery. It is patent. Right vertebral artery is is diffusely atretic. CONCLUSION: 1. In the future carotid evaluation utilizing axial imaging would likely be better utilizing CTA as o pposed MRA in this patient as it is less susceptible to motion artifact. 2. Patent endarterectomy changes involving the right carotid. 3. 50% stenosis involving the origin of the left common carotid artery. 4. Dominant left vertebral artery. Joe Randle Jr., MD on June 02, 2017 at 15:32 Board Certified Radiologist. This report was verified electronically.
--- NOTE | 2017-06-02 16:07 | RADRPT ---
EXAM DATE/TIME: 06/02/2017 14:10 [facility] COMPARISON: MRA BRAIN W/O CONTRAST, May 22, 2017, 11:32. INDICATIONS : CVA. MEDICAL HISTORY : Carcinoma, breast. Hypertension. SURGICAL HISTORY : Carotid endarterectomy. Hysterectomy. ENCOUNTER: Initial ACUITY: 1 day PAIN SCORE: 1/10 LOCATION: head Please note a normal MRA of the brain does not entirely exclude the possibility of a small aneurysm, nor the possibility of distal intracranial vessel disease. TECHNIQUE: 3D time of flight MRA was performed. Source images, multiplanar STS MIP, and 3D volume MIP reconstru ctions were reviewed. FINDINGS: Both distal internal carotids are patent. The appearance of the anterior middle cerebral circulation is within normal limits. The left vertebral is widely patent. The right vertebral is not identified. The basilar is widely pat ent. The posterior cerebral on the right originates from the P-comm. The posterior cerebral on the le ft originates from the basilar. CONCLUSION: 1. 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 The basilar is widely patent. 2. The intracranial circulation is otherwise unremarkable. Gary Dumont MD on June 02, 2017 at 15:05 Board Certified Radiologist. This report was verified electronically.
[2017-06-02] MEDS: ACETAMINOPHEN/HYDROcodone 325 MG/5 MG TAB PO PRN (16:58)
--- NOTE | 2017-06-02 17:43 | EKG ---
Date Performed: 06/01/2017 Time Performed: 23:53:21 PTAGE: 72 years EKG: Sinus rhythm NORMAL ECG Compared to PREVIOUS TRACING , heart rate is faster, otherwise no significant change. PREVIOUS TRACIN 05/25/2017 16.59 DOCTOR: Hemanth Payan Interpretating Date/Time 06/02/2017 17:41:34
[2017-06-02] MEDS: ATORVASTATIN 40 MG TAB PO SCH (22:01)
[2017-06-03] VITALS (8 sets, daily range): BP systolic 118–152; BP diastolic 59–80; PULSE 50–97; RESP 16–20; TEMP 97.3–98.5; O2SAT 96–97
[2017-06-03] MEDS: LEVOTHYROXINE SODIUM 112 MCG TAB PO SCH (06:00)
[2017-06-03 07:12] LABS: AUTOMATED NEUTROPHIL # 6.6 TH/MM3 (1.8-7.7); BASOPHIL % 0.3 % (0.0-2.0); EOSINOPHIL # 0.1 TH/MM3 (0-0.4); EOSINOPHIL % 1.1 % (0.0-4.0); HEMO FLAGS DIFF FINAL; LYMPH % 31.2 % (9.0-44.0); LYMPHOCYTE # 3.4 TH/MM3 (1.0-4.8); MEAN CELL VOLUME 79.9 FL (80.0-100.0); MEAN CORPUSCULAR HEMOGLOBIN 25.1 PG (27.0-34.0); MEAN CORPUSCULAR HGB CONC 31.5 % (32.0-36.0); NEUT % 61.4 % (16.0-70.0); PLATELET COUNT 365 TH/MM3 (150-450); RED BLOOD COUNT 3.13 MIL/MM3 (4.00-5.30); RED CELL DISTRIBUTION WIDTH 17.9 % (11.6-17.2); WHITE BLOOD COUNT 10.7 TH/MM3 (4.0-11.0)
[2017-06-03 07:25] LABS: CHLORIDE 108 MEQ/L (98-107); POTASSIUM 4.1 MEQ/L (3.5-5.1); SODIUM (NA) 141 MEQ/L (136-145)
[2017-06-03 07:29] LABS: ANION GAP 9 MEQ/L (5-15); BICARBONATE 24.2 MEQ/L (21.0-32.0); BLOOD UREA NITROGEN 21 MG/DL (7-18)
[2017-06-03 07:32] LABS: ALT (GPT) 43 U/L (10-53); AST (GOT) 17 U/L (15-37); GLOMERULAR FILTRATION RATE 55 ML/MIN (>89)
[2017-06-03 07:34] LABS: TOTAL BILIRUBIN ADULT 0.4 MG/DL (0.2-1.0)
[2017-06-03 07:35] LABS: ALKALINE PHOSPHATASE 78 U/L (45-117)
[2017-06-03] MEDS: DOCUSATE SODIUM 50 MG/SENNA 8.6 MG TAB PO SCH ×2 (09:07→21:22)
[2017-06-03] MEDS: TIOTROPIUM BROMIDE 18 MCG INH INH SCH (09:07)
[2017-06-03] MEDS: SODIUM CHLORIDE 0.9% FLUSH 10 ML FLUSH IV FLUSH SCH (09:07)
[2017-06-03] MEDS: ASPIRIN 81 MG CHEW TAB CHEW SCH (09:07)
[2017-06-03] MEDS: CLOPIDOGREL 75 MG TAB PO SCH (09:07)
[2017-06-03] MEDS: ACETAMINOPHEN/HYDROcodone 325 MG/5 MG TAB PO PRN ×3 (09:14→21:22)
--- NOTE | 2017-06-03 11:15 | MG ---
cc: MARK MARRUFO MD Lab No: [id number] Date: 06/03/17 Age: 72 Sex: F Race: Awake, drowsy, asleep. HISTORY TIA. Anticoagulant. Right carotid endarterectomy. COPD. Thyroid disease. Left arm tingling. MEDICATIONS 1. Aspirin. Plavix. DESCRIPTION The recording shows a symmetric 8 Hz, 60 microvolt posterior rhythm. I do not see any abnormalities over the right hemisphere that would account for any tingling on the left arm. The patient falls asleep, does not quite reach stage II sleep but that right hemisphere remains normal. Photic stimulation was performed without significant posterior driving. IMPRESSION A normal awake and sleep EEG. No evidence for a focal or diffuse abnormality. Mark Marrufo MD DJM/BJF /10:06 AM /11:11 AM
--- NOTE | 2017-06-03 16:33 | HHI.PR ---
Subjective Remarks sr Objective Vital Signs Date Time Temp Pulse Resp B/P (MAP) Pulse Ox O2 Delivery O2 Flow Rate FiO2 06/03/17 16:00 98.5 71 16 147/80 (102) 96 06/03/17 15:48 18 06/03/17 15:00 64 06/03/17 12:00 97.3 97 18 126/76 (93) 96 06/03/17 08:56 50 06/03/17 08:00 97.6 90 18 150/71 (97) 97 06/03/17 04:00 98.3 90 16 118/59 (78) 96 06/03/17 00:00 97.9 95 16 131/61 (84) 96 06/02/17 20:00 98.2 68 16 126/57 (80) 98 I/O 06/02/17 06/02/17 06/02/17 06/03/17 06/03/17 06/03/17 07:00 15:00 23:00 07:00 15:00 23:00 Intake Total 480 ml 1600 ml 750 ml Balance 480 ml 1600 ml 750 ml Intake Oral 480 ml 750 ml 750 ml IV Total 850 ml # Voids 1 3 5 1 # Bowel Movements 0 0 2 Result Diagram: 06/03/17 0635 06/03/17 0635 Assessment and Plan Assessment and Plan imp eeg neg mri neg echo nl this month ' mrax2 ok left vert dom sb to 50 b12 246 do injections on asa and plavix ok to dc asa in three days loop in dr cruz check crp and esr and if latter nl could dc on plavix and dc asa in three days do o/p emg my office lue bp 120/70 Mark Escobar MD Jun 03, 2017 16:33
[2017-06-03] MEDS ORDERED: predniSONE 10 MG TAB PO SCH (16:45)
[2017-06-03] MEDS ORDERED: CYANOCOBALAMIN 1000 MCG/ML VIAL SQ SCH (17:00)
[2017-06-03] MEDS ORDERED: PLAV75TA29 PO (17:05)
[2017-06-03] MEDS ORDERED: ASPI81CH7 CHEW (17:05)
--- NOTE | 2017-06-03 17:19 | HHI.PR ---
Subjective Remarks Does not have any paresthesias in the left hand today. However she states she gets intermittently. Headache is improved. States she was prescribed prednisone for COPD but that she is no longer having any wheezing. Objective Vitals Vital Signs Date Time Temp Pulse Resp B/P (MAP) Pulse Ox O2 Delivery O2 Flow Rate FiO2 06/03/17 16:00 98.5 71 16 147/80 (102) 96 06/03/17 15:48 18 06/03/17 15:00 64 06/03/17 12:00 97.3 97 18 126/76 (93) 96 06/03/17 08:56 50 06/03/17 08:00 97.6 90 18 150/71 (97) 97 06/03/17 04:00 98.3 90 16 118/59 (78) 96 06/03/17 00:00 97.9 95 16 131/61 (84) 96 06/02/17 20:00 98.2 68 16 126/57 (80) 98 I/O 06/02/17 06/02/17 06/02/17 06/03/17 06/03/17 06/03/17 07:00 15:00 23:00 07:00 15:00 23:00 Intake Total 480 ml 1600 ml 750 ml Balance 480 ml 1600 ml 750 ml Intake Oral 480 ml 750 ml 750 ml IV Total 850 ml # Voids 1 3 5 1 # Bowel Movements 0 0 2 Result Diagram: 06/03/1735 06/03/17 0635 Objective Remarks GENERAL: Well-nourished, well-developed patient. SKIN: Warm and dry. Incision on right neck well-healing. HEAD: Normocephalic. EYES: No scleral icterus. No injection or drainage. NECK: Supple, trachea midline. No JVD or lymphadenopathy. CARDIOVASCULAR: Regular rate and rhythm without murmurs, gallops, or rubs. RESPIRATORY: Breath sounds equal bilaterally. No wheezing. No accessory muscle use. GASTROINTESTINAL: Abdomen soft, non-tender, nondistended. EXTREMITIES: No cyanosis, or edema. NEUROLOGICAL: Awake, alert, and oriented x 3. Non-focal. A/P Problem List: (1) Paresthesias in left hand ICD Code: R20.2 - Paresthesia of skin Assessment and Plan -Transient paresthesias of the left fourth and fifth digit now resolved. Patient recently had a possible small acute lacunar infarct one week ago and was found to have 90% stenosis of the right carotid artery and 80% on the left. She underwent right carotid endarterectomy one week ago with Dr. Moran. -Head CT is negative. 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 -Discussed with Dr. Crockett neurology -change to Plavix DC aspirin and 3 days. - continue Lipitor, LDL 10 days ago was 58, echocardiogram at that time had low normal LV function -Smoking cessation again encouraged to patient -F/u with Dr. Moran (she has appt) for left CEA -F/u with Dr. Hernandez in 4 weeks for EMG left extremity -Patient voices understanding to the above -Tension-type headache. Check ESR and CRP. Continue Lortab as needed. -Anemia. B-12 was low and she is receiving an injection. -GERD. Continue PPI -Chronic kidney disease stage III -creatinine stable -COPD and continues to smoke - not an acute exacerbation, continue Spiriva. DC steroids. Borderline diabetes - recent A1c was 6.3. Continue diabetic diet. Hypothyroidism - continue Synthroid DVT prophylaxis with SCDs Discharge Planning DC home if ESR and crp nml. Yola Almaguer MD Jun 03, 2017 17:19
[2017-06-03] MEDS ORDERED: CYANOCOBALAMIN 1000 MCG/ML VIAL IM ONE (17:30)
[2017-06-03] MEDS ORDERED: ALUMINUM/MAGNESIUM/SIMETH 30 ML CUP PO ONE (20:45)
[2017-06-03] MEDS: ATORVASTATIN 40 MG TAB PO SCH (21:21)
== END 2017-06-03 22:48 | disposition home or self-care (01) | DRG 103 ==
LOC: PHED 22:57 → OBSVTOIN 06-02 01:33 → PHEDA 06-02 01:33 → PH3B 06-02 03:26
PROVIDERS: ADMIT Family Medicine; ATTEND Family Medicine
DX: G44.209 Tension-type headache, unspecified, not intractable (principal); D51.9 Vitamin B12 deficiency anemia, unspecified; K76.0 Fatty (change of) liver, not elsewhere classified; J44.9 Chronic obstructive pulmonary disease, unspecified; I65.22 Occlusion and stenosis of left carotid artery; N18.3 Chronic kidney disease, stage 3 (moderate); R20.2 Paresthesia of skin; I73.9 Peripheral vascular disease, unspecified; M79.7 Fibromyalgia; R73.03 Prediabetes; E78.00 Pure hypercholesterolemia, unspecified; K21.9 Gastro-esophageal reflux disease without esophagitis; I12.9 Hypertensive chronic kidney disease with stage 1 through stage 4 chronic kidney disease, or unspecified chronic kidney disease; E03.9 Hypothyroidism, unspecified; M54.9 Dorsalgia, unspecified; G89.29 Other chronic pain; M19.90 Unspecified osteoarthritis, unspecified site; I25.2 Old myocardial infarction; H91.90 Unspecified hearing loss, unspecified ear; F17.200 Nicotine dependence, unspecified, uncomplicated; F41.9 Anxiety disorder, unspecified; Z79.82 Long term (current) use of aspirin; Z85.41 Personal history of malignant neoplasm of cervix uteri; Z85.820 Personal history of malignant melanoma of skin; Z86.73 Personal history of transient ischemic attack (TIA), and cerebral infarction without residual deficits; Z92.3 Personal history of irradiation; Z85.3 Personal history of malignant neoplasm of breast; Z88.1 Allergy status to other antibiotic agents; Z88.5 Allergy status to narcotic agent; Z88.7 Allergy status to serum and vaccine; Z88.0 Allergy status to penicillin; Z90.11 Acquired absence of right breast and nipple; Z90.710 Acquired absence of both cervix and uterus; Z98.61 Coronary angioplasty status
CPT/HCPCS: 70450; 70544; 70548; 70551; 71010; 80053; 81001; 82550; 82607; 83921; 84484; 85025; 85610; 85652; 85730; 86140; 93005; 93971; 95819; A9579; J3420; J7030

== ENCOUNTER 2017-07-23 16:43 | Inpatient (IN) | payer OTHER, MEDICARE ==
[~2017-07-23] VITALS: Ht 152.4 cm; Wt 82.8 kg
[2017-07-23] VITALS (7 sets, daily range): BP systolic 105–142; BP diastolic 49–65; PULSE 71–84; RESP 16; TEMP 97.4–98.6; O2SAT 95–99
[~2017-07-23 16:43] MED LIST changes: +PLAV75TA29 PO; -PRED5TAB PO; -TYLE325T PO
[2017-07-23] MEDS ORDERED: SULF1TAB23 PO (17:10)
[2017-07-23] MEDS ORDERED: ENAL20TA PO (17:10)
[2017-07-23 17:38] LABS: AUTOMATED NEUTROPHIL # 2.2 TH/MM3 (1.8-7.7); EOSINOPHIL # 0.2 TH/MM3 (0-0.4); EOSINOPHIL % 3.1 % (0.0-4.0); HEMATOCRIT 22.1 % (35.0-46.0); LYMPH % 40.1 % (9.0-44.0); MEAN CELL VOLUME 68.8 FL (80.0-100.0); MEAN CORPUSCULAR HEMOGLOBIN 19.9 PG (27.0-34.0); MEAN PLATELET VOLUME 8.1 FL (7.0-11.0); MONO % 10.6 % (0.0-8.0); MONOCYTE # 0.5 TH/MM3 (0-0.9); NEUT % 45.2 % (16.0-70.0); PLATELET COUNT 335 TH/MM3 (150-450); RED BLOOD COUNT 3.21 MIL/MM3 (4.00-5.30); RED CELL DISTRIBUTION WIDTH 22.2 % (11.6-17.2); WHITE BLOOD COUNT 4.9 TH/MM3 (4.0-11.0)
[2017-07-23 17:44] LABS: MEAN CORPUSCULAR HGB CONC 28.9 % (32.0-36.0)
[2017-07-23 17:46] LABS: CHLORIDE 104 MEQ/L (98-107); SODIUM (NA) 137 MEQ/L (136-145)
[2017-07-23 17:49] LABS: ALBUMIN 3.2 GM/DL (3.4-5.0); BICARBONATE 24.9 MEQ/L (21.0-32.0); BLOOD UREA NITROGEN 11 MG/DL (7-18); CALCIUM 8.8 MG/DL (8.5-10.1); GLUCOSE,RANDOM 122 MG/DL (74-106)
[2017-07-23 17:51] LABS: PROTHROMBIN TIME - PATIENT 10.4 SEC (9.8-11.6)
[2017-07-23 17:52] LABS: ALT (GPT) 13 U/L (10-53); AST (GOT) 14 U/L (15-37)
[2017-07-23 17:53] LABS: GLOMERULAR FILTRATION RATE 37 ML/MIN (>89)
[2017-07-23 17:54] LABS: TOTAL BILIRUBIN ADULT 0.4 MG/DL (0.2-1.0); TOTAL PROTEIN 6.9 GM/DL (6.4-8.2)
[2017-07-23 17:55] LABS: ALKALINE PHOSPHATASE 151 U/L (45-117)
[2017-07-23 17:58] LABS: HEMOGLOBIN 6.4 GM/DL (11.6-15.3)
[2017-07-23] MEDS: PANTOPRAZOLE INJ 80 MG in SODIUM CHLORIDE 0.9% INJ 100 ML IV SCH (18:00)
[2017-07-23 18:16] LABS: ACANTHOCYTES OCC (NORMAL); KERATOCYTES OCC (NORMAL); OVALOCYTES 1+ (NORMAL); TARGET CELLS 1+ (NORMAL)
[2017-07-23 18:17] LABS: ROULEAUX PRESENT (NORMAL); STOMATOCYTES 1+ (NORMAL)
[2017-07-23] MEDS ORDERED: PANTOPRAZOLE INJ 80 MG in SODIUM CHLORIDE 0.9% INJ 35 ML IV ONE (18:23)
[2017-07-23] MEDS ORDERED: SODIUM CHLOR 0.9% 250 ML INJ 250 ML IV ONE (18:30)
--- NOTE | 2017-07-23 19:15 | PD ---
HPI Chief Complaint: Dizziness Time Seen by Provider: 16:54 Travel History International Travel<30 days: No Contact w/Intl Traveler<30days: No Traveled to known affect area: No History of Present Illness HPI This is a 72-year-old female who has a history of anemia who presents to the emergency department with several days of lightheadedness and dizziness, constant, worse with exertion and worse with standing, improved with rest associated with some intermittent nausea and not feeling herself. She says she feels like she is going to pass out. She also has noticed that she has some dark stools. She does take Plavix. She has seen a color strainer in the past but her last colonoscopy was 2-3 years ago. PFSH Past Medical History Hx Anticoagulant Therapy: Yes AAA: Yes Arthritis: Yes Asthma: Yes Autoimmune Disease: No Anxiety: Yes Depression: No Heart Rhythm Problems: Yes (loop recorder) Cancer: Yes (RIGHT BREAST, CERVICAL) Cardiac Catheterization: Yes Cardiovascular Problems: Yes (LOOP RECORDER) High Cholesterol: Yes Chemotherapy: No (RADIATION ONLY) Chest Pain: No Congestive Heart Failure: No COPD: Yes (current smoker) Cerebrovascular Accident: Yes (TIA) Diabetes: Yes Patient Takes Glucophage: No Diminished Hearing: Yes ([place]) Endocrine: Yes Fibromyalgia: Yes Gastrointestinal Disorders: Yes (ACID REFLEX, CURRENT GASTRIC BLEED) GERD: Yes Genitourinary: No Headaches: Yes Hepatitis: No Hiatal Hernia: No Hypertension: Yes Immune Disorder: Yes (FIBROMYALGIA) Implanted Vascular Access Dvce: No Kidney Stones: No Medical other: Yes (ANEMIA) Musculoskeletal: Yes (BACK PAIN,ARTHRITIS) Neurologic: Yes (STROKE HX) Psychiatric: Yes Reproductive: No Respiratory: Yes (ASTHMA, COPD) 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) Immunizations Current: Yes Migraines: No Myocardial Infarction: Yes Radiation Therapy: Yes Renal Failure: No Seizures: No Sleep Apnea: No Thyroid Disease: Yes Ulcer: Yes (PEPTIC) Tetanus Vaccination: Never Vaccinated ?: Not Menopausal: Yes : 2 Para: 2 Past Surgical History Abdominal Surgery: No AICD: No Appendectomy: Yes Arteriovenous Shunt: No Body Medical Devices: Loop recorder left chest Cardiac Surgery: No Cholecystectomy: No Coronary Artery Bypass Graft: No Ear Surgery: No Endocrine Surgery: No Eye Surgery: No Genitourinary Surgery: No Gynecologic Surgery: Yes (CERVICAL BX, HYSTERECTOMY) Hysterectomy: Yes Insulin Pump: No Joint Replacement: No Mastectomy: Yes (RT) Neurologic Surgery: No Oral Surgery: No Pacemaker: No Thoracic Surgery: Yes Other Surgery: Yes (RT MASTECTOMY WITH BREAST RECONSTRUCTION, rt carotid endart ) Social History Alcohol Use: No Tobacco Use: Yes (1PPD) Substance Use: No Allergies-Medications (Allergen,Severity, Reaction): Coded Allergies: doxycycline (Unverified Allergy, Severe, SHORTNESS OF BREATH, 07/23/17) minocycline (Unverified Allergy, Severe, SHORTNESS OF BREATH, 07/23/17) oxycodone (Unverified Allergy, Severe, UNKNOWN, 07/23/17) penicillin G (Unverified Allergy, Severe, SHORTNESS OF BREATH, 07/23/17) tetanus toxoid, adsorbed (Unverified Allergy, Severe, SHORTNESS OF BREATH , 07/23/17) tigecycline (Unverified Allergy, Severe, SHORTNESS OF BREATH, 07/23/17) diazepam (Unverified Adverse Reaction, Intermediate, HYPER, 07/23/17) Uncoded Allergies: PAPER TAPE (Allergy, Severe, SKIN BLISTERS, 07/23/17) Reported Meds & Prescriptions Reported Meds & Active Scripts Active Plavix (Clopidogrel Bisulfate) 75 Mg Tab 75 Mg PO DAILY Aspirin Children's (Aspirin) 81 Mg Chew 81 Mg CHEW DAILY stop after 3 days. Hydrocodone-Acetamin 5-325 mg (Hydrocodone/Acetaminophen) 5 Mg-325 Mg Tablet 1 Tab PO Q4H PRN Reported Sulfamethoxazole-Trimethoprim 800-160 Mg Tab 1 Tab PO BID Enalapril (Enalapril Maleate) 20 Mg Tab 20 Mg PO DAILY Prilosec (Omeprazole Magnesium) 20 Mg Tab DAILY Synthroid (Levothyroxine Sodium) 112 Mcg Tab 112 Mcg PO DAILY Coreg (Carvedilol) 3.125 Mg Tab 3.125 Mg PO DAILY Atorvastatin (Atorvastatin Calcium) 40 Mg Tab 40 Mg PO HS Spiriva Handihaler (Tiotropium Inh) 18 Mcg Cap 18 Mcg INH DAILY 1 capsule = 18 mcg Review of Systems Except as stated in HPI: all other systems reviewed are Neg Physical Exam Narrative GENERAL:Well appearing, no acute distress SKIN: Dry, doughy HEAD: Atraumatic. Normocephalic. EYES: Pupils equal and round. No injection or drainage. Pale conjunctiva ENT: Moist mucous membranes NECK: Trachea midline. CARDIOVASCULAR: Regular rate and rhythm. No murmur appreciated. RESPIRATORY: Clear to auscultation. Breath sounds equal bilaterally. GASTROINTESTINAL: Abdomen soft, non-tender, nondistended. MUSCULOSKELETAL: No obvious deformities. NEUROLOGICAL: Awake and alert. No obvious cranial nerve deficits. Moving all extremities. PSYCHIATRIC: Appropriate mood and affect; insight and judgment normal. Data Data Last Documented VS Vital Signs Date Time Temp Pulse Resp B/P (MAP) Pulse Ox O2 Delivery O2 Flow Rate FiO2 07/23/17 18:41 71 16 105/49 (67) 97 Room Air 07/23/17 16:46 98.6 Orders Orders Complete Blood Count With Diff (07/23/17 17:23) Comprehensive Metabolic Panel (07/23/17 17:23) ^ Insert Iv (07/23/17 17:23) Type And Screen (07/23/17 17:23) Prothrombin Time / Inr (Pt) (07/23/17 17:23) Act Partial Throm Time (Ptt) (07/23/17 17:23) Sodium Chloride 0.9... W/Pantoprazole In (07/23/17 18:23) Sodium Chloride 0.9... W/Pantoprazole In (07/23/17 18:23) Red Blood Cells (Rbc) (07/23/17 18:25) Blood Product Administration (07/23/17 18:25) Sodium Chlor 0.9% 250 Ml Inj (Ns 250 Ml (07/23/17 18:30) Admit Order (Ed Use Only) (07/23/17 18:40) Admit To Inpatient (07/23/17 ) Vital Signs (Adult) EVELYN.Q4H (07/23/17 18:39) Activity Oob With Assistance (07/23/17 18:39) Diet Npo (07/23/17 Dinner) Sodium Chlor 0.45% 1000 Ml Inj (1/2 Ns 1 (07/23/17 18:39) Inpatient Certification (07/23/17 ) Scd / Eros / Foot Pump 08,20 (07/23/17 18:39) Atorvastatin (Lipitor) (07/23/17 21:00) Carvedilol (Coreg) (07/24/17 09:00) Enalapril (Vasotec) (07/24/17 09:00) Levothyroxine (Synthroid) (07/24/17 09:00) Tiotropium Inh (Spiriva Inh) (07/24/17 09:00) Labs Laboratory Tests Test 07/23/17 17:20 White Blood Count 4.9 TH/MM3 Red Blood Count 3.21 MIL/MM3 Hemoglobin 6.4 GM/DL Hematocrit 22.1 % Mean Corpuscular Volume 68.8 FL Mean Corpuscular Hemoglobin 19.9 PG Mean Corpuscular Hemoglobin Concent 28.9 % Red Cell Distribution Width 22.2 % Platelet Count 335 TH/MM3 Mean Platelet Volume 8.1 FL Neutrophils (%) (Auto) 45.2 % Lymphocytes (%) (Auto) 40.1 % Monocytes (%) (Auto) 10.6 % Eosinophils (%) (Auto) 3.1 % Basophils (%) (Auto) 1.0 % Neutrophils # (Auto) 2.2 TH/MM3 Lymphocytes # (Auto) 2.0 TH/MM3 Monocytes # (Auto) 0.5 TH/MM3 Eosinophils # (Auto) 0.2 TH/MM3 Basophils # (Auto) 0.0 TH/MM3 CBC Comment AUTO DIFF Differential Comment AUTO DIFF CONFIRMED Platelet Estimate NORMAL Platelet Morphology Comment NORMAL Target Cells 1+ Ovalocytes 1+ Stomatocytes 1+ Acanthocytes OCC Rouleau PRESENT Keratocytes OCC Prothrombin Time 10.4 SEC Prothromb Time International Ratio 1.0 RATIO Activated Partial Thromboplast Time 23.6 SEC Blood Urea Nitrogen 11 MG/DL Creatinine 1.40 MG/DL Random Glucose 122 MG/DL Total Protein 6.9 GM/DL Albumin 3.2 GM/DL Calcium Level 8.8 MG/DL Alkaline Phosphatase 151 U/L Aspartate Amino Transf (AST/SGOT) 14 U/L Alanine Aminotransferase (ALT/SGPT) 13 U/L Total Bilirubin 0.4 MG/DL Sodium Level 137 MEQ/L Potassium Level 4.3 MEQ/L Chloride Level 104 MEQ/L Carbon Dioxide Level 24.9 MEQ/L Anion Gap 8 MEQ/L Estimat Glomerular Filtration Rate 37 ML/MIN [facility] Medical Decision Making Medical Screen Exam Complete: Yes Emergency Medical Condition: Yes Interpretation(s) Hemoglobin is 6.4 MCV is 69 Creatinine is 1.4 Coags are normal Differential Diagnosis Ulcer, gastritis, polyp, diverticulosis, AVM Narrative Course This is a 72-year-old female who presents to the emergency department with generalized weakness and lightheadedness. She appears pale and exam. She was placed on a monitor and an IV was established. Labs demonstrate a hemoglobin of 6.4 with a low MCV suggesting an acute on chronic anemia. Patient is Hemoccult-positive. She takes Plavix at home. She was started on a Protonix drip and will be admitted for gastroenterology consultation. She was ordered for 2 units of blood transfusion. HemaPrompt Point of Care Internal Pos. & Neg. Controls: Passed Fecal Specimen Occult Blood: Positive Physician Communication Physician Communication Discussed with Dr. Tay Diagnosis Primary Impression: GI bleed Qualified Codes: K92.2 - Gastrointestinal hemorrhage, unspecified Admitting Information Admitting Physician Requests: Admit Melanie Prater MD Jul 23, 2017 19:15
--- NOTE | 2017-07-23 19:24 | HHI.HP ---
[facility] Service [facility] Hospitalists Primary Care Physician Jhony Curtis MD Admission Diagnosis gi bleed Diagnoses: Chief Complaint: Feeling weak Travel History International Travel<30 Days: No Contact w/Intl Traveler <30 Da: No Traveled to Known Affected Are: No History of Present Illness 72-year-old white female being admitted for suspected GI bleed Patient was in her usual state of health until about a week ago when she began experiencing a gradual onset of diffuse weakness, fatigue, paleness. She does report noticing some intermittent black stools that have actually been going on for the last month. Patient reports having some vague of abdominal pain as well; states that she was diagnosed with urinary tract infection and started on Bactrim but only took 3 doses of it because she thought it made her heart rate go fast. Patient's symptoms progressed overall and she decided come to the emergency department. Patient denies taking any nonsteroidal anti-inflammatory drugs but she does admit to maybe aspirin and Plavix daily. Patient reports having a suspected GI bleed about 4 years ago; states that she had a pill cam done and says that they "cauterized something" but wasn't sure exactly what was. She was diagnosed with a transient ischemic attack about 2 months ago at [place]. Review of Systems Except as stated in HPI: all other systems reviewed are Neg Past Family Social History Past Medical History GI bleed unspecified GERD COPD Hypothyroidism Carotid stenosis Transient ischemic attack Past Surgical History carotid endarterectomy colonoscopy EGD Allergies: Coded Allergies: doxycycline (Unverified Allergy, Severe, SHORTNESS OF BREATH, 07/23/17) minocycline (Unverified Allergy, Severe, SHORTNESS OF BREATH, 07/23/17) oxycodone (Unverified Allergy, Severe, UNKNOWN, 07/23/17) penicillin G (Unverified Allergy, Severe, SHORTNESS OF BREATH, 07/23/17) tetanus toxoid, adsorbed (Unverified Allergy, Severe, SHORTNESS OF BREATH , 07/23/17) tigecycline (Unverified Allergy, Severe, SHORTNESS OF BREATH, 07/23/17) diazepam (Unverified Adverse Reaction, Intermediate, HYPER, 07/23/17) Uncoded Allergies: PAPER TAPE (Allergy, Severe, SKIN BLISTERS, 07/23/17) Family History No family history of colorectal cancer Daughter does have polyps Social History Patient does currently smoke; has been smoking for over 20 years Patient reports a period of her life about 30 years ago when she used to drink about a 6 pack a day for about 2 years; has not drunk since Physical Exam Vital Signs Vital Signs Date Time Temp Pulse Resp B/P (MAP) Pulse Ox O2 Delivery O2 Flow Rate FiO2 07/23/17 18:41 71 16 105/49 (67) 97 Room Air 07/23/17 16:58 16 99 Room Air 07/23/17 16:46 98.6 84 16 142/65 (90) 99 Physical Exam VS: afebrile GENERAL: Elderly white female, obese, appearing pale, appears fatigued, no acute distress SKIN: Warm and dry. Pale EYES: No scleral icterus. No injection or drainage. ENT: No nasal bleeding or discharge. Mucous membranes pink and moist. CARDIOVASCULAR: Regular rate and rhythm. no murmurs RESPIRATORY: No accessory muscle use. Clear to auscultation. Breath sounds equal bilaterally. GASTROINTESTINAL: Abdomen soft, non-tender, nondistended. Obese abdomen Extremities: No clubbing, cyanosis, or edema. No obvious deformities. MUSCULOSKELETAL: grossly intact ROM with 4/5 strength in upper extremities proximally; adequate muscle bulk and tone for age and habitus NEUROLOGICAL: Awake and alert. No obvious cranial nerve deficits. No facial droop nor slurred speech noted. PSYCHIATRIC: Appropriate mood and affect; insight and judgment normal. Laboratory Laboratory Tests Test 07/23/17 17:20 White Blood Count 4.9 Red Blood Count 3.21 Hemoglobin 6.4 Hematocrit 22.1 Mean Corpuscular Volume 68.8 Mean Corpuscular Hemoglobin 19.9 Mean Corpuscular Hemoglobin Concent 28.9 Red Cell Distribution Width 22.2 Platelet Count 335 Mean Platelet Volume 8.1 Neutrophils (%) (Auto) 45.2 Lymphocytes (%) (Auto) 40.1 Monocytes (%) (Auto) 10.6 Eosinophils (%) (Auto) 3.1 Basophils (%) (Auto) 1.0 Neutrophils # (Auto) 2.2 Lymphocytes # (Auto) 2.0 Monocytes # (Auto) 0.5 Eosinophils # (Auto) 0.2 Basophils # (Auto) 0.0 CBC Comment AUTO DIFF Differential Comment AUTO DIFF CONFIRMED Platelet Estimate NORMAL Platelet Morphology Comment NORMAL Target Cells 1+ Ovalocytes 1+ Stomatocytes 1+ Acanthocytes OCC Rouleau PRESENT Keratocytes OCC Prothrombin Time 10.4 Prothromb Time International Ratio 1.0 Activated Partial Thromboplast Time 23.6 Blood Urea Nitrogen 11 Creatinine 1.40 Random Glucose 122 Total Protein 6.9 Albumin 3.2 Calcium Level 8.8 Alkaline Phosphatase 151 Aspartate Amino Transf (AST/SGOT) 14 Alanine Aminotransferase (ALT/SGPT) 13 Total Bilirubin 0.4 Sodium Level 137 Potassium Level 4.3 Chloride Level 104 Carbon Dioxide Level 24.9 Anion Gap 8 Estimat Glomerular Filtration Rate 37 Result Diagram: 07/23/17171907/23/17 172 Caprincy VTE Risk Assessment Caprini VTE Risk Assessment: Mod/High Risk (score >= 2) VTE Pharm Contraindication: Active bleeding Caprini Risk Assessment Model Point Value = 1 Point Value = 2 Point Value = 3 Point Value = 5 Age 41-60 Minor surgery BMI > 25 kg/m2 Swollen legs Varicose veins or History of unexplained or recurrent spontaneous Oral contraceptives or hormone replacement Sepsis (< 1 month) Serious lung disease, including pneumonia (< 1 month) Abnormal pulmonary function Acute myocardial infarction Congestive heart failure (< 1 month) History of inflammatory bowel disease Medical patient at bed rest Age 61-74 Arthroscopic surgery Major open surgery (> 45 min) Laparoscopic surgery (> 45 min) Malignancy Confined to bed (> 72 hours) Immobilizing plaster cast Central venous access Age >= 75 History of VTE Family history of VTE Factor V Leiden Prothrombin [id number] Lupus anticoagulant Anticardiolipin antibodies Elevated serum homocysteine Heparin-induced thrombocytopenia Other congenital or acquired thrombophilia Stroke (< 1 month) Elective arthroplasty Hip, pelvis, or leg fracture Acute spinal cord injury (< 1 month) Prophylaxis Regimen Total Risk Factor Score Risk Level Prophylaxis Regimen 0-1 Low Early ambulation 2 Moderate Order ONE of the following: *Sequential Compression Device (SCD) *Heparin 5000 units SQ BID 3-4 Higher Order ONE of the following medications: *Heparin 5000 units SQ TID *Enoxaparin/Lovenox 40 mg SQ daily (WT < 150 kg, CrCl > 30 mL/min) *Enoxaparin/Lovenox 30 mg SQ daily (WT < 150 kg, CrCl > 10-29 mL/min) *Enoxaparin/Lovenox 30 mg SQ BID (WT < 150 kg, CrCl > 30 mL/min) AND/OR *Sequential Compression Device (SCD) 5 or more Highest Order ONE of the following medications: *Heparin 5000 units SQ TID (Preferred with Epidurals) *Enoxaparin/Lovenox 40 mg SQ daily (WT < 150 kg, CrCl > 30 mL/min) *Enoxaparin/Lovenox 30 mg SQ daily (WT < 150 kg, CrCl > 10-29 mL/min) *Enoxaparin/Lovenox 30 mg SQ BID (WT < 150 kg, CrCl > 30 mL/min) AND *Sequential Compression Device (SCD) Assessment and Plan Assessment and Plan 72-year-old white female being admitted for suspected GI bleed (upper). Suspected upper GI bleed - Melena stools; consulting gastroenterology, will make patient nothing by mouth except by mouth meds. Stopping baby aspirin and Plavix for now - MIVFs Acute on chronic anemia secondary to blood loss - Being transfused 2 units as per discussion with emergency room doctor - Trend CBC Recent urinary tract infection - Checking catheterized UA with reflex culture if needed Continue home medications -Coreg, enalapril levothyroxine, tiotropium, lipitor SCDs Physician Certification 2 Midnight Certification Type: Admission for Inpatient Services Order for Inpatient Services The services are ordered in accordance with Medicare regulations or non- Medicare payer requirements, as applicable. In the case of services not specified as inpatient-only, they are appropriately provided as inpatient services in accordance with the 2-midnight benchmark. Estimated LOS (days): 2 2 days is the estimated time the patient will need to remain in the hospital, assuming treatment plan goals are met and no additional complications. Post-Hospital Plan: Not yet determined Negrito Tay MD Jul 23, 2017 19:24
[2017-07-23] MEDS ORDERED: ACETAMINOPHEN 500 MG CPLT PO ONE (20:00)
[2017-07-23] MEDS: SODIUM CHLOR 0.45% 1000 ML INJ 1,000 ML IV SCH (21:17)
[2017-07-23] MEDS: ATORVASTATIN 40 MG TAB PO SCH (21:17)
[2017-07-23] MEDS: ACETAMINOPHEN/HYDROcodone 325 MG/5 MG TAB PO PRN (21:20)
[2017-07-24 02:33] VITALS: BP 144/61; PULSE 68; RESP 18; TEMP 97.3; O2SAT 95
[2017-07-24 02:50] VITALS: BP 114/58; PULSE 68; RESP 16; TEMP 97.4; O2SAT 94
[2017-07-24 02:59] LABS: BILIRUBIN, URINE NEG (NEG); BLOOD, URINE NEG (NEG); GLUCOSE,URINE NEG (NEG); KETONE, URINE NEG (NEG); NITRITE,URINE NEG (NEG); PH, URINE 5.5 (5.0-8.5); URINE LEUKOCYTE ESTERASE NEG (NEG)
[2017-07-24 03:03] LABS: URINE COLOR YELLOW (YELLW/STRAW)
[2017-07-24 03:05] LABS: MUCUS URINE OCC /lpf (OCC); SQUAMOUS EPITHELIAL CELL URINE 0-5 /hpf (0-5)
[2017-07-24 03:06] LABS: WBC, URINE 0-2 /hpf (0-5)
[2017-07-24] MEDS: PANTOPRAZOLE INJ 80 MG in SODIUM CHLORIDE 0.9% INJ 100 ML IV SCH ×2 (03:12→17:20)
[2017-07-24] MEDS: SODIUM CHLOR 0.45% 1000 ML INJ 1,000 ML IV SCH ×2 (07:59→14:25)
--- NOTE | 2017-07-24 08:45 | PD.PROCEDR ---
GI Procedure PROCEDURE PERFORMED EGD INDICATION FOR PROCEDURE anemia, melena PROCEDURE: The procedure, risks and benefits were discussed with Ms. Peterson and informed consent was obtained. Anesthesia sedated her with Diprivan. She was placed in the left lateral decubitus position. EGD: The Pentax videoscope was introduced through the oropharynx and advanced to the second portion of the duodenum under direct visualization. Retroflexion was performed in the stomach. FINDINGS: Minimal gastritis, minimal esophagitis These findings does not explain the severe anemia the patient has ESTIMATED BLOOD LOSS: None SPECIMENS REMOVED: Not done. Patient on Plavix COMPLICATIONS: None IMPRESSION: No active bleeding minimal gastritis and esophagitis, these findings doesn't exclude plain the severe anemia PLAN: Packed RBC as needed Colonoscopy in Brandon Keller MD Jul 24, 2017 08:45
--- NOTE | 2017-07-24 08:52 | MB ---
cc: NIESHA SOSA M.D. DATE OF CONSULTATION 07/24/2017 DATE OF 1945 REASON FOR REFERRAL Melena and anemia. Thank you for the consultation. HISTORY OF PRESENT ILLNESS This is a 72-year-old lady who has been experiencing general fatigue and weakness, and also black stool on and off for at least a few weeks. The patient has some abdominal cramping throughout the abdomen. She hah a urinary tract infection and she was taking Bactrim. She came because of weakness and palpitations. She was found to be anemic. The patient had a colonoscopy 2 years ago. She was supposed to come back in six months but she never made it according to her. The patient denied NSAIDs but she takes aspirin and Plavix on a daily basis, last dose yesterday. She is currently feeling okay with no significant problem. SOCIAL HISTORY She smokes a half pack a day now. Rare alcohol. PAST MEDICAL HISTORY 1. TIA multiple times, last one 2 months ago. 2. GI bleed, reflux symptoms, heartburn. 3. COPD. 4. Hypothyroidism. 5. Carotid stenosis with surgery. 6. Upper endoscopy and colonoscopy. 7. Cervical cancer surgery. 8. Bilateral breast cancer according to her. ALLERGIES MULTIPLE LISTED IN THE CHART AND REVIEWED. FAMILY HISTORY Negative for colon cancer. REVIEW OF SYSTEMS All 12-point negative except HPI. PHYSICAL EXAMINATION GENERAL: Alert and oriented, in no acute distress. VITAL SIGNS: Stable at this time. HEENT: Pupils round and reactive to light. NECK: Supple. CHEST: Clear to auscultation and percussion. CARDIAC: Regular rate and rhythm. ABDOMEN: Soft, nondistended. Positive bowel sounds. EXTREMITIES: No edema, clubbing or cyanosis. NEUROLOGIC: Neurologically intact. No focal deficit. PSYCH: Psychologically appropriate. LABORATORY White count 4.9, hemoglobin 6.4, platelets 335. INR 1.0. Liver function tests are normal. Creatinine 1.4. ASSESSMENT AND PLAN A 72-year-old lady who has anemia. The patient is on NSAIDs in the form of aspirin and Plavix. The patient had some melena with anemia, could be upper GI bleed. Will plan on doing upper endoscopy on an urgent basis today. If this is negative the patient will need a colonoscopy as an inpatient maybe tomorrow if we find the source the patient will need to have a colonoscopy as an outpatient since she never showed up for her follow-up colonoscopy from 2 years ago. The patient is aware of that and aware of the risk of malignancy. The patient consented to the upper endoscopy and will proceed accordingly. The patient may need packed RBC since her hemoglobin is low. Will start PPI. MD ANA Alfaro/ANUJ /8:19 AM /8:26 AM
[2017-07-24] MEDS ORDERED: CARVEDILOL 3.125 MG TAB PO SCH (09:00)
[2017-07-24] MEDS: LEVOTHYROXINE SODIUM 112 MCG TAB PO SCH (09:00)
[2017-07-24] MEDS: ENALAPRIL MALEATE 10 MG TAB PO SCH (11:00)
[2017-07-24] MEDS: ACETAMINOPHEN/HYDROcodone 325 MG/5 MG TAB PO PRN ×2 (11:00→14:58)
[2017-07-24 11:13] LABS: AUTOMATED NEUTROPHIL # 2.7 TH/MM3 (1.8-7.7); BASOPHIL % 0.7 % (0.0-2.0); EOSINOPHIL # 0.3 TH/MM3 (0-0.4); EOSINOPHIL % 4.9 % (0.0-4.0); HEMOGLOBIN 10.2 GM/DL (11.6-15.3); LYMPH % 36.2 % (9.0-44.0); LYMPHOCYTE # 1.9 TH/MM3 (1.0-4.8); MEAN CELL VOLUME 75.3 FL (80.0-100.0); MEAN CORPUSCULAR HEMOGLOBIN 23.1 PG (27.0-34.0); MEAN CORPUSCULAR HGB CONC 30.8 % (32.0-36.0); MEAN PLATELET VOLUME 8.7 FL (7.0-11.0); MONO % 7.9 % (0.0-8.0); MONOCYTE # 0.4 TH/MM3 (0-0.9); NEUT % 50.3 % (16.0-70.0); PLATELET COUNT 236 TH/MM3 (150-450); RED BLOOD COUNT 4.39 MIL/MM3 (4.00-5.30); WHITE BLOOD COUNT 5.3 TH/MM3 (4.0-11.0)
[2017-07-24 11:31] LABS: OVALOCYTES 1+ (NORMAL)
[2017-07-24 11:32] LABS: KERATOCYTES OCC (NORMAL)
[2017-07-24 12:00] VITALS: BP 124/73; PULSE 65; RESP 16; TEMP 97.5; O2SAT 93
--- NOTE | 2017-07-24 12:14 | HHI.PR ---
Subjective Remarks Nursing denies any deterioration since last night. Patient so says she feels much better. Has more color to her skin today. Objective Vital Signs Date Time Temp Pulse Resp B/P (MAP) Pulse Ox O2 Delivery O2 Flow Rate FiO2 07/24/17 09:15 98.0 61 16 137/54 (81) 94 07/24/17 08:50 98.0 65 16 132/58 (82) 92 07/24/17 08:01 73 188/95 (126) 92 07/24/17 08:00 07/24/17 02:50 97.4 68 16 114/58 94 07/24/17 02:33 97.3 68 18 144/61 95 07/23/17 23:00 98.6 75 16 109/55 (73) 95 07/23/17 22:00 97.4 75 16 132/55 95 07/23/17 21:45 98.6 75 16 109/55 95 07/23/17 21:11 77 16 98 07/23/17 21:10 77 16 127/58 (81) 98 Room Air 07/23/17 19:43 79 16 133/59 (83) 99 Room Air 07/23/17 18:41 71 16 105/49 (67) 97 Room Air 07/23/17 16:58 16 99 Room Air 07/23/17 16:46 98.6 84 16 142/65 (90) 99 I/O 07/23/17 07/23/17 07/23/17 07/24/17 07/24/17 07/24/17 07:00 15:00 23:00 07:00 15:00 23:00 Intake Total 55 ml 1525 ml 300 ml Output Total 375 ml 525 ml Balance 55 ml 1150 ml -225 ml Intake IV Total 35 ml 735 ml Packed Cells 750 ml Blood Product IV Normal Saline Flush 20 ml 40 ml Other 300 ml Output Urine Total 375 ml 525 ml Result Diagram: 07/24/17 1000 07/23/17 1720 Objective Remarks Sitting up in bed, tolerating by mouth intake Abdomen soft, nontender nondistended A/P Assessment and Plan 72-year-old white female being admitted for suspected GI bleed (upper). Suspected GI bleed - h/h stable post 2 units transfusion. EGD today unremarkable for explanation of severe anemia- stopping PPI ggt. d/w gi, plan for colonoscopy in AM to evaluate for lower source. - stopping MIVFs. on po intake. Acute on chronic anemia secondary to blood loss - Trend CBC Recent urinary tract infection - UA neg; no further workup. Continue home medications -Coreg, enalapril levothyroxine, tiotropium, Lipitor SCDs Negrito Tay MD Jul 24, 2017 12:14
[2017-07-24] MEDS: TIOTROPIUM BROMIDE 18 MCG INH INH SCH (14:21)
[2017-07-24 16:00] VITALS: BP 186/97; PULSE 66; RESP 14; TEMP 95.7; O2SAT 96
[2017-07-24] MEDS ORDERED: PEG (High)/E-LYTE SOLN 4000 ML BTL PO ONE (16:00)
[2017-07-24] MEDS ORDERED: MAGNESIUM CITRATE SOLN 300 ML BTL PO ONE (18:15)
[2017-07-24 18:51] VITALS: BP 220/88; PULSE 64; RESP 20; O2SAT 97
[2017-07-24] MEDS ORDERED: hydrALAZINE HCL 25 MG TAB PO ONE (19:15)
[2017-07-24 20:00] VITALS: BP 178/74; PULSE 74; RESP 20; TEMP 97.4; O2SAT 96
[2017-07-24] MEDS: ATORVASTATIN 40 MG TAB PO SCH (20:30)
[2017-07-24] MEDS: CARVEDILOL 3.125 MG TAB PO SCH (20:30)
[2017-07-24] MEDS: ENALAPRILAT 1.25 MG/ML VIAL IV PUSH PRN (20:31)
[2017-07-25] VITALS (7 sets, daily range): BP systolic 138–181; BP diastolic 52–84; PULSE 65–74; RESP 18–24; TEMP 96.7–98.2; O2SAT 92–97
[2017-07-25] MEDS: ENALAPRILAT 1.25 MG/ML VIAL IV PUSH PRN (02:03)
[2017-07-25] MEDS: PANTOPRAZOLE INJ 80 MG in SODIUM CHLORIDE 0.9% INJ 100 ML IV SCH ×2 (02:04→10:23)
[2017-07-25] MEDS: SODIUM CHLOR 0.45% 1000 ML INJ 1,000 ML IV SCH (03:44)
[2017-07-25] MEDS ORDERED: POVIDONE IODINE 5% (ANTISEPSIS KIT) 4 APPLICATIONS EACH NARE PRN (05:45)
[2017-07-25] MEDS ORDERED: LACTATED RINGER'S 1000 ML IV PRN (05:45)
[2017-07-25] MEDS ORDERED: SODIUM CHLORID 0.9% 500 ML IV PRN (05:45)
[2017-07-25] MEDS ORDERED: METOPROLOL TARTRATE 25 MG TAB PO PRN (05:45)
[2017-07-25] MEDS ORDERED: CHLORHEXIDINE GLUCONATE 2 % 1 PACK (2 CLOTHS) TOPICAL PRN (05:45)
[2017-07-25] MEDS: LEVOTHYROXINE SODIUM 112 MCG TAB PO SCH (06:00)
[2017-07-25] MEDS ORDERED: SOD PHOSPHATE/SOD BIPHOSPHATE (ADULT) ENEMA 133ML RECTAL ONE (06:30)
--- NOTE | 2017-07-25 08:22 | PD.PROCEDR ---
GI Procedure PROCEDURE PERFORMED [] INDICATION FOR PROCEDURE Anemia History of colon polyps PROCEDURE: The procedure, risks and benefits were discussed with Ms. Peterson and informed consent was obtained. Anesthesia sedated her with Diprivan. She was placed in the left lateral decubitus position. Colonoscopy: The Pentax videoscope was introduced through the rectum and advanced to cecum. Retroflexion was performed in the rectum. Colonic prep was fair FINDINGS: 12th polyps in the cecum, ascending colon, transverse colon removed by a snare, 2 polyps in the ascending colon ablated with heat 1 AVM ablated with heat No sign of active bleeding ESTIMATED BLOOD LOSS: None SPECIMENS REMOVED: Multiple polyps throughout the colon COMPLICATIONS: None IMPRESSION: Colon polyps, multiple, removed by snare or ablation with heat 1 AVM no bleeding cauterized PLAN: Okay to feed patient Colonoscopy in 6 month Small bowel follow-through as an outpatient Monitor H&H if stable patient can be discharged Return to clinic in few weeks Brandon Jung MD Jul 25, 2017 08:22
--- NOTE | 2017-07-25 08:23 | HHI.GIFU ---
Subjective Remarks Patient laying in bed comfortably,no complain, no sign of GI bleed, tolerated prep for colonoscopy Objective Vitals I&O Vital Signs Date Time Temp Pulse Resp B/P (MAP) Pulse Ox O2 Delivery O2 Flow Rate FiO2 07/25/17 07:18 97.6 70 18 170/83 (112) 97 07/25/17 04:30 98.2 70 20 155/73 (100) 96 07/25/17 00:00 97.9 74 20 180/75 (110) 96 07/24/17 20:00 97.4 74 20 178/74 (108) 96 07/24/17 18:51 64 20 220/88 (132) 97 07/24/17 16:00 95.7 66 14 186/97 (126) 96 07/24/17 15:58 18 07/24/17 12:00 97.5 65 16 124/73 (90) 93 07/24/17 09:15 98.0 61 16 137/54 (81) 94 07/24/17 08:50 98.0 65 16 132/58 (82) 92 I/O 07/24/17 07/24/17 07/24/17 07/25/17 07/25/17 07/25/17 07:00 15:00 23:00 07:00 15:00 23:00 Intake Total 1525 ml 300 ml 1100 ml Output Total 375 ml 525 ml 350 ml Balance 1150 ml -225 ml -350 ml 1100 ml Intake Oral 0 ml IV Total 735 ml 1100 ml Packed Cells 750 ml Blood Product IV Normal Saline Flush 40 ml Other 300 ml Output Urine Total 375 ml 525 ml 350 ml # Voids 1 # Bowel Movements 0 1 Laboratory Laboratory Tests Test 07/24/17 10:00 White Blood Count 5.3 Red Blood Count 4.39 Hemoglobin 10.2 Hematocrit 33.0 Mean Corpuscular Volume 75.3 Mean Corpuscular Hemoglobin 23.1 Mean Corpuscular Hemoglobin Concent 30.8 Red Cell Distribution Width 21.0 Platelet Count 236 Mean Platelet Volume 8.7 Neutrophils (%) (Auto) 50.3 Lymphocytes (%) (Auto) 36.2 Monocytes (%) (Auto) 7.9 Eosinophils (%) (Auto) 4.9 Basophils (%) (Auto) 0.7 Neutrophils # (Auto) 2.7 Lymphocytes # (Auto) 1.9 Monocytes # (Auto) 0.4 Eosinophils # (Auto) 0.3 Basophils # (Auto) 0.0 CBC Comment AUTO DIFF Differential Comment AUTO DIFF CONFIRMED Platelet Estimate NORMAL Platelet Morphology Comment NORMAL Ovalocytes 1+ Keratocytes OCC Physical Exam HEENT: Pupils round and reactive to light; normocephalic; atraumatic; no jaundice. Throat is clear. NECK: Neck is supple, no JVD, no lymphadenopathy. CHEST: Chest is clear to auscultation and percussion. CARDIAC: Regular rate and rhythm with no murmur gallop or rubs. ABDOMEN: Soft, nondistended, nontender; no hepatosplenomegaly; bowel sounds are present in all four quadrants. EXTREMITIES: No clubbing, cyanosis, or edema. SKIN: Normal; no rash; no jaundice. 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 Assessment and Plan Plan Anemia, patient had upper endoscopy did not show lesion that explain the anemia had colonoscopy today IMPRESSION: Colon polyps, multiple, removed by snare or ablation with heat 1 AVM no bleeding cauterized PLAN: Okay to feed patient Colonoscopy in 6 month Small bowel follow-through as an outpatient Monitor H&H if stable patient can be discharged Return to clinic in few weeks, Brandon Jung MD Jul 25, 2017 08:23
[2017-07-25] MEDS: TIOTROPIUM BROMIDE 18 MCG INH INH SCH (09:28)
[2017-07-25] MEDS: CARVEDILOL 3.125 MG TAB PO SCH ×2 (09:28→21:59)
[2017-07-25] MEDS: ENALAPRIL MALEATE 10 MG TAB PO SCH (09:28)
[2017-07-25 10:35] LABS: AUTOMATED NEUTROPHIL # 3.8 TH/MM3 (1.8-7.7); BASOPHIL % 0.6 % (0.0-2.0); EOSINOPHIL # 0.2 TH/MM3 (0-0.4); HEMOGLOBIN 9.3 GM/DL (11.6-15.3); LYMPH % 29.8 % (9.0-44.0); LYMPHOCYTE # 1.8 TH/MM3 (1.0-4.8); MEAN CORPUSCULAR HEMOGLOBIN 22.2 PG (27.0-34.0); MONO % 4.5 % (0.0-8.0); MONOCYTE # 0.3 TH/MM3 (0-0.9); NEUT % 62.1 % (16.0-70.0); PLATELET COUNT 293 TH/MM3 (150-450); RED BLOOD COUNT 4.19 MIL/MM3 (4.00-5.30); RED CELL DISTRIBUTION WIDTH 21.9 % (11.6-17.2); WHITE BLOOD COUNT 6.1 TH/MM3 (4.0-11.0)
[2017-07-25 10:58] LABS: OVALOCYTES 1+ (NORMAL); TARGET CELLS 1+ (NORMAL)
[2017-07-25] MEDS: ACETAMINOPHEN/HYDROcodone 325 MG/5 MG TAB PO PRN (11:23)
--- NOTE | 2017-07-25 16:48 | HHI.PR ---
Subjective Remarks Follow-up GI bleed. Patient seen and examined, sitting up in bed comfortably in no apparent distress. Underwent a colonoscopy with GI today, multiple polyps seen, one AVM cauterization. Hemoglobin is now stable. Patient is tolerating by mouth intake. Request sent to [facility], awaiting bed placement. Objective Vitals Vital Signs Date Time Temp Pulse Resp B/P (MAP) Pulse Ox O2 Delivery O2 Flow Rate FiO2 07/25/17 16:00 98.0 65 24 138/52 (80) 92 07/25/17 12:41 18 07/25/17 12:00 98.1 71 24 138/59 (85) 95 07/25/17 09:27 69 181/84 (116) 07/25/17 08:45 98.1 65 14 133/51 (78) 98 07/25/17 08:30 64 14 120/60 (80) 94 07/25/17 08:26 97.8 70 16 113/55 (74) 95 07/25/17 07:18 97.6 70 18 170/83 (112) 97 07/25/17 04:30 98.2 70 20 155/73 (100) 96 07/25/17 00:00 97.9 74 20 180/75 (110) 96 07/24/17 20:00 97.4 74 20 178/74 (108) 96 07/24/17 18:51 64 20 220/88 (132) 97 I/O 07/24/17 07/24/17 07/24/17 07/25/17 07/25/17 07/25/17 07:00 15:00 23:00 07:00 15:00 23:00 Intake Total 1525 ml 300 ml 1100 ml 1400 ml Output Total 375 ml 525 ml 350 ml Balance 1150 ml -225 ml -350 ml 1100 ml 1400 ml Intake Oral 0 ml 900 ml IV Total 735 ml 1100 ml 0 ml Packed Cells 750 ml Blood Product IV Normal Saline Flush 40 ml Other 300 ml 500 ml Output Urine Total 375 ml 525 ml 350 ml # Voids 1 4 # Bowel Movements 0 1 Result Diagram: 07/25/17 1030 07/23/17 1720 Objective Remarks GENERAL: Elderly white female, obese, no acute distress SKIN: Warm and dry. Pale EYES: No scleral icterus. No injection or drainage. ENT: No nasal bleeding or discharge. Mucous membranes pink and moist. CARDIOVASCULAR: Regular rate and rhythm. no murmurs RESPIRATORY: No accessory muscle use. Clear to auscultation. Breath sounds equal bilaterally. GASTROINTESTINAL: Abdomen soft, non-tender, nondistended. Obese abdomen Extremities: No clubbing, cyanosis, or edema. No obvious deformities. MUSCULOSKELETAL: grossly intact ROM with 4/5 strength in upper extremities proximally; NEUROLOGICAL: Awake and alert. No obvious cranial nerve deficits. No facial droop nor slurred speech noted. PSYCHIATRIC: Appropriate mood and affect; insight and judgment normal. A/P Assessment and Plan 72-year-old white female being admitted for suspected GI bleed (upper). Suspected GI bleed - h/h stable post 2 units transfusion. EGD unremarkable for explanation of severe anemia. GI performed: Colonoscopy today, 1 AVM seen, no cauterization done. Multiple polyps seen. - Recommendations for colonoscopy in 6 months. Follow up in clinic outpatient upon discharge. Recommendations for small bowel follow-through outpatient setting. Acute on chronic anemia secondary to blood loss - Trend CBC. Hemoglobin stable. No signs of active bleeding. Recent urinary tract infection - UA neg; no further workup. Continue home medications -Coreg, enalapril levothyroxine, tiotropium, Lipitor SCDs Discharge Planning Discharged to [facility] tomorrow. Kristy Merida Jul 25, 2017 16:48
[2017-07-25] MEDS: ATORVASTATIN 40 MG TAB PO SCH (21:59)
[2017-07-26] VITALS: BP 142/68; PULSE 71; RESP 18; TEMP 98.7; O2SAT 92
[2017-07-26] MEDS: LEVOTHYROXINE SODIUM 112 MCG TAB PO SCH (04:38)
[2017-07-26 07:30] VITALS: BP 138/63; PULSE 63; RESP 20; TEMP 98.2; O2SAT 95
--- NOTE | 2017-07-26 08:17 | HHI.GIFU ---
Subjective Remarks patient laying in bed comfortable, no complains, no sign of GI bleed Objective Vitals I&O Vital Signs Date Time Temp Pulse Resp B/P (MAP) Pulse Ox O2 Delivery O2 Flow Rate FiO2 07/26/17 00:00 98.7 71 18 142/68 (92) 92 07/25/17 20:00 96.7 72 18 147/66 (93) 96 07/25/17 16:00 98.0 65 24 138/52 (80) 92 07/25/17 12:41 18 07/25/17 12:00 98.1 71 24 138/59 (85) 95 07/25/17 09:27 69 181/84 (116) 07/25/17 08:45 98.1 65 14 133/51 (78) 98 07/25/17 08:30 64 14 120/60 (80) 94 07/25/17 08:26 97.8 70 16 113/55 (74) 95 I/O 07/25/17 07/25/17 07/25/17 07/26/17 07/26/17 07/26/17 07:00 15:00 23:00 07:00 15:00 23:00 Intake Total 1100 ml 1400 ml 240 ml 420 ml Balance 1100 ml 1400 ml 240 ml 420 ml Intake Oral 0 ml 900 ml 240 ml 420 ml IV Total 1100 ml 0 ml Other 500 ml # Voids 1 4 1 2 # Bowel Movements 1 0 Laboratory Laboratory Tests Test 07/25/17 10:30 White Blood Count 6.1 Red Blood Count 4.19 Hemoglobin 9.3 Hematocrit 31.0 Mean Corpuscular Volume 74.0 Mean Corpuscular Hemoglobin 22.2 Mean Corpuscular Hemoglobin Concent 30.0 Red Cell Distribution Width 21.9 Platelet Count 293 Mean Platelet Volume 9.0 Neutrophils (%) (Auto) 62.1 Lymphocytes (%) (Auto) 29.8 Monocytes (%) (Auto) 4.5 Eosinophils (%) (Auto) 3.0 Basophils (%) (Auto) 0.6 Neutrophils # (Auto) 3.8 Lymphocytes # (Auto) 1.8 Monocytes # (Auto) 0.3 Eosinophils # (Auto) 0.2 Basophils # (Auto) 0.0 CBC Comment AUTO DIFF Differential Comment AUTO DIFF CONFIRMED Target Cells 1+ Ovalocytes 1+ Physical Exam HEENT: Pupils round and reactive to light; normocephalic; atraumatic; no jaundice. Throat is clear. obese NECK: Neck is supple, no JVD, no lymphadenopathy. CHEST: Chest is clear to auscultation and percussion. CARDIAC: Regular rate and rhythm with no murmur gallop or rubs. ABDOMEN: Soft, nondistended, nontender; no hepatosplenomegaly; bowel sounds are present in all four quadrants. EXTREMITIES: No clubbing, cyanosis, or edema. SKIN: Normal; no rash; no jaundice. 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 Assessment and Plan Plan Anemia, patient had upper endoscopy did not show lesion that explain the anemia had colonoscopy yesterday IMPRESSION: Colon polyps, multiple, removed by snare or ablation with heat 1 AVM no bleeding cauterized 07/26/2017 patient is doing well today, no sign of active bleeding, no abdominal pain PLAN: Okay to feed patient Colonoscopy in 6 month Small bowel follow-through as an outpatient Monitor H&H if stable patient can be discharged Return to clinic in few weeks Repeat H&H stable patient can be discharged from [facility] G[facility] Ammar MD Jul 26, 2017 08:17
[2017-07-26 08:39] LABS: HEMATOCRIT 29.6 % (35.0-46.0)
--- NOTE | 2017-07-26 09:24 | HHI.PR ---
Subjective Remarks Follow-up GI bleed. Patient seen and examined, laying comfortably in bed. Denies any acute events overnight. Denies any pain. Denies any bleeding, abdominal pain, nausea, vomiting or diarrhea. Afebrile. Hemoglobin stable today. Plan for discharge to [facility]. Objective Vitals Vital Signs Date Time Temp Pulse Resp B/P (MAP) Pulse Ox O2 Delivery O2 Flow Rate FiO2 07/26/17 07:30 98.2 63 20 138/63 (88) 95 07/26/17 00:00 98.7 71 18 142/68 (92) 92 07/25/17 20:00 96.7 72 18 147/66 (93) 96 07/25/17 16:00 98.0 65 24 138/52 (80) 92 07/25/17 12:41 18 07/25/17 12:00 98.1 71 24 138/59 (85) 95 07/25/17 09:27 69 181/84 (116) I/O 07/25/17 07/25/17 07/25/17 07/26/17 07/26/17 07/26/17 07:00 15:00 23:00 07:00 15:00 23:00 Intake Total 1100 ml 1400 ml 240 ml 420 ml Balance 1100 ml 1400 ml 240 ml 420 ml Intake Oral 0 ml 900 ml 240 ml 420 ml IV Total 1100 ml 0 ml Other 500 ml # Voids 1 4 1 2 # Bowel Movements 1 0 Result Diagram: 07/26/17 0830 07/23/17 1720 Objective Remarks GENERAL: Elderly white female, obese, no acute distress SKIN: Warm and dry. Pale EYES: No scleral icterus. No injection or drainage. ENT: No nasal bleeding or discharge. Mucous membranes pink and moist. CARDIOVASCULAR: Regular rate and rhythm. no murmurs RESPIRATORY: No accessory muscle use. Clear to auscultation. Breath sounds equal bilaterally. GASTROINTESTINAL: Abdomen soft, non-tender, nondistended. Obese abdomen. Active bowel sounds. Extremities: No clubbing, cyanosis, or edema. No obvious deformities. MUSCULOSKELETAL: grossly intact ROM with 4/5 strength in upper extremities proximally; NEUROLOGICAL: Awake and alert. No obvious cranial nerve deficits. No facial droop nor slurred speech noted. PSYCHIATRIC: Appropriate mood and affect; insight and judgment normal. A/P Assessment and Plan 72-year-old white female being admitted for suspected GI bleed (upper). Suspected GI bleed - h/h stable post 2 units transfusion. EGD unremarkable for explanation of severe anemia. GI performed: Colonoscopy today, 1 AVM seen, no cauterization done. Multiple polyps seen. - Recommendations for colonoscopy in 6 months. Follow up in clinic outpatient upon discharge. Recommendations for small bowel follow-through outpatient setting. Acute on chronic anemia secondary to blood loss - Hemoglobin stable. No signs of active bleeding. Recent urinary tract infection - UA neg; no further workup. Continue home medications -Coreg, enalapril levothyroxine, tiotropium, Lipitor SCDs Discharge Planning Discharged to [facility] today. Kristy Merida Jul 26, 2017 09:24
[2017-07-26] MEDS: TIOTROPIUM BROMIDE 18 MCG INH INH SCH (09:38)
[2017-07-26] MEDS: ENALAPRIL MALEATE 10 MG TAB PO SCH (09:39)
[2017-07-26] MEDS: CARVEDILOL 3.125 MG TAB PO SCH (09:39)
--- NOTE | 2017-07-26 10:45 | HHI.DS ---
Discharge Summary Admission Date Jul 23, 2017 at 18:42 Discharge Date: Jul 26, 2017 Admitting Diagnosis GI bleed (1) GI bleed ICD Code: K92.2 - Gastrointestinal hemorrhage, unspecified Status: Acute Procedures EGD and Colonoscopy Brief History - From Admission 72-year-old white female being admitted for suspected GI bleed Patient was in her usual state of health until about a week ago when she began experiencing a gradual onset of diffuse weakness, fatigue, paleness. She does report noticing some intermittent black stools that have actually been going on for the last month. Patient reports having some vague of abdominal pain as well; states that she was diagnosed with urinary tract infection and started on Bactrim but only took 3 doses of it because she thought it made her heart rate go fast. Patient's symptoms progressed overall and she decided come to the emergency department. Patient denies taking any nonsteroidal anti-inflammatory drugs but she does admit to maybe aspirin and Plavix daily. Patient reports having a suspected GI bleed about 4 years ago; states that she had a pill cam done and says that they "cauterized something" but wasn't sure exactly what was. She was diagnosed with a transient ischemic attack about 2 months ago at [facility]. CBC/BMP: 07/26/17 0830 07/23/17 1720 Significant Findings Laboratory Tests Test 07/23/17 17:20 07/24/17 02:50 07/24/17 10:00 07/25/17 10:30 Red Blood Count 3.21 MIL/MM3 (4.00-5.30) Hemoglobin 6.4 GM/DL (11.6-15.3) 10.2 GM/DL (11.6-15.3) 9.3 GM/DL (11.6-15.3) Hematocrit 22.1 % (35.0-46.0) 33.0 % (35.0-46.0) 31.0 % (35.0-46.0) Mean Corpuscular Volume 68.8 FL (80.0-100.0) 75.3 FL (80.0-100.0) 74.0 FL (80.0-100.0) Mean Corpuscular Hemoglobin 19.9 PG (27.0-34.0) 23.1 PG (27.0-34.0) 22.2 PG (27.0-34.0) Mean Corpuscular Hemoglobin Concent 28.9 % (32.0-36.0) 30.8 % (32.0-36.0) 30.0 % (32.0-36.0) Red Cell Distribution Width 22.2 % (11.6-17.2) 21.0 % (11.6-17.2) 21.9 % (11.6-17.2) Monocytes (%) (Auto) 10.6 % (0.0-8.0) Target Cells 1+ (NORMAL) 1+ (NORMAL) Ovalocytes 1+ (NORMAL) 1+ (NORMAL) 1+ (NORMAL) Stomatocytes 1+ (NORMAL) Acanthocytes OCC (NORMAL) Rouleau PRESENT (NORMAL) Keratocytes OCC (NORMAL) OCC (NORMAL) Activated Partial Thromboplast Time 23.6 SEC (24.3-30.1) Creatinine 1.40 MG/DL (0.50-1.00) Random Glucose 122 MG/DL (74-106) Albumin 3.2 GM/DL (3.4-5.0) Alkaline Phosphatase 151 U/L (45-117) Aspartate Amino Transf (AST/SGOT) 14 U/L (15-37) Estimat Glomerular Filtration Rate 37 ML/MIN (>89) Urine Hyaline Casts 3-5 /lpf (RARE) Eosinophils (%) (Auto) 4.9 % (0.0-4.0) Test 07/26/17 08:30 Hemoglobin 9.0 GM/DL (11.6-15.3) Hematocrit 29.6 % (35.0-46.0) PE at Discharge GENERAL: Elderly white female, obese, no acute distress SKIN: Warm and dry. Pale EYES: No scleral icterus. No injection or drainage. ENT: No nasal bleeding or discharge. Mucous membranes pink and moist. CARDIOVASCULAR: Regular rate and rhythm. no murmurs RESPIRATORY: No accessory muscle use. Clear to auscultation. Breath sounds equal bilaterally. GASTROINTESTINAL: Abdomen soft, non-tender, nondistended. Obese abdomen. Active bowel sounds. Extremities: No clubbing, cyanosis, or edema. No obvious deformities. MUSCULOSKELETAL: grossly intact ROM with 4/5 strength in upper extremities proximally; NEUROLOGICAL: Awake and alert. No obvious cranial nerve deficits. No facial droop nor slurred speech noted. PSYCHIATRIC: Appropriate mood and affect; insight and judgment normal. Pt update on day of discharge Follow-up GI bleed. Patient seen and examined, laying comfortably in bed. Denies any acute events overnight. Denies any pain. Denies any bleeding, abdominal pain, nausea, vomiting or diarrhea. Afebrile. Hemoglobin stable today. Plan for discharge to [facility]. Hospital Course Patient presented with suspected GI bleed, was given two units PRBC and status post transfusion H&H was stable. Patient underwent an EGD and colonoscopy which the EGD was unremarkable for explanation of severe anemia, colonoscopy showed one ABM no cauterization was done, multiple polyps were seen. GI followed patient throughout hospital stay with recommendations to obtain colonoscopy in six months. Recommendations for follow-up in outpatient clinic upon discharge. GI was wanting to do a small bowel follow-through in the outpatient setting. UA was negative upon admission. Home medications were continued for hypertension, hypercholesterolemia and thyroid disease which were all stable. Patient was discharge to [facility]. Pt Condition on Discharge: Stable Discharge Disposition: Discharge to SNF Discharge Time: > 30 minutes Discharge Instructions DIET: Follow Instructions for: Heart Healthy Diet Activities you can perform: Regular-No Restrictions Follow up Referrals: Gastroenterology - 1 Week PCP Follow-up - 1 Week Continued Medications: Aspirin (Aspirin [facility]) 81 Mg Chew 81 MG CHEW DAILY for prevent stroke, #3 TAB 0 Refills stop after 3 days. Atorvastatin (Atorvastatin) 40 Mg Tab 40 MG PO HS for Cholesterol Management, #30 TAB 0 Refills Carvedilol (Coreg) 3.125 Mg Tab 3.125 MG PO DAILY, #60 TAB 0 Refills Clopidogrel (Plavix) 75 Mg Tab 75 MG PO DAILY for Blood Clot Prevention, #30 TAB 0 Refills Enalapril (Enalapril) 20 Mg Tab 20 MG PO DAILY, #30 TAB 0 Refills Hydrocodone/Acetaminophen (Hydrocodone-Acetamin 5-325 mg) 5 Mg-325 Mg Tablet 1 TAB PO Q4H PRN for Pain, #40 TAB Levothyroxine (Synthroid) 112 Mcg Tab 112 MCG PO DAILY for Thyroid, #30 TAB 0 Refills Omeprazole Magnesium (Prilosec) 20 Mg Tab DAILY Tiotropium Inh (Spiriva Handihaler) 18 Mcg Cap 18 MCG INH DAILY for COPD, #30 CAP 0 Refills 1 capsule = 18 mcg Discontinued Medications: Sulfamethoxazole-Trimethoprim (Sulfamethoxazole-Trimethoprim) 800-160 Mg Tab 1 TAB PO BID for Infection, TAB 0 Refills Additional Information Spoke with GI MD, if needed patient can restart home Plavix and Aspirin. Kristy Merida Jul 26, 2017 10:45
--- NOTE | 2017-07-26 10:46 | HHI.DCPOC ---
Discharge Care Plan Diagnosis: (1) GI bleed Goals to Promote Your Health * To prevent worsening of your condition and complications * To maintain your health at the optimal level Directions to Meet Your Goals Take your medications as prescribed Follow your dietary instruction Follow activity as directed Keep your appointments as scheduled Take your immunizations and boosters as scheduled If your symptoms worsen call your PCP, if no PCP go to Urgent Care Center or Emergency Room Smoking is Dangerous to Your Health. Avoid second hand smoke Call the 24-hour hour crisis hotline for domestic abuse at Kristy Merida Jul 26, 2017 10:46
[2017-07-26 11:30] VITALS: BP 144/69; PULSE 64; RESP 20; TEMP 98.3; O2SAT 97
[2017-07-26] MEDS ORDERED: PHENYLEPH/NS 1000 MCG/10 ML SYR IV ONE (12:00)
[2017-07-26] MEDS ORDERED: LIDOCAINE HCL 1% PF 5 ML SYRINGE OTHER ONE ×2 (12:00)
[2017-07-26] MEDS ORDERED: PROPOFOL 200 MG/20 ML AMP IV ONE ×2 (12:00)
[2017-07-26] MEDS ORDERED: HYDR-3516 PO (13:34)
== END 2017-07-26 14:45 | DRG 378 ==
LOC: PHED 16:43 → PHEDA 18:42 → PH3A 20:59
PROVIDERS: ADMIT Hospitalist; ATTEND Hospitalist
PROC: 30233N1 Transfusion of Nonautologous Red Blood Cells into Peripheral Vein, Percutaneous Approach (ICD-10-PCS; 2017-07-23)
PROC: 0DJ08ZZ Inspection of Upper Intestinal Tract, Via Natural or Artificial Opening Endoscopic (ICD-10-PCS; 2017-07-24)
PROC: 0DBL8ZX Excision of Transverse Colon, Via Natural or Artificial Opening Endoscopic, Diagnostic (ICD-10-PCS; 2017-07-25)
PROC: 0DBH8ZX Excision of Cecum, Via Natural or Artificial Opening Endoscopic, Diagnostic (ICD-10-PCS; 2017-07-25)
PROC: 0D5K8ZZ Destruction of Ascending Colon, Via Natural or Artificial Opening Endoscopic (ICD-10-PCS; 2017-07-25)
PROC: 0DBK8ZX Excision of Ascending Colon, Via Natural or Artificial Opening Endoscopic, Diagnostic (ICD-10-PCS; principal; 2017-07-25 07:34)
DX: K92.2 Gastrointestinal hemorrhage, unspecified (principal); D62 Acute posthemorrhagic anemia; J44.9 Chronic obstructive pulmonary disease, unspecified; D50.0 Iron deficiency anemia secondary to blood loss (chronic); I10 Essential (primary) hypertension; D12.0 Benign neoplasm of cecum; Q27.33 Arteriovenous malformation of digestive system vessel; F17.210 Nicotine dependence, cigarettes, uncomplicated; D12.2 Benign neoplasm of ascending colon; D12.3 Benign neoplasm of transverse colon; K29.70 Gastritis, unspecified, without bleeding; K20.9 Esophagitis, unspecified; E03.9 Hypothyroidism, unspecified; R42 Dizziness and giddiness; Z85.3 Personal history of malignant neoplasm of breast; Z85.41 Personal history of malignant neoplasm of cervix uteri; Z85.820 Personal history of malignant melanoma of skin; Z86.73 Personal history of transient ischemic attack (TIA), and cerebral infarction without residual deficits; Z92.3 Personal history of irradiation; Z79.82 Long term (current) use of aspirin; Z79.02 Long term (current) use of antithrombotics/antiplatelets; Z88.1 Allergy status to other antibiotic agents; Z88.5 Allergy status to narcotic agent; Z88.0 Allergy status to penicillin; Z88.8 Allergy status to other drugs, medicaments and biological substances
CPT/HCPCS: 36430; 80053; 81001; 85014; 85018; 85025; 85610; 85730; 86850; 86900; 86901; 86920; 88305; 96365; C9113; J2370; J7050; P9016

== ENCOUNTER 2017-09-12 16:32 | Inpatient (IN) | payer OTHER, MEDICARE ==
[~2017-09-12] VITALS: Ht 152.4 cm; Wt 103.8 kg
[2017-09-12] VITALS (8 sets, daily range): BP systolic 129–155; BP diastolic 52–73; PULSE 66–83; RESP 16–18; TEMP 97.7–98.2; O2SAT 95–100
[~2017-09-12 16:32] MED LIST changes: +ENAL20TA PO
[2017-09-12] MEDS ORDERED: SODIUM CHLORIDE 0.9% FLUSH 10 ML FLUSH IVF PRN (17:45)
--- NOTE | 2017-09-12 17:51 | PD ---
HPI Chief Complaint: Abnormal Results Time Seen by Provider: 17:34 Travel History International Travel<30 days: No Contact w/Intl Traveler<30days: No Traveled to known affect area: No History of Present Illness HPI 72-year-old female sent in by her medical office coordinator Dr. Jung for evaluation of low H&H. The patient was admitted to the hospital in July of this year for GI bleed with anemia. She had a colonoscopy as an inpatient and was found to have several colonic polyps as well as an AVM. Patient had lab work done 3 days ago and was called today with the results stating that her hemoglobin is 6.4. She denies melena or hematochezia. She is on aspirin and Plavix for history of TIAs. She complains of generalized weakness. No abdominal pain. No chest pain. PFSH Past Medical History Hx Anticoagulant Therapy: Yes (PLAVIX) AAA: Yes Arthritis: Yes Asthma: Yes Autoimmune Disease: No Anxiety: Yes Depression: No Heart Rhythm Problems: Yes (loop recorder) Cancer: Yes (RIGHT BREAST, CERVICAL) Cardiac Catheterization: Yes Cardiovascular Problems: Yes High Cholesterol: Yes Chest Pain: No Congestive Heart Failure: No COPD: Yes (current smoker) Cerebrovascular Accident: Yes Diabetes: Yes Patient Takes Glucophage: No Diminished Hearing: Yes (HYDABURG) Endocrine: Yes Fibromyalgia: Yes Gastrointestinal Disorders: Yes (ACID REFLEX, CURRENT GASTRIC BLEED) GERD: Yes Genitourinary: No Headaches: Yes Hepatitis: No Hiatal Hernia: No Hypertension: Yes Immune Disorder: Yes (FIBROMYALGIA) Implanted Vascular Access Dvce: No Kidney Stones: No Medical other: Yes (ANEMIA) Musculoskeletal: Yes (BACK PAIN,ARTHRITIS) Neurologic: Yes (STROKE HX) Psychiatric: Yes Reproductive: No Respiratory: Yes 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) Immunizations Current: Yes Migraines: No Myocardial Infarction: Yes Radiation Therapy: Yes Renal Failure: No Seizures: No Sleep Apnea: No Thyroid Disease: Yes Ulcer: Yes (PEPTIC) Tetanus Vaccination: Unknown Influenza Vaccination: Yes Menopausal: Yes : 2 Para: 2 Past Surgical History Abdominal Surgery: No AICD: No Appendectomy: Yes Arteriovenous Shunt: No Body Medical Devices: Loop recorder left chest Cardiac Surgery: No Cholecystectomy: No Coronary Artery Bypass Graft: No Ear Surgery: No Endocrine Surgery: No Eye Surgery: No Genitourinary Surgery: No Gynecologic Surgery: Yes (CERVICAL BX, HYSTERECTOMY) Hysterectomy: Yes Insulin Pump: No Joint Replacement: No Mastectomy: Yes (RT) Neurologic Surgery: No Oral Surgery: No Pacemaker: No Thoracic Surgery: Yes Other Surgery: Yes (RT MASTECTOMY WITH BREAST RECONSTRUCTION, rt carotid endart ) Social History Alcohol Use: No Tobacco Use: Yes (1PPD) Substance Use: No Allergies-Medications (Allergen,Severity, Reaction): Coded Allergies: doxycycline (Unverified Allergy, Severe, SHORTNESS OF BREATH, 09/12/17) minocycline (Unverified Allergy, Severe, SHORTNESS OF BREATH, 09/12/17) oxycodone (Unverified Allergy, Severe, UNKNOWN, 09/12/17) penicillin G (Unverified Allergy, Severe, SHORTNESS OF BREATH, 09/12/17) tetanus toxoid, adsorbed (Unverified Allergy, Severe, SHORTNESS OF BREATH , 09/12/17) tigecycline (Unverified Allergy, Severe, SHORTNESS OF BREATH, 09/12/17) diazepam (Unverified Adverse Reaction, Intermediate, HYPER, 09/12/17) Uncoded Allergies: PAPER TAPE (Allergy, Severe, SKIN BLISTERS, 07/23/17) Reported Meds & Prescriptions Reported Meds & Active Scripts Active Plavix (Clopidogrel Bisulfate) 75 Mg Tab 75 Mg PO DAILY Aspirin Children's (Aspirin) 81 Mg Chew 81 Mg CHEW DAILY stop after 3 days. Reported Enalapril (Enalapril Maleate) 20 Mg Tab 20 Mg PO DAILY Prilosec (Omeprazole Magnesium) 20 Mg Tab DAILY Synthroid (Levothyroxine Sodium) 112 Mcg Tab 112 Mcg PO DAILY Coreg (Carvedilol) 3.125 Mg Tab 3.125 Mg PO DAILY Atorvastatin (Atorvastatin Calcium) 40 Mg Tab 40 Mg PO HS Spiriva Handihaler (Tiotropium Inh) 18 Mcg Cap 18 Mcg INH DAILY 1 capsule = 18 mcg Review of Systems Except as stated in HPI: all other systems reviewed are Neg Physical Exam Narrative GENERAL: Well-developed, well-nourished, comfortable, no apparent distress. SKIN: Focused skin assessment warm/dry. Diffuse pallor. HEAD: Atraumatic. Normocephalic. EYES: Pupils equal and round. No scleral icterus. No injection or drainage. ENT: No nasal bleeding or discharge. Mucous membranes pink and moist. NECK: Trachea midline. No JVD. CARDIOVASCULAR: Regular rate and rhythm. No murmur appreciated. RESPIRATORY: No accessory muscle use. Clear to auscultation. Breath sounds equal bilaterally. GASTROINTESTINAL: Abdomen soft, non-tender, nondistended. RECTUM: No masses, no fissures, no hemorrhoids, heme positive brown stool. MUSCULOSKELETAL: No obvious deformities. No clubbing. No cyanosis. No edema. NEUROLOGICAL: Awake and alert. No obvious cranial nerve deficits. Motor grossly within normal limits. Normal speech. PSYCHIATRIC: Appropriate mood and affect; insight and judgment normal. Data Data Last Documented VS Vital Signs Date Time Temp Pulse Resp B/P (MAP) Pulse Ox O2 Delivery O2 Flow Rate FiO2 09/12/17 17:35 Room Air 09/12/17 17:30 99 09/12/17 16:51 98.0 82 18 147/65 (92) Orders Orders Complete Blood Count With Diff (09/12/17 17:40) Comprehensive Metabolic Panel (09/12/17 17:40) Prothrombin Time / Inr (Pt) (09/12/17 17:40) Act Partial Throm Time (Ptt) (09/12/17 17:40) Type And Screen (09/12/17 17:40) Ecg Monitoring (09/12/17 17:40) Iv Access Insert/Monitor (09/12/17 17:40) Oximetry (09/12/17 17:40) Sodium Chloride 0.9% Flush (Ns Flush) (09/12/17 17:45) Serum Total Iron (Fe) (09/12/17 17:40) Red Blood Cells (Rbc) (09/12/17 18:35) Blood Product Administration (09/12/17 18:35) Sodium Chlor 0.9% 250 Ml Inj (Ns 250 Ml (09/12/17 18:45) Labs Laboratory Tests Test 09/12/17 17:45 09/12/17 18:45 White Blood Count 7.3 TH/MM3 Red Blood Count 2.94 MIL/MM3 Hemoglobin 6.9 GM/DL Hematocrit 22.5 % Mean Corpuscular Volume 76.7 FL Mean Corpuscular Hemoglobin 23.5 PG Mean Corpuscular Hemoglobin Concent 30.6 % Red Cell Distribution Width 22.9 % Platelet Count 334 TH/MM3 Mean Platelet Volume 9.4 FL Neutrophils (%) (Auto) 60.5 % Lymphocytes (%) (Auto) 28.4 % Monocytes (%) (Auto) 7.7 % Eosinophils (%) (Auto) 2.2 % Basophils (%) (Auto) 1.2 % Neutrophils # (Auto) 4.3 TH/MM3 Lymphocytes # (Auto) 2.1 TH/MM3 Monocytes # (Auto) 0.6 TH/MM3 Eosinophils # (Auto) 0.2 TH/MM3 Basophils # (Auto) 0.1 TH/MM3 CBC Comment AUTO DIFF Differential Comment AUTO DIFF CONFIRMED Platelet Estimate NORMAL Platelet Morphology Comment CLUMPED Prothrombin Time 10.0 SEC Prothromb Time International Ratio 1.0 RATIO Activated Partial Thromboplast Time 21.0 SEC Blood Urea Nitrogen 14 MG/DL Creatinine 1.00 MG/DL Random Glucose 102 MG/DL Total Protein 7.3 GM/DL Albumin 3.6 GM/DL Calcium Level 8.4 MG/DL Alkaline Phosphatase 139 U/L Aspartate Amino Transf (AST/SGOT) 15 U/L Alanine Aminotransferase (ALT/SGPT) 13 U/L Total Bilirubin 0.3 MG/DL Sodium Level 137 MEQ/L Potassium Level 3.9 MEQ/L Chloride Level 105 MEQ/L Carbon Dioxide Level 24.5 MEQ/L Anion Gap 8 MEQ/L Estimat Glomerular Filtration Rate 55 ML/MIN MDM Medical Decision Making Medical Screen Exam Complete: Yes Emergency Medical Condition: Yes Differential Diagnosis GI bleed, anemia Narrative Course Initial vital signs show heart rate 82, blood pressure 147/65, pulse ox 100% on room air, oral temperature 98F. CBC is remarkable for hemoglobin 6.9, hematocrit 22.5, MCV 76.7. CMP is unremarkable. Coags are within normal limits. Stool is heme positive and brown. The patient was consented for blood transfusion and written for 2 units of PRBCs. Case discussed with the patient's medical office coordinator Dr. Jung who states that the patient is scheduled for capsule endoscopy. Agrees with transfusion of PRBCs, but states that the patient requires capsule endoscopy. She has known AVMs and colonic polyps and does not believe that colonoscopy would be of any benefit, therefore he recommends transfusion, and if the patient remains stable can be discharged to follow-up with him for capsule endoscopy as scheduled. Case discussed with hospitalist NEIL Byrne who will admit the patient to the hospitalist service under Dr. Ojeda. [facility] Point of Care Internal Pos. & Neg. Controls: Passed Fecal Specimen Occult Blood: Positive Comment Heme positive brown stool Diagnosis Primary Impression: Symptomatic anemia Additional Impression: GI bleed Qualified Codes: K92.2 - Gastrointestinal hemorrhage, unspecified Mike Malik MD Sep 12, 2017 17:51
[2017-09-12 18:09] LABS: AUTOMATED NEUTROPHIL # 4.3 TH/MM3 (1.8-7.7); BASOPHIL # 0.1 TH/MM3 (0-0.2); BASOPHIL % 1.2 % (0.0-2.0); EOSINOPHIL # 0.2 TH/MM3 (0-0.4); EOSINOPHIL % 2.2 % (0.0-4.0); LYMPH % 28.4 % (9.0-44.0); LYMPHOCYTE # 2.1 TH/MM3 (1.0-4.8); MEAN CELL VOLUME 76.7 FL (80.0-100.0); MEAN CORPUSCULAR HEMOGLOBIN 23.5 PG (27.0-34.0); MEAN CORPUSCULAR HGB CONC 30.6 % (32.0-36.0); MEAN PLATELET VOLUME 9.4 FL (7.0-11.0); MONO % 7.7 % (0.0-8.0); MONOCYTE # 0.6 TH/MM3 (0-0.9); NEUT % 60.5 % (16.0-70.0); PLATELET COUNT 334 TH/MM3 (150-450); RED BLOOD COUNT 2.94 MIL/MM3 (4.00-5.30); RED CELL DISTRIBUTION WIDTH 22.9 % (11.6-17.2); WHITE BLOOD COUNT 7.3 TH/MM3 (4.0-11.0)
[2017-09-12 18:18] LABS: CHLORIDE 105 MEQ/L (98-107); SODIUM (NA) 137 MEQ/L (136-145)
[2017-09-12 18:21] LABS: CALCIUM 8.4 MG/DL (8.5-10.1); HEMOGLOBIN 6.9 GM/DL (11.6-15.3)
[2017-09-12 18:22] LABS: ALBUMIN 3.6 GM/DL (3.4-5.0); BICARBONATE 24.5 MEQ/L (21.0-32.0); BLOOD UREA NITROGEN 14 MG/DL (7-18); GLUCOSE,RANDOM 102 MG/DL (74-106); HEMATOCRIT 22.5 % (35.0-46.0)
[2017-09-12 18:25] LABS: ALT (GPT) 13 U/L (10-53); AST (GOT) 15 U/L (15-37); GLOMERULAR FILTRATION RATE 55 ML/MIN (>89)
[2017-09-12 18:26] LABS: TOTAL BILIRUBIN ADULT 0.3 MG/DL (0.2-1.0); TOTAL PROTEIN 7.3 GM/DL (6.4-8.2)
[2017-09-12 18:28] LABS: ALKALINE PHOSPHATASE 139 U/L (45-117)
[2017-09-12] MEDS ORDERED: SODIUM CHLOR 0.9% 250 ML INJ 250 ML IV ONE (18:45)
[2017-09-12] MEDS ORDERED: SODIUM CHLORIDE 0.9% FLUSH 10 ML FLUSH IV FLUSH PRN (20:00)
[2017-09-12] MEDS ORDERED: NALOXONE HCL 0.4 MG/ML AMP IV PUSH PRN (20:00)
[2017-09-12] MEDS ORDERED: ACETAMINOPHEN 325 MG TAB PO ONE (20:15)
[2017-09-12] MEDS: SODIUM CHLORIDE 0.9% FLUSH 10 ML FLUSH IV FLUSH SCH (21:00)
[2017-09-13] VITALS: BP 143/66; PULSE 70; RESP 19; TEMP 98.1; O2SAT 98
[2017-09-13] MEDS ORDERED: LEVO100T5 PO (00:11)
[2017-09-13] MEDS ORDERED: OMEP20.6 PO (00:12)
[2017-09-13 01:10] VITALS: BP 108/54; PULSE 67; RESP 17; TEMP 97; O2SAT 96
[2017-09-13 04:00] VITALS: BP_SYST 128; BP_SYST 139; BP_DIAS 72; PULSE 71; PULSE 75; RESP 18; TEMP 97.4; TEMP 98; O2SAT 96; O2SAT 99
[2017-09-13] MEDS ORDERED: DIATRIZOATE MEGLUM/DIATRIZOATE SOD 9 ML CUP PO ONE (05:45)
[2017-09-13 06:40] LABS: BASOPHIL # 0.1 TH/MM3 (0-0.2); EOSINOPHIL # 0.2 TH/MM3 (0-0.4); EOSINOPHIL % 3.1 % (0.0-4.0); HEMATOCRIT 30.3 % (35.0-46.0); HEMOGLOBIN 9.3 GM/DL (11.6-15.3); LYMPH % 31.3 % (9.0-44.0); LYMPHOCYTE # 1.7 TH/MM3 (1.0-4.8); MEAN CELL VOLUME 79.3 FL (80.0-100.0); MEAN CORPUSCULAR HEMOGLOBIN 24.3 PG (27.0-34.0); MEAN CORPUSCULAR HGB CONC 30.6 % (32.0-36.0); MEAN PLATELET VOLUME 8.9 FL (7.0-11.0); MONO % 8.1 % (0.0-8.0); MONOCYTE # 0.4 TH/MM3 (0-0.9); NEUT % 56.5 % (16.0-70.0); PLATELET COUNT 249 TH/MM3 (150-450); RED BLOOD COUNT 3.82 MIL/MM3 (4.00-5.30); RED CELL DISTRIBUTION WIDTH 19.9 % (11.6-17.2); WHITE BLOOD COUNT 5.4 TH/MM3 (4.0-11.0)
[2017-09-13 06:46] LABS: CALCIUM 8.5 MG/DL (8.5-10.1)
[2017-09-13 06:47] LABS: BICARBONATE 25.3 MEQ/L (21.0-32.0)
[2017-09-13 06:50] LABS: CREATININE 0.9 MG/DL (0.50-1.00)
[2017-09-13 07:36] LABS: KERATOCYTES OCC (NORMAL)
[2017-09-13] MEDS: SODIUM CHLORIDE 0.9% FLUSH 10 ML FLUSH IV FLUSH SCH (07:51)
[2017-09-13 08:00] VITALS: BP 179/77; PULSE 70; RESP 18; TEMP 97.3; O2SAT 94
[2017-09-13 08:01] VITALS: PULSE 86
[2017-09-13] MEDS ORDERED: CARVEDILOL 3.125 MG TAB PO SCH (09:00)
[2017-09-13] MEDS ORDERED: LEVOTHYROXINE SODIUM 100 MCG TAB PO SCH (09:00)
[2017-09-13] MEDS ORDERED: ENALAPRIL MALEATE 10 MG TAB PO SCH (09:00)
[2017-09-13] MEDS ORDERED: TIOTROPIUM BROMIDE 18 MCG INH INH SCH (09:00)
[2017-09-13] MEDS ORDERED: IOHEXOL 350 MG/ML 10 ML VIAL (for RAD DIAG) IVCONTRAST ONE (09:03)
[2017-09-13] MEDS ORDERED: PANTOPRAZOLE SOD 40 MG DELAYED RELEASE TAB PO SCH (09:15)
--- NOTE | 2017-09-13 09:32 | RADRPT ---
EXAM DATE/TIME: 09/13/2017 08:53 [facility] COMPARISON: No previous studies available for comparison. INDICATIONS : Anemia. Dizziness. Evaluate for gastrointestinal bleed. IV CONTRAST: 85 cc Omnipaque 350 (iohexol) IV ORAL CONTRAST: Prescribed oral contrast ingested. RADIATION DOSE: 15.51 CTDIvol (mGy) MEDICAL HISTORY : Ulcers. Gastroesophageal reflux disease. Chronic obstructive pulmonary disease.Diabetes. Cardiovascul ar disorders. Cervical cancer. Breast cancer. SURGICAL HISTORY : Appendectomy. Mastectomy, right.Hysterectomy. ENCOUNTER: Initial ACUITY: 2 days PAIN SCALE: 4/10 LOCATION: Bilateral abdomen TECHNIQUE: Volumetric scanning of the abdomen and pelvis was performed. Using automated exposure control and ad justment of the mA and/or kV according to patient size, radiation dose was kept as low as reasonably achievable to obtain optimal diagnostic quality images. DICOM format image data is available electro nically for review and comparison. FINDINGS: LOWER LUNGS: There are 3 adjacent subpleural pulmonary nodules in the left lower lobe measuring approximately 3 mm each. No other significant abnormality is seen at the lung bases. LIVER: Homogeneous density without lesion. There is no dilation of the biliary tree. No calcified gallston es. SPLEEN: Normal size without lesion. PANCREAS: Within normal limits. KIDNEYS: Normal in size and shape. There is no mass, stone or hydronephrosis. There is a left upper pole kristan l cyst measuring 12 mm. ADRENAL GLANDS: Within normal limits. VASCULAR: There is severe atherosclerotic disease with likely high-grade stenosis of the left internal iliac ar britta. Infrarenal aorta is ectatic and mildly aneurysmal measuring up to 3 cm. BOWEL/MESENTERY: The stomach, small bowel, and colon demonstrate no acute abnormality. There is no free intraperitone al air or fluid. There is sigmoid diverticulosis. ABDOMINAL WALL: No hernia is visualized. There is subcutaneous stranding on the anterior abdominal wall superior to t he umbilicus. RETROPERITONEUM: There is no lymphadenopathy. BLADDER: No wall thickening or mass. REPRODUCTIVE: Uterus is absent. INGUINAL: There is no lymphadenopathy or hernia. MUSCULOSKELETAL: There degenerative changes of the lumbar spine. There has been prior kyphoplasty in the inferior thor acic spine. CONCLUSION: 1. No acute finding is identified within the abdomen or pelvis. 2. Severe atherosclerotic disease a likely high-grade stenosis in the left proximal internal iliac ar britta. The infrarenal aorta is mildly aneurysmal measuring up to 3 cm. 3. There are 3 small subpleural noncalcified pulmonary nodules in the left lower lobe measuring 3 mm each. Suggest correlating with any prior imaging studies. If none are available suggest followup CT i n 6 months to assess for change. Davi Payne MD on September 13, 2017 at 9:24 Board Certified Radiologist. This report was verified electronically.
[2017-09-13] MEDS ORDERED: ACETAMINOPHEN 500 MG CPLT PO ONE (10:15)
--- NOTE | 2017-09-13 10:53 | HHI.HP ---
[facility] Jhony Curtis MD Admission Diagnosis Symptomatic anemia, GI bleed Diagnoses: Chief Complaint: low hemoglobin Travel History International Travel<30 Days: No Contact w/Intl Traveler <30 Da: No Traveled to Known Affected Are: No History of Present Illness 72-year-old white female being admitted for acutely low hemoglobin. 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 Patient reports having some mild lightheadedness dizziness and headache. Otherwise denies any other symptoms. She denies any changes in her appetite or any abdominal pain. Denies any melena or hematemesis or bright red blood per rectum. She reports being compliant by taking her baby aspirin or Plavix since her carotid surgery a few months ago. Review of Systems Except as stated in HPI: all other systems reviewed are Neg Past Family Social History Past Medical History CVA/TIA Carotid artery stenosis GI bleed AVM Allergies: Coded Allergies: doxycycline (Unverified Allergy, Severe, SHORTNESS OF BREATH, 09/12/17) minocycline (Unverified Allergy, Severe, SHORTNESS OF BREATH, 09/12/17) oxycodone (Unverified Allergy, Severe, UNKNOWN, 09/12/17) penicillin G (Unverified Allergy, Severe, SHORTNESS OF BREATH, 09/12/17) tetanus toxoid, adsorbed (Unverified Allergy, Severe, SHORTNESS OF BREATH , 09/12/17) tigecycline (Unverified Allergy, Severe, SHORTNESS OF BREATH, 09/12/17) diazepam (Unverified Adverse Reaction, Intermediate, HYPER, 09/12/17) Uncoded Allergies: PAPER TAPE (Allergy, Severe, SKIN BLISTERS, 07/23/17) Physical Exam Vital Signs Vital Signs Date Time Temp Pulse Resp B/P (MAP) Pulse Ox O2 Delivery O2 Flow Rate FiO2 09/13/17 08:01 86 09/13/17 08:00 97.3 70 18 179/77 (111) 94 09/13/17 04:00 98.0 75 18 139/72 (94) 99 09/13/17 04:00 97.4 71 18 128/72 96 09/13/17 01:10 97.0 67 17 108/54 96 09/13/17 00:00 98.1 70 19 143/66 (91) 98 09/13/17 00:00 98.1 70 19 143/66 (91) 98 09/12/17 23:23 83 16 97 09/12/17 23:15 97.9 83 16 140/73 97 09/12/17 22:53 77 16 98 Room Air 09/12/17 22:45 97.9 66 16 129/54 95 09/12/17 22:28 98.2 71 18 140/63 95 09/12/17 22:00 98.1 77 18 155/73 98 09/12/17 21:45 97.7 76 16 147/66 98 09/12/17 20:12 78 16 136/52 (80) 98 Room Air 09/12/17 17:35 Room Air 09/12/17 17:30 99 Room Air 09/12/17 16:51 98.0 82 18 147/65 (92) 100 Physical Exam VS: afebrile GENERAL: lying in bed; NAD, awake and alert SKIN: Warm and dry. pale. EYES: No scleral icterus. No injection or drainage. ENT: NC/AT CARDIOVASCULAR: Regular rate and rhythm. no murmurs RESPIRATORY: No accessory muscle use. Clear to auscultation. Breath sounds equal bilaterally. GASTROINTESTINAL: Abdomen soft, non-tender, nondistended. Extremities: No clubbing, cyanosis, or edema. No obvious deformities. MUSCULOSKELETAL: adequate muscle bulk and tone for age and habitus NEUROLOGICAL: Awake and alert. No obvious cranial nerve deficits. No facial droop nor slurred speech noted. PSYCHIATRIC: Appropriate mood and affect; insight and judgment normal. Laboratory Laboratory Tests Test 09/12/17 17:45 09/12/17 18:45 09/13/17 06:08 White Blood Count 7.3 5.4 Red Blood Count 2.94 3.82 Hemoglobin 6.9 9.3 Hematocrit 22.5 30.3 Mean Corpuscular Volume 76.7 79.3 Mean Corpuscular Hemoglobin 23.5 24.3 Mean Corpuscular Hemoglobin Concent 30.6 30.6 Red Cell Distribution Width 22.9 19.9 Platelet Count 334 249 Mean Platelet Volume 9.4 8.9 Neutrophils (%) (Auto) 60.5 56.5 Lymphocytes (%) (Auto) 28.4 31.3 Monocytes (%) (Auto) 7.7 8.1 Eosinophils (%) (Auto) 2.2 3.1 Basophils (%) (Auto) 1.2 1.0 Neutrophils # (Auto) 4.3 3.0 Lymphocytes # (Auto) 2.1 1.7 Monocytes # (Auto) 0.6 0.4 Eosinophils # (Auto) 0.2 0.2 Basophils # (Auto) 0.1 0.1 CBC Comment AUTO DIFF AUTO DIFF Differential Comment AUTO DIFF CONFIRMED AUTO DIFF CONFIRMED Platelet Estimate NORMAL Platelet Morphology Comment CLUMPED Prothrombin Time 10.0 Prothromb Time International Ratio 1.0 Activated Partial Thromboplast Time 21.0 Blood Urea Nitrogen 14 12 Creatinine 1.00 0.90 Random Glucose 102 100 Total Protein 7.3 Albumin 3.6 Calcium Level 8.4 8.5 Alkaline Phosphatase 139 Aspartate Amino Transf (AST/SGOT) 15 Alanine Aminotransferase (ALT/SGPT) 13 Total Bilirubin 0.3 Sodium Level 137 140 Potassium Level 3.9 3.9 Chloride Level 105 107 Carbon Dioxide Level 24.5 25.3 Anion Gap 8 8 Estimat Glomerular Filtration Rate 55 62 Iron Level 59 Keratocytes OCC Result Diagram: 09/13/17 0608 09/13/17 0608 Imaging Last Impressions Abdomen/Pelvis CT 09/13/17 0000 Signed Impressions: Service Date/Time: Wednesday, September 13, 2017 08:53 - CONCLUSION: 1. No acute finding is identified within the abdomen or pelvis. 2. Severe atherosclerotic disease a likely high-grade stenosis in the left proximal internal iliac artery. The infrarenal aorta is mildly aneurysmal measuring up to 3 cm. 3. There are 3 small subpleural noncalcified pulmonary nodules in the left lower lobe measuring 3 mm each. Suggest correlating with any prior imaging studies. If none are available suggest followup CT in 6 months to assess for change. MD Irasema Harris VTE Risk Assessment Capbraulio VTE Risk Assessment: Mod/High Risk (score >= 2) VTE Pharm Contraindication: High risk for bleeding Caprini Risk Assessment Model Point Value = 1 Point Value = 2 Point Value = 3 Point Value = 5 Age 41-60 Minor surgery BMI > 25 kg/m2 Swollen legs Varicose veins or History of unexplained or recurrent spontaneous Oral contraceptives or hormone replacement Sepsis (< 1 month) Serious lung disease, including pneumonia (< 1 month) Abnormal pulmonary function Acute myocardial infarction Congestive heart failure (< 1 month) History of inflammatory bowel disease Medical patient at bed rest Age 61-74 Arthroscopic surgery Major open surgery (> 45 min) Laparoscopic surgery (> 45 min) Malignancy Confined to bed (> 72 hours) Immobilizing plaster cast Central venous access Age >= 75 History of VTE Family history of VTE Factor V Leiden Prothrombin [id number] Lupus anticoagulant Anticardiolipin antibodies Elevated serum homocysteine Heparin-induced thrombocytopenia Other congenital or acquired thrombophilia Stroke (< 1 month) Elective arthroplasty Hip, pelvis, or leg fracture Acute spinal cord injury (< 1 month) Prophylaxis Regimen Total Risk Factor Score Risk Level Prophylaxis Regimen 0-1 Low Early ambulation 2 Moderate Order ONE of the following: *Sequential Compression Device (SCD) *Heparin 5000 units SQ BID 3-4 Higher Order ONE of the following medications: *Heparin 5000 units SQ TID *Enoxaparin/Lovenox 40 mg SQ daily (WT < 150 kg, CrCl > 30 mL/min) *Enoxaparin/Lovenox 30 mg SQ daily (WT < 150 kg, CrCl > 10-29 mL/min) *Enoxaparin/Lovenox 30 mg SQ BID (WT < 150 kg, CrCl > 30 mL/min) AND/OR *Sequential Compression Device (SCD) 5 or more Highest Order ONE of the following medications: *Heparin 5000 units SQ TID (Preferred with Epidurals) *Enoxaparin/Lovenox 40 mg SQ daily (WT < 150 kg, CrCl > 30 mL/min) *Enoxaparin/Lovenox 30 mg SQ daily (WT < 150 kg, CrCl > 10-29 mL/min) *Enoxaparin/Lovenox 30 mg SQ BID (WT < 150 kg, CrCl > 30 mL/min) AND *Sequential Compression Device (SCD) Assessment and Plan Assessment and Plan Acute on chronic anemia secondary to blood loss -Suspected to be due to GI source. Per emergency room physician records, GI plans to ultimately perform outpatient capsule endoscopy. Colonoscopy will not be of any further benefit at this point. -Has received 2 units of transfused packed red blood cells, hemoglobin has improved -We will repeat level in a few hours. Contrast study ordered by GI shows no acute source of bleeding. -We will continue baby aspirin and Plavix for now given history of CVA/TIA with recent carotid surgery Pulmonary nodule -Incidentally found on contrasted, can be follow-up as an outpatient with repeat imaging. Patient was informed of this. HTN + Carotid stenosis and hx of CVA/TIA -I will continue baby aspirin and Plavix for now -Continue enalapril and Lipitor COPD - home inhaler back pain - resume home meds SCDs, no lovenox given risk of bleeding Addendum: Discussed case with GI, hemoglobin level holding stable. Patient to follow closely with GI as an outpatient. Pt had an unexpected rapid recovery and is clinically stable for discharge from both medicine and GI standpoint. Will need blood levels rechecked in a few days as well as pill endoscopy which is already scheduled for the patient -this was relayed to the patient she has vocalized understanding. Patient has been maximal benefit from hospitalization. Physician Certification 2 Midnight Certification Type: Admission for Inpatient Services Order for Inpatient Services The services are ordered in accordance with Medicare regulations or non- Medicare payer requirements, as applicable. In the case of services not specified as inpatient-only, they are appropriately provided as inpatient services in accordance with the 2-midnight benchmark. Estimated LOS (days): 2 2 days is the estimated time the patient will need to remain in the hospital, assuming treatment plan goals are met and no additional complications. Post-Hospital Plan: Home Negrito Tay MD Sep 13, 2017 10:53
[2017-09-13] MEDS ORDERED: LIDOCAINE HCL 5% PATCH T-DERMAL SCH (11:00)
[2017-09-13] MEDS ORDERED: ASPIRIN 81 MG CHEW TAB CHEW SCH (11:00)
[2017-09-13] MEDS ORDERED: CLOPIDOGREL 75 MG TAB PO SCH (11:00)
--- NOTE | 2017-09-13 17:08 | MB ---
cc: Citlali Mcnulty MD DATE OF CONSULT: 09/13/2017 REFERRING PHYSICIAN: Dr. Tay. REASON FOR CONSULTATION: Anemia. HISTORY OF PRESENT ILLNESS: Ms. Peterson is a very pleasant 72-year-old lady with multiple medical problems known to us from previous visit to the hospital. She had blood count done in the office as a followup for anemia, was found to have a hemoglobin of 6.4. She was recommended to come to emergency room for further evaluation and treatment. The patient denies any melena, hematemesis, hematochezia, epistaxis or bleeding from any other sites. She was seen previously by our office on a previous admission for GI bleed that was back in July. At that time, the patient did have red blood in her stool and melena. She underwent an upper endoscopy and a colonoscopy, which were suggestive of multiple adenomatous polyps, small AVM in the cecum, gastritis and esophagitis. Patient was scheduled to have capsule endoscopy outpatient. She is currently scheduled to have that done on 09/26. Patient received 2 units of PRBC, currently feeling well. She is currently on Plavix and aspirin. 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 She is following with a cardiovascular surgeon for management of her atherosclerotic disease. PAST MEDICAL HISTORY: Multiple CVAs/TIAs, carotid artery stenosis, GI bleed. ALLERGIES: DOXYCYCLINE, MINOCYCLINE, OXYCODONE, PENICILLIN, TETANUS TOXOID, DIAZEPAM, PAPER TAPE. SOCIAL HISTORY: She does smoke. Denies any alcohol use. FAMILY HISTORY: No family history of colon cancer or any other GI pathology. REVIEW OF SYSTEMS: CONSTITUTIONAL: She denies any fever or chills, weight loss or weight gain. ENT: No alteration in baseline hearing or visual acuity. PULMONARY: Denies any chest pain, shortness of breath. GASTROINTESTINAL: As above. GENITOURINARY: Denies history of hematuria. HEMATOLOGIC: Does have history of anemia. No bleeding disorder. PHYSICAL EXAMINATION: GENERAL: She is sitting comfortably in bed in no acute distress. VITAL SIGNS: Her temperature is 97.3, pulse 70, respiration 18, blood pressure 179/77, saturation 94%. HEENT: PERRLA. NECK: No JVD. No lymphadenopathy. CHEST: Clear to auscultation to palpation. CARDIOVASCULAR: S1, S2, no murmur. ABDOMEN: Obese. Bowel sounds are present. CENTRAL NERVOUS SYSTEM: Awake, alert, oriented x3. No focal signs identified. LABORATORY DATA: Her hemoglobin on admission was 6.9, currently is 9.2 after 2 units of PRBC, MCV platelets 334. PT/INR normal. Her chemistry essentially normal except mild elevation of the alkaline phosphatase, which is 139. IMAGING: Her abdomen CT showed severe atherosclerotic disease with high-grade stenosis. In the left proximal internal iliac artery, also seen small subpleural noncalcified pulmonary nodules in the left lower lobe. IMPRESSION: Anemia: No indication of active bleed at this time. Patient had endoscopy and colonoscopy, which did not explain the previous anemia and GI bleed, needs further evaluation of the small intestine. Anemia status post 2 units of PRBC stable at this time. Okay to discharge home. Abnormal CT abdomen and pelvis. Further evaluation outpatient with office manager and vascular surgery. RECOMMENDATION: Okay to discharge home from a GI point of view. Avoid NSAIDs and alcohol. Capsule endoscopy as an outpatient is scheduled. Follow up with pulmonology and vascular surgery. The patient was informed about the above. Start iron supplementation. I would like to thank you Dr. Tay for referring her to our office for consultation. Citlali Mcnulty MD BSB/cc , 04:36 PM , 05:06 PM NANCY
[2017-09-13] MEDS ORDERED: FERR325T18 PO (17:10)
--- NOTE | 2017-09-13 17:11 | HHI.DCPOC ---
Discharge Care Plan Diagnosis: (1) GI bleed (2) Symptomatic anemia (3) S/P carotid endarterectomy Goals to Promote Your Health * To prevent worsening of your condition and complications * To maintain your health at the optimal level Directions to Meet Your Goals Take your medications as prescribed Follow your dietary instruction Follow activity as directed Keep your appointments as scheduled Take your immunizations and boosters as scheduled If your symptoms worsen call your PCP, if no PCP go to Urgent Care Center or Emergency Room Smoking is Dangerous to Your Health. Avoid second hand smoke Call the 24-hour hour crisis hotline for domestic abuse at Negrito Tay MD Sep 13, 2017 17:11
[2017-09-13] MEDS ORDERED: ATORVASTATIN 40 MG TAB PO SCH (21:00)
[2017-09-13] MEDS ORDERED: POLYSACCHARIDE IRON COMPLEX 150 MG CAP PO SCH (21:00)
== END 2017-09-13 18:46 | disposition home or self-care (01) | DRG 812 ==
LOC: PHED 16:32 → PHEDA 19:48 → OBSVTOIN 19:52 → PH3A 23:42
PROVIDERS: ADMIT Hospitalist; ATTEND Hospitalist
PROC: 30233N1 Transfusion of Nonautologous Red Blood Cells into Peripheral Vein, Percutaneous Approach (ICD-10-PCS; principal; 2017-09-12)
DX: D62 Acute posthemorrhagic anemia (principal); J44.9 Chronic obstructive pulmonary disease, unspecified; E11.9 Type 2 diabetes mellitus without complications; I65.29 Occlusion and stenosis of unspecified carotid artery; E78.00 Pure hypercholesterolemia, unspecified; M79.7 Fibromyalgia; K21.9 Gastro-esophageal reflux disease without esophagitis; I10 Essential (primary) hypertension; I25.2 Old myocardial infarction; I70.8 Atherosclerosis of other arteries; R91.8 Other nonspecific abnormal finding of lung field; E07.9 Disorder of thyroid, unspecified; H91.90 Unspecified hearing loss, unspecified ear; M19.90 Unspecified osteoarthritis, unspecified site; F41.9 Anxiety disorder, unspecified; F17.200 Nicotine dependence, unspecified, uncomplicated; Z85.3 Personal history of malignant neoplasm of breast; Z85.41 Personal history of malignant neoplasm of cervix uteri; Z85.820 Personal history of malignant melanoma of skin; Z86.73 Personal history of transient ischemic attack (TIA), and cerebral infarction without residual deficits; Z88.0 Allergy status to penicillin; Z88.1 Allergy status to other antibiotic agents; Z88.5 Allergy status to narcotic agent; Z88.7 Allergy status to serum and vaccine; Z90.11 Acquired absence of right breast and nipple
CPT/HCPCS: 36430; 74177; 80048; 80053; 83540; 85018; 85025; 85610; 85730; 86850; 86900; 86901; 86920; 96360; J7050; P9016; Q9963; Q9967

== ENCOUNTER → 2017-11-01 | Outpatient (CLI) | payer OTHER | LOC: PHRSP 09:19 | DX: R91.1 Solitary pulmonary nodule (principal) | CPT/HCPCS: 94060; 94726; 94729 ==

== ENCOUNTER 2018-01-28 16:20 | Inpatient (IN) ==
[2018-01-28] MEDS ORDERED: MethylPREDNISolone Sod Succinate Inj 125 MG/2 ML Vial IV.PUSH ONE (16:39)
[2018-01-28 16:53] LABS: Baso # (Auto) 0.2 th/mm3 (0.0-0.2); Baso % (Auto) 1.1 % (0.0-2.0); Eos % (Auto) 0.2 % (0.0-4.0); Hematocrit 36.9 % (35.0-46.0); Hemoglobin 12.2 gm/dL (11.6-15.3); Lymph # (Auto) 2.2 th/mm3 (1.0-4.8); Lymph % (Auto) 14.3 % (9.0-44.0); Mean Corpuscular HGB Conc 33.1 % (32.0-36.0); Mean Corpuscular Hemoglobin 30.9 pg (27.0-34.0); Mean Corpuscular Volume 93.4 fL (80.0-100.0); Mono # (Auto) 1.5 th/mm3 (0.0-0.9); Mono % (Auto) 9.6 % (0.0-8.0); Neut # (Auto) 11.5 th/mm3 (1.8-7.7); Neut % (Auto) 74.8 % (16.0-70.0); Platelet Count 300 th/mm3 (150-450); Red Blood Count 3.95 mil/mm3 (4.00-5.30); Red Cell Distribution Width 14.4 % (11.6-17.2); White Blood Count 15.4 th/mm3 (4.0-11.0)
[2018-01-28 17:01] LABS: Chloride 98 meq/L (98-107); Potassium 3.7 meq/L (3.5-5.1); Sodium 135 meq/L (136-145)
[2018-01-28 17:04] LABS: Albumin 3.4 g/dL (3.4-5.0); Anion Gap 11 meq/L (5-15); Blood Urea Nitrogen 31 mg/dL (7-18); Calcium 9.2 mg/dL (8.5-10.1); Carbon Dioxide 25.9 meq/L (21.0-32.0); Glucose,Random 142 mg/dL (74-106)
[2018-01-28 17:05] LABS: Activated Partial Thrombo Time 29.3 sec (24.3-30.1); Prothrombin Time 10.3 sec (9.8-11.6)
[2018-01-28 17:07] LABS: Alanine Aminotransferase 14 U/L (10-53); Aspartate Aminotransferase 13 U/L (15-37)
[2018-01-28 17:08] LABS: Glomerular Filtration Rate 22 mL/min (>89)
[2018-01-28 17:09] LABS: Total Protein 8.4 g/dL (6.4-8.2)
[2018-01-28 17:10] LABS: Alkaline Phosphatase 139 U/L (45-117)
[2018-01-28 17:12] LABS: Troponin I 0.16 ng/mL (0.02-0.05)
[2018-01-28] MEDS ORDERED: Azithromycin Inj 500 MG in Sodium Chlor 0.9% Inj 250 ML IV.SIG STA (17:18)
--- NOTE | 2018-01-28 17:23 | XR ---
EXAM DATE: 01/28/2018 5:11 PM EDT AGE/SEX: 72 years / Female INDICATIONS: Short of breath CLINICAL DATA: This is the patient's initial encounter. Patient reports that signs and symptoms have been present for 1 day and indicates a pain score of 0/10. MEDICAL/SURGICAL HISTORY: . Ulcers. Gastroesophageal reflux disease. Chronic obstructive pulmon edwige disease. Diabetes. Cardiovascular disorders. Cervical cancer. Breast cancer. . Appendectomy. M astectomy, right. Hysterectomy. COMPARISON: [facility], CT CHEST W/O CONTRAST, 10/25/2017. . FINDINGS: The heart size is normal. The lungs are free of focal consolidation. There is a small focal density i n the right lateral mid lung. No effusion is seen. There appears to be a loop recorder in the left me dial lower chest. CONCLUSION: No acute cardiopulmonary process. Small focal density in the lateral right midlung. The patient had several nodules described in the re cent CT of the chest from 10/25/2017. Electronically signed by: Davi Angel MD 01/28/2018 5:22 PM EDT
[2018-01-28] MEDS ORDERED: Sod Chloride 0.9% Inj 1,000 ML IV.SIG ONE ×2 (17:50→18:15)
[2018-01-28 18:31] LABS: ABG Base Excess -4.9 mmol/L (-2-2); ABG PCO2 53 mmHg (38-42); ABG PO2 79 mmHg (61-120)
--- NOTE | 2018-01-28 18:35 | ED ---
HPI General Chief complaint: Respiratory Symptoms Stated complaint: Cough/Congestion/Weak x 5 D Time Seen by Provider: 01/28/18 16:31 History of Present Illness HPI narrative: This is a 72-year-old female who presents to the emergency department with increasing shortness of breath it has been going on for 4 days, constant, moderate severity, associated with a productive cough with yellow sputum. History is limited as the patient is short of breath. Her daughters are at bedside and she requests her daughter Maria De Jesus to make decisions for her. Related Data Home Medications Medication Instructions Recorded Confirmed aspirin [Aspirin Low Dose] 81 mg PO DAILY 01/28/18 01/28/18 atorvastatin 40 mg PO DAILY 01/28/18 01/28/18 carvedilol 3.125 mg PO DAILY 01/28/18 01/28/18 clopidogrel 75 mg PO DAILY 01/28/18 01/28/18 docusate sodium [Colace] 100 mg PO DAILY 01/28/18 01/28/18 enalapril maleate 20 mg PO BID 01/28/18 01/28/18 levothyroxine 100 mcg PO DAILY 01/28/18 01/28/18 omeprazole 20 mg PO BID 01/28/18 01/28/18 tiotropium bromide [Spiriva with 1 cap INHALATION DAILY 01/28/18 01/28/18 HandiHaler] Previous Rx's Medication Instructions Recorded albuterol sulfate [ProAir HFA] 1 puff INHALATION Q4-6H PRN #1 g 02/06/18 hydrocodone-acetaminophen [[place]] 1 tab PO Q6H PRN #8 tab 02/07/18 Allergies Allergy/AdvReac Type Severity Reaction Status Date / Time doxycycline Allergy Severe SHORTNESS Verified 01/28/18 16:25 OF BREATH minocycline Allergy Severe SHORTNESS Verified 01/28/18 16:25 OF BREATH oxycodone Allergy Severe UNKNOWN Verified 01/28/18 16:25 penicillin G Allergy Severe SHORTNESS Verified 01/28/18 16:25 OF BREATH tetanus toxoid, adsorbed Allergy Severe SHORTNESS Verified 01/28/18 16:25 OF BREATH tigecycline Allergy Severe SHORTNESS Verified 01/28/18 16:25 OF BREATH adhesive tape Allergy Blister Verified 01/28/18 16:34 diazepam AdvReac Intermediate HYPER Verified 01/28/18 16:25 Review of Systems Except as stated in HPI: all other systems reviewed are negative FOR[facility]LY [facility] Medical History Medical History Asthma (Acute) Breast cancer (Acute) CHF (congestive heart failure) (Acute) COPD (chronic obstructive pulmonary disease) (Acute) History of hysterectomy (Acute) Hypertension (Acute) Legally blind (Acute) Social History Social History Substance History: No History of Abuse Second Hand Smoke Exposure: Yes Smoking Status: Current every day smoker Tobacco Type: Cigarettes How Often Do You Have a Drink Containing Alcohol: Never Recent Travel in [facility] within the Last 8 Weeks: No Recent Out of Country Travel within the Last 8 Weeks: No Immunization History Tetanus Immunization: Unsure Hx Influenza Vaccine This Season: No Exam Narrative Exam Narrative: GENERAL: Frail, lethargic SKIN: Dry with skin tenting HEAD: Atraumatic. Normocephalic. EYES: Pupils equal and round. No injection or drainage. ENT: Moist mucous membranes NECK: Trachea midline. CARDIOVASCULAR: Regular rate and rhythm. No murmur appreciated. RESPIRATORY: Diffuse wheezing, using accessory muscles GASTROINTESTINAL: Abdomen soft, non-tender, nondistended. MUSCULOSKELETAL: No obvious deformities. NEUROLOGICAL: Awake and alert. No obvious cranial nerve deficits. Moving all extremities. PSYCHIATRIC: Appropriate mood and affect; insight and judgment normal. Course Initial Documented Vital Signs Temperature 98.8 F 01/28/18 16:25 Pulse Rate 102 H 01/28/18 16:25 Pulse Oximetry 85 L 01/28/18 16:25 Last Documented Vital Signs Temperature 97.2 F L 02/07/18 12:00 Pulse Rate 75 02/07/18 12:00 Respiratory Rate 20 02/07/18 12:00 Blood Pressure 137/58 L 02/07/18 12:00 Pulse Oximetry 92 L 02/07/18 12:00 Critical Care Time Critical Care Time: Yes Total Critical Care Time: 60 Attestation: Aggregate critical care time was 60 minutes. Time to perform other separately billable procedures was not included in the critical care time. My time did not include minutes spent treating any other patients simultaneously or on activities that did not directly contribute to the patient's treatment. The services I provided to this patient were to treat and/or prevent clinically significant deterioration that could result in: Disability, I provided critical care services requiring my management, as noted below: Chart data review, documentation time, medication orders and management, vital sign assessments/reviewing monitor data, ordering and reviewing lab tests, ordering and interpreting/reviewing x-rays and diagnostic studies, care of the patient and discussion of the patient with the admitting physicians. Medical Decision Making MDM Narrative Medical decision making narrative: This is a 72-year-old female who has a history of COPD who presents to the emergency department with increasing shortness of breath for 1 week. On arrival she was in severe respiratory distress with accessory muscle use with an oxygen saturation of 72% on room air. She was diffusely wheezing. She was placed on BiPAP, bronchodilators were initiated and she was given IV rates. She was found to have a leukocytosis of 15 with 74% neutrophils. She was given cefepime and azithromycin for a presumed pneumonia. Blood pressure was low concerning for septic shock. She was given 2 L of IV fluids and her blood pressure responded. Lactic acid was initially 2.8 but on repeat was 1.1. Patient has acute kidney injury and a mildly elevated troponin. ABG demonstrates hypercarbic respiratory failure. I spoke to the patient's daughter who the patient appointed as her decision maker. They say if the patient worsens she would be amenable to a time-limited trial of intubation but would not want to be on mechanical ventilation long-term. Patient will be admitted to the intensive care unit for close monitoring. Differential Diagnosis Differential Diagnosis: Pneumonia, sepsis, septic shock, COPD exacerbation Lab Data Lab results reviewed: Yes I reviewed the patient's lab results. Result diagrams: 02/05/18 05:00 02/05/18 05:00 Lab Results 01/28/18 01/28/18 01/28/18 Range/Units 16:40 16:40 16:40 CBC w Diff Auto diff final WBC 15.4 H (4.0-11.0) th/mm3 RBC 3.95 L (4.00-5.30) mil/mm3 Hgb 12.2 (11.6-15.3) gm/dL Hct 36.9 (35.0-46.0) % MCV 93.4 (80.0-100.0) fL MCH 30.9 (27.0-34.0) pg MCHC 33.1 (32.0-36.0) % RDW 14.4 (11.6-17.2) % Plt Count 300 (150-450) th/mm3 MPV 9.0 (7.0-11.0) fL Prelim Diff (Auto) Neut % (Auto) 74.8 H (16.0-70.0) % Lymph % (Auto) 14.3 (9.0-44.0) % [place] % (Auto) 9.6 H (0.0-8.0) % Eos % (Auto) 0.2 (0.0-4.0) % Baso % (Auto) 1.1 (0.0-2.0) % Neut # (Auto) 11.5 H (1.8-7.7) th/mm3 Lymph # (Auto) 2.2 (1.0-4.8) th/mm3 [place] # (Auto) 1.5 H (0.0-0.9) th/mm3 Eos # (Auto) 0.0 (0.0-0.4) th/mm3 Baso # (Auto) 0.2 (0.0-0.2) th/mm3 WBC Differential . Seg Neuts % (Manual) (16-70) % Band Neuts % (Manual) (0-6) % Lymphocytes % (Manual) (9-44) % Monocytes % (Manual) (0-8) % Abs Neuts (Manual) (1.8-7.7) th/mm3 Differential Comment . Toxic Vacuolation (None) Platelet Estimate (Normal) Platelet Morphology (Normal) Ovalocytes (None) Keratocytes (None) PT 10.3 (9.8-11.6) sec INR 1.0 Ratio APTT 29.3 (24.3-30.1) sec Puncture Site Patient Temperature O2 Saturation (90-100) % ABG pH (7.380-7.420) ABG pCO2 (38-42) mmHg ABG pO2 (61-120) mmHg ABG HCO3 (22-26) mmol/L ABG O2 Content (12.0-20.0) Vol % ABG Base Excess (-2-2) mmol/L ABG Methemoglobin (0-2) % Niko Test Hemoglobin (12.0-16.0) G/DL Carboxyhemoglobin (0-4) % O2 Delivery Device Vent Setting Inspired O2 % Critical Value Sodium 135 L (136-145) meq/L Potassium 3.7 (3.5-5.1) meq/L Chloride 98 (98-107) meq/L Carbon Dioxide 25.9 (21.0-32.0) meq/L Anion Gap 11 (5-15) meq/L BUN 31 H (7-18) mg/dL Creatinine 2.20 H (0.50-1.00) mg/dL Estimated GFR 22 L (>89) mL/min POC Glucose (68-110) mg/dl Random Glucose 142 H (74-106) mg/dL Lactic Acid (0.4-2.0) mmol/L Calcium 9.2 (8.5-10.1) mg/dL Phosphorus (2.5-4.9) mg/dL Magnesium (1.5-2.5) mg/dL Total Bilirubin 0.6 (0.2-1.0) mg/dL AST 13 L (15-37) U/L ALT 14 (10-53) U/L Alkaline Phosphatase 139 H (45-117) U/L Troponin I 0.16 H (0.02-0.05) ng/mL B-Natriuretic Peptide (0-100) pg/mL Total Protein 8.4 H (6.4-8.2) g/dL Albumin 3.4 (3.4-5.0) g/dL Lipase (73-393) U/L Urine Color (Yellw/Straw) Urine Clarity (Clear) Urine pH (5.0-8.5) Ur Specific [place] (1.002-1.035) Urine Protein (Neg-Trace) mg/dL Urine Glucose (UA) (Negative) mg/dL Urine Ketones (Negative) mg/dL Urine Occult Blood (Negative) Urine Nitrate (Negative) Urine Bilirubin (Negative) Urine Urobilinogen (Less than 2) mg/dL Ur Leukocyte Esterase (Negative) Ur Squamous Epith Cells (0-5) /hpf Amorphous Sediment (None) /hpf Nasal Screen MRSA (PCR) (Negative) 01/28/18 01/28/18 01/28/18 Range/Units 16:40 17:20 18:28 CBC w Diff WBC (4.0-11.0) th/mm3 RBC (4.00-5.30) mil/mm3 Hgb (11.6-15.3) gm/dL Hct (35.0-46.0) % MCV (80.0-100.0) fL MCH (27.0-34.0) pg MCHC (32.0-36.0) % RDW (11.6-17.2) % Plt Count (150-450) th/mm3 MPV (7.0-11.0) fL Prelim Diff (Auto) Neut % (Auto) (16.0-70.0) % Lymph % (Auto) (9.0-44.0) % [place] % (Auto) (0.0-8.0) % Eos % (Auto) (0.0-4.0) % Baso % (Auto) (0.0-2.0) % Neut # (Auto) (1.8-7.7) th/mm3 Lymph # (Auto) (1.0-4.8) th/mm3 [place] # (Auto) (0.0-0.9) th/mm3 Eos # (Auto) (0.0-0.4) th/mm3 Baso # (Auto) (0.0-0.2) th/mm3 WBC Differential Seg Neuts % (Manual) (16-70) % Band Neuts % (Manual) (0-6) % Lymphocytes % (Manual) (9-44) % Monocytes % (Manual) (0-8) % Abs Neuts (Manual) (1.8-7.7) th/mm3 Differential Comment Toxic Vacuolation (None) Platelet Estimate (Normal) Platelet Morphology (Normal) Ovalocytes (None) Keratocytes (None) PT (9.8-11.6) sec INR Ratio APTT (24.3-30.1) sec Puncture Site Left brachial Patient Temperature 98.6 O2 Saturation 90 (90-100) % ABG pH 7.23 L* (7.380-7.420) ABG pCO2 53 H* (38-42) mmHg ABG pO2 79 (61-120) mmHg ABG HCO3 21 L (22-26) mmol/L ABG O2 Content 13.6 (12.0-20.0) Vol % ABG Base Excess -4.9 L (-2-2) mmol/L ABG Methemoglobin 1.3 (0-2) % Niko Test Y Hemoglobin 10.7 L (12.0-16.0) G/DL Carboxyhemoglobin 2.4 (0-4) % O2 Delivery Device bipap Vent Setting 15 ipap/ 5 epap Inspired O2 50 % Critical Value Yes Sodium (136-145) meq/L Potassium (3.5-5.1) meq/L Chloride (98-107) meq/L Carbon Dioxide (21.0-32.0) meq/L Anion Gap (5-15) meq/L BUN (7-18) mg/dL Creatinine (0.50-1.00) mg/dL Estimated GFR (>89) mL/min POC Glucose (68-110) mg/dl Random Glucose (74-106) mg/dL Lactic Acid 2.8 H (0.4-2.0) mmol/L Calcium (8.5-10.1) mg/dL Phosphorus (2.5-4.9) mg/dL Magnesium (1.5-2.5) mg/dL Total Bilirubin (0.2-1.0) mg/dL AST (15-37) U/L ALT (10-53) U/L Alkaline Phosphatase (45-117) U/L Troponin I (0.02-0.05) ng/mL B-Natriuretic Peptide 200 H (0-100) pg/mL Total Protein (6.4-8.2) g/dL Albumin (3.4-5.0) g/dL Lipase (73-393) U/L Urine Color (Yellw/Straw) Urine Clarity (Clear) Urine pH (5.0-8.5) Ur Specific [place] (1.002-1.035) Urine Protein (Neg-Trace) mg/dL Urine Glucose (UA) (Negative) mg/dL Urine Ketones (Negative) mg/dL Urine Occult Blood (Negative) Urine Nitrate (Negative) Urine Bilirubin (Negative) Urine Urobilinogen (Less than 2) mg/dL Ur Leukocyte Esterase (Negative) Ur Squamous Epith Cells (0-5) /hpf Amorphous Sediment (None) /hpf Nasal Screen MRSA (PCR) (Negative) 01/28/18 01/28/18 01/28/18 Range/Units 19:30 19:30 20:55 CBC w Diff WBC (4.0-11.0) th/mm3 RBC (4.00-5.30) mil/mm3 Hgb (11.6-15.3) gm/dL Hct (35.0-46.0) % MCV (80.0-100.0) fL MCH (27.0-34.0) pg MCHC (32.0-36.0) % RDW (11.6-17.2) % Plt Count (150-450) th/mm3 MPV (7.0-11.0) fL Prelim Diff (Auto) Neut % (Auto) (16.0-70.0) % Lymph % (Auto) (9.0-44.0) % [place] % (Auto) (0.0-8.0) % Eos % (Auto) (0.0-4.0) % Baso % (Auto) (0.0-2.0) % Neut # (Auto) (1.8-7.7) th/mm3 Lymph # (Auto) (1.0-4.8) th/mm3 [place] # (Auto) (0.0-0.9) th/mm3 Eos # (Auto) (0.0-0.4) th/mm3 Baso # (Auto) (0.0-0.2) th/mm3 WBC Differential Seg Neuts % (Manual) (16-70) % Band Neuts % (Manual) (0-6) % Lymphocytes % (Manual) (9-44) % Monocytes % (Manual) (0-8) % Abs Neuts (Manual) (1.8-7.7) th/mm3 Differential Comment Toxic Vacuolation (None) Platelet Estimate (Normal) Platelet Morphology (Normal) Ovalocytes (None) Keratocytes (None) PT (9.8-11.6) sec INR Ratio APTT (24.3-30.1) sec Puncture Site Patient Temperature O2 Saturation (90-100) % ABG pH (7.380-7.420) ABG pCO2 (38-42) mmHg ABG pO2 (61-120) mmHg ABG HCO3 (22-26) mmol/L ABG O2 Content (12.0-20.0) Vol % ABG Base Excess (-2-2) mmol/L ABG Methemoglobin (0-2) % Niko Test Hemoglobin (12.0-16.0) G/DL Carboxyhemoglobin (0-4) % O2 Delivery Device Vent Setting Inspired O2 % Critical Value Sodium (136-145) meq/L Potassium (3.5-5.1) meq/L Chloride (98-107) meq/L Carbon Dioxide (21.0-32.0) meq/L Anion Gap (5-15) meq/L BUN (7-18) mg/dL Creatinine (0.50-1.00) mg/dL Estimated GFR (>89) mL/min POC Glucose (68-110) mg/dl Random Glucose (74-106) mg/dL Lactic Acid 1.1 (0.4-2.0) mmol/L Calcium (8.5-10.1) mg/dL Phosphorus (2.5-4.9) mg/dL Magnesium (1.5-2.5) mg/dL Total Bilirubin (0.2-1.0) mg/dL AST (15-37) U/L ALT (10-53) U/L Alkaline Phosphatase (45-117) U/L Troponin I 0.14 H (0.02-0.05) ng/mL B-Natriuretic Peptide (0-100) pg/mL Total Protein (6.4-8.2) g/dL Albumin (3.4-5.0) g/dL Lipase (73-393) U/L Urine Color Yellow (Yellw/Straw) Urine Clarity Clear (Clear) Urine pH 6.0 (5.0-8.5) Ur Specific [place] 1.020 (1.002-1.035) Urine Protein 30 H (Neg-Trace) mg/dL Urine Glucose (UA) Negative (Negative) mg/dL Urine Ketones Negative (Negative) mg/dL Urine Occult Blood Trace (Negative) Urine Nitrate Negative (Negative) Urine Bilirubin Negative (Negative) Urine Urobilinogen 1.0 (Less than 2) mg/dL Ur Leukocyte Esterase Negative (Negative) Ur Squamous Epith Cells 0-5 (0-5) /hpf Amorphous Sediment Many H (None) /hpf Nasal Screen MRSA (PCR) (Negative) 01/29/18 01/29/18 01/29/18 Range/Units 01:40 02:57 04:00 CBC w Diff WBC 9.8 (4.0-11.0) th/mm3 RBC 3.29 L (4.00-5.30) mil/mm3 Hgb 10.0 L D (11.6-15.3) gm/dL Hct 31.1 L (35.0-46.0) % MCV 94.5 (80.0-100.0) fL MCH 30.3 (27.0-34.0) pg MCHC 32.1 (32.0-36.0) % RDW 15.2 (11.6-17.2) % Plt Count 241 (150-450) th/mm3 MPV 9.3 (7.0-11.0) fL Prelim Diff (Auto) Slide review pending Neut % (Auto) 87.7 H (16.0-70.0) % Lymph % (Auto) 9.5 (9.0-44.0) % [place] % (Auto) 2.6 (0.0-8.0) % Eos % (Auto) 0.0 (0.0-4.0) % Baso % (Auto) 0.2 (0.0-2.0) % Neut # (Auto) 8.6 H (1.8-7.7) th/mm3 Lymph # (Auto) 0.9 L (1.0-4.8) th/mm3 [place] # (Auto) 0.2 (0.0-0.9) th/mm3 Eos # (Auto) 0.0 (0.0-0.4) th/mm3 Baso # (Auto) 0.0 (0.0-0.2) th/mm3 WBC Differential Manual diff final Seg Neuts % (Manual) 81 H (16-70) % Band Neuts % (Manual) 9 H (0-6) % Lymphocytes % (Manual) 9 (9-44) % Monocytes % (Manual) 1 (0-8) % Abs Neuts (Manual) 8.8 H (1.8-7.7) th/mm3 Differential Comment . Toxic Vacuolation Present H (None) Platelet Estimate Normal (Normal) Platelet Morphology Normal (Normal) Ovalocytes 1+ H (None) Keratocytes Occ H (None) PT (9.8-11.6) sec INR Ratio APTT (24.3-30.1) sec Puncture Site Right radial Patient Temperature 98.6 O2 Saturation 94 (90-100) % ABG pH 7.19 L* (7.380-7.420) ABG pCO2 62 H* (38-42) mmHg ABG pO2 100 (61-120) mmHg ABG HCO3 23 (22-26) mmol/L ABG O2 Content 13.9 (12.0-20.0) Vol % ABG Base Excess -4.6 L (-2-2) mmol/L ABG Methemoglobin 1.4 (0-2) % Niko Test Present Hemoglobin 10.4 L (12.0-16.0) G/DL Carboxyhemoglobin 0.9 (0-4) % O2 Delivery Device Bipap Vent Setting [id number] Inspired O2 50 % Critical Value Yes Sodium (136-145) meq/L Potassium (3.5-5.1) meq/L Chloride (98-107) meq/L Carbon Dioxide (21.0-32.0) meq/L Anion Gap (5-15) meq/L BUN (7-18) mg/dL Creatinine (0.50-1.00) mg/dL Estimated GFR (>89) mL/min POC Glucose (68-110) mg/dl Random Glucose (74-106) mg/dL Lactic Acid (0.4-2.0) mmol/L Calcium (8.5-10.1) mg/dL Phosphorus (2.5-4.9) mg/dL Magnesium (1.5-2.5) mg/dL Total Bilirubin (0.2-1.0) mg/dL AST (15-37) U/L ALT (10-53) U/L Alkaline Phosphatase (45-117) U/L Troponin I (0.02-0.05) ng/mL B-Natriuretic Peptide (0-100) pg/mL Total Protein (6.4-8.2) g/dL Albumin (3.4-5.0) g/dL Lipase (73-393) U/L Urine Color (Yellw/Straw) Urine Clarity (Clear) Urine pH (5.0-8.5) Ur Specific [place] (1.002-1.035) Urine Protein (Neg-Trace) mg/dL Urine Glucose (UA) (Negative) mg/dL Urine Ketones (Negative) mg/dL Urine Occult Blood (Negative) Urine Nitrate (Negative) Urine Bilirubin (Negative) Urine Urobilinogen (Less than 2) mg/dL Ur Leukocyte Esterase (Negative) Ur Squamous Epith Cells (0-5) /hpf Amorphous Sediment (None) /hpf Nasal Screen MRSA (PCR) Not detected (Negative) 01/29/18 01/29/18 01/29/18 Range/Units 04:00 04:00 04:00 CBC w Diff WBC (4.0-11.0) th/mm3 RBC (4.00-5.30) mil/mm3 Hgb (11.6-15.3) gm/dL Hct (35.0-46.0) % MCV (80.0-100.0) fL MCH (27.0-34.0) pg MCHC (32.0-36.0) % RDW (11.6-17.2) % Plt Count (150-450) th/mm3 MPV (7.0-11.0) fL Prelim Diff (Auto) Neut % (Auto) (16.0-70.0) % Lymph % (Auto) (9.0-44.0) % [place] % (Auto) (0.0-8.0) % Eos % (Auto) (0.0-4.0) % Baso % (Auto) (0.0-2.0) % Neut # (Auto) (1.8-7.7) th/mm3 Lymph # (Auto) (1.0-4.8) th/mm3 [place] # (Auto) (0.0-0.9) th/mm3 Eos # (Auto) (0.0-0.4) th/mm3 Baso # (Auto) (0.0-0.2) th/mm3 WBC Differential Seg Neuts % (Manual) (16-70) % Band Neuts % (Manual) (0-6) % Lymphocytes % (Manual) (9-44) % Monocytes % (Manual) (0-8) % Abs Neuts (Manual) (1.8-7.7) th/mm3 Differential Comment Toxic Vacuolation (None) Platelet Estimate (Normal) Platelet Morphology (Normal) Ovalocytes (None) Keratocytes (None) PT 10.7 (9.8-11.6) sec INR 1.1 Ratio APTT 29.6 (24.3-30.1) sec Puncture Site Patient Temperature O2 Saturation (90-100) % ABG pH (7.380-7.420) ABG pCO2 (38-42) mmHg ABG pO2 (61-120) mmHg ABG HCO3 (22-26) mmol/L ABG O2 Content (12.0-20.0) Vol % ABG Base Excess (-2-2) mmol/L ABG Methemoglobin (0-2) % Niko Test Hemoglobin (12.0-16.0) G/DL Carboxyhemoglobin (0-4) % O2 Delivery Device Vent Setting Inspired O2 % Critical Value Sodium 141 (136-145) meq/L Potassium 4.3 (3.5-5.1) meq/L Chloride 110 H D (98-107) meq/L Carbon Dioxide 23.3 (21.0-32.0) meq/L Anion Gap 8 (5-15) meq/L BUN 30 H (7-18) mg/dL Creatinine 1.52 H (0.50-1.00) mg/dL Estimated GFR 34 L (>89) mL/min POC Glucose (68-110) mg/dl Random Glucose 162 H (74-106) mg/dL Lactic Acid 0.5 (0.4-2.0) mmol/L Calcium 8.3 L D (8.5-10.1) mg/dL Phosphorus 3.5 (2.5-4.9) mg/dL Magnesium 2.2 (1.5-2.5) mg/dL Total Bilirubin 0.3 (0.2-1.0) mg/dL AST 10 L (15-37) U/L ALT 11 (10-53) U/L Alkaline Phosphatase 113 (45-117) U/L Troponin I 0.08 H (0.02-0.05) ng/mL B-Natriuretic Peptide (0-100) pg/mL Total Protein 6.6 D (6.4-8.2) g/dL Albumin 2.7 L D (3.4-5.0) g/dL Lipase (73-393) U/L Urine Color (Yellw/Straw) Urine Clarity (Clear) Urine pH (5.0-8.5) Ur Specific [place] (1.002-1.035) Urine Protein (Neg-Trace) mg/dL Urine Glucose (UA) (Negative) mg/dL Urine Ketones (Negative) mg/dL Urine Occult Blood (Negative) Urine Nitrate (Negative) Urine Bilirubin (Negative) Urine Urobilinogen (Less than 2) mg/dL Ur Leukocyte Esterase (Negative) Ur Squamous Epith Cells (0-5) /hpf Amorphous Sediment (None) /hpf Nasal Screen MRSA (PCR) (Negative) 01/29/18 01/29/18 01/29/18 Range/Units 05:21 09:51 12:38 CBC w Diff WBC (4.0-11.0) th/mm3 RBC (4.00-5.30) mil/mm3 Hgb (11.6-15.3) gm/dL Hct (35.0-46.0) % MCV (80.0-100.0) fL MCH (27.0-34.0) pg MCHC (32.0-36.0) % RDW (11.6-17.2) % Plt Count (150-450) th/mm3 MPV (7.0-11.0) fL Prelim Diff (Auto) Neut % (Auto) (16.0-70.0) % Lymph % (Auto) (9.0-44.0) % [place] % (Auto) (0.0-8.0) % Eos % (Auto) (0.0-4.0) % Baso % (Auto) (0.0-2.0) % Neut # (Auto) (1.8-7.7) th/mm3 Lymph # (Auto) (1.0-4.8) th/mm3 [place] # (Auto) (0.0-0.9) th/mm3 Eos # (Auto) (0.0-0.4) th/mm3 Baso # (Auto) (0.0-0.2) th/mm3 WBC Differential Seg Neuts % (Manual) (16-70) % Band Neuts % (Manual) (0-6) % Lymphocytes % (Manual) (9-44) % Monocytes % (Manual) (0-8) % Abs Neuts (Manual) (1.8-7.7) th/mm3 Differential Comment Toxic Vacuolation (None) Platelet Estimate (Normal) Platelet Morphology (Normal) Ovalocytes (None) Keratocytes (None) PT (9.8-11.6) sec INR Ratio APTT (24.3-30.1) sec Puncture Site Left radial Left radial Patient Temperature 98.6 98.6 O2 Saturation 93 92 (90-100) % ABG pH 7.24 L* 7.33 L (7.380-7.420) ABG pCO2 46 H 35 L (38-42) mmHg ABG pO2 84 75 (61-120) mmHg ABG HCO3 19 L 18 L (22-26) mmol/L ABG O2 Content 12.4 12.0 (12.0-20.0) Vol % ABG Base Excess -6.8 L -7.1 L (-2-2) mmol/L ABG Methemoglobin 1.4 1.4 (0-2) % Niko Test Present Present Hemoglobin 9.4 L 9.2 L (12.0-16.0) G/DL Carboxyhemoglobin 0.9 0.9 (0-4) % O2 Delivery Device Ventilator Ventilator Vent Setting See comment Inspired O2 50 40 % Critical Value Yes No Sodium (136-145) meq/L Potassium (3.5-5.1) meq/L Chloride (98-107) meq/L Carbon Dioxide (21.0-32.0) meq/L Anion Gap (5-15) meq/L BUN (7-18) mg/dL Creatinine (0.50-1.00) mg/dL Estimated GFR (>89) mL/min POC Glucose (68-110) mg/dl Random Glucose (74-106) mg/dL Lactic Acid (0.4-2.0) mmol/L Calcium (8.5-10.1) mg/dL Phosphorus (2.5-4.9) mg/dL Magnesium (1.5-2.5) mg/dL Total Bilirubin (0.2-1.0) mg/dL AST (15-37) U/L ALT (10-53) U/L Alkaline Phosphatase (45-117) U/L Troponin I 0.08 H (0.02-0.05) ng/mL B-Natriuretic Peptide (0-100) pg/mL Total Protein (6.4-8.2) g/dL Albumin (3.4-5.0) g/dL Lipase (73-393) U/L Urine Color (Yellw/Straw) Urine Clarity (Clear) Urine pH (5.0-8.5) Ur Specific [place] (1.002-1.035) Urine Protein (Neg-Trace) mg/dL Urine Glucose (UA) (Negative) mg/dL Urine Ketones (Negative) mg/dL Urine Occult Blood (Negative) Urine Nitrate (Negative) Urine Bilirubin (Negative) Urine Urobilinogen (Less than 2) mg/dL Ur Leukocyte Esterase (Negative) Ur Squamous Epith Cells (0-5) /hpf Amorphous Sediment (None) /hpf Nasal Screen MRSA (PCR) (Negative) 01/29/18 01/30/18 01/30/18 Range/Units 17:21 00:13 03:19 CBC w Diff WBC 9.1 (4.0-11.0) th/mm3 RBC 3.28 L (4.00-5.30) mil/mm3 Hgb 9.9 L (11.6-15.3) gm/dL Hct 31.0 L (35.0-46.0) % MCV 94.7 (80.0-100.0) fL MCH 30.3 (27.0-34.0) pg MCHC 32.0 (32.0-36.0) % RDW 15.1 (11.6-17.2) % Plt Count 249 (150-450) th/mm3 MPV 9.4 (7.0-11.0) fL Prelim Diff (Auto) Neut % (Auto) 85.4 H (16.0-70.0) % Lymph % (Auto) 9.9 (9.0-44.0) % [place] % (Auto) 4.6 (0.0-8.0) % Eos % (Auto) 0.0 (0.0-4.0) % Baso % (Auto) 0.1 (0.0-2.0) % Neut # (Auto) 7.8 H (1.8-7.7) th/mm3 Lymph # (Auto) 0.9 L (1.0-4.8) th/mm3 [place] # (Auto) 0.4 (0.0-0.9) th/mm3 Eos # (Auto) 0.0 (0.0-0.4) th/mm3 Baso # (Auto) 0.0 (0.0-0.2) th/mm3 WBC Differential . Seg Neuts % (Manual) (16-70) % Band Neuts % (Manual) (0-6) % Lymphocytes % (Manual) (9-44) % Monocytes % (Manual) (0-8) % Abs Neuts (Manual) (1.8-7.7) th/mm3 Differential Comment Auto diff final Toxic Vacuolation (None) Platelet Estimate (Normal) Platelet Morphology (Normal) Ovalocytes (None) Keratocytes (None) PT (9.8-11.6) sec INR Ratio APTT (24.3-30.1) sec Puncture Site Patient Temperature O2 Saturation (90-100) % ABG pH (7.380-7.420) ABG pCO2 (38-42) mmHg ABG pO2 (61-120) mmHg ABG HCO3 (22-26) mmol/L ABG O2 Content (12.0-20.0) Vol % ABG Base Excess (-2-2) mmol/L ABG Methemoglobin (0-2) % Niko Test Hemoglobin (12.0-16.0) G/DL Carboxyhemoglobin (0-4) % O2 Delivery Device Vent Setting Inspired O2 % Critical Value Sodium (136-145) meq/L Potassium (3.5-5.1) meq/L Chloride (98-107) meq/L Carbon Dioxide (21.0-32.0) meq/L Anion Gap (5-15) meq/L BUN (7-18) mg/dL Creatinine (0.50-1.00) mg/dL Estimated GFR (>89) mL/min POC Glucose 131 H 132 H (68-110) mg/dl Random Glucose (74-106) mg/dL Lactic Acid (0.4-2.0) mmol/L Calcium (8.5-10.1) mg/dL Phosphorus (2.5-4.9) mg/dL Magnesium (1.5-2.5) mg/dL Total Bilirubin (0.2-1.0) mg/dL AST (15-37) U/L ALT (10-53) U/L Alkaline Phosphatase (45-117) U/L Troponin I (0.02-0.05) ng/mL B-Natriuretic Peptide (0-100) pg/mL Total Protein (6.4-8.2) g/dL Albumin (3.4-5.0) g/dL Lipase (73-393) U/L Urine Color (Yellw/Straw) Urine Clarity (Clear) Urine pH (5.0-8.5) Ur Specific [place] (1.002-1.035) Urine Protein (Neg-Trace) mg/dL Urine Glucose (UA) (Negative) mg/dL Urine Ketones (Negative) mg/dL Urine Occult Blood (Negative) Urine Nitrate (Negative) Urine Bilirubin (Negative) Urine Urobilinogen (Less than 2) mg/dL Ur Leukocyte Esterase (Negative) Ur Squamous Epith Cells (0-5) /hpf Amorphous Sediment (None) /hpf Nasal Screen MRSA (PCR) (Negative) 01/30/18 01/30/18 01/30/18 Range/Units 03:19 03:19 08:26 CBC w Diff WBC (4.0-11.0) th/mm3 RBC (4.00-5.30) mil/mm3 Hgb (11.6-15.3) gm/dL Hct (35.0-46.0) % MCV (80.0-100.0) fL MCH (27.0-34.0) pg MCHC (32.0-36.0) % RDW (11.6-17.2) % Plt Count (150-450) th/mm3 MPV (7.0-11.0) fL Prelim Diff (Auto) Neut % (Auto) (16.0-70.0) % Lymph % (Auto) (9.0-44.0) % [place] % (Auto) (0.0-8.0) % Eos % (Auto) (0.0-4.0) % Baso % (Auto) (0.0-2.0) % Neut # (Auto) (1.8-7.7) th/mm3 Lymph # (Auto) (1.0-4.8) th/mm3 [place] # (Auto) (0.0-0.9) th/mm3 Eos # (Auto) (0.0-0.4) th/mm3 Baso # (Auto) (0.0-0.2) th/mm3 WBC Differential Seg Neuts % (Manual) (16-70) % Band Neuts % (Manual) (0-6) % Lymphocytes % (Manual) (9-44) % Monocytes % (Manual) (0-8) % Abs Neuts (Manual) (1.8-7.7) th/mm3 Differential Comment Toxic Vacuolation (None) Platelet Estimate (Normal) Platelet Morphology (Normal) Ovalocytes (None) Keratocytes (None) PT 10.3 (9.8-11.6) sec INR 1.0 Ratio APTT 21.9 L D (24.3-30.1) sec Puncture Site Patient Temperature O2 Saturation (90-100) % ABG pH (7.380-7.420) ABG pCO2 (38-42) mmHg ABG pO2 (61-120) mmHg ABG HCO3 (22-26) mmol/L ABG O2 Content (12.0-20.0) Vol % ABG Base Excess (-2-2) mmol/L ABG Methemoglobin (0-2) % Niko Test Hemoglobin (12.0-16.0) G/DL Carboxyhemoglobin (0-4) % O2 Delivery Device Vent Setting Inspired O2 % Critical Value Sodium 143 (136-145) meq/L Potassium 4.4 (3.5-5.1) meq/L Chloride 115 H (98-107) meq/L Carbon Dioxide 17.1 L (21.0-32.0) meq/L Anion Gap 11 (5-15) meq/L BUN 36 H (7-18) mg/dL Creatinine 1.40 H (0.50-1.00) mg/dL Estimated GFR 37 L (>89) mL/min POC Glucose 128 H (68-110) mg/dl Random Glucose 134 H (74-106) mg/dL Lactic Acid (0.4-2.0) mmol/L Calcium 8.8 (8.5-10.1) mg/dL Phosphorus 3.3 (2.5-4.9) mg/dL Magnesium (1.5-2.5) mg/dL Total Bilirubin 0.3 (0.2-1.0) mg/dL AST 15 (15-37) U/L ALT 13 (10-53) U/L Alkaline Phosphatase 96 (45-117) U/L Troponin I (0.02-0.05) ng/mL B-Natriuretic Peptide (0-100) pg/mL Total Protein 6.4 (6.4-8.2) g/dL Albumin 2.6 L (3.4-5.0) g/dL Lipase (73-393) U/L Urine Color (Yellw/Straw) Urine Clarity (Clear) Urine pH (5.0-8.5) Ur Specific [place] (1.002-1.035) Urine Protein (Neg-Trace) mg/dL Urine Glucose (UA) (Negative) mg/dL Urine Ketones (Negative) mg/dL Urine Occult Blood (Negative) Urine Nitrate (Negative) Urine Bilirubin (Negative) Urine Urobilinogen (Less than 2) mg/dL Ur Leukocyte Esterase (Negative) Ur Squamous Epith Cells (0-5) /hpf Amorphous Sediment (None) /hpf Nasal Screen MRSA (PCR) (Negative) 01/30/18 01/30/18 01/30/18 Range/Units 11:33 12:18 17:15 CBC w Diff WBC (4.0-11.0) th/mm3 RBC (4.00-5.30) mil/mm3 Hgb (11.6-15.3) gm/dL Hct (35.0-46.0) % MCV (80.0-100.0) fL MCH (27.0-34.0) pg MCHC (32.0-36.0) % RDW (11.6-17.2) % Plt Count (150-450) th/mm3 MPV (7.0-11.0) fL Prelim Diff (Auto) Neut % (Auto) (16.0-70.0) % Lymph % (Auto) (9.0-44.0) % [place] % (Auto) (0.0-8.0) % Eos % (Auto) (0.0-4.0) % Baso % (Auto) (0.0-2.0) % Neut # (Auto) (1.8-7.7) th/mm3 Lymph # (Auto) (1.0-4.8) th/mm3 [place] # (Auto) (0.0-0.9) th/mm3 Eos # (Auto) (0.0-0.4) th/mm3 Baso # (Auto) (0.0-0.2) th/mm3 WBC Differential Seg Neuts % (Manual) (16-70) % Band Neuts % (Manual) (0-6) % Lymphocytes % (Manual) (9-44) % Monocytes % (Manual) (0-8) % Abs Neuts (Manual) (1.8-7.7) th/mm3 Differential Comment Toxic Vacuolation (None) Platelet Estimate (Normal) Platelet Morphology (Normal) Ovalocytes (None) Keratocytes (None) PT (9.8-11.6) sec INR Ratio APTT (24.3-30.1) sec Puncture Site Patient Temperature O2 Saturation (90-100) % ABG pH (7.380-7.420) ABG pCO2 (38-42) mmHg ABG pO2 (61-120) mmHg ABG HCO3 (22-26) mmol/L ABG O2 Content (12.0-20.0) Vol % ABG Base Excess (-2-2) mmol/L ABG Methemoglobin (0-2) % Niko Test Hemoglobin (12.0-16.0) G/DL Carboxyhemoglobin (0-4) % O2 Delivery Device Vent Setting Inspired O2 % Critical Value Sodium (136-145) meq/L Potassium (3.5-5.1) meq/L Chloride (98-107) meq/L Carbon Dioxide (21.0-32.0) meq/L Anion Gap (5-15) meq/L BUN (7-18) mg/dL Creatinine (0.50-1.00) mg/dL Estimated GFR (>89) mL/min POC Glucose 135 H 125 H (68-110) mg/dl Random Glucose (74-106) mg/dL Lactic Acid (0.4-2.0) mmol/L Calcium (8.5-10.1) mg/dL Phosphorus (2.5-4.9) mg/dL Magnesium (1.5-2.5) mg/dL Total Bilirubin (0.2-1.0) mg/dL AST (15-37) U/L ALT (10-53) U/L Alkaline Phosphatase (45-117) U/L Troponin I (0.02-0.05) ng/mL B-Natriuretic Peptide (0-100) pg/mL Total Protein (6.4-8.2) g/dL Albumin (3.4-5.0) g/dL Lipase 143 (73-393) U/L Urine Color (Yellw/Straw) Urine Clarity (Clear) Urine pH (5.0-8.5) Ur Specific [place] (1.002-1.035) Urine Protein (Neg-Trace) mg/dL Urine Glucose (UA) (Negative) mg/dL Urine Ketones (Negative) mg/dL Urine Occult Blood (Negative) Urine Nitrate (Negative) Urine Bilirubin (Negative) Urine Urobilinogen (Less than 2) mg/dL Ur Leukocyte Esterase (Negative) Ur Squamous Epith Cells (0-5) /hpf Amorphous Sediment (None) /hpf Nasal Screen MRSA (PCR) (Negative) 01/31/18 01/31/18 01/31/18 Range/Units 00:04 04:40 04:40 CBC w Diff WBC 9.0 (4.0-11.0) th/mm3 RBC 3.10 L (4.00-5.30) mil/mm3 Hgb 9.5 L (11.6-15.3) gm/dL Hct 29.2 L (35.0-46.0) % MCV 94.1 (80.0-100.0) fL MCH 30.6 (27.0-34.0) pg MCHC 32.5 (32.0-36.0) % RDW 15.5 (11.6-17.2) % Plt Count 251 (150-450) th/mm3 MPV 9.4 (7.0-11.0) fL Prelim Diff (Auto) Neut % (Auto) (16.0-70.0) % Lymph % (Auto) (9.0-44.0) % [place] % (Auto) (0.0-8.0) % Eos % (Auto) (0.0-4.0) % Baso % (Auto) (0.0-2.0) % Neut # (Auto) (1.8-7.7) th/mm3 Lymph # (Auto) (1.0-4.8) th/mm3 [place] # (Auto) (0.0-0.9) th/mm3 Eos # (Auto) (0.0-0.4) th/mm3 Baso # (Auto) (0.0-0.2) th/mm3 WBC Differential Seg Neuts % (Manual) (16-70) % Band Neuts % (Manual) (0-6) % Lymphocytes % (Manual) (9-44) % Monocytes % (Manual) (0-8) % Abs Neuts (Manual) (1.8-7.7) th/mm3 Differential Comment Toxic Vacuolation (None) Platelet Estimate (Normal) Platelet Morphology (Normal) Ovalocytes (None) Keratocytes (None) PT (9.8-11.6) sec INR Ratio APTT (24.3-30.1) sec Puncture Site Patient Temperature O2 Saturation (90-100) % ABG pH (7.380-7.420) ABG pCO2 (38-42) mmHg ABG pO2 (61-120) mmHg ABG HCO3 (22-26) mmol/L ABG O2 Content (12.0-20.0) Vol % ABG Base Excess (-2-2) mmol/L ABG Methemoglobin (0-2) % Niko Test Hemoglobin (12.0-16.0) G/DL Carboxyhemoglobin (0-4) % O2 Delivery Device Vent Setting Inspired O2 % Critical Value Sodium 146 H (136-145) meq/L Potassium 4.3 (3.5-5.1) meq/L Chloride 117 H (98-107) meq/L Carbon Dioxide 19.1 L (21.0-32.0) meq/L Anion Gap 10 (5-15) meq/L BUN 36 H (7-18) mg/dL Creatinine 1.08 H (0.50-1.00) mg/dL Estimated GFR 50 L (>89) mL/min POC Glucose 143 H (68-110) mg/dl Random Glucose 131 H (74-106) mg/dL Lactic Acid (0.4-2.0) mmol/L Calcium 8.7 (8.5-10.1) mg/dL Phosphorus (2.5-4.9) mg/dL Magnesium (1.5-2.5) mg/dL Total Bilirubin (0.2-1.0) mg/dL AST (15-37) U/L ALT (10-53) U/L Alkaline Phosphatase (45-117) U/L Troponin I (0.02-0.05) ng/mL B-Natriuretic Peptide (0-100) pg/mL Total Protein (6.4-8.2) g/dL Albumin (3.4-5.0) g/dL Lipase (73-393) U/L Urine Color (Yellw/Straw) Urine Clarity (Clear) Urine pH (5.0-8.5) Ur Specific [place] (1.002-1.035) Urine Protein (Neg-Trace) mg/dL Urine Glucose (UA) (Negative) mg/dL Urine Ketones (Negative) mg/dL Urine Occult Blood (Negative) Urine Nitrate (Negative) Urine Bilirubin (Negative) Urine Urobilinogen (Less than 2) mg/dL Ur Leukocyte Esterase (Negative) Ur Squamous Epith Cells (0-5) /hpf Amorphous Sediment (None) /hpf Nasal Screen MRSA (PCR) (Negative) 01/31/18 01/31/18 01/31/18 Range/Units 11:24 17:17 23:55 CBC w Diff WBC (4.0-11.0) th/mm3 RBC (4.00-5.30) mil/mm3 Hgb (11.6-15.3) gm/dL Hct (35.0-46.0) % MCV (80.0-100.0) fL MCH (27.0-34.0) pg MCHC (32.0-36.0) % RDW (11.6-17.2) % Plt Count (150-450) th/mm3 MPV (7.0-11.0) fL Prelim Diff (Auto) Neut % (Auto) (16.0-70.0) % Lymph % (Auto) (9.0-44.0) % [place] % (Auto) (0.0-8.0) % Eos % (Auto) (0.0-4.0) % Baso % (Auto) (0.0-2.0) % Neut # (Auto) (1.8-7.7) th/mm3 Lymph # (Auto) (1.0-4.8) th/mm3 [place] # (Auto) (0.0-0.9) th/mm3 Eos # (Auto) (0.0-0.4) th/mm3 Baso # (Auto) (0.0-0.2) th/mm3 WBC Differential Seg Neuts % (Manual) (16-70) % Band Neuts % (Manual) (0-6) % Lymphocytes % (Manual) (9-44) % Monocytes % (Manual) (0-8) % Abs Neuts (Manual) (1.8-7.7) th/mm3 Differential Comment Toxic Vacuolation (None) Platelet Estimate (Normal) Platelet Morphology (Normal) Ovalocytes (None) Keratocytes (None) PT (9.8-11.6) sec INR Ratio APTT (24.3-30.1) sec Puncture Site Patient Temperature O2 Saturation (90-100) % ABG pH (7.380-7.420) ABG pCO2 (38-42) mmHg ABG pO2 (61-120) mmHg ABG HCO3 (22-26) mmol/L ABG O2 Content (12.0-20.0) Vol % ABG Base Excess (-2-2) mmol/L ABG Methemoglobin (0-2) % Niko Test Hemoglobin (12.0-16.0) G/DL Carboxyhemoglobin (0-4) % O2 Delivery Device Vent Setting Inspired O2 % Critical Value Sodium (136-145) meq/L Potassium (3.5-5.1) meq/L Chloride (98-107) meq/L Carbon Dioxide (21.0-32.0) meq/L Anion Gap (5-15) meq/L BUN (7-18) mg/dL Creatinine (0.50-1.00) mg/dL Estimated GFR (>89) mL/min POC Glucose 118 H 147 H 200 H (68-110) mg/dl Random Glucose (74-106) mg/dL Lactic Acid (0.4-2.0) mmol/L Calcium (8.5-10.1) mg/dL Phosphorus (2.5-4.9) mg/dL Magnesium (1.5-2.5) mg/dL Total Bilirubin (0.2-1.0) mg/dL AST (15-37) U/L ALT (10-53) U/L Alkaline Phosphatase (45-117) U/L Troponin I (0.02-0.05) ng/mL B-Natriuretic Peptide (0-100) pg/mL Total Protein (6.4-8.2) g/dL Albumin (3.4-5.0) g/dL Lipase (73-393) U/L Urine Color (Yellw/Straw) Urine Clarity (Clear) Urine pH (5.0-8.5) Ur Specific [place] (1.002-1.035) Urine Protein (Neg-Trace) mg/dL Urine Glucose (UA) (Negative) mg/dL Urine Ketones (Negative) mg/dL Urine Occult Blood (Negative) Urine Nitrate (Negative) Urine Bilirubin (Negative) Urine Urobilinogen (Less than 2) mg/dL Ur Leukocyte Esterase (Negative) Ur Squamous Epith Cells (0-5) /hpf Amorphous Sediment (None) /hpf Nasal Screen MRSA (PCR) (Negative) 02/01/18 02/01/18 02/01/18 Range/Units 03:39 03:39 11:00 CBC w Diff WBC 9.2 (4.0-11.0) th/mm3 RBC 2.97 L (4.00-5.30) mil/mm3 Hgb 8.9 L (11.6-15.3) gm/dL Hct 27.5 L (35.0-46.0) % MCV 92.7 (80.0-100.0) fL MCH 30.1 (27.0-34.0) pg MCHC 32.5 (32.0-36.0) % RDW 15.6 (11.6-17.2) % Plt Count 220 (150-450) th/mm3 MPV 9.9 (7.0-11.0) fL Prelim Diff (Auto) Neut % (Auto) (16.0-70.0) % Lymph % (Auto) (9.0-44.0) % [place] % (Auto) (0.0-8.0) % Eos % (Auto) (0.0-4.0) % Baso % (Auto) (0.0-2.0) % Neut # (Auto) (1.8-7.7) th/mm3 Lymph # (Auto) (1.0-4.8) th/mm3 [place] # (Auto) (0.0-0.9) th/mm3 Eos # (Auto) (0.0-0.4) th/mm3 Baso # (Auto) (0.0-0.2) th/mm3 WBC Differential Seg Neuts % (Manual) (16-70) % Band Neuts % (Manual) (0-6) % Lymphocytes % (Manual) (9-44) % Monocytes % (Manual) (0-8) % Abs Neuts (Manual) (1.8-7.7) th/mm3 Differential Comment Toxic Vacuolation (None) Platelet Estimate (Normal) Platelet Morphology (Normal) Ovalocytes (None) Keratocytes (None) PT (9.8-11.6) sec INR Ratio APTT (24.3-30.1) sec Puncture Site Right radial Patient Temperature 98.6 O2 Saturation 88 L* (90-100) % ABG pH 7.19 L* (7.380-7.420) ABG pCO2 57 H* (38-42) mmHg ABG pO2 73 (61-120) mmHg ABG HCO3 21 L (22-26) mmol/L ABG O2 Content 11.6 L (12.0-20.0) Vol % ABG Base Excess -5.9 L (-2-2) mmol/L ABG Methemoglobin 1.5 (0-2) % Niko Test Y Hemoglobin 9.3 L (12.0-16.0) G/DL Carboxyhemoglobin 0.6 (0-4) % O2 Delivery Device Ventilator Vent Setting [id number] Inspired O2 40 % Critical Value Yes Sodium 148 H (136-145) meq/L Potassium 4.3 (3.5-5.1) meq/L Chloride 120 H (98-107) meq/L Carbon Dioxide 17.5 L (21.0-32.0) meq/L Anion Gap 11 (5-15) meq/L BUN 37 H (7-18) mg/dL Creatinine 1.06 H (0.50-1.00) mg/dL Estimated GFR 51 L (>89) mL/min POC Glucose (68-110) mg/dl Random Glucose 186 H (74-106) mg/dL Lactic Acid (0.4-2.0) mmol/L Calcium 8.5 (8.5-10.1) mg/dL Phosphorus (2.5-4.9) mg/dL Magnesium (1.5-2.5) mg/dL Total Bilirubin (0.2-1.0) mg/dL AST (15-37) U/L ALT (10-53) U/L Alkaline Phosphatase (45-117) U/L Troponin I (0.02-0.05) ng/mL B-Natriuretic Peptide (0-100) pg/mL Total Protein (6.4-8.2) g/dL Albumin (3.4-5.0) g/dL Lipase (73-393) U/L Urine Color (Yellw/Straw) Urine Clarity (Clear) Urine pH (5.0-8.5) Ur Specific [place] (1.002-1.035) Urine Protein (Neg-Trace) mg/dL Urine Glucose (UA) (Negative) mg/dL Urine Ketones (Negative) mg/dL Urine Occult Blood (Negative) Urine Nitrate (Negative) Urine Bilirubin (Negative) Urine Urobilinogen (Less than 2) mg/dL Ur Leukocyte Esterase (Negative) Ur Squamous Epith Cells (0-5) /hpf Amorphous Sediment (None) /hpf Nasal Screen MRSA (PCR) (Negative) 02/01/18 02/01/18 02/02/18 Range/Units 17:36 23:48 05:14 CBC w Diff WBC 7.2 (4.0-11.0) th/mm3 RBC 2.64 L (4.00-5.30) mil/mm3 Hgb 7.9 L (11.6-15.3) gm/dL Hct 25.0 L (35.0-46.0) % MCV 94.7 (80.0-100.0) fL MCH 30.0 (27.0-34.0) pg MCHC 31.7 L (32.0-36.0) % RDW 15.9 (11.6-17.2) % Plt Count 243 (150-450) th/mm3 MPV 9.6 (7.0-11.0) fL Prelim Diff (Auto) Neut % (Auto) (16.0-70.0) % Lymph % (Auto) (9.0-44.0) % [place] % (Auto) (0.0-8.0) % Eos % (Auto) (0.0-4.0) % Baso % (Auto) (0.0-2.0) % Neut # (Auto) (1.8-7.7) th/mm3 Lymph # (Auto) (1.0-4.8) th/mm3 [place] # (Auto) (0.0-0.9) th/mm3 Eos # (Auto) (0.0-0.4) th/mm3 Baso # (Auto) (0.0-0.2) th/mm3 WBC Differential Seg Neuts % (Manual) (16-70) % Band Neuts % (Manual) (0-6) % Lymphocytes % (Manual) (9-44) % Monocytes % (Manual) (0-8) % Abs Neuts (Manual) (1.8-7.7) th/mm3 Differential Comment Toxic Vacuolation (None) Platelet Estimate (Normal) Platelet Morphology (Normal) Ovalocytes (None) Keratocytes (None) PT (9.8-11.6) sec INR Ratio APTT (24.3-30.1) sec Puncture Site Patient Temperature O2 Saturation (90-100) % ABG pH (7.380-7.420) ABG pCO2 (38-42) mmHg ABG pO2 (61-120) mmHg ABG HCO3 (22-26) mmol/L ABG O2 Content (12.0-20.0) Vol % ABG Base Excess (-2-2) mmol/L ABG Methemoglobin (0-2) % Niko Test Hemoglobin (12.0-16.0) G/DL Carboxyhemoglobin (0-4) % O2 Delivery Device Vent Setting Inspired O2 % Critical Value Sodium (136-145) meq/L Potassium (3.5-5.1) meq/L Chloride (98-107) meq/L Carbon Dioxide (21.0-32.0) meq/L Anion Gap (5-15) meq/L BUN (7-18) mg/dL Creatinine (0.50-1.00) mg/dL Estimated GFR (>89) mL/min POC Glucose 104 227 H (68-110) mg/dl Random Glucose (74-106) mg/dL Lactic Acid (0.4-2.0) mmol/L Calcium (8.5-10.1) mg/dL Phosphorus (2.5-4.9) mg/dL Magnesium (1.5-2.5) mg/dL Total Bilirubin (0.2-1.0) mg/dL AST (15-37) U/L ALT (10-53) U/L Alkaline Phosphatase (45-117) U/L Troponin I (0.02-0.05) ng/mL B-Natriuretic Peptide (0-100) pg/mL Total Protein (6.4-8.2) g/dL Albumin (3.4-5.0) g/dL Lipase (73-393) U/L Urine Color (Yellw/Straw) Urine Clarity (Clear) Urine pH (5.0-8.5) Ur Specific [place] (1.002-1.035) Urine Protein (Neg-Trace) mg/dL Urine Glucose (UA) (Negative) mg/dL Urine Ketones (Negative) mg/dL Urine Occult Blood (Negative) Urine Nitrate (Negative) Urine Bilirubin (Negative) Urine Urobilinogen (Less than 2) mg/dL Ur Leukocyte Esterase (Negative) Ur Squamous Epith Cells (0-5) /hpf Amorphous Sediment (None) /hpf Nasal Screen MRSA (PCR) (Negative) 02/02/18 02/02/18 02/02/18 Range/Units 05:14 06:01 13:58 CBC w Diff WBC (4.0-11.0) th/mm3 RBC (4.00-5.30) mil/mm3 Hgb (11.6-15.3) gm/dL Hct (35.0-46.0) % MCV (80.0-100.0) fL MCH (27.0-34.0) pg MCHC (32.0-36.0) % RDW (11.6-17.2) % Plt Count (150-450) th/mm3 MPV (7.0-11.0) fL Prelim Diff (Auto) Neut % (Auto) (16.0-70.0) % Lymph % (Auto) (9.0-44.0) % [place] % (Auto) (0.0-8.0) % Eos % (Auto) (0.0-4.0) % Baso % (Auto) (0.0-2.0) % Neut # (Auto) (1.8-7.7) th/mm3 Lymph # (Auto) (1.0-4.8) th/mm3 [place] # (Auto) (0.0-0.9) th/mm3 Eos # (Auto) (0.0-0.4) th/mm3 Baso # (Auto) (0.0-0.2) th/mm3 WBC Differential Seg Neuts % (Manual) (16-70) % Band Neuts % (Manual) (0-6) % Lymphocytes % (Manual) (9-44) % Monocytes % (Manual) (0-8) % Abs Neuts (Manual) (1.8-7.7) th/mm3 Differential Comment Toxic Vacuolation (None) Platelet Estimate (Normal) Platelet Morphology (Normal) Ovalocytes (None) Keratocytes (None) PT (9.8-11.6) sec INR Ratio APTT (24.3-30.1) sec Puncture Site Patient Temperature O2 Saturation (90-100) % ABG pH (7.380-7.420) ABG pCO2 (38-42) mmHg ABG pO2 (61-120) mmHg ABG HCO3 (22-26) mmol/L ABG O2 Content (12.0-20.0) Vol % ABG Base Excess (-2-2) mmol/L ABG Methemoglobin (0-2) % Niko Test Hemoglobin (12.0-16.0) G/DL Carboxyhemoglobin (0-4) % O2 Delivery Device Vent Setting Inspired O2 % Critical Value Sodium 149 H (136-145) meq/L Potassium 3.5 D (3.5-5.1) meq/L Chloride 119 H (98-107) meq/L Carbon Dioxide 25.3 (21.0-32.0) meq/L Anion Gap 5 (5-15) meq/L BUN 32 H (7-18) mg/dL Creatinine 0.90 (0.50-1.00) mg/dL Estimated GFR 61 L (>89) mL/min POC Glucose 164 H 175 H (68-110) mg/dl Random Glucose 196 H (74-106) mg/dL Lactic Acid (0.4-2.0) mmol/L Calcium 8.1 L (8.5-10.1) mg/dL Phosphorus (2.5-4.9) mg/dL Magnesium (1.5-2.5) mg/dL Total Bilirubin (0.2-1.0) mg/dL AST (15-37) U/L ALT (10-53) U/L Alkaline Phosphatase (45-117) U/L Troponin I (0.02-0.05) ng/mL B-Natriuretic Peptide (0-100) pg/mL Total Protein (6.4-8.2) g/dL Albumin (3.4-5.0) g/dL Lipase (73-393) U/L Urine Color (Yellw/Straw) Urine Clarity (Clear) Urine pH (5.0-8.5) Ur Specific [place] (1.002-1.035) Urine Protein (Neg-Trace) mg/dL Urine Glucose (UA) (Negative) mg/dL Urine Ketones (Negative) mg/dL Urine Occult Blood (Negative) Urine Nitrate (Negative) Urine Bilirubin (Negative) Urine Urobilinogen (Less than 2) mg/dL Ur Leukocyte Esterase (Negative) Ur Squamous Epith Cells (0-5) /hpf Amorphous Sediment (None) /hpf Nasal Screen MRSA (PCR) (Negative) 02/02/18 02/02/18 02/03/18 Range/Units 18:05 23:52 05:29 CBC w Diff WBC 7.9 (4.0-11.0) th/mm3 RBC 2.62 L (4.00-5.30) mil/mm3 Hgb 8.0 L (11.6-15.3) gm/dL Hct 24.7 L (35.0-46.0) % MCV 94.3 (80.0-100.0) fL MCH 30.7 (27.0-34.0) pg MCHC 32.6 (32.0-36.0) % RDW 16.4 (11.6-17.2) % Plt Count 232 (150-450) th/mm3 MPV 9.6 (7.0-11.0) fL Prelim Diff (Auto) Neut % (Auto) (16.0-70.0) % Lymph % (Auto) (9.0-44.0) % [place] % (Auto) (0.0-8.0) % Eos % (Auto) (0.0-4.0) % Baso % (Auto) (0.0-2.0) % Neut # (Auto) (1.8-7.7) th/mm3 Lymph # (Auto) (1.0-4.8) th/mm3 [place] # (Auto) (0.0-0.9) th/mm3 Eos # (Auto) (0.0-0.4) th/mm3 Baso # (Auto) (0.0-0.2) th/mm3 WBC Differential Seg Neuts % (Manual) (16-70) % Band Neuts % (Manual) (0-6) % Lymphocytes % (Manual) (9-44) % Monocytes % (Manual) (0-8) % Abs Neuts (Manual) (1.8-7.7) th/mm3 Differential Comment Toxic Vacuolation (None) Platelet Estimate (Normal) Platelet Morphology (Normal) Ovalocytes (None) Keratocytes (None) PT (9.8-11.6) sec INR Ratio APTT (24.3-30.1) sec Puncture Site Patient Temperature O2 Saturation (90-100) % ABG pH (7.380-7.420) ABG pCO2 (38-42) mmHg ABG pO2 (61-120) mmHg ABG HCO3 (22-26) mmol/L ABG O2 Content (12.0-20.0) Vol % ABG Base Excess (-2-2) mmol/L ABG Methemoglobin (0-2) % Niko Test Hemoglobin (12.0-16.0) G/DL Carboxyhemoglobin (0-4) % O2 Delivery Device Vent Setting Inspired O2 % Critical Value Sodium (136-145) meq/L Potassium (3.5-5.1) meq/L Chloride (98-107) meq/L Carbon Dioxide (21.0-32.0) meq/L Anion Gap (5-15) meq/L BUN (7-18) mg/dL Creatinine (0.50-1.00) mg/dL Estimated GFR (>89) mL/min POC Glucose 163 H 201 H (68-110) mg/dl Random Glucose (74-106) mg/dL Lactic Acid (0.4-2.0) mmol/L Calcium (8.5-10.1) mg/dL Phosphorus (2.5-4.9) mg/dL Magnesium (1.5-2.5) mg/dL Total Bilirubin (0.2-1.0) mg/dL AST (15-37) U/L ALT (10-53) U/L Alkaline Phosphatase (45-117) U/L Troponin I (0.02-0.05) ng/mL B-Natriuretic Peptide (0-100) pg/mL Total Protein (6.4-8.2) g/dL Albumin (3.4-5.0) g/dL Lipase (73-393) U/L Urine Color (Yellw/Straw) Urine Clarity (Clear) Urine pH (5.0-8.5) Ur Specific [place] (1.002-1.035) Urine Protein (Neg-Trace) mg/dL Urine Glucose (UA) (Negative) mg/dL Urine Ketones (Negative) mg/dL Urine Occult Blood (Negative) Urine Nitrate (Negative) Urine Bilirubin (Negative) Urine Urobilinogen (Less than 2) mg/dL Ur Leukocyte Esterase (Negative) Ur Squamous Epith Cells (0-5) /hpf Amorphous Sediment (None) /hpf Nasal Screen MRSA (PCR) (Negative) 02/03/18 02/03/18 02/03/18 Range/Units 05:29 06:15 10:16 CBC w Diff WBC (4.0-11.0) th/mm3 RBC (4.00-5.30) mil/mm3 Hgb (11.6-15.3) gm/dL Hct (35.0-46.0) % MCV (80.0-100.0) fL MCH (27.0-34.0) pg MCHC (32.0-36.0) % RDW (11.6-17.2) % Plt Count (150-450) th/mm3 MPV (7.0-11.0) fL Prelim Diff (Auto) Neut % (Auto) (16.0-70.0) % Lymph % (Auto) (9.0-44.0) % [place] % (Auto) (0.0-8.0) % Eos % (Auto) (0.0-4.0) % Baso % (Auto) (0.0-2.0) % Neut # (Auto) (1.8-7.7) th/mm3 Lymph # (Auto) (1.0-4.8) th/mm3 [place] # (Auto) (0.0-0.9) th/mm3 Eos # (Auto) (0.0-0.4) th/mm3 Baso # (Auto) (0.0-0.2) th/mm3 WBC Differential Seg Neuts % (Manual) (16-70) % Band Neuts % (Manual) (0-6) % Lymphocytes % (Manual) (9-44) % Monocytes % (Manual) (0-8) % Abs Neuts (Manual) (1.8-7.7) th/mm3 Differential Comment Toxic Vacuolation (None) Platelet Estimate (Normal) Platelet Morphology (Normal) Ovalocytes (None) Keratocytes (None) PT (9.8-11.6) sec INR Ratio APTT (24.3-30.1) sec Puncture Site Left radial Patient Temperature 98.6 O2 Saturation 95 (90-100) % ABG pH 7.37 L (7.380-7.420) ABG pCO2 49 H (38-42) mmHg ABG pO2 99 (61-120) mmHg ABG HCO3 28 H (22-26) mmol/L ABG O2 Content 11.5 L (12.0-20.0) Vol % ABG Base Excess 2.9 H (-2-2) mmol/L ABG Methemoglobin 1.2 (0-2) % Niko Test Present Hemoglobin 8.4 L (12.0-16.0) G/DL Carboxyhemoglobin 1.1 (0-4) % O2 Delivery Device Ventilator Vent Setting Cpap+5/ps+5 Inspired O2 40 % Critical Value No Sodium 147 H (136-145) meq/L Potassium 4.1 (3.5-5.1) meq/L Chloride 112 H (98-107) meq/L Carbon Dioxide 26.9 (21.0-32.0) meq/L Anion Gap 8 (5-15) meq/L BUN 29 H (7-18) mg/dL Creatinine 0.81 (0.50-1.00) mg/dL Estimated GFR 69 L (>89) mL/min POC Glucose 148 H (68-110) mg/dl Random Glucose 169 H (74-106) mg/dL Lactic Acid (0.4-2.0) mmol/L Calcium 8.3 L (8.5-10.1) mg/dL Phosphorus (2.5-4.9) mg/dL Magnesium (1.5-2.5) mg/dL Total Bilirubin (0.2-1.0) mg/dL AST (15-37) U/L ALT (10-53) U/L Alkaline Phosphatase (45-117) U/L Troponin I (0.02-0.05) ng/mL B-Natriuretic Peptide (0-100) pg/mL Total Protein (6.4-8.2) g/dL Albumin (3.4-5.0) g/dL Lipase (73-393) U/L Urine Color (Yellw/Straw) Urine Clarity (Clear) Urine pH (5.0-8.5) Ur Specific [place] (1.002-1.035) Urine Protein (Neg-Trace) mg/dL Urine Glucose (UA) (Negative) mg/dL Urine Ketones (Negative) mg/dL Urine Occult Blood (Negative) Urine Nitrate (Negative) Urine Bilirubin (Negative) Urine Urobilinogen (Less than 2) mg/dL Ur Leukocyte Esterase (Negative) Ur Squamous Epith Cells (0-5) /hpf Amorphous Sediment (None) /hpf Nasal Screen MRSA (PCR) (Negative) 02/03/18 02/03/18 02/04/18 Range/Units 12:06 17:49 00:01 CBC w Diff WBC (4.0-11.0) th/mm3 RBC (4.00-5.30) mil/mm3 Hgb (11.6-15.3) gm/dL Hct (35.0-46.0) % MCV (80.0-100.0) fL MCH (27.0-34.0) pg MCHC (32.0-36.0) % RDW (11.6-17.2) % Plt Count (150-450) th/mm3 MPV (7.0-11.0) fL Prelim Diff (Auto) Neut % (Auto) (16.0-70.0) % Lymph % (Auto) (9.0-44.0) % [place] % (Auto) (0.0-8.0) % Eos % (Auto) (0.0-4.0) % Baso % (Auto) (0.0-2.0) % Neut # (Auto) (1.8-7.7) th/mm3 Lymph # (Auto) (1.0-4.8) th/mm3 [place] # (Auto) (0.0-0.9) th/mm3 Eos # (Auto) (0.0-0.4) th/mm3 Baso # (Auto) (0.0-0.2) th/mm3 WBC Differential Seg Neuts % (Manual) (16-70) % Band Neuts % (Manual) (0-6) % Lymphocytes % (Manual) (9-44) % Monocytes % (Manual) (0-8) % Abs Neuts (Manual) (1.8-7.7) th/mm3 Differential Comment Toxic Vacuolation (None) Platelet Estimate (Normal) Platelet Morphology (Normal) Ovalocytes (None) Keratocytes (None) PT (9.8-11.6) sec INR Ratio APTT (24.3-30.1) sec Puncture Site Patient Temperature O2 Saturation (90-100) % ABG pH (7.380-7.420) ABG pCO2 (38-42) mmHg ABG pO2 (61-120) mmHg ABG HCO3 (22-26) mmol/L ABG O2 Content (12.0-20.0) Vol % ABG Base Excess (-2-2) mmol/L ABG Methemoglobin (0-2) % Niko Test Hemoglobin (12.0-16.0) G/DL Carboxyhemoglobin (0-4) % O2 Delivery Device Vent Setting Inspired O2 % Critical Value Sodium (136-145) meq/L Potassium (3.5-5.1) meq/L Chloride (98-107) meq/L Carbon Dioxide (21.0-32.0) meq/L Anion Gap (5-15) meq/L BUN (7-18) mg/dL Creatinine (0.50-1.00) mg/dL Estimated GFR (>89) mL/min POC Glucose 137 H 143 H 159 H (68-110) mg/dl Random Glucose (74-106) mg/dL Lactic Acid (0.4-2.0) mmol/L Calcium (8.5-10.1) mg/dL Phosphorus (2.5-4.9) mg/dL Magnesium (1.5-2.5) mg/dL Total Bilirubin (0.2-1.0) mg/dL AST (15-37) U/L ALT (10-53) U/L Alkaline Phosphatase (45-117) U/L Troponin I (0.02-0.05) ng/mL B-Natriuretic Peptide (0-100) pg/mL Total Protein (6.4-8.2) g/dL Albumin (3.4-5.0) g/dL Lipase (73-393) U/L Urine Color (Yellw/Straw) Urine Clarity (Clear) Urine pH (5.0-8.5) Ur Specific [place] (1.002-1.035) Urine Protein (Neg-Trace) mg/dL Urine Glucose (UA) (Negative) mg/dL Urine Ketones (Negative) mg/dL Urine Occult Blood (Negative) Urine Nitrate (Negative) Urine Bilirubin (Negative) Urine Urobilinogen (Less than 2) mg/dL Ur Leukocyte Esterase (Negative) Ur Squamous Epith Cells (0-5) /hpf Amorphous Sediment (None) /hpf Nasal Screen MRSA (PCR) (Negative) 02/04/18 02/04/18 02/04/18 Range/Units 03:42 03:42 11:29 CBC w Diff WBC 9.1 (4.0-11.0) th/mm3 RBC 2.84 L (4.00-5.30) mil/mm3 Hgb 8.6 L (11.6-15.3) gm/dL Hct 26.5 L (35.0-46.0) % MCV 93.4 (80.0-100.0) fL MCH 30.3 (27.0-34.0) pg MCHC 32.5 (32.0-36.0) % RDW 15.3 (11.6-17.2) % Plt Count 254 (150-450) th/mm3 MPV 9.3 (7.0-11.0) fL Prelim Diff (Auto) Neut % (Auto) (16.0-70.0) % Lymph % (Auto) (9.0-44.0) % [place] % (Auto) (0.0-8.0) % Eos % (Auto) (0.0-4.0) % Baso % (Auto) (0.0-2.0) % Neut # (Auto) (1.8-7.7) th/mm3 Lymph # (Auto) (1.0-4.8) th/mm3 [place] # (Auto) (0.0-0.9) th/mm3 Eos # (Auto) (0.0-0.4) th/mm3 Baso # (Auto) (0.0-0.2) th/mm3 WBC Differential Seg Neuts % (Manual) (16-70) % Band Neuts % (Manual) (0-6) % Lymphocytes % (Manual) (9-44) % Monocytes % (Manual) (0-8) % Abs Neuts (Manual) (1.8-7.7) th/mm3 Differential Comment Toxic Vacuolation (None) Platelet Estimate (Normal) Platelet Morphology (Normal) Ovalocytes (None) Keratocytes (None) PT (9.8-11.6) sec INR Ratio APTT (24.3-30.1) sec Puncture Site Patient Temperature O2 Saturation (90-100) % ABG pH (7.380-7.420) ABG pCO2 (38-42) mmHg ABG pO2 (61-120) mmHg ABG HCO3 (22-26) mmol/L ABG O2 Content (12.0-20.0) Vol % ABG Base Excess (-2-2) mmol/L ABG Methemoglobin (0-2) % Niko Test Hemoglobin (12.0-16.0) G/DL Carboxyhemoglobin (0-4) % O2 Delivery Device Vent Setting Inspired O2 % Critical Value Sodium 144 (136-145) meq/L Potassium 4.9 D (3.5-5.1) meq/L Chloride 109 H (98-107) meq/L Carbon Dioxide 33.1 H (21.0-32.0) meq/L Anion Gap 2 L (5-15) meq/L BUN 28 H (7-18) mg/dL Creatinine 0.67 (0.50-1.00) mg/dL Estimated GFR 86 L (>89) mL/min POC Glucose 143 H (68-110) mg/dl Random Glucose 123 H (74-106) mg/dL Lactic Acid (0.4-2.0) mmol/L Calcium 8.2 L (8.5-10.1) mg/dL Phosphorus (2.5-4.9) mg/dL Magnesium (1.5-2.5) mg/dL Total Bilirubin (0.2-1.0) mg/dL AST (15-37) U/L ALT (10-53) U/L Alkaline Phosphatase (45-117) U/L Troponin I (0.02-0.05) ng/mL B-Natriuretic Peptide (0-100) pg/mL Total Protein (6.4-8.2) g/dL Albumin (3.4-5.0) g/dL Lipase (73-393) U/L Urine Color (Yellw/Straw) Urine Clarity (Clear) Urine pH (5.0-8.5) Ur Specific [place] (1.002-1.035) Urine Protein (Neg-Trace) mg/dL Urine Glucose (UA) (Negative) mg/dL Urine Ketones (Negative) mg/dL Urine Occult Blood (Negative) Urine Nitrate (Negative) Urine Bilirubin (Negative) Urine Urobilinogen (Less than 2) mg/dL Ur Leukocyte Esterase (Negative) Ur Squamous Epith Cells (0-5) /hpf Amorphous Sediment (None) /hpf Nasal Screen MRSA (PCR) (Negative) 02/04/18 02/04/18 02/05/18 Range/Units 17:17 23:26 05:00 CBC w Diff WBC 8.0 (4.0-11.0) th/mm3 RBC 2.75 L (4.00-5.30) mil/mm3 Hgb 8.5 L (11.6-15.3) gm/dL Hct 25.9 L (35.0-46.0) % MCV 94.3 (80.0-100.0) fL MCH 31.0 (27.0-34.0) pg MCHC 32.9 (32.0-36.0) % RDW 15.5 (11.6-17.2) % Plt Count 246 (150-450) th/mm3 MPV 9.7 (7.0-11.0) fL Prelim Diff (Auto) Neut % (Auto) (16.0-70.0) % Lymph % (Auto) (9.0-44.0) % [place] % (Auto) (0.0-8.0) % Eos % (Auto) (0.0-4.0) % Baso % (Auto) (0.0-2.0) % Neut # (Auto) (1.8-7.7) th/mm3 Lymph # (Auto) (1.0-4.8) th/mm3 [place] # (Auto) (0.0-0.9) th/mm3 Eos # (Auto) (0.0-0.4) th/mm3 Baso # (Auto) (0.0-0.2) th/mm3 WBC Differential Seg Neuts % (Manual) (16-70) % Band Neuts % (Manual) (0-6) % Lymphocytes % (Manual) (9-44) % Monocytes % (Manual) (0-8) % Abs Neuts (Manual) (1.8-7.7) th/mm3 Differential Comment Toxic Vacuolation (None) Platelet Estimate (Normal) Platelet Morphology (Normal) Ovalocytes (None) Keratocytes (None) PT (9.8-11.6) sec INR Ratio APTT (24.3-30.1) sec Puncture Site Patient Temperature O2 Saturation (90-100) % ABG pH (7.380-7.420) ABG pCO2 (38-42) mmHg ABG pO2 (61-120) mmHg ABG HCO3 (22-26) mmol/L ABG O2 Content (12.0-20.0) Vol % ABG Base Excess (-2-2) mmol/L ABG Methemoglobin (0-2) % Niko Test Hemoglobin (12.0-16.0) G/DL Carboxyhemoglobin (0-4) % O2 Delivery Device Vent Setting Inspired O2 % Critical Value Sodium (136-145) meq/L Potassium (3.5-5.1) meq/L Chloride (98-107) meq/L Carbon Dioxide (21.0-32.0) meq/L Anion Gap (5-15) meq/L BUN (7-18) mg/dL Creatinine (0.50-1.00) mg/dL Estimated GFR (>89) mL/min POC Glucose 127 H 103 (68-110) mg/dl Random Glucose (74-106) mg/dL Lactic Acid (0.4-2.0) mmol/L Calcium (8.5-10.1) mg/dL Phosphorus (2.5-4.9) mg/dL Magnesium (1.5-2.5) mg/dL Total Bilirubin (0.2-1.0) mg/dL AST (15-37) U/L ALT (10-53) U/L Alkaline Phosphatase (45-117) U/L Troponin I (0.02-0.05) ng/mL B-Natriuretic Peptide (0-100) pg/mL Total Protein (6.4-8.2) g/dL Albumin (3.4-5.0) g/dL Lipase (73-393) U/L Urine Color (Yellw/Straw) Urine Clarity (Clear) Urine pH (5.0-8.5) Ur Specific [place] (1.002-1.035) Urine Protein (Neg-Trace) mg/dL Urine Glucose (UA) (Negative) mg/dL Urine Ketones (Negative) mg/dL Urine Occult Blood (Negative) Urine Nitrate (Negative) Urine Bilirubin (Negative) Urine Urobilinogen (Less than 2) mg/dL Ur Leukocyte Esterase (Negative) Ur Squamous Epith Cells (0-5) /hpf Amorphous Sediment (None) /hpf Nasal Screen MRSA (PCR) (Negative) 02/05/18 02/05/18 02/05/18 Range/Units 05:00 05:18 11:38 CBC w Diff WBC (4.0-11.0) th/mm3 RBC (4.00-5.30) mil/mm3 Hgb (11.6-15.3) gm/dL Hct (35.0-46.0) % MCV (80.0-100.0) fL MCH (27.0-34.0) pg MCHC (32.0-36.0) % RDW (11.6-17.2) % Plt Count (150-450) th/mm3 MPV (7.0-11.0) fL Prelim Diff (Auto) Neut % (Auto) (16.0-70.0) % Lymph % (Auto) (9.0-44.0) % [place] % (Auto) (0.0-8.0) % Eos % (Auto) (0.0-4.0) % Baso % (Auto) (0.0-2.0) % Neut # (Auto) (1.8-7.7) th/mm3 Lymph # (Auto) (1.0-4.8) th/mm3 [place] # (Auto) (0.0-0.9) th/mm3 Eos # (Auto) (0.0-0.4) th/mm3 Baso # (Auto) (0.0-0.2) th/mm3 WBC Differential Seg Neuts % (Manual) (16-70) % Band Neuts % (Manual) (0-6) % Lymphocytes % (Manual) (9-44) % Monocytes % (Manual) (0-8) % Abs Neuts (Manual) (1.8-7.7) th/mm3 Differential Comment Toxic Vacuolation (None) Platelet Estimate (Normal) Platelet Morphology (Normal) Ovalocytes (None) Keratocytes (None) PT (9.8-11.6) sec INR Ratio APTT (24.3-30.1) sec Puncture Site Patient Temperature O2 Saturation (90-100) % ABG pH (7.380-7.420) ABG pCO2 (38-42) mmHg ABG pO2 (61-120) mmHg ABG HCO3 (22-26) mmol/L ABG O2 Content (12.0-20.0) Vol % ABG Base Excess (-2-2) mmol/L ABG Methemoglobin (0-2) % Niko Test Hemoglobin (12.0-16.0) G/DL Carboxyhemoglobin (0-4) % O2 Delivery Device Vent Setting Inspired O2 % Critical Value Sodium 141 (136-145) meq/L Potassium 4.9 (3.5-5.1) meq/L Chloride 104 (98-107) meq/L Carbon Dioxide 33.1 H (21.0-32.0) meq/L Anion Gap 4 L (5-15) meq/L BUN 30 H (7-18) mg/dL Creatinine 0.69 (0.50-1.00) mg/dL Estimated GFR 83 L (>89) mL/min POC Glucose 123 H 112 H (68-110) mg/dl Random Glucose 102 (74-106) mg/dL Lactic Acid (0.4-2.0) mmol/L Calcium 8.8 (8.5-10.1) mg/dL Phosphorus (2.5-4.9) mg/dL Magnesium (1.5-2.5) mg/dL Total Bilirubin (0.2-1.0) mg/dL AST (15-37) U/L ALT (10-53) U/L Alkaline Phosphatase (45-117) U/L Troponin I (0.02-0.05) ng/mL B-Natriuretic Peptide (0-100) pg/mL Total Protein (6.4-8.2) g/dL Albumin (3.4-5.0) g/dL Lipase (73-393) U/L Urine Color (Yellw/Straw) Urine Clarity (Clear) Urine pH (5.0-8.5) Ur Specific [place] (1.002-1.035) Urine Protein (Neg-Trace) mg/dL Urine Glucose (UA) (Negative) mg/dL Urine Ketones (Negative) mg/dL Urine Occult Blood (Negative) Urine Nitrate (Negative) Urine Bilirubin (Negative) Urine Urobilinogen (Less than 2) mg/dL Ur Leukocyte Esterase (Negative) Ur Squamous Epith Cells (0-5) /hpf Amorphous Sediment (None) /hpf Nasal Screen MRSA (PCR) (Negative) 02/05/18 02/06/18 02/06/18 Range/Units 16:26 01:02 05:58 CBC w Diff WBC (4.0-11.0) th/mm3 RBC (4.00-5.30) mil/mm3 Hgb (11.6-15.3) gm/dL Hct (35.0-46.0) % MCV (80.0-100.0) fL MCH (27.0-34.0) pg MCHC (32.0-36.0) % RDW (11.6-17.2) % Plt Count (150-450) th/mm3 MPV (7.0-11.0) fL Prelim Diff (Auto) Neut % (Auto) (16.0-70.0) % Lymph % (Auto) (9.0-44.0) % [place] % (Auto) (0.0-8.0) % Eos % (Auto) (0.0-4.0) % Baso % (Auto) (0.0-2.0) % Neut # (Auto) (1.8-7.7) th/mm3 Lymph # (Auto) (1.0-4.8) th/mm3 [place] # (Auto) (0.0-0.9) th/mm3 Eos # (Auto) (0.0-0.4) th/mm3 Baso # (Auto) (0.0-0.2) th/mm3 WBC Differential Seg Neuts % (Manual) (16-70) % Band Neuts % (Manual) (0-6) % Lymphocytes % (Manual) (9-44) % Monocytes % (Manual) (0-8) % Abs Neuts (Manual) (1.8-7.7) th/mm3 Differential Comment Toxic Vacuolation (None) Platelet Estimate (Normal) Platelet Morphology (Normal) Ovalocytes (None) Keratocytes (None) PT (9.8-11.6) sec INR Ratio APTT (24.3-30.1) sec Puncture Site Patient Temperature O2 Saturation (90-100) % ABG pH (7.380-7.420) ABG pCO2 (38-42) mmHg ABG pO2 (61-120) mmHg ABG HCO3 (22-26) mmol/L ABG O2 Content (12.0-20.0) Vol % ABG Base Excess (-2-2) mmol/L ABG Methemoglobin (0-2) % Niko Test Hemoglobin (12.0-16.0) G/DL Carboxyhemoglobin (0-4) % O2 Delivery Device Vent Setting Inspired O2 % Critical Value Sodium (136-145) meq/L Potassium (3.5-5.1) meq/L Chloride (98-107) meq/L Carbon Dioxide (21.0-32.0) meq/L Anion Gap (5-15) meq/L BUN (7-18) mg/dL Creatinine (0.50-1.00) mg/dL Estimated GFR (>89) mL/min POC Glucose 119 H 148 H 117 H (68-110) mg/dl Random Glucose (74-106) mg/dL Lactic Acid (0.4-2.0) mmol/L Calcium (8.5-10.1) mg/dL Phosphorus (2.5-4.9) mg/dL Magnesium (1.5-2.5) mg/dL Total Bilirubin (0.2-1.0) mg/dL AST (15-37) U/L ALT (10-53) U/L Alkaline Phosphatase (45-117) U/L Troponin I (0.02-0.05) ng/mL B-Natriuretic Peptide (0-100) pg/mL Total Protein (6.4-8.2) g/dL Albumin (3.4-5.0) g/dL Lipase (73-393) U/L Urine Color (Yellw/Straw) Urine Clarity (Clear) Urine pH (5.0-8.5) Ur Specific [place] (1.002-1.035) Urine Protein (Neg-Trace) mg/dL Urine Glucose (UA) (Negative) mg/dL Urine Ketones (Negative) mg/dL Urine Occult Blood (Negative) Urine Nitrate (Negative) Urine Bilirubin (Negative) Urine Urobilinogen (Less than 2) mg/dL Ur Leukocyte Esterase (Negative) Ur Squamous Epith Cells (0-5) /hpf Amorphous Sediment (None) /hpf Nasal Screen MRSA (PCR) (Negative) 02/06/18 02/06/18 02/07/18 Range/Units 12:02 17:11 00:24 CBC w Diff WBC (4.0-11.0) th/mm3 RBC (4.00-5.30) mil/mm3 Hgb (11.6-15.3) gm/dL Hct (35.0-46.0) % MCV (80.0-100.0) fL MCH (27.0-34.0) pg MCHC (32.0-36.0) % RDW (11.6-17.2) % Plt Count (150-450) th/mm3 MPV (7.0-11.0) fL Prelim Diff (Auto) Neut % (Auto) (16.0-70.0) % Lymph % (Auto) (9.0-44.0) % [place] % (Auto) (0.0-8.0) % Eos % (Auto) (0.0-4.0) % Baso % (Auto) (0.0-2.0) % Neut # (Auto) (1.8-7.7) th/mm3 Lymph # (Auto) (1.0-4.8) th/mm3 [place] # (Auto) (0.0-0.9) th/mm3 Eos # (Auto) (0.0-0.4) th/mm3 Baso # (Auto) (0.0-0.2) th/mm3 WBC Differential Seg Neuts % (Manual) (16-70) % Band Neuts % (Manual) (0-6) % Lymphocytes % (Manual) (9-44) % Monocytes % (Manual) (0-8) % Abs Neuts (Manual) (1.8-7.7) th/mm3 Differential Comment Toxic Vacuolation (None) Platelet Estimate (Normal) Platelet Morphology (Normal) Ovalocytes (None) Keratocytes (None) PT (9.8-11.6) sec INR Ratio APTT (24.3-30.1) sec Puncture Site Patient Temperature O2 Saturation (90-100) % ABG pH (7.380-7.420) ABG pCO2 (38-42) mmHg ABG pO2 (61-120) mmHg ABG HCO3 (22-26) mmol/L ABG O2 Content (12.0-20.0) Vol % ABG Base Excess (-2-2) mmol/L ABG Methemoglobin (0-2) % Niko Test Hemoglobin (12.0-16.0) G/DL Carboxyhemoglobin (0-4) % O2 Delivery Device Vent Setting Inspired O2 % Critical Value Sodium (136-145) meq/L Potassium (3.5-5.1) meq/L Chloride (98-107) meq/L Carbon Dioxide (21.0-32.0) meq/L Anion Gap (5-15) meq/L BUN (7-18) mg/dL Creatinine (0.50-1.00) mg/dL Estimated GFR (>89) mL/min POC Glucose 98 108 94 (68-110) mg/dl Random Glucose (74-106) mg/dL Lactic Acid (0.4-2.0) mmol/L Calcium (8.5-10.1) mg/dL Phosphorus (2.5-4.9) mg/dL Magnesium (1.5-2.5) mg/dL Total Bilirubin (0.2-1.0) mg/dL AST (15-37) U/L ALT (10-53) U/L Alkaline Phosphatase (45-117) U/L Troponin I (0.02-0.05) ng/mL B-Natriuretic Peptide (0-100) pg/mL Total Protein (6.4-8.2) g/dL Albumin (3.4-5.0) g/dL Lipase (73-393) U/L Urine Color (Yellw/Straw) Urine Clarity (Clear) Urine pH (5.0-8.5) Ur Specific [place] (1.002-1.035) Urine Protein (Neg-Trace) mg/dL Urine Glucose (UA) (Negative) mg/dL Urine Ketones (Negative) mg/dL Urine Occult Blood (Negative) Urine Nitrate (Negative) Urine Bilirubin (Negative) Urine Urobilinogen (Less than 2) mg/dL Ur Leukocyte Esterase (Negative) Ur Squamous Epith Cells (0-5) /hpf Amorphous Sediment (None) /hpf Nasal Screen MRSA (PCR) (Negative) 02/07/18 02/07/18 Range/Units 05:42 11:46 CBC w Diff WBC (4.0-11.0) th/mm3 RBC (4.00-5.30) mil/mm3 Hgb (11.6-15.3) gm/dL Hct (35.0-46.0) % MCV (80.0-100.0) fL MCH (27.0-34.0) pg MCHC (32.0-36.0) % RDW (11.6-17.2) % Plt Count (150-450) th/mm3 MPV (7.0-11.0) fL Prelim Diff (Auto) Neut % (Auto) (16.0-70.0) % Lymph % (Auto) (9.0-44.0) % [place] % (Auto) (0.0-8.0) % Eos % (Auto) (0.0-4.0) % Baso % (Auto) (0.0-2.0) % Neut # (Auto) (1.8-7.7) th/mm3 Lymph # (Auto) (1.0-4.8) th/mm3 [place] # (Auto) (0.0-0.9) th/mm3 Eos # (Auto) (0.0-0.4) th/mm3 Baso # (Auto) (0.0-0.2) th/mm3 WBC Differential Seg Neuts % (Manual) (16-70) % Band Neuts % (Manual) (0-6) % Lymphocytes % (Manual) (9-44) % Monocytes % (Manual) (0-8) % Abs Neuts (Manual) (1.8-7.7) th/mm3 Differential Comment Toxic Vacuolation (None) Platelet Estimate (Normal) Platelet Morphology (Normal) Ovalocytes (None) Keratocytes (None) PT (9.8-11.6) sec INR Ratio APTT (24.3-30.1) sec Puncture Site Patient Temperature O2 Saturation (90-100) % ABG pH (7.380-7.420) ABG pCO2 (38-42) mmHg ABG pO2 (61-120) mmHg ABG HCO3 (22-26) mmol/L ABG O2 Content (12.0-20.0) Vol % ABG Base Excess (-2-2) mmol/L ABG Methemoglobin (0-2) % Niko Test Hemoglobin (12.0-16.0) G/DL Carboxyhemoglobin (0-4) % O2 Delivery Device Vent Setting Inspired O2 % Critical Value Sodium (136-145) meq/L Potassium (3.5-5.1) meq/L Chloride (98-107) meq/L Carbon Dioxide (21.0-32.0) meq/L Anion Gap (5-15) meq/L BUN (7-18) mg/dL Creatinine (0.50-1.00) mg/dL Estimated GFR (>89) mL/min POC Glucose 128 H 117 H (68-110) mg/dl Random Glucose (74-106) mg/dL Lactic Acid (0.4-2.0) mmol/L Calcium (8.5-10.1) mg/dL Phosphorus (2.5-4.9) mg/dL Magnesium (1.5-2.5) mg/dL Total Bilirubin (0.2-1.0) mg/dL AST (15-37) U/L ALT (10-53) U/L Alkaline Phosphatase (45-117) U/L Troponin I (0.02-0.05) ng/mL B-Natriuretic Peptide (0-100) pg/mL Total Protein (6.4-8.2) g/dL Albumin (3.4-5.0) g/dL Lipase (73-393) U/L Urine Color (Yellw/Straw) Urine Clarity (Clear) Urine pH (5.0-8.5) Ur Specific [place] (1.002-1.035) Urine Protein (Neg-Trace) mg/dL Urine Glucose (UA) (Negative) mg/dL Urine Ketones (Negative) mg/dL Urine Occult Blood (Negative) Urine Nitrate (Negative) Urine Bilirubin (Negative) Urine Urobilinogen (Less than 2) mg/dL Ur Leukocyte Esterase (Negative) Ur Squamous Epith Cells (0-5) /hpf Amorphous Sediment (None) /hpf Nasal Screen MRSA (PCR) (Negative) Imaging Data Attestation: I personally reviewed and interpreted this imaging study as follows : My impression: Suspicious for right middle lobe pneumonia Radiologist's impression: Chest X-Ray 01/28/18 16:39 CONCLUSION: No acute cardiopulmonary process. Small focal density in the lateral right midlung. The patient had several nodules described in the recent CT of the chest from 10/25/2017. Chest X-Ray 01/29/18 03:56 CONCLUSION: Minimal basilar atelectasis. No effusion. Endotracheal tube in good position. Chest X-Ray 01/29/18 05:26 CONCLUSION: Endotracheal tube in good position. No pneumothorax or significant effusion. Mild basilar airspace disease. Chest X-Ray 01/31/18 05:00 CONCLUSION: Minimal basilar atelectasis. No effusion. Endotracheal tube and nasogastric tube in good position. Discharge Plan Discharge Disposition Patient Disposition: 30 Still Patient Discharge Condition Condition: Fair Discharge Order Discharge Orders: Discharge Order (Routine); Ordered 02/07/18 Ordered By: Hussein Holman Discharge Details Diagnosis: Septic shock, Acute respiratory failure with hypoxia and hypercarbia Physicians Team ED Provider: Melanie Prater Primary Care Provider: UNKNOWN, Attending Provider: Hussein Holman Other Providers: Sherrella,Sherrella ; [facility] ; [facility] Status ED Status: Left Department Discharge Information Discharge Date/Time: 01/29/18 01:02
[2018-01-28 21:09] LABS: Bilirubin,Urine Negative (Negative); Clarity,Urine Clear (Clear); Color,Urine Yellow (Yellw/Straw); Glucose,Urine (UA) Negative (Negative); Leukocyte Esterase,Urine Negative (Negative); Nitrite,Urine Negative (Negative)
[2018-01-28 21:17] LABS: Amorphous Sediment,Urine Many /hpf; Squamous Epithelial Cell,Urine 0-5 /hpf (0-5)
[2018-01-29] MEDS ORDERED: Acetaminophen 325 MG Tablet PO PRN (02:08)
[2018-01-29] MEDS ORDERED: Bisacodyl 10 MG Supp RECTAL PRN (02:08)
[2018-01-29] MEDS: Sod Chloride 0.9% Inj 1,000 ML IV.CONT SCH ×3 (02:15→14:30)
--- NOTE | 2018-01-29 02:17 | P.HPCC ---
History of Present Illness Primary Care Physician: UNKNOWN History of Present Illness: 72-year-old female presented originally to the emergency department at [place] with increasing shortness of breath that has been going on for 4 days, constant, moderate severity, associated with a productive cough with yellow sputum. In the emergency department she was also borderline hypotensive and was transferred to [facility] due to critical condition. Shortly after arrival to [facility] her ABG showed severe hypercapnic respiratory acidosis and the patient was intubated for acute respiratory failure. Inpatient Certification: I certify that the inpatient services were ordered in accordance with Medicare regulations governing the order. This includes certification that hospital inpatient services are reasonable and necessary and in the case of services not specified as inpatient-only under 42 CFR 419.22(n), that they are appropriately provided as inpatient services in accordance to with the 2-midnight benchmark under 43 CFR 412.3(e) Estimated Total Length of Stay (Days): 5 Plans for Post Hospital Care: Not yet determined Review of Systems unobtainable due to endotracheal tube PMFSH - History History Provided By: Patient, Family Member - Medical History Medical History: Medical History (Last Reviewed 01/28/18 @ 18:34 by Melanie Prater MD) Asthma Breast cancer CHF (congestive heart failure) COPD (chronic obstructive pulmonary disease) History of hysterectomy Hypertension Legally blind - Surgical History Surgical History: Surgical History (Last Updated 01/28/18 @ 17:00 by Krista Buenrostro) H/O heart artery stent H/O mastectomy History of cardiac cath - Tobacco History Second Hand Smoke Exposure: Yes Tobacco Use In Past 30 Days: Yes Smoking Status: Current every day smoker Tobacco Type: Cigarettes - Alcohol History How Often Do You Have a Drink Containing Alcohol: Never - Substance Use History Substance History: No History of Abuse - Travel History Recent Travel in the [place] Within the Last 8 Weeks: No Recent Travel Out of the Country Within the Last 8 Weeks: No - Immunization History Tetanus Immunization: Unsure Hx Influenza Vaccine This Season: No Medications and Allergies Active Medications: Active Medications Acetaminophen (Tylenol) 650 mg PO Q6H PRN PRN Reason: PAIN 1-10 AND/OR FEVER >101F Al Hydroxide/Mg Hydroxide (Milk Of Magnesia Liq) 30 ml PO Q12H PRN PRN Reason: Mild Constipation Albuterol (Duoneb Neb (Prn)) 1 ampul NEB Q15M PRN PRN Reason: SHORTNESS OF BREATH Last Admin: 01/28/18 17:01 Dose: 1 ampul Albuterol (Albuterol Neb (Carlo)) 2.5 mg NEB Q6HR NEB CARLO Albuterol (Duoneb Neb (Prn)) 1 ampul NEB Q2HR NEB PRN PRN Reason: WHEEZING Aspirin (Ecotrin) 81 mg PO DAILY [facility] Atorvastatin Calcium (Lipitor) 40 mg PO DAILY [facility] Bisacodyl (Dulcolax Supp) 10 mg RECTAL DAILY PRN PRN Reason: SEVERE CONSITIPATION Chlorhexidine Gluconate (Chlorhexidine 2% Cloth) 3 pack TOPICAL DAILY@0400 [facility] Stop: 02/03/18 03:59 Clopidogrel Bisulfate (Plavix) 75 mg PO DAILY [facility] Famotidine (Pepcid Pf Inj) 20 mg IV.PUSH Q12HR [facility] Heparin Sodium (Porcine) (Heparin Inj) 5,000 units SQ Q8H [facility] Sodium Chloride (Ns Inj) 1,000 mls @ 125 mls/hr IV.CONT .Q8H [facility] Lactulose (Lactulose Liq) 30 ml PO DAILY PRN PRN Reason: SEVERE CONSITIPATION Levothyroxine Sodium (Synthroid) 100 mcg PO DAILY@0600 [facility] Morphine Sulfate (Morphine Inj) 2 mg IV.PUSH Q2H PRN PRN Reason: PAIN SCALE 6 TO 10 Ondansetron HCl (Zofran Inj) 4 mg IV.PUSH Q6H PRN PRN Reason: NAUSEA OR VOMITING Senna/Docusate Sodium (Jeanine-Colace) 1 tab PO BID [facility] Tiotropium [place] (Spiriva 18 Mcg Inh) 18 mcg INH DAILY [facility] Allergies Allergy/AdvReac Type Severity Reaction Status Date / Time doxycycline Allergy Severe SHORTNESS Verified 01/28/18 16:25 OF BREATH minocycline Allergy Severe SHORTNESS Verified 01/28/18 16:25 OF BREATH oxycodone Allergy Severe UNKNOWN Verified 01/28/18 16:25 penicillin G Allergy Severe SHORTNESS Verified 01/28/18 16:25 OF BREATH tetanus toxoid, adsorbed Allergy Severe SHORTNESS Verified 01/28/18 16:25 OF BREATH tigecycline Allergy Severe SHORTNESS Verified 01/28/18 16:25 OF BREATH adhesive tape Allergy Blister Verified 01/28/18 16:34 diazepam AdvReac Intermediate HYPER Verified 01/28/18 16:25 Home Medications Medication Instructions Recorded Confirmed Type aspirin [Aspirin Low Dose] 81 mg PO DAILY 01/28/18 01/28/18 History atorvastatin 40 mg PO DAILY 01/28/18 01/28/18 History carvedilol 3.125 mg PO DAILY 01/28/18 01/28/18 History clopidogrel 75 mg PO DAILY 01/28/18 01/28/18 History docusate sodium [Colace] 100 mg PO DAILY 01/28/18 01/28/18 History enalapril maleate 20 mg PO BID 01/28/18 01/28/18 History hydrocodone-acetaminophen [[place]] 1 tab PO Q4-6H PRN 01/28/18 01/28/18 History levothyroxine 100 mcg PO DAILY 01/28/18 01/28/18 History melatonin 5 mg PO HS PRN 01/28/18 01/28/18 History nitroglycerin 1 patch TRANSDERMAL DAILY 01/28/18 01/28/18 History omeprazole 20 mg PO BID 01/28/18 01/28/18 History tiotropium bromide [Spiriva with 1 cap INHALATION DAILY 01/28/18 01/28/18 History HandiHaler] Results - Labs CBC & Chem 7: 01/29/18 04:00 01/29/18 04:00 Labs: Short CBC 01/28/18 Range/Units 16:40 WBC 15.4 H (4.0-11.0) th/mm3 Hgb 12.2 (11.6-15.3) gm/dL Hct 36.9 (35.0-46.0) % Plt Count 300 (150-450) th/mm3 [facility] 01/28/18 16:40 Sodium 135 L Potassium 3.7 Chloride 98 Carbon Dioxide 25.9 BUN 31 H Creatinine 2.20 H Calcium 9.2 Cardiac Enzymes 01/28/18 01/28/18 Range/Units 16:40 19:30 Troponin I 0.16 H 0.14 H (0.02-0.05) ng/mL Liver Function 01/28/18 Range/Units 16:40 Total Bilirubin 0.6 (0.2-1.0) mg/dL AST 13 L (15-37) U/L ALT 14 (10-53) U/L Alkaline Phosphatase 139 H (45-117) U/L Albumin 3.4 (3.4-5.0) g/dL Urine 01/28/18 Range/Units 20:55 Urine Color Yellow (Yellw/Straw) Urine Clarity Clear (Clear) Urine pH 6.0 (5.0-8.5) Ur Specific [place] 1.020 (1.002-1.035) Urine Protein 30 H (Neg-Trace) mg/dL Urine Glucose (UA) Negative (Negative) mg/dL - Imaging Impressions Chest X-Ray 01/28/18 16:39 CONCLUSION: No acute cardiopulmonary process. Small focal density in the lateral right midlung. The patient had several nodules described in the recent CT of the chest from 10/25/2017. Chest X-Ray 01/29/18 03:56 CONCLUSION: Minimal basilar atelectasis. No effusion. Endotracheal tube in good position. Chest X-Ray 01/29/18 05:26 CONCLUSION: Endotracheal tube in good position. No pneumothorax or significant effusion. Mild basilar airspace disease. Exam Vital signs: Vital Signs 01/28/18 16:25 01/28/18 16:39 01/28/18 16:55 Temperature 98.8 F Pulse Rate 102 H 99 H Respiratory Rate 36 H Blood Pressure Pulse Oximetry 85 L 95 01/28/18 17:05 01/28/18 17:28 01/28/18 17:30 Temperature 99 F Pulse Rate 100 H 96 H 94 H Respiratory Rate 26 H 24 38 H Blood Pressure 109/54 L 77/50 L Pulse Oximetry 95 95 01/28/18 17:34 01/28/18 17:58 01/28/18 18:25 Temperature Pulse Rate 92 H 94 H 87 Respiratory Rate 25 H 38 H 20 Blood Pressure 89/44 L 77/42 L Pulse Oximetry 97 97 01/28/18 18:44 01/28/18 19:55 01/28/18 20:00 Temperature Pulse Rate 84 84 Respiratory Rate 20 28 H Blood Pressure 86/43 L 110/46 L Pulse Oximetry 100 94 L 95 01/28/18 20:06 01/28/18 21:02 01/28/18 22:00 Temperature Pulse Rate 87 85 Respiratory Rate 29 H Blood Pressure 97/48 L Pulse Oximetry 94 L 93 L 01/28/18 22:10 01/28/18 23:19 01/28/18 23:31 Temperature 98.0 F Pulse Rate 80 Respiratory Rate 26 H Blood Pressure 119/42 L 96/40 L Pulse Oximetry 98 98 01/29/18 00:25 Temperature Pulse Rate 82 Respiratory Rate 24 Blood Pressure 125/51 L Pulse Oximetry Intake & Output 01/28/18 01/28/18 01/29/18 06:59 18:59 06:59 Intake Total 1350 / 1350 1000 / 1000 Balance 1350 / 1350 1000 / 1000 Weight 71 kg 74 kg Intake: IV 1350 / 1350 1000 / 1000 Azithromycin Inj 500 MG In NS 250 / 250 Inj 250 ML @ 250 mls/hr IV.SIG STAT STA Rx#:[id number] Maxipime Inj 2,000 MG In NS Inj 100 / 100 100 ML @ 200 mls/hr IV.SIG STAT STA Rx#:[id number] NS Inj 1,000 ML @ Wide Open IV. 1000 / 1000 SIG BOLUS ONE Rx#:[id number] Other: Weight On Admission 74 kg - Constitutional mild distress - Routine HEENT Exam Head: Present: normocephalic, atraumatic Eye: Present: PERRL ENT: Present: mucous membranes moist. Absent: dentition normal - Routine Neck Exam Present: supple. Absent: JVD, carotid bruit - Routine Respiratory Exam Present: patient mechanically ventilated, rhonchi, wheezes. Absent: accessory muscle use, stridor, crackles - Routine Cardiovascular Exam Present: RRR, S1, S2 - Routine Abdominal Exam Present: soft, normoactive bowel sounds. Absent: tenderness, distended - Routine Extremities Exam Absent: cyanosis, clubbing, edema - Routine Skin Exam Present: intact. Absent: cyanosis, erythema - Routine Neurological Exam Present: normal reflexes Caprini VTE Risk Assessment Caprini VTE Risk Assessment: Moderate/High Risk (score >= 2) Caprini Risk Assessment Model: Point Value = 1 Point Value = 2 Point Value = 3 Point Value = 5 Age 41-60 Minor surgery BMI > 25 kg/m2 Swollen legs Varicose veins or History of unexplained or recurrent spontaneous Oral contraceptives or hormone replacement Sepsis (< 1 month) Serious lung disease, including pneumonia (< 1 month) Abnormal pulmonary function Acute myocardial infarction Congestive heart failure (< 1 month) History of inflammatory bowel disease Medical patient at bed rest Age 61-74 Arthroscopic surgery Major open surgery (> 45 min) Laparoscopic surgery (> 45 min) Malignancy Confined to bed (> 72 hours) Immobilizing plaster cast Central venous access Age >= 75 History of VTE Family history of VTE Factor V Leiden Prothrombin [id number] Lupus anticoagulant Anticardiolipin antibodies Elevated serum homocysteine Heparin-induced thrombocytopenia Other congenital or acquired thrombophilia Stroke (< 1 month) Elective arthroplasty Hip, pelvis, or leg fracture Acute spinal cord injury (< 1 month) Prophylaxis Regimen: Total Risk Factor Score Risk Level Prophylaxis Regimen 0-1 Low Early ambulation 2 Moderate Order ONE of the following: *Sequential Compression Device (SCD) *Heparin 5000 units SQ BID 3-4 Higher Order ONE of the following medications: *Heparin 5000 units SQ TID *Enoxaparin/Lovenox 40 mg SQ daily (WT < 150 kg, CrCl > 30 mL/min) *Enoxaparin/Lovenox 30 mg SQ daily (WT < 150 kg, CrCl > 10-29 mL/min) *Enoxaparin/Lovenox 30 mg SQ BID (WT < 150 kg, CrCl > 30 mL/min) AND/OR *Sequential Compression Device (SCD) 5 or more Highest Order ONE of the following medications: *Heparin 5000 units SQ TID (Preferred with Epidurals) *Enoxaparin/Lovenox 40 mg SQ daily (WT < 150 kg, CrCl > 30 mL/min) *Enoxaparin/Lovenox 30 mg SQ daily (WT < 150 kg, CrCl > 10-29 mL/min) *Enoxaparin/Lovenox 30 mg SQ BID (WT < 150 kg, CrCl > 30 mL/min) AND *Sequential Compression Device (SCD) Assessment and Plan - Assessment and Plan Plan: Respiratory failure -COPD exacerbation -Broad-spectrum antibiotic -IV steroid -DuoNeb scheduled and as needed -CXR and ABG daily -Vent bundle Bronchial asthma -No exacerbation -Tiotropium [place] -DuoNeb scheduled and as needed Coronary artery disease -Aspirin, Plavix -Monitor series of troponins and EKGs to rule out ACS Diabetes mellitus -Insulin sliding scale Hypothyroidism -Levothyroxine DVT GI prophylaxis -Teds SCDs -Subcu heparin -IV Pepcid Critical Care: The total critical care time was 35 minutes. Time to perform other separately billable procedures was not included in the critical care time. H&P: Quality - VTE Deep Vein Thrombosis/Pulmonary Embolism Present on Admission: No
[2018-01-29] MEDS: Azithromycin Inj 500 MG in Sodium Chlor 0.9% Inj 250 ML IV.SIG SCH (03:00)
[2018-01-29 03:11] LABS: ABG Base Excess -4.6 mmol/L (-2-2); ABG PCO2 62 mmHg (38-42); ABG PO2 100 mmHG (61-120)
[2018-01-29] MEDS ORDERED: Etomidate Inj 40 MG/20 ML Vial IV.PUSH ONE (03:53)
[2018-01-29] MEDS ORDERED: Succinylcholine Inj 200 MG/10 ML Vial ONE (03:53)
[2018-01-29] MEDS ORDERED: Etomidate Inj 20 MG/10 ML Ampul IV.PUSH ONE (03:54)
[2018-01-29] MEDS ORDERED: Succinylcholine Inj 200 MG/10 ML Vial IV.PUSH ONE (03:54)
[2018-01-29] MEDS ORDERED: Chlorhexidine Gluconate 2% 1 Pack (2 Cloths) TOPICAL PRN (04:00)
[2018-01-29] MEDS ORDERED: Propofol Inj 500 MG/50 ML Vial ONE (04:09)
[2018-01-29 04:12] LABS: Baso % (Auto) 0.2 % (0.0-2.0); Hematocrit 31.1 % (35.0-46.0); Lymph # (Auto) 0.9 th/mm3 (1.0-4.8); Lymph % (Auto) 9.5 % (9.0-44.0); Mean Corpuscular HGB Conc 32.1 % (32.0-36.0); Mean Corpuscular Hemoglobin 30.3 pg (27.0-34.0); Mean Corpuscular Volume 94.5 fL (80.0-100.0); Mean Platelet Volume 9.3 fL (7.0-11.0); Mono # (Auto) 0.2 th/mm3 (0.0-0.9); Mono % (Auto) 2.6 % (0.0-8.0); Neut # (Auto) 8.6 th/mm3 (1.8-7.7); Neut % (Auto) 87.7 % (16.0-70.0); Platelet Count 241 th/mm3 (150-450); Red Blood Count 3.29 mil/mm3 (4.00-5.30); Red Cell Distribution Width 15.2 % (11.6-17.2); White Blood Count 9.8 th/mm3 (4.0-11.0)
[2018-01-29 04:17] LABS: Activated Partial Thrombo Time 29.6 sec (24.3-30.1); INR 1.1 Ratio; Prothrombin Time 10.7 sec (9.8-11.6)
[2018-01-29 04:28] LABS: Alanine Aminotransferase 11 U/L (10-53); Albumin 2.7 g/dL (3.4-5.0); Anion Gap 8 meq/L (5-15); Aspartate Aminotransferase 10 U/L (15-37); Blood Urea Nitrogen 30 mg/dL (7-18); Calcium 8.3 mg/dL (8.5-10.1); Carbon Dioxide 23.3 meq/L (21.0-32.0); Chloride 110 meq/L (98-107); Glomerular Filtration Rate 34 mL/min (>89); Glucose,Random 162 mg/dL (74-106); Magnesium 2.2 mg/dL (1.5-2.5); Phosphorus 3.5 mg/dL (2.5-4.9); Potassium 4.3 meq/L (3.5-5.1); Sodium 141 meq/L (136-145)
[2018-01-29 04:33] LABS: Alkaline Phosphatase 113 U/L (45-117); Total Protein 6.6 g/dL (6.4-8.2); Troponin I 0.08 ng/mL (0.02-0.05)
[2018-01-29 04:48] LABS: Lymphocytes 9 % (9-44); Monocytes 1 % (0-8); Platelet Estimate Normal (Normal); Platelet Morphology Normal (Normal)
[2018-01-29 04:51] LABS: Ovalocytes 1+; Toxic Vacuolation Present
[2018-01-29] MEDS: Chlorhexidine Gluconate 2% 1 Pack (2 Cloths) TOPICAL SCH (04:54)
[2018-01-29] MEDS: Oral Hygiene Kit OROPHARYNG SCH ×3 (04:54→17:27)
--- NOTE | 2018-01-29 04:56 | XR ---
EXAM DATE: 01/29/2018 4:38 AM EDT AGE/SEX: 72 years / Female INDICATIONS: Status post intubation. CLINICAL DATA: This is the patient's subsequent encounter. Patient reports that signs and symptoms h ave been present for 2 days and indicates a pain score of Nonresponsive. MEDICAL/SURGICAL HISTORY: . Ulcers. Gastroesophageal reflux disease. Chronic obstructive pulmon edwige disease. Diabetes. Cardiovascular disorders. Cervical cancer. Breast cancer. . Appendectomy. Mas tectomy, right. Hysterectomy COMPARISON: [facility], CHEST 1V SINGLE AP, 01/28/2018. . FINDINGS: Endotracheal tube in good position. Mild cardiomegaly. Mild basilar atelectasis. No effusion or pneum othorax. Post kyphoplasty changes noted in the thoracic spine. CONCLUSION: Minimal basilar atelectasis. No effusion. Endotracheal tube in good position. Electronically signed by: Jn Sims MD 01/29/2018 4:55 AM EDT
[2018-01-29] MEDS: Levothyroxine 100 MCG Tablet PO SCH (05:14)
[2018-01-29] MEDS: Heparin - SQ 10,000 UNITS/ML Vial SQ SCH ×3 (05:14→21:00)
[2018-01-29 05:37] LABS: ABG Base Excess -6.8 mmol/L (-2-2); ABG PCO2 46 mmHg (38-42); ABG PO2 84 mmHG (61-120)
--- NOTE | 2018-01-29 06:02 | XR ---
EXAM DATE: 01/29/2018 5:58 AM EDT AGE/SEX: 72 years / Female INDICATIONS: ETT placement. CLINICAL DATA: This is the patient's subsequent encounter. Patient reports that signs and symptoms h ave been present for 1 day and indicates a pain score of Nonresponsive. MEDICAL/SURGICAL HISTORY: . Ulcers. Gastroesophageal reflux disease. Chronic obstructive pulmon edwige disease. Diabetes. Cardiovascular disorders. Cervical cancer. Breast cancer. . Appendectomy. Mas tectomy, right. Hysterectomy COMPARISON: [facility], CHEST 1V SINGLE AP, 01/29/2018. . FINDINGS: Endotracheal tube in good position. NG enters the stomach. Previous kyphoplasty. Mild basilar density probably atelectasis. Cardiomegaly. No significant effusion. No pneumothorax. CONCLUSION: Endotracheal tube in good position. No pneumothorax or significant effusion. Mild basilar airspace di sease. Electronically signed by: Jn Sims MD 01/29/2018 6:01 AM EDT
[2018-01-29] MEDS: Propofol 1000 mg/100 ml Inj 1,000 MG/100 ML BOTTLE IV.CONT PRN ×3 (07:16→20:01)
[2018-01-29] MEDS: Senna/Docusate Sodium 8.6/50 MG Tablet PO SCH ×2 (08:27→20:59)
[2018-01-29] MEDS ORDERED: Famotidine PF Inj 20 MG/2 ML Vial IV.PUSH SCH (09:00)
[2018-01-29] MEDS: Chlorhexidine 0.12% Oral Kit 15 ML UDC OROPHARYNG SCH ×2 (09:05→20:59)
[2018-01-29] MEDS ORDERED: Dextrose 50% in Water 50 ML Vial IV.PUSH PRN (12:02)
[2018-01-29 12:51] LABS: ABG Base Excess -7.1 mmol/L (-2-2); ABG PCO2 35 mmHg (38-42); ABG PO2 75 mmHG (61-120)
[2018-01-29] MEDS: MethylPREDNISolone Sod Succinate Inj 40 MG/ML Vial IV.PUSH SCH ×2 (13:11→21:00)
[2018-01-29] MEDS: Insulin NovoLIN Regular Correctional Sugar Inj SQ SCH (17:28)
--- NOTE | 2018-01-29 18:41 | ECG ---
Date Performed: 01/28/2018 Time Performed: 17:12:23 PTAGE: 72 years EKG: Sinus rhythm MARKED LEFT AXIS DEVIATION ABNORMAL ECG Compared to PREVIOUS TRACING , axis has shifted leftward. PREVIOUS TRACIN06/01/2017 23.53 DOCTOR: Heriberto Chi Interpretating Date/Time 01/29/2018 18:41:14
--- NOTE | 2018-01-29 18:42 | ECG ---
Date Performed: 01/29/2018 Time Performed: 07:29:38 PTAGE: 72 years EKG: Sinus rhythm with PAC(s). Leftward axis Borderline ECG Since PREVIOUS TRACING , no significant change noted PREVIOUS TRACIN01/28/2018 17.12 DOCTOR: Heriberto Chi Interpretating Date/Time 01/29/2018 18:41:24
[2018-01-29] MEDS: Famotidine PF Inj 20 MG/2 ML Vial IV.PUSH SCH (20:59)
[2018-01-30] MEDS: Oral Hygiene Kit OROPHARYNG SCH ×4 (02:20→15:13)
[2018-01-30] MEDS: Insulin NovoLIN Regular Correctional Sugar Inj SQ SCH ×3 (02:20→17:20)
[2018-01-30] MEDS: Azithromycin Inj 500 MG in Sodium Chlor 0.9% Inj 250 ML IV.SIG SCH (02:21)
[2018-01-30] MEDS: Propofol 1000 mg/100 ml Inj 1,000 MG/100 ML BOTTLE IV.CONT PRN ×4 (02:24→19:29)
[2018-01-30 04:25] LABS: Baso % (Auto) 0.1 % (0.0-2.0); Hemoglobin 9.9 gm/dL (11.6-15.3); Lymph # (Auto) 0.9 th/mm3 (1.0-4.8); Lymph % (Auto) 9.9 % (9.0-44.0); Mean Corpuscular Hemoglobin 30.3 pg (27.0-34.0); Mean Corpuscular Volume 94.7 fL (80.0-100.0); Mean Platelet Volume 9.4 fL (7.0-11.0); Mono # (Auto) 0.4 th/mm3 (0.0-0.9); Mono % (Auto) 4.6 % (0.0-8.0); Neut # (Auto) 7.8 th/mm3 (1.8-7.7); Neut % (Auto) 85.4 % (16.0-70.0); Platelet Count 249 th/mm3 (150-450); Red Blood Count 3.28 mil/mm3 (4.00-5.30); Red Cell Distribution Width 15.1 % (11.6-17.2); White Blood Count 9.1 th/mm3 (4.0-11.0)
[2018-01-30 04:32] LABS: Activated Partial Thrombo Time 21.9 sec (24.3-30.1); Prothrombin Time 10.3 sec (9.8-11.6)
[2018-01-30 04:42] LABS: Alanine Aminotransferase 13 U/L (10-53); Albumin 2.6 g/dL (3.4-5.0); Anion Gap 11 meq/L (5-15); Aspartate Aminotransferase 15 U/L (15-37); Blood Urea Nitrogen 36 mg/dL (7-18); Calcium 8.8 mg/dL (8.5-10.1); Carbon Dioxide 17.1 meq/L (21.0-32.0); Chloride 115 meq/L (98-107); Glomerular Filtration Rate 37 mL/min (>89); Glucose,Random 134 mg/dL (74-106); Phosphorus 3.3 mg/dL (2.5-4.9); Potassium 4.4 meq/L (3.5-5.1); Sodium 143 meq/L (136-145)
[2018-01-30 04:44] LABS: Alkaline Phosphatase 96 U/L (45-117); Total Protein 6.4 g/dL (6.4-8.2)
[2018-01-30] MEDS: Chlorhexidine Gluconate 2% 1 Pack (2 Cloths) TOPICAL SCH (05:21)
[2018-01-30] MEDS: Heparin - SQ 10,000 UNITS/ML Vial SQ SCH ×3 (05:27→21:17)
[2018-01-30] MEDS: Levothyroxine 100 MCG Tablet PO SCH (05:28)
[2018-01-30] MEDS: MethylPREDNISolone Sod Succinate Inj 40 MG/ML Vial IV.PUSH SCH ×3 (05:28→21:17)
[2018-01-30] MEDS: Senna/Docusate Sodium 8.6/50 MG Tablet PO SCH ×2 (08:00→21:16)
[2018-01-30] MEDS: Famotidine PF Inj 20 MG/2 ML Vial IV.PUSH SCH ×2 (08:00→21:16)
[2018-01-30] MEDS: Chlorhexidine 0.12% Oral Kit 15 ML UDC OROPHARYNG SCH ×2 (08:40→21:16)
--- NOTE | 2018-01-30 11:02 | P.PNCC ---
Subjective Subjective Remarks/Hospital Course: 01/30: remains intubated and sedated. Cr remains elevated: baseline Cr appears to be between 1.1 and 1.3. now 1.5 unclear if this is acute on chronic or new worsening of CKD. on exam patient has new RUQ tenderness although family member at bedside states she has not complained of nausea, vomiting, abdominal pain or any other GI symptoms recently. ROS unobtainable due to ett. Objective Vital Signs / I&O: Vital Signs 01/29/18 11:27 01/29/18 12:00 01/29/18 15:20 Temperature 37.0 C Pulse Rate 61 67 Respiratory Rate 20 21 20 Blood Pressure 112/58 L Pulse Oximetry 99 98 01/29/18 16:00 01/29/18 19:56 01/29/18 20:00 Temperature 37.2 C 36.9 C Pulse Rate 67 63 63 Respiratory Rate 20 20 20 Blood Pressure 157/70 H 152/68 H Pulse Oximetry 99 99 100 01/29/18 23:57 01/30/18 00:00 01/30/18 03:49 Temperature 37.1 C Pulse Rate 68 67 Respiratory Rate 20 20 20 Blood Pressure 149/68 H Pulse Oximetry 98 100 01/30/18 04:00 01/30/18 08:00 01/30/18 08:39 Temperature 36.4 C L 36.6 C Pulse Rate 67 66 64 Respiratory Rate 20 20 20 Blood Pressure 157/72 H 174/74 H Pulse Oximetry 100 100 100 01/30/18 09:00 Temperature Pulse Rate 65 Respiratory Rate Blood Pressure Pulse Oximetry Intake & Output 01/29/18 01/30/18 01/30/18 18:59 06:59 18:59 Intake Total 2450 / 2450 200 / 200 100 / 100 Output Total 325 / 325 320 / 320 Balance 2125 / 2125 -120 / -120 100 / 100 Weight 78.5 kg Intake: IV 2450 / 2450 200 / 200 100 / 100 Diprivan 1000 mg/100 ml Inj 1, 100 / 100 200 / 200 100 / 100 000 mg In 100 ml @ 30 MCG/KG/ MIN 13.32 mls/hr IV.CONT TITRATE PRN Rx#:[id number] NS Inj 1,000 ML @ 75 mls/hr IV. 1999 CONT .[id number] YANI Rx#:[id number] Azithromycin Inj 500 MG In NS 250 / 250 Inj 250 ML @ 250 mls/hr IV.SIG Q24H [facility] Rx#:[id number] Maxipime Inj 2,000 MG In NS Inj 100 / 100 100 ML @ 200 mls/hr IV.SIG Q12H [facility] Rx#:[id number] Output: Urine Amount (Catheter) 325 / 325 320 / 320 Indwelling Urethral Catheter 325 / 325 320 / 320 Other: # Bowel Movements 0 Result Diagrams: 01/30/18 03:19 01/30/18 03:19 Other Results: gen: elderly female, lying in bed, intubated, sedated heent: nc. at. perrl. mucous membranes moist. neck: no jvd. trachea midline. chest: PRVC. fio2 40%. equal chest rise. cv: normal rate, regular rhythm. sinus. abd: soft, grimaces with palpation in RUQ. no guarding or rebound. nondistended. extr: 1+ edema. distal pulses 2+. neuro: RASS -3. sedated. withdraws to pain. moves all extremities spontaneously. Assessment and Plan - Assessment and Plan Plan: Assessment: 72yF with COPD exacerbation with associated severe acute hypoxic and hypercarbic respiratory failure requiring intubation and mechanical ventilation. remains critically ill and unable to wean from mechanical ventilation today. Acute Hypoxic and Hypercarbic Respiratory failure Acute exacerbation of COPD- severe -COPD exacerbation -Broad-spectrum antibiotic -IV steroid -DuoNeb scheduled and as needed -CXR and ABG daily -Vent bundle -Tiotropium [place] - f/u cultures. - vent bundle, hob elevated - start SBTs daily. Abdominal pain - unclear etiology. no history to suggest acute pathology. no n/v/abd pain. - LFTs and alk phos wnl. - send lipase - will manage conservatively at this time. - start tube feeds. Acute protein calorie malnutrition- moderate - tf. Acute kidney injury superimposed on chronic kidney disease- stage II/III - monitor uop - daily bmp - mivf Coronary artery disease -Aspirin, Plavix -Monitor series of troponins and EKGs to rule out ACS Diabetes mellitus -Insulin sliding scale Hypothyroidism -Levothyroxine DVT GI prophylaxis -Teds SCDs -Subcu heparin -IV Pepcid Critical Care: The total critical care time was 32 minutes. Time to perform other separately billable procedures was not included in the critical care time.
[2018-01-30] MEDS: Sod Chloride 0.9% Inj 1,000 ML IV.CONT SCH (15:04)
[2018-01-31] MEDS: Oral Hygiene Kit OROPHARYNG SCH ×4 (00:23→15:50)
[2018-01-31] MEDS: Azithromycin Inj 500 MG in Sodium Chlor 0.9% Inj 250 ML IV.SIG SCH (02:14)
[2018-01-31] MEDS: Morphine Inj 4 MG/ML Vial IV.PUSH PRN ×2 (02:15→03:02)
[2018-01-31] MEDS ORDERED: niCARdipine Inj 25 MG in Sodium Chlor 0.9% Inj 240 ML IV.CONT PRN (02:52)
[2018-01-31] MEDS: Sod Chloride 0.9% Inj 1,000 ML IV.CONT SCH ×2 (04:24→15:50)
[2018-01-31] MEDS: Heparin - SQ 10,000 UNITS/ML Vial SQ SCH ×3 (05:14→22:15)
[2018-01-31] MEDS: MethylPREDNISolone Sod Succinate Inj 40 MG/ML Vial IV.PUSH SCH ×3 (05:14→22:15)
[2018-01-31] MEDS: Chlorhexidine Gluconate 2% 1 Pack (2 Cloths) TOPICAL SCH (05:16)
[2018-01-31] MEDS: Levothyroxine 100 MCG Tablet PO SCH (05:17)
[2018-01-31 05:30] LABS: Hematocrit 29.2 % (35.0-46.0); Hemoglobin 9.5 gm/dL (11.6-15.3); Mean Corpuscular HGB Conc 32.5 % (32.0-36.0); Mean Corpuscular Hemoglobin 30.6 pg (27.0-34.0); Mean Corpuscular Volume 94.1 fL (80.0-100.0); Mean Platelet Volume 9.4 fL (7.0-11.0); Platelet Count 251 th/mm3 (150-450); Red Cell Distribution Width 15.5 % (11.6-17.2)
[2018-01-31 05:32] LABS: Calcium 8.7 mg/dL (8.5-10.1); Carbon Dioxide 19.1 meq/L (21.0-32.0); Potassium 4.3 meq/L (3.5-5.1)
--- NOTE | 2018-01-31 06:35 | XR ---
EXAM DATE: 01/31/2018 5:57 AM EDT AGE/SEX: 73 years / Female INDICATIONS: . Shortness of breath. CLINICAL DATA: This is the patient's subsequent encounter. Patient reports that signs and symptoms h ave been present for 2 days and indicates a pain score of Nonresponsive. MEDICAL/SURGICAL HISTORY: . Ulcers. Gastroesophageal reflux disease. Chronic obstructive pulmo nary disease. Diabetes. Cardiovascular disorders. Cervical cancer. Breast cancer. . Appendectomy. M astectomy, right. Hysterectomy. COMPARISON: [facility] [place], CHEST 1V SINGLE AP, 01/29/2018. . FINDINGS: Endotracheal tube in good position. NG enters stomach. Minimal basilar opacity. No effusion or pneumo thorax. Tortuous aorta. Previous kyphoplasty. CONCLUSION: Minimal basilar atelectasis. No effusion. Endotracheal tube and nasogastric tube in good position. Electronically signed by: Jn Sims MD 01/31/2018 6:33 AM EDT
--- NOTE | 2018-01-31 08:04 | P.DIET ---
Nutritional Evaluation Type of nutrition evaluation: initial Nutrition consult regarding: Tube Feeding Objective - Diagnosis Septic Shock, Hypercarbic Respiratory Failure - Objective [place] body weight: 125 kg % IBW: 130 Body Weight Used for Calculations: Upper end of IBW (62.7kg) Energy Needs - Lower Range (kCal/kg): 25 Energy Needs - Upper Range (kCal/kg): 30 Lower Limit kCal/kg (kCals): 1,568 Upper Limit kCal/kg (kCals): 1,881 Lower Limit Protein Factor (Grams per Kg): 1.2 Upper Limit Protein Factor (Grams per Kg): 1.5 Lower Protein Needs (Protein): 75 Upper Protein Needs (Protein): 94 Dietitian Reviewed in Medical Record: Current diet, Curent medications, Intake & Output, Labs, Medical history, Tube feeding Diet Order: TF only Objective Comments: PMH: Breast Cancer, CHF, COPD, HTN, legally blind Meds include: propofol, Lipitor, Synthroid Labs include: Hgb 9.5, Hct 29.2, Na 146, Cr 1.08, Glucose 131, POC Glucose 125, 143 (-) BM Assessment Assessment: Pt at nutritional risk r/t need for a TF for nutrition support. Pt intubated and sedated on propofol. Current rate of 15.54 ml/hr provides an additional 410 kcals in 24 hrs. TF Jevity 1.5 per MD. To best meet pt's nutritional needs, recommend a goal rate of 55 ml/hr for 22 hrs (hold one hr before and after Synthroid). This provides 1815 kcals, 77 gms protein and 919 mls free water. Will monitor TF tolerance, clinical course. Recommendations: TF Jevity 1.5 with goal rate 55 ml/hr for 22 hrs (Synthyroid) Dietitian to Monitor: Lab values, Renal labs, Intake & Output, Tube feeding tolerance, Weight change, Medical course
[2018-01-31] MEDS: Senna/Docusate Sodium 8.6/50 MG Tablet PO SCH ×2 (08:25→20:24)
[2018-01-31] MEDS: Chlorhexidine 0.12% Oral Kit 15 ML UDC OROPHARYNG SCH ×2 (08:25→20:23)
[2018-01-31] MEDS: Famotidine PF Inj 20 MG/2 ML Vial IV.PUSH SCH ×2 (08:25→20:24)
[2018-01-31] MEDS: Insulin NovoLIN Regular Correctional Sugar Inj SQ SCH ×3 (11:13→18:25)
[2018-01-31] MEDS: Propofol 1000 mg/100 ml Inj 1,000 MG/100 ML BOTTLE IV.CONT PRN ×2 (15:59→23:59)
--- NOTE | 2018-01-31 17:06 | P.PNCC ---
Subjective Subjective Remarks/Hospital Course: 01/30: remains intubated and sedated. Cr remains elevated: baseline Cr appears to be between 1.1 and 1.3. now 1.5 unclear if this is acute on chronic or new worsening of CKD. on exam patient has new RUQ tenderness although family member at bedside states she has not complained of nausea, vomiting, abdominal pain or any other GI symptoms recently. ROS unobtainable due to ett. 01/31: minimal improvements. Cr at baseline. slightly more awake, but still failing cpap trials. ROS unobtainable. Objective Vital Signs / I&O: Vital Signs 01/30/18 19:27 01/30/18 20:00 01/30/18 21:49 Temperature 36.8 C Pulse Rate 69 71 Respiratory Rate 21 20 20 Blood Pressure 175/74 H Pulse Oximetry 100 98 01/31/18 00:00 01/31/18 00:11 01/31/18 04:00 Temperature 36.6 C 36.8 C Pulse Rate 67 66 Respiratory Rate 20 20 20 Blood Pressure 169/88 H 132/66 Pulse Oximetry 97 97 97 01/31/18 04:47 01/31/18 08:00 01/31/18 08:02 Temperature Pulse Rate 65 53 L 54 L Respiratory Rate 20 20 20 Blood Pressure Pulse Oximetry 97 99 01/31/18 09:00 01/31/18 09:29 01/31/18 09:30 Temperature 36.2 C L Pulse Rate 64 64 64 Respiratory Rate 20 20 Blood Pressure 155/70 H Pulse Oximetry 100 99 01/31/18 09:45 01/31/18 10:00 01/31/18 10:15 Temperature Pulse Rate 61 63 62 Respiratory Rate 21 20 20 Blood Pressure 159/70 H 155/68 H 161/70 H Pulse Oximetry 100 99 100 01/31/18 10:30 01/31/18 10:45 01/31/18 11:00 Temperature Pulse Rate 60 57 L 55 L Respiratory Rate 20 20 20 Blood Pressure 158/70 H 153/69 H 149/65 H Pulse Oximetry 100 100 100 01/31/18 11:15 01/31/18 11:30 01/31/18 11:45 Temperature Pulse Rate 62 60 58 L Respiratory Rate 22 20 20 Blood Pressure 155/68 H 150/68 H 148/67 H Pulse Oximetry 99 100 100 01/31/18 11:48 01/31/18 12:00 01/31/18 12:15 Temperature 37.0 C Pulse Rate 59 L 63 Respiratory Rate 20 20 20 Blood Pressure 147/60 H 146/65 H Pulse Oximetry 100 100 100 01/31/18 12:30 01/31/18 12:45 01/31/18 13:00 Temperature Pulse Rate 69 62 62 Respiratory Rate 20 21 20 Blood Pressure 119/59 L 157/68 H 152/67 H Pulse Oximetry 98 98 99 01/31/18 13:15 01/31/18 13:30 01/31/18 13:45 Temperature Pulse Rate 65 60 59 L Respiratory Rate 21 20 20 Blood Pressure 159/65 H 151/66 H 162/71 H Pulse Oximetry 99 100 100 01/31/18 14:00 01/31/18 14:15 01/31/18 14:30 Temperature Pulse Rate 58 L 59 L 74 Respiratory Rate 20 20 21 Blood Pressure 162/72 H 165/74 H 163/64 H Pulse Oximetry 100 98 96 01/31/18 14:45 01/31/18 15:00 01/31/18 15:15 Temperature Pulse Rate 62 63 65 Respiratory Rate 20 20 20 Blood Pressure 151/66 H 157/69 H 138/65 Pulse Oximetry 100 99 96 01/31/18 15:27 01/31/18 15:28 01/31/18 15:30 Temperature Pulse Rate 61 61 Respiratory Rate 20 20 20 Blood Pressure 136/61 Pulse Oximetry 99 01/31/18 15:45 01/31/18 16:00 Temperature 37.0 C Pulse Rate 56 L 67 Respiratory Rate 20 26 H Blood Pressure 130/62 149/65 H Pulse Oximetry 99 97 Intake & Output 01/30/18 01/31/18 01/31/18 18:59 06:59 18:59 Intake Total 300 / 300 1300 / 1300 1350 / 1350 Output Total 150 / 150 375 / 375 Balance 150 / 150 925 / 925 1350 / 1350 Weight 89.2 kg Intake: IV 300 / 300 1300 / 1300 1350 / 1350 Diprivan 1000 mg/100 ml Inj 1, 200 / 200 200 / 200 000 mg In 100 ml @ 30 MCG/KG/ MIN 13.32 mls/hr IV.CONT TITRATE PRN Rx#:[id number] NS Inj 1,000 ML @ 75 mls/hr IV. 1000 / 1000 1000 / 1000 CONT .[id number] [facility] Rx#:[id number] Azithromycin Inj 500 MG In NS 250 / 250 Inj 250 ML @ 250 mls/hr IV.SIG Q24H [facility] Rx#:[id number] Maxipime Inj 2,000 MG In NS Inj 100 / 100 100 / 100 100 / 100 100 ML @ 200 mls/hr IV.SIG Q12H [facility] Rx#:[id number] Oral 0 / 0 Output: Urine Amount (Catheter) 150 / 150 375 / 375 Indwelling Urethral Catheter 150 / 150 375 / 375 Result Diagrams: 01/31/18 04:40 01/31/18 04:40 Objective Remarks: gen: elderly female, lying in bed, intubated, sedated heent: nc. at. perrl. mucous membranes moist. neck: no jvd. trachea midline. chest: PRVC. fio2 40%. equal chest rise. cv: normal rate, regular rhythm. sinus. abd: soft, grimaces with palpation in RUQ. no guarding or rebound. nondistended. extr: 1+ edema. distal pulses 2+. neuro: RASS -3. sedated. withdraws to pain. moves all extremities spontaneously. Assessment and Plan - Assessment and Plan Plan: Assessment: 72yF with COPD exacerbation with associated severe acute hypoxic and hypercarbic respiratory failure requiring intubation and mechanical ventilation. remains critically ill and unable to wean from mechanical ventilation today. Acute Hypoxic and Hypercarbic Respiratory failure Acute exacerbation of COPD- severe -COPD exacerbation -Broad-spectrum antibiotic -IV steroid -DuoNeb scheduled and as needed -CXR and ABG daily -Vent bundle -Tiotropium [place] - f/u cultures. - vent bundle, hob elevated - SBTs daily.- still failing today. Abdominal pain- resolved. - continue tube feeds. Acute protein calorie malnutrition- moderate - tf. Acute kidney injury superimposed on chronic kidney disease- stage II/III - monitor uop - daily bmp - mivf Coronary artery disease -Aspirin, Plavix -Monitor series of troponins and EKGs to rule out ACS Diabetes mellitus -Insulin sliding scale Hypothyroidism -Levothyroxine DVT GI prophylaxis -Teds SCDs -Subcu heparin -IV Pepcid
[2018-02-01] MEDS: Insulin NovoLIN Regular Correctional Sugar Inj SQ SCH ×3 (00:01→05:36)
[2018-02-01] MEDS: Oral Hygiene Kit OROPHARYNG SCH ×5 (00:16→16:30)
[2018-02-01] MEDS: Azithromycin Inj 500 MG in Sodium Chlor 0.9% Inj 250 ML IV.SIG SCH (02:45)
[2018-02-01 04:24] LABS: Hematocrit 27.5 % (35.0-46.0); Hemoglobin 8.9 gm/dL (11.6-15.3); Mean Corpuscular HGB Conc 32.5 % (32.0-36.0); Mean Corpuscular Hemoglobin 30.1 pg (27.0-34.0); Mean Corpuscular Volume 92.7 fL (80.0-100.0); Mean Platelet Volume 9.9 fL (7.0-11.0); Platelet Count 220 th/mm3 (150-450); Red Blood Count 2.97 mil/mm3 (4.00-5.30); Red Cell Distribution Width 15.6 % (11.6-17.2); White Blood Count 9.2 th/mm3 (4.0-11.0)
[2018-02-01 04:46] LABS: Calcium 8.5 mg/dL (8.5-10.1); Carbon Dioxide 17.5 meq/L (21.0-32.0); Potassium 4.3 meq/L (3.5-5.1)
[2018-02-01] MEDS: Chlorhexidine Gluconate 2% 1 Pack (2 Cloths) TOPICAL SCH (05:30)
[2018-02-01] MEDS: Levothyroxine 100 MCG Tablet PO SCH (05:31)
[2018-02-01] MEDS: Heparin - SQ 10,000 UNITS/ML Vial SQ SCH ×3 (05:31→21:11)
[2018-02-01] MEDS: MethylPREDNISolone Sod Succinate Inj 40 MG/ML Vial IV.PUSH SCH ×3 (05:31→21:10)
[2018-02-01] MEDS: Sod Chloride 0.9% Inj 1,000 ML IV.CONT SCH (05:33)
[2018-02-01] MEDS: Propofol 1000 mg/100 ml Inj 1,000 MG/100 ML BOTTLE IV.CONT PRN ×3 (05:43→23:42)
[2018-02-01] MEDS: Senna/Docusate Sodium 8.6/50 MG Tablet PO SCH ×2 (08:18→21:11)
[2018-02-01] MEDS: Famotidine PF Inj 20 MG/2 ML Vial IV.PUSH SCH ×2 (08:18→21:11)
[2018-02-01] MEDS: Chlorhexidine 0.12% Oral Kit 15 ML UDC OROPHARYNG SCH ×2 (08:19→20:28)
[2018-02-01] MEDS: Tiotropium Bromide 18 MCG/ACT Inhaler INH SCH (10:28)
[2018-02-01 11:19] LABS: ABG Base Excess -5.9 mmol/L (-2-2); ABG PCO2 57 mmHg (38-42); ABG PO2 73 mmHG (61-120)
--- NOTE | 2018-02-01 12:20 | P.PNCC ---
Subjective Subjective Remarks/Hospital Course: 01/30: remains intubated and sedated. Cr remains elevated: baseline Cr appears to be between 1.1 and 1.3. now 1.5 unclear if this is acute on chronic or new worsening of CKD. on exam patient has new RUQ tenderness although family member at bedside states she has not complained of nausea, vomiting, abdominal pain or any other GI symptoms recently. ROS unobtainable due to ett. 01/31: minimal improvements. Cr at baseline. slightly more awake, but still failing cpap trials. ROS unobtainable. 02/01: much improved and awake this AM. however, on SBT became hypercarbic and acidotic with a pH < 7.2, so placed back on rate. hemodynamics stable. Objective Vital Signs / I&O: Vital Signs 01/31/18 12:15 01/31/18 12:30 01/31/18 12:45 Temperature Pulse Rate 63 69 62 Respiratory Rate 20 20 21 Blood Pressure 146/65 H 119/59 L 157/68 H Pulse Oximetry 100 98 98 01/31/18 13:00 01/31/18 13:15 01/31/18 13:30 Temperature Pulse Rate 62 65 60 Respiratory Rate 20 21 20 Blood Pressure 152/67 H 159/65 H 151/66 H Pulse Oximetry 99 99 100 01/31/18 13:45 01/31/18 14:00 01/31/18 14:15 Temperature Pulse Rate 59 L 58 L 59 L Respiratory Rate 20 20 20 Blood Pressure 162/71 H 162/72 H 165/74 H Pulse Oximetry 100 100 98 01/31/18 14:30 01/31/18 14:45 01/31/18 15:00 Temperature Pulse Rate 74 62 63 Respiratory Rate 21 20 20 Blood Pressure 163/64 H 151/66 H 157/69 H Pulse Oximetry 96 100 99 01/31/18 15:15 01/31/18 15:27 01/31/18 15:28 Temperature Pulse Rate 65 61 Respiratory Rate 20 20 20 Blood Pressure 138/65 Pulse Oximetry 96 01/31/18 15:30 01/31/18 15:45 01/31/18 16:00 Temperature 37.0 C Pulse Rate 61 56 L 67 Respiratory Rate 20 20 26 H Blood Pressure 136/61 130/62 149/65 H Pulse Oximetry 99 99 97 01/31/18 20:00 01/31/18 20:52 01/31/18 23:00 Temperature 36.9 C Pulse Rate 60 60 59 L Respiratory Rate 20 20 20 Blood Pressure 144/65 H 148/68 H Pulse Oximetry 100 100 99 01/31/18 23:30 02/01/18 00:00 02/01/18 00:31 Temperature 36.9 C Pulse Rate 55 L 62 56 L Respiratory Rate 20 20 20 Blood Pressure 130/60 149/68 H 127/60 Pulse Oximetry 98 96 96 02/01/18 01:00 02/01/18 01:20 02/01/18 01:30 Temperature Pulse Rate 59 L 56 L Respiratory Rate 20 20 20 Blood Pressure 142/65 H 132/63 Pulse Oximetry 96 99 96 02/01/18 02:00 02/01/18 02:31 02/01/18 03:00 Temperature Pulse Rate 55 L 70 57 L Respiratory Rate 20 20 20 Blood Pressure 137/63 164/69 H Pulse Oximetry 97 99 97 02/01/18 03:01 02/01/18 03:30 02/01/18 03:41 Temperature Pulse Rate 56 L 58 L 58 L Respiratory Rate 20 20 20 Blood Pressure 140/65 151/66 H Pulse Oximetry 97 97 97 02/01/18 04:00 02/01/18 04:30 02/01/18 05:00 Temperature 36.4 C L Pulse Rate 66 73 70 Respiratory Rate 20 20 20 Blood Pressure 148/69 H 140/66 139/64 Pulse Oximetry 98 97 98 02/01/18 05:30 02/01/18 06:00 02/01/18 06:01 Temperature Pulse Rate 66 69 67 Respiratory Rate 20 20 20 Blood Pressure 128/60 146/65 H Pulse Oximetry 98 100 99 02/01/18 06:30 02/01/18 07:00 02/01/18 07:31 Temperature Pulse Rate 69 64 66 Respiratory Rate 21 20 29 H Blood Pressure 141/65 H 159/65 H 150/63 H Pulse Oximetry 100 100 100 02/01/18 07:41 02/01/18 08:00 02/01/18 08:31 Temperature 37.0 C Pulse Rate 91 H 88 82 Respiratory Rate 10 L 27 H 24 Blood Pressure 172/74 H 149/65 H Pulse Oximetry 98 95 99 02/01/18 09:00 02/01/18 09:30 02/01/18 09:38 Temperature Pulse Rate 88 100 H 113 H Respiratory Rate 27 H 27 H 21 Blood Pressure 156/67 H 180/77 H 172/87 H Pulse Oximetry 95 98 99 02/01/18 10:00 Temperature Pulse Rate 93 H Respiratory Rate 27 H Blood Pressure 166/70 H Pulse Oximetry 92 L Intake & Output 01/31/18 02/01/18 02/01/18 18:59 06:59 18:59 Intake Total 1703 / 1703 2310 / 2310 Output Total 450 / 450 400 / 400 Balance 1253 / 1253 1910 / 1910 Weight 83 kg Intake: IV 1350 / 1350 1550 / 1550 Diprivan 1000 mg/100 ml Inj 1, 200 / 200 000 mg In 100 ml @ 30 MCG/KG/ MIN 13.32 mls/hr IV.CONT TITRATE PRN Rx#:[id number] NS Inj 1,000 ML @ 75 mls/hr IV. 1000 / 1000 1000 / 1000 CONT .[id number] [facility] Rx#:[id number] Azithromycin Inj 500 MG In NS 250 / 250 250 / 250 Inj 250 ML @ 250 mls/hr IV.SIG Q24H [facility] Rx#:[id number] Maxipime Inj 2,000 MG In NS Inj 100 / 100 100 / 100 100 ML @ 200 mls/hr IV.SIG Q12H [facility] Rx#:[id number] Tube Feeding 293 / 293 700 / 700 Tube Irrigant 60 / 60 Water Bolus Amount 60 / 60 Output: Urine 450 / 450 Urine Amount (Catheter) 400 / 400 Indwelling Urethral Catheter 400 / 400 Other: Date of Last Bowel Movement 02/01/18 # Bowel Movements 0 0 Result Diagrams: 02/01/18 03:39 02/01/18 03:39 Objective Remarks: gen: elderly female, lying in bed, intubated, sedated heent: nc. at. perrl. mucous membranes moist. neck: no jvd. trachea midline. chest: PRVC. fio2 40%. equal chest rise. cv: normal rate, regular rhythm. sinus. abd: soft, nontender, nondistended. no guarding. extr: 1+ edema. distal pulses 2+. neuro: RASS -1. follows commands. Assessment and Plan - Assessment and Plan Plan: Assessment: 72yF with COPD exacerbation with associated severe acute hypoxic and hypercarbic respiratory failure requiring intubation and mechanical ventilation. remains critically ill and unable to wean from mechanical ventilation today, particularly due to respiratory acidosis during SBT. Acute Hypoxic and Hypercarbic Respiratory failure Acute exacerbation of COPD- severe -COPD exacerbation -Broad-spectrum antibiotic -IV steroid -DuoNeb scheduled and as needed -CXR and ABG daily -Vent bundle -Tiotropium [place] - f/u cultures. - vent bundle, hob elevated - SBTs daily.- still failing today. Abdominal pain- resolved. - continue tube feeds. Acute protein calorie malnutrition- moderate - tf. Acute kidney injury superimposed on chronic kidney disease- stage II/III - monitor uop - daily bmp - mivf: change to sodium acetate (1/2 Normal) to help with hyperchloremic acidosis. Coronary artery disease -Aspirin, Plavix -trops downtrending. Diabetes mellitus -Insulin sliding scale Hypothyroidism -Levothyroxine DVT GI prophylaxis -Teds SCDs -Subcu heparin -IV Pepcid
[2018-02-01] MEDS ORDERED: SODIUM ACETATE IV.CONT SCH ×2 (13:00)
[2018-02-01] MEDS ORDERED: DEXTROSE 5% IV.CONT SCH ×2 (13:00)
[2018-02-01] MEDS ORDERED: WATER IV.CONT SCH ×2 (13:00)
[2018-02-01] MEDS: DEXTROSE 5% IV.SIG SCH ×2 (16:30)
[2018-02-01] MEDS: SODIUM ACETATE IV.SIG SCH ×2 (16:30)
[2018-02-01] MEDS: WATER IV.SIG SCH ×2 (16:30)
[2018-02-02] MEDS: Azithromycin Inj 500 MG in Sodium Chlor 0.9% Inj 250 ML IV.SIG SCH (03:19)
[2018-02-02] MEDS: Oral Hygiene Kit OROPHARYNG SCH ×3 (04:00→18:16)
[2018-02-02] MEDS: Chlorhexidine Gluconate 2% 1 Pack (2 Cloths) TOPICAL SCH (04:00)
[2018-02-02] MEDS: Heparin - SQ 10,000 UNITS/ML Vial SQ SCH ×3 (05:55→21:07)
[2018-02-02] MEDS: MethylPREDNISolone Sod Succinate Inj 40 MG/ML Vial IV.PUSH SCH ×3 (05:55→21:06)
[2018-02-02] MEDS: Levothyroxine 100 MCG Tablet PO SCH (05:55)
[2018-02-02] MEDS: Insulin NovoLIN Regular Correctional Sugar Inj SQ SCH ×4 (06:02→18:15)
[2018-02-02] MEDS: Propofol 1000 mg/100 ml Inj 1,000 MG/100 ML BOTTLE IV.CONT PRN ×2 (06:12→18:13)
[2018-02-02 06:41] LABS: Hemoglobin 7.9 gm/dL (11.6-15.3); Mean Corpuscular HGB Conc 31.7 % (32.0-36.0); Mean Corpuscular Volume 94.7 fL (80.0-100.0); Mean Platelet Volume 9.6 fL (7.0-11.0); Platelet Count 243 th/mm3 (150-450); Red Blood Count 2.64 mil/mm3 (4.00-5.30); Red Cell Distribution Width 15.9 % (11.6-17.2); White Blood Count 7.2 th/mm3 (4.0-11.0)
[2018-02-02 07:01] LABS: Calcium 8.1 mg/dL (8.5-10.1); Carbon Dioxide 25.3 meq/L (21.0-32.0); Potassium 3.5 meq/L (3.5-5.1)
[2018-02-02] MEDS: Chlorhexidine 0.12% Oral Kit 15 ML UDC OROPHARYNG SCH ×2 (08:35→21:08)
[2018-02-02] MEDS: Tiotropium Bromide 18 MCG/ACT Inhaler INH SCH (08:36)
[2018-02-02] MEDS: Senna/Docusate Sodium 8.6/50 MG Tablet PO SCH ×2 (08:36→21:08)
[2018-02-02] MEDS: Famotidine PF Inj 20 MG/2 ML Vial IV.PUSH SCH ×2 (08:36→21:07)
[2018-02-02] MEDS: DEXTROSE 5% IV.SIG SCH ×2 (14:40)
[2018-02-02] MEDS: WATER IV.SIG SCH ×2 (14:40)
[2018-02-02] MEDS: SODIUM ACETATE IV.SIG SCH ×2 (14:40)
--- NOTE | 2018-02-02 14:58 | P.PNCC ---
Subjective Subjective Remarks/Hospital Course: 01/30: remains intubated and sedated. Cr remains elevated: baseline Cr appears to be between 1.1 and 1.3. now 1.5 unclear if this is acute on chronic or new worsening of CKD. on exam patient has new RUQ tenderness although family member at bedside states she has not complained of nausea, vomiting, abdominal pain or any other GI symptoms recently. ROS unobtainable due to ett. 01/31: minimal improvements. Cr at baseline. slightly more awake, but still failing cpap trials. ROS unobtainable. 02/01: much improved and awake this AM. however, on SBT became hypercarbic and acidotic with a pH < 7.2, so placed back on rate. hemodynamics stable. 02/02: remains awake. still poor tidal volumes on SBT. metabolic component of acidosis much improved. Objective Vital Signs / I&O: Vital Signs 02/01/18 16:00 02/01/18 16:01 02/01/18 16:08 Temperature 36.6 C Pulse Rate 56 L 62 53 L Respiratory Rate 20 20 20 Blood Pressure 140/66 Pulse Oximetry 100 100 02/01/18 18:00 02/01/18 20:00 02/01/18 20:04 Temperature 37.1 C Pulse Rate 55 L 58 L Respiratory Rate 20 20 Blood Pressure 124/58 L Pulse Oximetry 100 98 02/01/18 20:11 02/01/18 22:00 02/02/18 00:00 Temperature 37.1 C Pulse Rate 63 59 L 60 Respiratory Rate 20 20 Blood Pressure 122/60 Pulse Oximetry 100 02/02/18 01:06 02/02/18 02:00 02/02/18 03:10 Temperature Pulse Rate 59 L 57 L Respiratory Rate 20 20 Blood Pressure Pulse Oximetry 98 99 02/02/18 04:00 02/02/18 06:00 02/02/18 07:47 Temperature 36.9 C Pulse Rate 57 L 60 64 Respiratory Rate 20 17 Blood Pressure 120/59 L Pulse Oximetry 100 97 02/02/18 12:11 Temperature Pulse Rate Respiratory Rate 22 Blood Pressure Pulse Oximetry Intake & Output 02/01/18 02/02/18 02/02/18 18:59 06:59 18:59 Intake Total 356 / 356 2260 / 2260 1020 / 1020 Output Total 1050 / 1050 450 / 450 Balance -694 / -694 1810 / 1810 1020 / 1020 Weight 82 kg Intake: IV 200 / 200 1550 / 1550 1020 / 1020 Diprivan 1000 mg/100 ml Inj 1, 100 / 100 200 / 200 000 mg In 100 ml @ 30 MCG/KG/ MIN 13.32 mls/hr IV.CONT TITRATE PRN Rx#:[id number] NS Inj 1,000 ML @ 75 mls/hr IV. 1000 / 1000 CONT .[id number] [facility] Rx#:[id number] Azithromycin Inj 500 MG In NS 250 / 250 Inj 250 ML @ 250 mls/hr IV.SIG Q24H [facility] Rx#:[id number] Maxipime Inj 2,000 MG In NS Inj 100 / 100 100 / 100 100 ML @ 200 mls/hr IV.SIG Q12H [facility] Rx#:[id number] Sodium Acetate Inj 80 MEQ In 1020 / 1020 D5W Inj 1,000 ML @ 50 mls/hr IV .SIG .[id number] [facility] Rx#:[id number] Tube Feeding 96 / 96 650 / 650 Water Bolus Amount 60 / 60 60 / 60 Output: Urine Amount (Catheter) 1050 / 1050 450 / 450 Indwelling Urethral Catheter 1050 / 1050 450 / 450 Other: Date of Last Bowel Movement 02/01/18 02/01/18 # Incontinent Bowel Movements 2 Result Diagrams: 02/02/18 05:14 02/02/18 05:14 Objective Remarks: gen: elderly female, lying in bed, intubated, sedated heent: nc. at. perrl. mucous membranes moist. neck: no jvd. trachea midline. chest: PSV 15/5. fio2 40%. equal chest rise. cv: normal rate, regular rhythm. sinus. abd: soft, nontender, nondistended. no guarding. extr: 1+ edema. distal pulses 2+. neuro: RASS -1. follows commands. Assessment and Plan - Assessment and Plan Plan: Assessment: 72yF with COPD exacerbation with associated severe acute hypoxic and hypercarbic respiratory failure requiring intubation and mechanical ventilation. still aggressively working to separate from mechanical ventilation. Acute Hypoxic and Hypercarbic Respiratory failure Acute exacerbation of COPD- severe -COPD exacerbation -Broad-spectrum antibiotic -IV steroid -DuoNeb scheduled and as needed -Vent bundle -Tiotropium [place] - cultures NG. - vent bundle, hob elevated - SBTs daily.- still failing today. Abdominal pain- resolved. - continue tube feeds. Acute protein calorie malnutrition- moderate - tf. Acute kidney injury superimposed on chronic kidney disease- stage II/III- improving. - monitor uop - daily bmp - d/c mivf today. Coronary artery disease -Aspirin, Plavix -trops downtrending. Diabetes mellitus -Insulin sliding scale Hypothyroidism -Levothyroxine DVT GI prophylaxis -Teds SCDs -Subcu heparin -IV Pepcid
[2018-02-03] MEDS: Insulin NovoLIN Regular Correctional Sugar Inj SQ SCH ×6 (00:11→17:56)
[2018-02-03] MEDS: Oral Hygiene Kit OROPHARYNG SCH ×4 (00:12→15:34)
[2018-02-03] MEDS: Propofol 1000 mg/100 ml Inj 1,000 MG/100 ML BOTTLE IV.CONT PRN ×2 (01:13→06:15)
[2018-02-03] MEDS: Azithromycin Inj 500 MG in Sodium Chlor 0.9% Inj 250 ML IV.SIG SCH (03:00)
[2018-02-03] MEDS: Levothyroxine 100 MCG Tablet PO SCH (05:55)
[2018-02-03] MEDS: Heparin - SQ 10,000 UNITS/ML Vial SQ SCH ×3 (05:55→22:10)
[2018-02-03] MEDS: MethylPREDNISolone Sod Succinate Inj 40 MG/ML Vial IV.PUSH SCH ×3 (05:55→22:11)
[2018-02-03 06:33] LABS: Hematocrit 24.7 % (35.0-46.0); Mean Corpuscular HGB Conc 32.6 % (32.0-36.0); Mean Corpuscular Hemoglobin 30.7 pg (27.0-34.0); Mean Corpuscular Volume 94.3 fL (80.0-100.0); Mean Platelet Volume 9.6 fL (7.0-11.0); Platelet Count 232 th/mm3 (150-450); Red Blood Count 2.62 mil/mm3 (4.00-5.30); Red Cell Distribution Width 16.4 % (11.6-17.2); White Blood Count 7.9 th/mm3 (4.0-11.0)
[2018-02-03 07:01] LABS: Calcium 8.3 mg/dL (8.5-10.1); Carbon Dioxide 26.9 meq/L (21.0-32.0); Potassium 4.1 meq/L (3.5-5.1)
[2018-02-03] MEDS: Chlorhexidine 0.12% Oral Kit 15 ML UDC OROPHARYNG SCH ×2 (08:28→20:33)
[2018-02-03] MEDS: Senna/Docusate Sodium 8.6/50 MG Tablet PO SCH ×2 (08:28→20:30)
[2018-02-03] MEDS: Famotidine PF Inj 20 MG/2 ML Vial IV.PUSH SCH ×2 (08:29→20:30)
--- NOTE | 2018-02-03 08:33 | P.PNCC ---
Subjective Subjective Remarks/Hospital Course: 01/30: remains intubated and sedated. Cr remains elevated: baseline Cr appears to be between 1.1 and 1.3. now 1.5 unclear if this is acute on chronic or new worsening of CKD. on exam patient has new RUQ tenderness although family member at bedside states she has not complained of nausea, vomiting, abdominal pain or any other GI symptoms recently. ROS unobtainable due to ett. 01/31: minimal improvements. Cr at baseline. slightly more awake, but still failing cpap trials. ROS unobtainable. 02/01: much improved and awake this AM. however, on SBT became hypercarbic and acidotic with a pH < 7.2, so placed back on rate. hemodynamics stable. 02/02: remains awake. still poor tidal volumes on SBT. metabolic component of acidosis much improved. 02/03: continues to fail SBT trials. starting to appear volume overloaded on exam. organ function continues to improve. afebrile. Objective Vital Signs / I&O: Vital Signs 02/02/18 09:00 02/02/18 09:01 02/02/18 09:30 Temperature Pulse Rate 63 63 58 L Respiratory Rate 18 18 17 Blood Pressure 167/72 H 153/67 H Pulse Oximetry 100 100 100 02/02/18 10:00 02/02/18 10:31 02/02/18 11:00 Temperature Pulse Rate 61 67 74 Respiratory Rate 19 23 24 Blood Pressure 154/70 H 146/87 H 146/66 H Pulse Oximetry 99 97 98 02/02/18 11:30 02/02/18 12:00 02/02/18 12:11 Temperature Pulse Rate 67 65 Respiratory Rate 25 H 21 22 Blood Pressure 135/63 137/65 Pulse Oximetry 96 98 02/02/18 12:30 02/02/18 13:00 02/02/18 13:30 Temperature Pulse Rate 65 64 65 Respiratory Rate 21 22 20 Blood Pressure 139/63 129/62 146/66 H Pulse Oximetry 98 97 100 02/02/18 14:00 02/02/18 14:01 02/02/18 14:30 Temperature Pulse Rate 73 77 67 Respiratory Rate 20 22 23 Blood Pressure 136/64 154/70 H Pulse Oximetry 94 L 99 97 02/02/18 15:00 02/02/18 15:31 02/02/18 15:32 Temperature Pulse Rate 70 67 81 Respiratory Rate 29 H 23 16 Blood Pressure 164/68 H 151/69 H Pulse Oximetry 97 97 95 02/02/18 16:00 02/02/18 16:31 02/02/18 17:00 Temperature Pulse Rate 80 73 74 Respiratory Rate 27 H 23 25 H Blood Pressure 175/74 H 165/70 H 183/77 H Pulse Oximetry 97 98 97 02/02/18 17:30 02/02/18 18:00 02/02/18 18:31 Temperature Pulse Rate 82 73 80 Respiratory Rate 25 H 23 17 Blood Pressure 197/86 H 156/94 H 191/80 H Pulse Oximetry 97 99 99 02/02/18 19:00 02/02/18 19:30 02/02/18 19:40 Temperature Pulse Rate 72 82 69 Respiratory Rate 22 21 21 Blood Pressure 191/80 H 215/87 H 174/74 H Pulse Oximetry 100 100 100 02/02/18 20:00 02/02/18 20:30 02/02/18 20:48 Temperature 37.2 C Pulse Rate 70 73 69 Respiratory Rate 22 22 20 Blood Pressure 186/79 H 176/74 H Pulse Oximetry 99 99 100 02/02/18 21:00 02/02/18 21:31 02/02/18 22:00 Temperature Pulse Rate 95 H 95 H 62 Respiratory Rate 21 26 H 20 Blood Pressure 194/86 H 156/69 H 107/53 L Pulse Oximetry 99 97 100 02/02/18 22:30 02/02/18 23:00 02/02/18 23:30 Temperature Pulse Rate 56 L 54 L 52 L Respiratory Rate 20 20 20 Blood Pressure 104/53 L 117/56 L 103/51 L Pulse Oximetry 97 99 98 02/03/18 00:00 02/03/18 00:30 02/03/18 01:00 Temperature 37.3 C Pulse Rate 51 L 76 52 L Respiratory Rate 20 20 20 Blood Pressure 109/55 L 155/68 H Pulse Oximetry 98 99 99 02/03/18 01:01 02/03/18 01:30 02/03/18 02:00 Temperature Pulse Rate 52 L 51 L 50 L Respiratory Rate 20 20 20 Blood Pressure 111/57 L 107/54 L 103/52 L Pulse Oximetry 100 99 98 02/03/18 02:30 02/03/18 03:00 02/03/18 03:07 Temperature Pulse Rate 50 L 51 L 51 L Respiratory Rate 20 20 20 Blood Pressure 105/53 L 109/55 L Pulse Oximetry 98 98 02/03/18 03:30 02/03/18 04:00 02/03/18 04:30 Temperature 37.2 C Pulse Rate 52 L 52 L 53 L Respiratory Rate 20 20 20 Blood Pressure 105/51 L 108/55 L 115/55 L Pulse Oximetry 98 100 100 02/03/18 04:34 02/03/18 05:00 02/03/18 05:30 Temperature Pulse Rate 55 L 66 Respiratory Rate 20 20 28 H Blood Pressure 127/60 119/87 Pulse Oximetry 100 100 100 02/03/18 06:00 02/03/18 07:34 02/03/18 07:35 Temperature Pulse Rate 62 58 L Respiratory Rate 20 20 13 Blood Pressure 138/65 Pulse Oximetry 100 Intake & Output 02/02/18 02/03/18 02/03/18 18:59 06:59 18:59 Intake Total 1989 / 1989 841 / 841 Output Total 900 / 900 650 / 650 Balance 1090 / 1090 191 / 191 Weight 85 kg Intake: IV 1220 / 1220 300 / 300 Diprivan 1000 mg/100 ml Inj 1, 100 / 100 200 / 200 000 mg In 100 ml @ 30 MCG/KG/ MIN 13.32 mls/hr IV.CONT TITRATE PRN Rx#:[id number] Maxipime Inj 2,000 MG In NS Inj 100 / 100 100 / 100 100 ML @ 200 mls/hr IV.SIG Q12H [facility] Rx#:[id number] Sodium Acetate Inj 80 MEQ In 1020 / 1020 D5W Inj 1,000 ML @ 50 mls/hr IV .SIG .[id number] [facility] Rx#:[id number] Oral 0 / 0 0 / 0 Tube Feeding 650 / 650 541 / 541 Tube Irrigant 60 / 60 Water Bolus Amount 60 / 60 Output: Urine 450 / 450 Urine Amount (Catheter) 450 / 450 650 / 650 Indwelling Urethral Catheter 450 / 450 650 / 650 Other: Date of Last Bowel Movement 02/01/18 02/02/18 # Bowel Movements 0 0 # Incontinent Bowel Movements 2 Result Diagrams: 02/03/18 05:29 02/03/18 05:29 Objective Remarks: gen: elderly female, lying in bed, intubated, sedated heent: nc. at. perrl. mucous membranes moist. neck: no jvd. trachea midline. chest: PSV 15/5. fio2 40%. equal chest rise. cv: normal rate, regular rhythm. sinus. abd: soft, nontender, nondistended. no guarding. extr: 1+ edema. distal pulses 2+. neuro: RASS -1. follows commands. Assessment and Plan - Assessment and Plan Plan: Assessment: 72yF with COPD exacerbation with associated severe acute hypoxic and hypercarbic respiratory failure requiring intubation and mechanical ventilation. still aggressively working to separate from mechanical ventilation. Acute Hypoxic and Hypercarbic Respiratory failure Acute exacerbation of COPD- severe -COPD exacerbation -Broad-spectrum antibiotic -IV steroid -DuoNeb scheduled and as needed -Vent bundle -Tiotropium [place] - cultures NG. - vent bundle, hob elevated - SBTs daily. Abdominal pain- resolved. - continue tube feeds. Acute protein calorie malnutrition- moderate - tf. Acute kidney injury superimposed on chronic kidney disease- stage II/III- improving. - monitor uop - daily bmp - one dose of lasix 20mg iv x 1. Coronary artery disease -Aspirin, Plavix -trops downtrending. Diabetes mellitus -Insulin sliding scale Hypothyroidism -Levothyroxine DVT GI prophylaxis -Teds SCDs -Subcu heparin -IV Pepcid
[2018-02-03 10:29] LABS: ABG Base Excess 2.9 mmol/L (-2-2); ABG PCO2 49 mmHg (38-42); ABG PO2 99 mmHG (61-120)
[2018-02-03] MEDS: Morphine Inj 4 MG/ML Vial IV.PUSH PRN ×4 (13:25→20:31)
[2018-02-03] MEDS: Tiotropium Bromide 18 MCG/ACT Inhaler INH SCH (22:10)
[2018-02-04] MEDS: Oral Hygiene Kit OROPHARYNG SCH ×4 (00:06→15:54)
[2018-02-04] MEDS: Insulin NovoLIN Regular Correctional Sugar Inj SQ SCH ×3 (00:06→17:44)
[2018-02-04] MEDS: Morphine Inj 4 MG/ML Vial IV.PUSH PRN ×3 (00:23→23:19)
[2018-02-04] MEDS: Azithromycin Inj 500 MG in Sodium Chlor 0.9% Inj 250 ML IV.SIG SCH (03:33)
[2018-02-04 04:32] LABS: Hematocrit 26.5 % (35.0-46.0); Hemoglobin 8.6 gm/dL (11.6-15.3); Mean Corpuscular HGB Conc 32.5 % (32.0-36.0); Mean Corpuscular Hemoglobin 30.3 pg (27.0-34.0); Mean Corpuscular Volume 93.4 fL (80.0-100.0); Mean Platelet Volume 9.3 fL (7.0-11.0); Platelet Count 254 th/mm3 (150-450); Red Blood Count 2.84 mil/mm3 (4.00-5.30); Red Cell Distribution Width 15.3 % (11.6-17.2); White Blood Count 9.1 th/mm3 (4.0-11.0)
[2018-02-04 04:56] LABS: Calcium 8.2 mg/dL (8.5-10.1); Carbon Dioxide 33.1 meq/L (21.0-32.0); Potassium 4.9 meq/L (3.5-5.1)
[2018-02-04] MEDS: Heparin - SQ 10,000 UNITS/ML Vial SQ SCH ×3 (06:22→21:58)
[2018-02-04] MEDS: Levothyroxine 100 MCG Tablet PO SCH (06:22)
[2018-02-04] MEDS: MethylPREDNISolone Sod Succinate Inj 40 MG/ML Vial IV.PUSH SCH ×3 (06:22→21:58)
--- NOTE | 2018-02-04 08:14 | P.PNCC ---
Subjective Subjective Remarks/Hospital Course: 01/30: remains intubated and sedated. Cr remains elevated: baseline Cr appears to be between 1.1 and 1.3. now 1.5 unclear if this is acute on chronic or new worsening of CKD. on exam patient has new RUQ tenderness although family member at bedside states she has not complained of nausea, vomiting, abdominal pain or any other GI symptoms recently. ROS unobtainable due to ett. 01/31: minimal improvements. Cr at baseline. slightly more awake, but still failing cpap trials. ROS unobtainable. 02/01: much improved and awake this AM. however, on SBT became hypercarbic and acidotic with a pH < 7.2, so placed back on rate. hemodynamics stable. 02/02: remains awake. still poor tidal volumes on SBT. metabolic component of acidosis much improved. 02/03: continues to fail SBT trials. starting to appear volume overloaded on exam. organ function continues to improve. afebrile. 02/04: extubated successfully yesterday. doing well. denies complaints. ROS negative. awaiting speech eval to advance diet. Objective Vital Signs / I&O: Vital Signs 02/03/18 10:00 02/03/18 11:30 02/03/18 12:00 Temperature 36.8 C Pulse Rate 63 65 71 Respiratory Rate 26 H 27 H Blood Pressure 138/62 160/70 H Pulse Oximetry 97 97 02/03/18 12:01 02/03/18 12:31 02/03/18 13:00 Temperature Pulse Rate 68 69 64 Respiratory Rate 21 27 H 25 H Blood Pressure 160/70 H 154/66 H Pulse Oximetry 98 92 L 91 L 02/03/18 13:01 02/03/18 13:30 02/03/18 14:00 Temperature Pulse Rate 68 68 62 Respiratory Rate 28 H 24 23 Blood Pressure 138/62 149/85 H Pulse Oximetry 91 L 92 L 94 L 02/03/18 14:01 02/03/18 14:30 02/03/18 15:00 Temperature Pulse Rate 62 63 68 Respiratory Rate 21 21 25 H Blood Pressure 160/70 H 143/63 H 150/66 H Pulse Oximetry 95 97 91 L 02/03/18 15:30 02/03/18 15:44 02/03/18 15:45 Temperature Pulse Rate 63 61 Respiratory Rate 25 H 19 Blood Pressure 163/70 H Pulse Oximetry 96 95 02/03/18 16:00 02/03/18 16:01 02/03/18 16:30 Temperature 36.4 C Pulse Rate 63 65 62 Respiratory Rate 21 26 H 18 Blood Pressure 154/70 H 154/70 H 162/70 H Pulse Oximetry 96 96 93 L 02/03/18 17:00 02/03/18 17:01 02/03/18 17:31 Temperature Pulse Rate 64 69 62 Respiratory Rate 20 19 18 Blood Pressure 152/65 H 144/66 H Pulse Oximetry 94 L 95 94 L 02/03/18 18:00 02/03/18 18:01 02/03/18 18:31 Temperature Pulse Rate 59 L 63 63 Respiratory Rate 17 17 18 Blood Pressure 148/66 H 139/61 Pulse Oximetry 96 96 96 02/03/18 19:00 02/03/18 19:01 02/03/18 19:31 Temperature Pulse Rate 70 74 73 Respiratory Rate 27 H 25 H 22 Blood Pressure 148/74 H 167/67 H Pulse Oximetry 94 L 94 L 92 L 02/03/18 20:00 02/03/18 20:30 02/03/18 21:00 Temperature 36.5 C Pulse Rate 66 76 63 Respiratory Rate 24 25 H 16 Blood Pressure 162/70 H 162/70 H Pulse Oximetry 93 L 92 L 94 L 02/03/18 21:01 02/03/18 21:20 02/03/18 21:30 Temperature Pulse Rate 62 60 61 Respiratory Rate 15 22 15 Blood Pressure 141/67 H 154/68 H Pulse Oximetry 95 97 96 02/03/18 22:00 02/03/18 22:30 02/03/18 23:00 Temperature Pulse Rate 62 65 62 Respiratory Rate 16 16 14 Blood Pressure 142/63 H 147/64 H 142/63 H Pulse Oximetry 94 L 94 L 94 L 02/03/18 23:30 02/04/18 00:00 02/04/18 00:31 Temperature 36.5 C Pulse Rate 63 68 59 L Respiratory Rate 13 15 13 Blood Pressure 148/67 H 161/71 H 151/65 H Pulse Oximetry 94 L 95 92 L 02/04/18 01:00 02/04/18 01:31 02/04/18 02:00 Temperature Pulse Rate 62 59 L 59 L Respiratory Rate 13 13 13 Blood Pressure 160/69 H 163/68 H Pulse Oximetry 94 L 94 L 93 L 02/04/18 02:01 02/04/18 02:30 02/04/18 03:00 Temperature Pulse Rate 60 61 59 L Respiratory Rate 16 13 12 Blood Pressure 139/62 137/60 Pulse Oximetry 94 L 94 L 94 L 02/04/18 03:01 02/04/18 03:31 02/04/18 04:00 Temperature Pulse Rate 58 L 60 60 Respiratory Rate 12 12 13 Blood Pressure 137/60 134/57 L 140/63 Pulse Oximetry 94 L 95 96 02/04/18 04:23 02/04/18 04:30 02/04/18 05:00 Temperature Pulse Rate 62 67 69 Respiratory Rate 16 19 14 Blood Pressure 158/70 H Pulse Oximetry 93 L 95 02/04/18 05:01 02/04/18 05:30 02/04/18 06:00 Temperature Pulse Rate 67 64 62 Respiratory Rate 13 13 13 Blood Pressure 132/59 L 129/62 138/60 Pulse Oximetry 95 96 96 02/04/18 06:30 Temperature Pulse Rate 62 Respiratory Rate 14 Blood Pressure 141/63 H Pulse Oximetry 93 L Intake & Output 02/03/18 02/04/18 02/04/18 18:59 06:59 18:59 Intake Total 1636 / 1636 Output Total 1999 Balance -364 / -364 Weight 84 kg Intake: IV 100 / 100 Maxipime Inj 2,000 MG In NS Inj 100 / 100 100 ML @ 200 mls/hr IV.SIG Q12H YANI Rx#:[id number] Tube Feeding 636 / 636 Water Bolus Amount 900 / 900 Output: Urine Amount (Catheter) 1999 Indwelling Urethral Catheter 1999 Other: Date of Last Bowel Movement 02/01/18 02/02/18 # Bowel Movements 0 Result Diagrams: 02/04/18 03:42 02/04/18 03:42 Objective Remarks: gen: elderly female, lying in bed, awake, alert, no acute distress heent: nc. at. perrl. mucous membranes moist. neck: no jvd. trachea midline. chest: nc o2. equal chest rise. unlabored. cv: normal rate, regular rhythm. sinus. abd: soft, nontender, nondistended. no guarding. extr: trace edema. distal pulses 2+. neuro: RASS 0. follows commands. Assessment and Plan - Assessment and Plan Plan: Assessment: 72yF with COPD exacerbation with associated severe acute hypoxic and hypercarbic respiratory failure requiring intubation and mechanical ventilation. clinically improving. needs aggressive PT. Acute Hypoxic and Hypercarbic Respiratory failure- resolving Acute exacerbation of COPD- severe, improving. -COPD exacerbation -s/p full course of broad spectrum abx -IV steroid -DuoNeb scheduled and as needed -Tiotropium [place] - cultures NG. - wean o2 by nc for goal spo2 > 90% Abdominal pain- resolved. - swallow eval - advance diet after - keep NGT today until speech clears. Acute protein calorie malnutrition- moderate - speech eval and advance diet after. Acute kidney injury superimposed on chronic kidney disease- stage II/III- improving. - monitor uop - daily bmp Coronary artery disease -Aspirin, Plavix -trops downtrending. Diabetes mellitus -Insulin sliding scale Hypothyroidism -Levothyroxine DVT GI prophylaxis -Teds SCDs -Subcu heparin -change to PO Pepcid needs aggressive mobilization. can likely d/c out of ICU this afternoon or tomorrow.
[2018-02-04] MEDS: Chlorhexidine 0.12% Oral Kit 15 ML UDC OROPHARYNG SCH ×2 (08:34→19:52)
[2018-02-04] MEDS: Famotidine PF Inj 20 MG/2 ML Vial IV.PUSH SCH ×2 (08:41→21:57)
[2018-02-04] MEDS: Senna/Docusate Sodium 8.6/50 MG Tablet PO SCH ×2 (08:42→21:57)
[2018-02-04] MEDS: Tiotropium Bromide 18 MCG/ACT Inhaler INH SCH (09:20)
[2018-02-05] MEDS: Oral Hygiene Kit OROPHARYNG SCH ×4 (01:05→18:21)
[2018-02-05] MEDS: Insulin NovoLIN Regular Correctional Sugar Inj SQ SCH ×5 (01:05→18:22)
[2018-02-05] MEDS: Morphine Inj 4 MG/ML Vial IV.PUSH PRN ×4 (04:03→22:05)
[2018-02-05] MEDS: Heparin - SQ 10,000 UNITS/ML Vial SQ SCH ×3 (05:16→21:45)
[2018-02-05] MEDS: Levothyroxine 100 MCG Tablet PO SCH (05:16)
[2018-02-05 07:00] LABS: Hematocrit 25.9 % (35.0-46.0); Hemoglobin 8.5 gm/dL (11.6-15.3); Mean Corpuscular HGB Conc 32.9 % (32.0-36.0); Mean Corpuscular Volume 94.3 fL (80.0-100.0); Mean Platelet Volume 9.7 fL (7.0-11.0); Platelet Count 246 th/mm3 (150-450); Red Blood Count 2.75 mil/mm3 (4.00-5.30); Red Cell Distribution Width 15.5 % (11.6-17.2)
[2018-02-05 07:21] LABS: Calcium 8.8 mg/dL (8.5-10.1); Carbon Dioxide 33.1 meq/L (21.0-32.0); Potassium 4.9 meq/L (3.5-5.1)
--- NOTE | 2018-02-05 08:25 | P.PNIM ---
Subjective Interval history: f/u; copd/ respiratory failure in no acute distress. however on three liters of oxygen. afebrile. d/w the RN and no acute issues over night. Physical Exam Vital signs: Vital Signs 02/04/18 08:30 02/04/18 09:01 02/04/18 09:20 Temperature Pulse Rate 62 67 Respiratory Rate 14 17 12 Blood Pressure 156/65 H 145/65 H Pulse Oximetry 95 92 L 02/04/18 09:30 02/04/18 09:35 02/04/18 10:00 Temperature Pulse Rate 63 60 Respiratory Rate 21 19 Blood Pressure 157/67 H Pulse Oximetry 94 L 97 93 L 02/04/18 10:01 02/04/18 10:31 02/04/18 11:01 Temperature Pulse Rate 59 L 68 59 L Respiratory Rate 26 H 18 14 Blood Pressure 154/66 H 176/64 H 139/63 Pulse Oximetry 97 95 87 L 02/04/18 11:30 02/04/18 12:00 02/04/18 12:01 Temperature Pulse Rate 64 61 59 L Respiratory Rate 17 15 13 Blood Pressure 148/65 H 152/68 H Pulse Oximetry 94 L 95 95 02/04/18 14:00 02/04/18 14:32 02/04/18 16:00 Temperature 97.7 F Pulse Rate 59 L 67 62 Respiratory Rate 18 20 Blood Pressure 148/64 H Pulse Oximetry 93 L 02/04/18 18:00 02/04/18 20:00 02/04/18 21:31 Temperature 98.8 F Pulse Rate 62 59 L 62 Respiratory Rate 16 22 Blood Pressure 165/66 H Pulse Oximetry 96 95 02/04/18 22:00 02/05/18 00:00 02/05/18 00:30 Temperature 98.1 F Pulse Rate 64 60 Respiratory Rate 16 16 Blood Pressure 163/71 H Pulse Oximetry 92 L 02/05/18 02:00 02/05/18 04:00 02/05/18 04:37 Temperature 98.8 F Pulse Rate 58 L 61 54 L Respiratory Rate 15 20 Blood Pressure 155/70 H Pulse Oximetry 98 02/05/18 06:00 02/05/18 08:00 Temperature 98.5 F Pulse Rate 59 L 56 L Respiratory Rate 16 Blood Pressure 166/70 H Pulse Oximetry 97 Intake & Output 07/02/05/18 02/05/18 18:59 06:59 18:59 Intake Total 1602 / 1602 160 / 160 Output Total 850 / 850 150 / 150 Balance 752 / 752 10 / 10 Weight 86 kg Intake: Oral 0 / 0 160 / 160 Tube Feeding 342 / 342 Tube Irrigant 60 / 60 Water Bolus Amount 1200 / 1200 Output: Urine 450 / 450 150 / 150 Urine Amount (Catheter) 400 / 400 Indwelling Urethral Catheter 400 / 400 Other: # Voids 3 3 # Incontinent Voids 3 Date of Last Bowel Movement 02/02/18 02/02/18 02/02/18 # Bowel Movements 0 - Constitutional no acute distress - Routine Respiratory Exam Present: CTA bilaterally, wheezes (bilaterally.) - Routine Cardiovascular Exam Present: RRR - Routine Abdominal Exam Present: soft - Routine Extremities Exam Comments: no pedal edema. - Routine Neurological Exam Present: alert, oriented X3 - Urinary Catheter Management Indwelling Urethral Catheter Cath placed during this visit: yes Reason for continuing: Hourly intake/output Insertion date: 01/28/18 Insertion time: 19:30 Results - Labs CBC & Chem 7: 02/05/18 05:00 02/05/18 05:00 Laboratory Results - last 24 hr 02/04/18 02/04/18 02/04/18 11:29 17:17 23:26 WBC RBC Hgb Hct MCV MCH MCHC RDW Plt Count MPV Sodium Potassium Chloride Carbon Dioxide Anion Gap BUN Creatinine Estimated GFR POC Glucose 143 H 127 H 103 Random Glucose Calcium 02/05/18 02/05/18 02/05/18 05:00 05:00 05:18 WBC 8.0 RBC 2.75 L Hgb 8.5 L Hct 25.9 L MCV 94.3 MCH 31.0 MCHC 32.9 RDW 15.5 Plt Count 246 MPV 9.7 Sodium 141 Potassium 4.9 Chloride 104 Carbon Dioxide 33.1 H Anion Gap 4 L BUN 30 H Creatinine 0.69 Estimated GFR 83 L POC Glucose 123 H Random Glucose 102 Calcium 8.8 Assessment and Plan - Plan Acute Hypoxic and Hypercarbic Respiratory failure- resolving Acute exacerbation of COPD- severe, improving. -s/p intubation/ extubation -s/p full course of broad spectrum abx -continue IV steroid -DuoNeb scheduled and as needed -Tiotropium [place] - cultures negative so far. - wean o2 by nc for goal spo2 > 90% Abdominal pain- resolved. Acute protein calorie malnutrition- moderate - was evaluated by ST. Acute kidney injury superimposed on chronic kidney disease- stage II/III- improving. - monitor uop Coronary artery disease -Aspirin, Plavix -trops downtrending. Diabetes mellitus -Insulin sliding scale Hypothyroidism -Levothyroxine DVT GI prophylaxis -Teds SCDs -Subcu heparin -change to PO Pepcid transfer to telemetry. Discharge Planning: patient is willing to go to rehab. case management consulted. dc planning within the next 2-3 days if continues to improve.
[2018-02-05] MEDS: Tiotropium Bromide 18 MCG/ACT Inhaler INH SCH (09:31)
[2018-02-05] MEDS: MethylPREDNISolone Sod Succinate Inj 40 MG/ML Vial IV.PUSH SCH ×2 (09:33→21:45)
[2018-02-05] MEDS: Senna/Docusate Sodium 8.6/50 MG Tablet PO SCH ×2 (09:33→21:46)
[2018-02-05] MEDS: Famotidine PF Inj 20 MG/2 ML Vial IV.PUSH SCH ×2 (09:33→21:45)
[2018-02-05] MEDS: Chlorhexidine 0.12% Oral Kit 15 ML UDC OROPHARYNG SCH ×2 (09:34→21:44)
[2018-02-06] MEDS: Oral Hygiene Kit OROPHARYNG SCH ×4 (01:13→22:33)
[2018-02-06] MEDS: Insulin NovoLIN Regular Correctional Sugar Inj SQ SCH ×3 (01:13→14:43)
[2018-02-06] MEDS: Heparin - SQ 10,000 UNITS/ML Vial SQ SCH ×3 (06:01→22:38)
[2018-02-06] MEDS: Levothyroxine 100 MCG Tablet PO SCH (06:01)
--- NOTE | 2018-02-06 08:32 | P.PNIM ---
Subjective Interval history: f/u; respiratory failure in no acute distress- however on oxygen via N/C. no fever. denies pain. no new complaints. Physical Exam Vital signs: Vital Signs 02/05/18 08:31 02/05/18 10:00 02/05/18 10:25 Temperature 97.7 F Pulse Rate 69 60 57 L Respiratory Rate 18 18 Blood Pressure 167/71 H Pulse Oximetry 94 L 91 L 02/05/18 10:41 02/05/18 16:00 02/05/18 20:00 Temperature 97.7 F Pulse Rate 63 68 Respiratory Rate 18 18 20 Blood Pressure 193/93 H 135/71 Pulse Oximetry 92 L 93 L 02/06/18 00:00 02/06/18 04:00 02/06/18 05:38 Temperature 97.7 F 97.7 F Pulse Rate 58 L 70 59 L Respiratory Rate 18 18 Blood Pressure 180/71 H 182/68 H 166/79 H Pulse Oximetry 97 98 Intake & Output 02/05/18 02/06/18 02/06/18 18:59 06:59 18:59 Intake Total 240 / 240 240 / 240 Output Total 800 / 800 Balance 240 / 240 -560 / -560 Weight 84.7 kg 84 kg Intake: Oral 240 / 240 240 / 240 Other 0 / 0 Output: Urine 800 / 800 Other: Other Intake Source Saline Solution # Voids 2 Date of Last Bowel Movement 02/02/18 # Bowel Movements 0 0 - Constitutional no acute distress - Routine Respiratory Exam Present: CTA bilaterally, wheezes - Routine Cardiovascular Exam Present: RRR - Routine Abdominal Exam Present: soft - Routine Extremities Exam Comments: no pedal edema. - Routine Neurological Exam Present: alert, oriented X3 - Urinary Catheter Management Indwelling Urethral Catheter Cath placed during this visit: yes Reason for continuing: Hourly intake/output Insertion date: 01/28/18 Insertion time: 19:30 Results - Labs CBC & Chem 7: 02/05/18 05:00 02/05/18 05:00 Laboratory Results - last 24 hr 02/05/18 02/05/18 02/06/18 11:38 16:26 01:02 POC Glucose 112 H 119 H 148 H 02/06/18 05:58 POC Glucose 117 H Assessment and Plan - Plan Acute Hypoxic and Hypercarbic Respiratory failure- resolving Acute exacerbation of COPD- severe, improving. -s/p intubation/ extubation -s/p full course of broad spectrum abx -continue IV steroid; will continue to taper down- -DuoNeb scheduled and as needed -Tiotropium [place] - cultures negative so far. - wean o2 by vt for goal spo2 > 90% Abdominal pain- resolved. Acute protein calorie malnutrition- moderate - was evaluated by ST. Acute kidney injury superimposed on chronic kidney disease- stage II/III- improving. - monitor uop Coronary artery disease -Aspirin, Plavix -trops downtrending. Diabetes mellitus -Insulin sliding scale Hypothyroidism -Levothyroxine DVT GI prophylaxis -Teds SCDs -Subcu heparin -change to PO Pepcid Discharge Planning: dc to rehab in am if continues to improve.
[2018-02-06] MEDS: Famotidine PF Inj 20 MG/2 ML Vial IV.PUSH SCH ×2 (08:45→22:37)
[2018-02-06] MEDS: Senna/Docusate Sodium 8.6/50 MG Tablet PO SCH ×2 (08:45→22:39)
[2018-02-06] MEDS: MethylPREDNISolone Sod Succinate Inj 40 MG/ML Vial IV.PUSH SCH ×2 (10:08→22:35)
[2018-02-06] MEDS: Chlorhexidine 0.12% Oral Kit 15 ML UDC OROPHARYNG SCH ×3 (11:29→22:34)
[2018-02-06] MEDS: Tiotropium Bromide 18 MCG/ACT Inhaler INH SCH (11:59)
[2018-02-06] MEDS: amLODIPine 5 MG Tablet PO SCH (14:39)
[2018-02-07] MEDS: Oral Hygiene Kit OROPHARYNG SCH ×3 (00:20→12:42)
[2018-02-07] MEDS: Insulin NovoLIN Regular Correctional Sugar Inj SQ SCH ×3 (03:09→12:42)
[2018-02-07] MEDS: Heparin - SQ 10,000 UNITS/ML Vial SQ SCH ×2 (05:44→13:58)
[2018-02-07] MEDS: Levothyroxine 100 MCG Tablet PO SCH (05:46)
[2018-02-07] MEDS: amLODIPine 5 MG Tablet PO SCH (08:39)
[2018-02-07] MEDS: Senna/Docusate Sodium 8.6/50 MG Tablet PO SCH (08:40)
[2018-02-07] MEDS: Chlorhexidine 0.12% Oral Kit 15 ML UDC OROPHARYNG SCH (08:40)
[2018-02-07] MEDS: MethylPREDNISolone Sod Succinate Inj 40 MG/ML Vial IV.PUSH SCH (08:41)
--- NOTE | 2018-02-07 08:57 | P.PNIM ---
Subjective Interval history: f/u; respiratory failure. in no acute distress. sob improving. afebrile. no new complaints. Physical Exam Vital signs: Vital Signs 02/06/18 09:30 02/06/18 12:00 02/06/18 16:00 Temperature 97.4 F L 98.2 F Pulse Rate 63 52 L Respiratory Rate 20 20 Blood Pressure 184/75 H 161/72 H Pulse Oximetry 94 L 91 L 96 02/06/18 20:00 02/07/18 00:00 02/07/18 04:00 Temperature 97.7 F 98.1 F 98.0 F Pulse Rate 64 59 L 55 L Respiratory Rate 18 18 20 Blood Pressure 148/79 H 156/69 H 158/70 H Pulse Oximetry 96 95 95 02/07/18 07:48 02/07/18 07:49 Temperature Pulse Rate 89 Respiratory Rate 18 Blood Pressure Pulse Oximetry 97 Intake & Output 02/06/18 02/07/18 02/07/18 18:59 06:59 18:59 Intake Total 240 / 240 240 / 240 Output Total 1850 / 1850 1999 Balance -1610 / -1610 -1760 / -1760 Weight 76.9 kg Intake: Oral 240 / 240 240 / 240 Output: Urine 1850 / 1850 1999 Other: Date of Last Bowel Movement 02/02/18 # Bowel Movements 0 0 - Routine Respiratory Exam Present: CTA bilaterally, wheezes (minimal bilateral wheezing.) - Routine Cardiovascular Exam Present: RRR - Routine Abdominal Exam Present: soft - Routine Extremities Exam Comments: no pedal edema. - Urinary Catheter Management Indwelling Urethral Catheter Cath placed during this visit: yes Reason for continuing: Hourly intake/output Insertion date: 01/28/18 Insertion time: 19:30 Results - Labs CBC & Chem 7: 02/05/18 05:00 02/05/18 05:00 Laboratory Results - last 24 hr 02/06/18 02/06/18 02/07/18 12:02 17:11 00:24 POC Glucose 98 108 94 02/07/18 05:42 POC Glucose 128 H Assessment and Plan - Plan Acute Hypoxic and Hypercarbic Respiratory failure- resolving Acute exacerbation of COPD- severe, improving. -s/p intubation/ extubation -s/p full course of broad spectrum abx -will switch to po steroids upon discharge. -DuoNeb scheduled and as needed -Tiotropium [place] - cultures negative so far. - wean o2 by nc for goal spo2 > 90% Abdominal pain- resolved. Acute protein calorie malnutrition- moderate - was evaluated by ST. Acute kidney injury superimposed on chronic kidney disease- stage II/III- improving. Coronary artery disease -Aspirin, Plavix -trops downtrending. Diabetes mellitus -Insulin sliding scale Hypothyroidism -Levothyroxine DVT GI prophylaxis -Teds SCDs -Subcu heparin -change to PO Pepcid Discharge Planning: dc to rehab today. see med list. f/u; pcp. d/w the patient. [facility] was reviewed. time spent 35 min.
--- NOTE | 2018-02-07 08:59 | P.DS ---
Date of admission: 01/28/18 19:22 Primary care physician: UNKNOWN Brief History from admission: 72-year-old female presented originally to the emergency department at [place] with increasing shortness of breath that has been going on for 4 days, constant, moderate severity, associated with a productive cough with yellow sputum. In the emergency department she was also borderline hypotensive and was transferred to [facility] due to critical condition. Shortly after arrival to [facility] her ABG showed severe hypercapnic respiratory acidosis and the patient was intubated for acute respiratory failure. DS: Medications - Discharge Medications Prescriptions: prednisone 5 mg PO DIRECTED 10 Days #10 tab DS: Summary Hospital Course: patient was admitted with respiratory failure/ COPD exacerbation. she was intubated and later on extubated. she was started on IV steroid and neb treatment. her condition improved and remained stable for the rest of her hospital stay. blood cultures remained negative.she will be discharged to rehab with f/u by her PCP. - Time Spent with Patient Total time spent providing and/or coordinating discharge services: Greater than 30 minutes (35 min.) - Quality: VTE Deep Vein Thrombosis/Pulmonary Embolism Present on Admission: No Exam Vital signs: Vital Signs 02/06/18 09:30 02/06/18 12:00 02/06/18 16:00 Temperature 97.4 F L 98.2 F Pulse Rate 63 52 L Respiratory Rate 20 20 Blood Pressure 184/75 H 161/72 H Pulse Oximetry 94 L 91 L 96 02/06/18 20:00 02/07/18 00:00 02/07/18 04:00 Temperature 97.7 F 98.1 F 98.0 F Pulse Rate 64 59 L 55 L Respiratory Rate 18 18 20 Blood Pressure 148/79 H 156/69 H 158/70 H Pulse Oximetry 96 95 95 02/07/18 07:48 02/07/18 07:49 Temperature Pulse Rate 89 Respiratory Rate 18 Blood Pressure Pulse Oximetry 97 Intake & Output 02/06/18 02/07/18 02/07/18 18:59 06:59 18:59 Intake Total 240 / 240 240 / 240 Output Total 1849 / 0 1999 Balance -1610 / -1610 -1760 / -1760 Weight 76.9 kg Intake: Oral 240 / 240 240 / 240 Output: Urine 1849 / 1849 Other: Date of Last Bowel Movement 02/02/18 # Bowel Movements 0 0 Results Procedures completed during hospitalization: intubation/ extubation. Labs on day of discharge: Labs from last 24 hours 02/07/18 02/07/18 02/06/18 05:42 00:24 17:11 POC Glucose 128 H 94 108 02/06/18 12:02 POC Glucose 98 - Impressions ITS Impressions Chest X-Ray 01/31/18 05:00 CONCLUSION: Minimal basilar atelectasis. No effusion. Endotracheal tube and nasogastric tube in good position. Discharge Plan - Discharge Disposition Patient Disposition: 03 Discharge to SNF - Discharge Condition Condition: Fair - Discharge Order Discharge Orders: Discharge Order (Routine); Ordered 02/07/18 Ordered By: Hussein Holman - Physicians Team Primary Care Provider: UNKNOWN, Attending Provider: Hussein Holman Other Providers: [employer] ; [facility],Agency ; [facility],Agency
[2018-02-07] MEDS: Tiotropium Bromide 18 MCG/ACT Inhaler INH SCH (09:17)
[2018-02-07] MEDS: Famotidine PF Inj 20 MG/2 ML Vial IV.PUSH SCH (09:17)
[2018-02-07] MEDS ORDERED: Famotidine PF Inj 20 MG/2 ML Vial IV.PUSH SCH (21:00)
== END 2018-02-07 14:20 ==
LOC: PHED 16:20 → PHEDA 19:22 → HIMC 01-29 01:02 → N04 02-05 10:17
PROVIDERS: ADMIT Internal Medicine; ATTEND Internal Medicine

== ENCOUNTER 2018-07-20 10:16 | Inpatient (IN) ==
--- NOTE | 2018-07-20 11:15 | ED ---
HPI General Chief complaint: Recheck/Abnormal Lab/Rx Stated complaint: Low hemoglobin x 1 week Time Seen by Provider: 07/20/18 10:41 History of Present Illness HPI narrative: 73-year-old female history hypertension, hypothyroidism, dyslipidemia here for evaluation of low hemoglobin. Patient has been feeling weak for the last week and called her physician who later ordered blood work showed low hemoglobin of 5.2 and she was instructed to come to the ER. She says she has been feeling lethargic, denies any palpitations no chest pain or shortness of breath, she had not noticed any black stool, last colonoscopy was 1 months ago and was normal, denies any excessive bruising, she says she had same problem before and had to be transfused. Related Data Home Medications Medication Instructions Recorded Confirmed aspirin [Aspirin Low Dose] 325 mg PO DAILY 01/28/18 07/20/18 atorvastatin 40 mg PO DAILY 01/28/18 07/20/18 carvedilol 3.125 mg PO DAILY 01/28/18 07/20/18 docusate sodium [Colace] 100 mg PO DAILY 01/28/18 07/20/18 enalapril maleate 20 mg PO BID 01/28/18 07/20/18 levothyroxine 88 mcg PO DAILY 01/28/18 07/20/18 omeprazole 20 mg PO BID 01/28/18 07/20/18 tiotropium bromide [Spiriva with 1 cap INHALATION DAILY 01/28/18 07/20/18 HandiHaler] Previous Rx's Medication Instructions Recorded albuterol sulfate [ProAir HFA] 1 puff INHALATION Q4-6H PRN #1 g 02/06/18 hydrocodone-acetaminophen [Richards] 1 tab PO Q6H PRN #8 tab 02/07/18 Allergies Allergy/AdvReac Type Severity Reaction Status Date / Time doxycycline Allergy Severe SHORTNESS Verified 07/20/18 10:31 OF BREATH minocycline Allergy Severe SHORTNESS Verified 07/20/18 10:31 OF BREATH oxycodone Allergy Severe UNKNOWN Verified 07/20/18 10:31 penicillin G Allergy Severe SHORTNESS Verified 07/20/18 10:31 OF BREATH tetanus toxoid, adsorbed Allergy Severe SHORTNESS Verified 07/20/18 10:31 OF BREATH tigecycline Allergy Severe SHORTNESS Verified 07/20/18 10:31 OF BREATH adhesive tape Allergy Blister Verified 07/20/18 10:31 diazepam AdvReac Intermediate HYPER Verified 07/20/18 10:31 Review of Systems ROS: all other systems reviewed are negative [facility] Family History Family History Mother Heart disease Father Alzheimers disease Social History Social History Substance History: No History of Abuse Second Hand Smoke Exposure: Yes Smoking Status: Current every day smoker Tobacco Type: Cigarettes How Often Do You Have a Drink Containing Alcohol: Never Recent Travel in [facility] within the Last 8 Weeks: No Recent Out of Country Travel within the Last 8 Weeks: No Immunization History Tetanus Immunization: >5 Years Exam Narrative Exam Narrative: GENERAL: Alert oriented x3 no acute distress. SKIN: Focused skin assessment warm/dry. HEAD: Atraumatic. Normocephalic. EYES: Pupils equal and round. No scleral icterus. No injection or drainage. ENT: No nasal bleeding or discharge. Mucous membranes pink and moist. NECK: Trachea midline. No JVD. CARDIOVASCULAR: Regular rate and rhythm. No murmur appreciated. RESPIRATORY: No accessory muscle use. Clear to auscultation. Breath sounds equal bilaterally. GASTROINTESTINAL: Abdomen soft, non-tender, nondistended. Hepatic and splenic margins not palpable. MUSCULOSKELETAL: No obvious deformities. No clubbing. No cyanosis. No edema. NEUROLOGICAL: Awake and alert. No obvious cranial nerve deficits. Motor grossly within normal limits. Normal speech. PSYCHIATRIC: Appropriate mood and affect; insight and judgment normal. Procedures Hemaprompt Stool Procedural Steps Taken: specimen placed in appropriate test area Hemaprompt Stool Result: negative Course Initial Documented Vital Signs Temperature 99.7 F H 07/20/18 10:32 Pulse Rate 75 07/20/18 10:32 Respiratory Rate 18 07/20/18 10:32 Blood Pressure 180/79 H 07/20/18 10:32 Pulse Oximetry 97 07/20/18 10:32 Last Documented Vital Signs Temperature 98.0 F 07/21/18 01:01 Pulse Rate 62 07/21/18 01:01 Respiratory Rate 18 07/21/18 01:01 Blood Pressure 139/61 07/21/18 01:01 Pulse Oximetry 95 07/21/18 01:01 Medical Decision Making MDM Narrative Medical decision making narrative: 73 female here for evaluation of low hemoglobin. She was admitted before back in August for the same reason. Outpatient hemoglobin is 5.2, Hemoccult here in the ER is NEGATIVE, hemoglobin here is 6.3, her EKG shows normal sinus rhythm with a heart rate of 70, hemodynamically stable, patient will need blood transfusion, type and screen ordered and 2 units of PRBCs ordered. her GI doctor is dr. castillo Medical Screen Exam Complete: Yes Emergency Medical Condition: Yes Lab Data Result diagrams: 07/21/18 03:35 07/21/18 03:35 Lab Results 07/20/18 07/20/18 07/20/18 Range/Units 11:20 11:20 11:20 CBC w Diff Slide review pending WBC 5.9 (4.0-11.0) th/mm3 RBC 3.18 L (4.00-5.30) mil/mm3 Hgb 6.3 L* (11.6-15.3) gm/dL Hct 21.8 L (35.0-46.0) % MCV 68.8 L (80.0-100.0) fL MCH 20.0 L (27.0-34.0) pg MCHC 29.0 L (32.0-36.0) % RDW 20.3 H (11.6-17.2) % Plt Count 330 (150-450) th/mm3 MPV 8.4 (7.0-11.0) fL Neut % (Auto) 61.6 (16.0-70.0) % Lymph % (Auto) 28.4 (9.0-44.0) % Craig % (Auto) 5.8 (0.0-8.0) % Eos % (Auto) 3.5 (0.0-4.0) % Baso % (Auto) 0.7 (0.0-2.0) % Neut # (Auto) 3.7 (1.8-7.7) th/mm3 Lymph # (Auto) 1.7 (1.0-4.8) th/mm3 Craig # (Auto) 0.3 (0.0-0.9) th/mm3 Eos # (Auto) 0.2 (0.0-0.4) th/mm3 Baso # (Auto) 0.0 (0.0-0.2) th/mm3 WBC Differential . Diff Scan Auto diff confirmed Differential Comment . Dimorphic RBCs (None) Sickle Cells 1+ H (None) Target Cells 1+ H (None) Tear Drop Cells 1+ H (None) Ovalocytes (None) Retic Count (0.4-3.0) % Absolute Retic (20.0-150.0) mil/L PT 10.0 (9.8-11.6) sec INR 1.0 Ratio APTT 24.5 (23.4-31.7) sec Sodium 138 (136-145) meq/L Potassium 4.1 (3.5-5.1) meq/L Chloride 105 (98-107) meq/L Carbon Dioxide 26.7 (21.0-32.0) meq/L Anion Gap 6 (5-15) meq/L BUN 11 (7-18) mg/dL Creatinine 1.00 (0.50-1.00) mg/dL Estimated GFR 54 L (>89) mL/min Random Glucose 92 (74-106) mg/dL Calcium 8.4 L (8.5-10.1) mg/dL Iron (50-170) mcg/dL TIBC (250-450) mcg/dL % Saturation (20-50) % Ferritin (8-252) ng/mL Total Bilirubin 0.4 (0.2-1.0) mg/dL AST 7 L (15-37) U/L ALT 10 (10-53) U/L Alkaline Phosphatase 138 H (45-117) U/L Total Creatine Kinase 24 L (26-192) U/L Troponin I Less than 0.02 L (0.02-0.05) ng/mL B-Natriuretic Peptide (0-100) pg/mL Total Protein 7.3 (6.4-8.2) g/dL Albumin 3.2 L (3.4-5.0) g/dL TSH (0.358-3.740) uIU/mL Blood Type Antibody Screen MTS Gel Crossmatch 07/20/18 07/20/18 07/20/18 Range/Units 11:20 11:20 11:20 CBC w Diff WBC (4.0-11.0) th/mm3 RBC (4.00-5.30) mil/mm3 Hgb (11.6-15.3) gm/dL Hct (35.0-46.0) % MCV (80.0-100.0) fL MCH (27.0-34.0) pg MCHC (32.0-36.0) % RDW (11.6-17.2) % Plt Count (150-450) th/mm3 MPV (7.0-11.0) fL Neut % (Auto) (16.0-70.0) % Lymph % (Auto) (9.0-44.0) % Craig % (Auto) (0.0-8.0) % Eos % (Auto) (0.0-4.0) % Baso % (Auto) (0.0-2.0) % Neut # (Auto) (1.8-7.7) th/mm3 Lymph # (Auto) (1.0-4.8) th/mm3 Craig # (Auto) (0.0-0.9) th/mm3 Eos # (Auto) (0.0-0.4) th/mm3 Baso # (Auto) (0.0-0.2) th/mm3 WBC Differential Diff Scan Differential Comment Dimorphic RBCs (None) Sickle Cells (None) Target Cells (None) Tear Drop Cells (None) Ovalocytes (None) Retic Count (0.4-3.0) % Absolute Retic (20.0-150.0) mil/L PT (9.8-11.6) sec INR Ratio APTT (23.4-31.7) sec Sodium (136-145) meq/L Potassium (3.5-5.1) meq/L Chloride (98-107) meq/L Carbon Dioxide (21.0-32.0) meq/L Anion Gap (5-15) meq/L BUN (7-18) mg/dL Creatinine (0.50-1.00) mg/dL Estimated GFR (>89) mL/min Random Glucose (74-106) mg/dL Calcium (8.5-10.1) mg/dL Iron 15 L (50-170) mcg/dL TIBC 440 (250-450) mcg/dL % Saturation 3.4 L (20-50) % Ferritin 7 L (8-252) ng/mL Total Bilirubin (0.2-1.0) mg/dL AST (15-37) U/L ALT (10-53) U/L Alkaline Phosphatase (45-117) U/L Total Creatine Kinase (26-192) U/L Troponin I (0.02-0.05) ng/mL B-Natriuretic Peptide 125 H (0-100) pg/mL Total Protein (6.4-8.2) g/dL Albumin (3.4-5.0) g/dL TSH (0.358-3.740) uIU/mL Blood Type A Positive Antibody Screen Negative MTS Gel Crossmatch 07/20/18 07/20/18 07/20/18 Range/Units 11:20 11:20 12:00 CBC w Diff WBC (4.0-11.0) th/mm3 RBC (4.00-5.30) mil/mm3 Hgb (11.6-15.3) gm/dL Hct (35.0-46.0) % MCV (80.0-100.0) fL MCH (27.0-34.0) pg MCHC (32.0-36.0) % RDW (11.6-17.2) % Plt Count (150-450) th/mm3 MPV (7.0-11.0) fL Neut % (Auto) (16.0-70.0) % Lymph % (Auto) (9.0-44.0) % Craig % (Auto) (0.0-8.0) % Eos % (Auto) (0.0-4.0) % Baso % (Auto) (0.0-2.0) % Neut # (Auto) (1.8-7.7) th/mm3 Lymph # (Auto) (1.0-4.8) th/mm3 Craig # (Auto) (0.0-0.9) th/mm3 Eos # (Auto) (0.0-0.4) th/mm3 Baso # (Auto) (0.0-0.2) th/mm3 WBC Differential Diff Scan Differential Comment Dimorphic RBCs (None) Sickle Cells (None) Target Cells (None) Tear Drop Cells (None) Ovalocytes (None) Retic Count 3.4 H (0.4-3.0) % Absolute Retic 102.3 (20.0-150.0) mil/L PT (9.8-11.6) sec INR Ratio APTT (23.4-31.7) sec Sodium (136-145) meq/L Potassium (3.5-5.1) meq/L Chloride (98-107) meq/L Carbon Dioxide (21.0-32.0) meq/L Anion Gap (5-15) meq/L BUN (7-18) mg/dL Creatinine (0.50-1.00) mg/dL Estimated GFR (>89) mL/min Random Glucose (74-106) mg/dL Calcium (8.5-10.1) mg/dL Iron (50-170) mcg/dL TIBC (250-450) mcg/dL % Saturation (20-50) % Ferritin (8-252) ng/mL Total Bilirubin (0.2-1.0) mg/dL AST (15-37) U/L ALT (10-53) U/L Alkaline Phosphatase (45-117) U/L Total Creatine Kinase (26-192) U/L Troponin I (0.02-0.05) ng/mL B-Natriuretic Peptide (0-100) pg/mL Total Protein (6.4-8.2) g/dL Albumin (3.4-5.0) g/dL TSH 5.740 H (0.358-3.740) uIU/mL Blood Type Antibody Screen MTS Gel Crossmatch See Detail 07/21/18 07/21/18 Range/Units 03:35 03:35 CBC w Diff Slide review pending WBC 6.4 (4.0-11.0) th/mm3 RBC 3.88 L (4.00-5.30) mil/mm3 Hgb 8.6 L D (11.6-15.3) gm/dL Hct 28.1 L (35.0-46.0) % MCV 72.4 L D (80.0-100.0) fL MCH 22.3 L (27.0-34.0) pg MCHC 30.8 L (32.0-36.0) % RDW 19.8 H (11.6-17.2) % Plt Count 296 (150-450) th/mm3 MPV 9.3 (7.0-11.0) fL Neut % (Auto) 56.6 (16.0-70.0) % Lymph % (Auto) 29.5 (9.0-44.0) % Craig % (Auto) 9.4 H (0.0-8.0) % Eos % (Auto) 2.5 (0.0-4.0) % Baso % (Auto) 2.0 (0.0-2.0) % Neut # (Auto) 3.6 (1.8-7.7) th/mm3 Lymph # (Auto) 1.9 (1.0-4.8) th/mm3 Craig # (Auto) 0.6 (0.0-0.9) th/mm3 Eos # (Auto) 0.2 (0.0-0.4) th/mm3 Baso # (Auto) 0.1 (0.0-0.2) th/mm3 WBC Differential . Diff Scan Auto diff confirmed Differential Comment . Dimorphic RBCs Present H (None) Sickle Cells (None) Target Cells 1+ H (None) Tear Drop Cells (None) Ovalocytes 1+ H (None) Retic Count (0.4-3.0) % Absolute Retic (20.0-150.0) mil/L PT (9.8-11.6) sec INR Ratio APTT (23.4-31.7) sec Sodium 138 (136-145) meq/L Potassium 4.1 (3.5-5.1) meq/L Chloride 106 (98-107) meq/L Carbon Dioxide 26.5 (21.0-32.0) meq/L Anion Gap 6 (5-15) meq/L BUN 14 (7-18) mg/dL Creatinine 1.10 H (0.50-1.00) mg/dL Estimated GFR 49 L (>89) mL/min Random Glucose 90 (74-106) mg/dL Calcium 8.2 L (8.5-10.1) mg/dL Iron (50-170) mcg/dL TIBC (250-450) mcg/dL % Saturation (20-50) % Ferritin (8-252) ng/mL Total Bilirubin 1.6 H (0.2-1.0) mg/dL AST 10 L (15-37) U/L ALT 9 L (10-53) U/L Alkaline Phosphatase 123 H (45-117) U/L Total Creatine Kinase (26-192) U/L Troponin I (0.02-0.05) ng/mL B-Natriuretic Peptide (0-100) pg/mL Total Protein 6.6 D (6.4-8.2) g/dL Albumin 3.0 L (3.4-5.0) g/dL TSH (0.358-3.740) uIU/mL Blood Type Antibody Screen MTS Gel Crossmatch Imaging Data Radiologist's impression: Chest X-Ray 07/20/18 10:49 CONCLUSION: No acute cardiopulmonary disease. Discharge Plan Discharge Disposition Patient Disposition: ED Admit(ED Internal Use Only) Discharge Order Discharge Orders: ED Use Only Admit Order (Routine); Ordered 07/20/18 Ordered By: Brice Swift Physicians Team ED Provider: Brice Swift Primary Care Provider: Jhony Curtis Attending Provider: Hussein Holman Other Providers: Migue Carmona V ; [employer] Status ED Status: Left Department Discharge Information Discharge Date/Time: 07/20/18 13:56
--- NOTE | 2018-07-20 11:25 | XR ---
EXAM DATE: 07/20/2018 11:03 AM EST AGE/SEX: 73 years / Female INDICATIONS: Patient presents with weakness and low hemoglobin. CLINICAL DATA: This is the patient's initial encounter. Patient reports that signs and symptoms have been present for 1 week and indicates a pain score of 3/10. MEDICAL/SURGICAL HISTORY: . Ulcers. Gastroesophageal reflux disease. Chronic obstructive pulmon edwige disease.Diabetes. Cardiovascular disorders. Cervical cancer. Breast cancer Appendectomy. Mastec emma, right. Hysterectomy. [place] [facility] [place]. . FINDINGS: Slight cardiomegaly seen. There is evidence for prior vertebroplasty lungs are clear.. CONCLUSION: No acute cardiopulmonary disease. Electronically signed by: Kierra Olguin MD Board Certified Radiologist 07/20/2018 11:24 AM EST
[2018-07-20 11:38] LABS: Baso % (Auto) 0.7 % (0.0-2.0); Eos # (Auto) 0.2 th/mm3 (0.0-0.4); Eos % (Auto) 3.5 % (0.0-4.0); Hematocrit 21.8 % (35.0-46.0); Lymph # (Auto) 1.7 th/mm3 (1.0-4.8); Lymph % (Auto) 28.4 % (9.0-44.0); Mean Corpuscular Volume 68.8 fL (80.0-100.0); Mean Platelet Volume 8.4 fL (7.0-11.0); Mono # (Auto) 0.3 th/mm3 (0.0-0.9); Mono % (Auto) 5.8 % (0.0-8.0); Neut # (Auto) 3.7 th/mm3 (1.8-7.7); Neut % (Auto) 61.6 % (16.0-70.0); Platelet Count 330 th/mm3 (150-450); Red Blood Count 3.18 mil/mm3 (4.00-5.30); Red Cell Distribution Width 20.3 % (11.6-17.2); White Blood Count 5.9 th/mm3 (4.0-11.0)
[2018-07-20 11:42] LABS: Hemoglobin 6.3 gm/dL (11.6-15.3)
[2018-07-20 11:43] LABS: Chloride 105 meq/L (98-107); Potassium 4.1 meq/L (3.5-5.1); Sodium 138 meq/L (136-145)
[2018-07-20 11:46] LABS: Calcium 8.4 mg/dL (8.5-10.1)
[2018-07-20 11:47] LABS: Albumin 3.2 g/dL (3.4-5.0); Anion Gap 6 meq/L (5-15); Blood Urea Nitrogen 11 mg/dL (7-18); Carbon Dioxide 26.7 meq/L (21.0-32.0); Glucose,Random 92 mg/dL (74-106)
[2018-07-20 11:49] LABS: Activated Partial Thrombo Time 24.5 sec (23.4-31.7)
[2018-07-20 11:50] LABS: Alanine Aminotransferase 10 U/L (10-53); Aspartate Aminotransferase 7 U/L (15-37); Glomerular Filtration Rate 54 mL/min (>89)
[2018-07-20 11:51] LABS: Total Protein 7.3 g/dL (6.4-8.2)
[2018-07-20 11:53] LABS: Alkaline Phosphatase 138 U/L (45-117)
[2018-07-20 11:57] LABS: Creatine Kinase 24 U/L (26-192)
[2018-07-20 12:04] LABS: Sickle Cells 1+; Target Cells 1+; Tear Drop Cells 1+
[2018-07-20] MEDS ORDERED: Bisacodyl 10 MG Supp RECTAL PRN (12:50)
[2018-07-20] MEDS ORDERED: Pantoprazole Inj 80 MG in Sodium Chlor 0.9% Inj 100 ML IV.CONT SCH (15:00)
--- NOTE | 2018-07-20 16:14 | P.HPIM ---
History of Present Illness Primary Care Physician: Jhony Curtis MD History of Present Illness: 73-year-old female with a history of hypertension, hypothyroidism, coronary artery disease, iron deficiency anemia, recent colonoscopy last month with only polyps and no source of bleeding who presents with a one-week history of progressively worsening fatigue, shortness of breath on exertion, cold intolerance, lightheadedness upon standing. Denies any chest pain, nausea, vomiting, diarrhea, constipation. Denies melena. Denies any bleeding. Inpatient Certification: I certify that the inpatient services were ordered in accordance with Medicare regulations governing the order. This includes certification that hospital inpatient services are reasonable and necessary and in the case of services not specified as inpatient-only under 42 CFR 419.22(n), that they are appropriately provided as inpatient services in accordance to with the 2-midnight benchmark under 43 CFR 412.3(e) Estimated Total Length of Stay (Days): 2 Plans for Post Hospital Care: Home Review of Systems All other systems reviewed negative except as stated in HPI [facility] - History History Provided By: Patient - Medical History Medical History: Medical History (Last Reviewed 07/20/18 @ 16:10 by Brian Urbina MD) Elevated cholesterol GERD (gastroesophageal reflux disease) Hypothyroid Asthma Breast cancer CHF (congestive heart failure) COPD (chronic obstructive pulmonary disease) History of hysterectomy Hypertension Legally blind - Surgical History Surgical History: Surgical History (Last Reviewed 07/20/18 @ 16:10 by Brian Urbina MD) History of lumpectomy of both breasts H/O heart artery stent History of cardiac cath - Family History Family History: Family History (Last Updated 07/20/18 @ 16:10 by Brian Urbina MD) Mother Heart disease Father Alzheimers disease - Tobacco History Second Hand Smoke Exposure: Yes Tobacco Use In Past 30 Days: Yes Smoking Status: Current every day smoker Tobacco Type: Cigarettes - Alcohol History How Often Do You Have a Drink Containing Alcohol: Never - Substance Use History Substance History: No History of Abuse - Travel History Recent Travel in the [place] Within the Last 8 Weeks: No Recent Travel Out of the Country Within the Last 8 Weeks: No - Immunization History Tetanus Immunization: >5 Years Medications and Allergies Active Medications: Active Medications Acetaminophen (Tylenol) 650 mg PO Q4H PRN PRN Reason: Temp > 100.4 Al Hydroxide/Mg Hydroxide (Milk Of Magnesia Liq) 30 ml PO Q12H PRN PRN Reason: Mild Constipation Albuterol (Ventolin Hfa Inh) 1 puff INH Q4H PRN PRN Reason: SHORTNESS OF BREATH Atorvastatin Calcium (Lipitor) 40 mg PO DAILY [facility] Bisacodyl (Dulcolax Supp) 10 mg RECTAL DAILY PRN PRN Reason: SEVERE CONSITIPATION Carvedilol (Coreg) 3.125 mg PO DAILY [facility] Enalapril Maleate (Vasotec) 20 mg PO BID YANI Sodium Chloride (Ns Inj) 1,000 mls @ 50 mls/hr IV.CONT .Q20H YANI Pantoprazole Sodium 80 mg/ (Sodium Chloride) 100 mls @ 10 mls/hr IV.CONT CONT YANI Iron Sucrose (Venofer Inj) 100 mg IV.PUSH ONCE ONE Stop: 07/21/18 06:01 Lactulose (Lactulose Liq) 30 ml PO DAILY PRN PRN Reason: SEVERE CONSITIPATION Ondansetron HCl (Zofran Inj) 4 mg IV.PUSH Q6H PRN PRN Reason: NAUSEA OR VOMITING Pantoprazole Sodium (Protonix) 20 mg PO BID [facility] Sennosides (Senokot) 17.2 mg PO Q12H PRN PRN Reason: Moderate Constipation Sodium Chloride (Ns Flush) 2 ml IV.FLUSH BID YANI Sodium Chloride (Ns Flush) 2 ml IV.FLUSH PRN PRN PRN Reason: FLUSH AFTER USING IV ACCESS Tiotropium Snow (Spiriva 18 Mcg Inh) 18 mcg INH DAILY [facility] Allergies Allergy/AdvReac Type Severity Reaction Status Date / Time doxycycline Allergy Severe SHORTNESS Verified 07/20/18 10:31 OF BREATH minocycline Allergy Severe SHORTNESS Verified 07/20/18 10:31 OF BREATH oxycodone Allergy Severe UNKNOWN Verified 07/20/18 10:31 penicillin G Allergy Severe SHORTNESS Verified 07/20/18 10:31 OF BREATH tetanus toxoid, adsorbed Allergy Severe SHORTNESS Verified 07/20/18 10:31 OF BREATH tigecycline Allergy Severe SHORTNESS Verified 07/20/18 10:31 OF BREATH adhesive tape Allergy Blister Verified 07/20/18 10:31 diazepam AdvReac Intermediate HYPER Verified 07/20/18 10:31 Home Medications Medication Instructions Recorded Confirmed Type aspirin [Aspirin Low Dose] 325 mg PO DAILY 01/28/18 07/20/18 History atorvastatin 40 mg PO DAILY 01/28/18 07/20/18 History carvedilol 3.125 mg PO DAILY 01/28/18 07/20/18 History docusate sodium [Colace] 100 mg PO DAILY 01/28/18 07/20/18 History enalapril maleate 20 mg PO BID 01/28/18 07/20/18 History levothyroxine 88 mcg PO DAILY 01/28/18 07/20/18 History omeprazole 20 mg PO BID 01/28/18 07/20/18 History tiotropium bromide [Spiriva with 1 cap INHALATION DAILY 01/28/18 07/20/18 History HandiHaler] Exam Vital signs: Vital Signs 07/20/18 10:32 07/20/18 10:57 07/20/18 13:17 Temperature 99.7 F H Pulse Rate 75 67 65 Respiratory Rate 18 16 16 Blood Pressure 180/79 H 164/62 H 158/60 H Pulse Oximetry 97 96 96 Intake & Output 07/19/18 07/20/18 07/20/18 18:59 06:59 18:59 Weight 79.5 kg Narrative: GENERAL: Patient sitting up in bed. Appears pale. Appears comfortable. Alert and oriented x3. SKIN: Warm and dry. HEAD: Atraumatic. Normocephalic. EYES: Pupils equal and round. No scleral icterus. No injection or drainage. ENT: No nasal bleeding or discharge. Mucous membranes pink and moist. NECK: Trachea midline. No JVD. CARDIOVASCULAR: Regular rate and rhythm. RESPIRATORY: No accessory muscle use. Clear to auscultation. Breath sounds equal bilaterally. GASTROINTESTINAL: Abdomen soft, non-tender, nondistended. Hepatic and splenic margins not palpable. MUSCULOSKELETAL: Extremities without clubbing, cyanosis, or edema. No obvious deformities. NEUROLOGICAL: Awake and alert. No obvious cranial nerve deficits. Motor grossly within normal limits. Five out of 5 muscle strength in the arms and legs. Normal speech. PSYCHIATRIC: Appropriate mood and affect; insight and judgment normal. Results - Labs CBC & Chem 7: 07/20/18 11:20 07/20/18 11:20 Labs: Short CBC 07/20/18 Range/Units 11:20 WBC 5.9 (4.0-11.0) th/mm3 Hgb 6.3 L* (11.6-15.3) gm/dL Hct 21.8 L (35.0-46.0) % Plt Count 330 (150-450) th/mm3 BMP 07/20/18 11:20 Sodium 138 Potassium 4.1 Chloride 105 Carbon Dioxide 26.7 BUN 11 Creatinine 1.00 Calcium 8.4 L Cardiac Enzymes 07/20/18 Range/Units 11:20 Total Creatine Kinase 24 L (26-192) U/L Troponin I Less than 0.02 L (0.02-0.05) ng/mL Liver Function 07/20/18 Range/Units 11:20 Total Bilirubin 0.4 (0.2-1.0) mg/dL AST 7 L (15-37) U/L ALT 10 (10-53) U/L Alkaline Phosphatase 138 H (45-117) U/L Albumin 3.2 L (3.4-5.0) g/dL - Imaging Impressions Chest X-Ray 07/20/18 10:49 CONCLUSION: No acute cardiopulmonary disease. Caprini VTE Risk Assessment Caprini VTE Risk Assessment: Moderate/High Risk (score >= 2) Caprini Risk Assessment Model: Point Value = 1 Point Value = 2 Point Value = 3 Point Value = 5 Age 41-60 Minor surgery BMI > 25 kg/m2 Swollen legs Varicose veins or History of unexplained or recurrent spontaneous Oral contraceptives or hormone replacement Sepsis (< 1 month) Serious lung disease, including pneumonia (< 1 month) Abnormal pulmonary function Acute myocardial infarction Congestive heart failure (< 1 month) History of inflammatory bowel disease Medical patient at bed rest Age 61-74 Arthroscopic surgery Major open surgery (> 45 min) Laparoscopic surgery (> 45 min) Malignancy Confined to bed (> 72 hours) Immobilizing plaster cast Central venous access Age >= 75 History of VTE Family history of VTE Factor V Leiden Prothrombin [id number] Lupus anticoagulant Anticardiolipin antibodies Elevated serum homocysteine Heparin-induced thrombocytopenia Other congenital or acquired thrombophilia Stroke (< 1 month) Elective arthroplasty Hip, pelvis, or leg fracture Acute spinal cord injury (< 1 month) Prophylaxis Regimen: Total Risk Factor Score Risk Level Prophylaxis Regimen 0-1 Low Early ambulation 2 Moderate Order ONE of the following: *Sequential Compression Device (SCD) *Heparin 5000 units SQ BID 3-4 Higher Order ONE of the following medications: *Heparin 5000 units SQ TID *Enoxaparin/Lovenox 40 mg SQ daily (WT < 150 kg, CrCl > 30 mL/min) *Enoxaparin/Lovenox 30 mg SQ daily (WT < 150 kg, CrCl > 10-29 mL/min) *Enoxaparin/Lovenox 30 mg SQ BID (WT < 150 kg, CrCl > 30 mL/min) AND/OR *Sequential Compression Device (SCD) 5 or more Highest Order ONE of the following medications: *Heparin 5000 units SQ TID (Preferred with Epidurals) *Enoxaparin/Lovenox 40 mg SQ daily (WT < 150 kg, CrCl > 30 mL/min) *Enoxaparin/Lovenox 30 mg SQ daily (WT < 150 kg, CrCl > 10-29 mL/min) *Enoxaparin/Lovenox 30 mg SQ BID (WT < 150 kg, CrCl > 30 mL/min) AND *Sequential Compression Device (SCD) Assessment and Plan - Plan //Acute symptomatic anemia on top of chronic iron deficiency anemia. //Microcytic anemia -Hemoglobin 5.8 in the ambulatory setting, 6.3 here on admission -Hold aspirin -GI consulted. Discussed with GI. Recent colonoscopy 1 month ago with polyps, no ulcers, no signs of bleeding. Patient reportedly had a PillCam in the past. Appreciate assistance. Will order iron studies, ferritin, reticulocyte count. = Two units of PrbcS units tonight. We will plan for transfusion of IV iron tomorrow AM. Continue to monitor hemoglobin. Patient may need hematology evaluation as outpatient. //History of coronary artery disease status post stenting in the past //Hyperlipidemia //Hypertension Blood pressure acceptable. Continue home medications including carvedilol, enalapril.. Holding aspirin due to acute on chronic anemia. Plan to restart aspirin tomorrow if hemoglobin stable. //GERD. Continue medication. //COPD. Stable. No acute exacerbation we will continue meds //Hypothyroidism. Chronic. Continue meds. Discussed Condition With: Patient, nurse, Dr. Saucedo
--- NOTE | 2018-07-20 16:31 | MB ---
cc: Davide Saucedo MD, Jeffrey D MD DATE: 07/20/2018 REASON FOR CONSULTATION: Symptomatic anemia. HISTORY OF PRESENT ILLNESS: This patient is a 73-year-old lady with previous history of anemia on and off, she states, for 10 years. Her baseline hemoglobin runs between 8 and 9. She was admitted with a hemoglobin of 5.2. Indices indicate microcytic anemia. She denies any GI symptoms. She says she has never had any bleeding. Her bowels are moving regularly. There is no hematemesis or hematochezia. She does report a normal EGD, colonoscopy about a month ago. She said some polyps were removed. This was done by Dr. Jung. She does not take iron as an outpatient. PAST MEDICAL HISTORY: Significant for hypertension, hypothyroidism, hyperlipidemia, chronic anemia. MEDICINES: 1. Aspirin. 2. Atorvastatin. 3. Carvedilol. 4. Docusate. 5. Levothyroxine. 6. Omeprazole. 7. Inhalers. ALLERGIES: MINOCYCLINE, OXYCODONE, ADHESIVE TAPE, DIAZEPAM. PAST MEDICAL HISTORY: Also includes reflux disease, breast cancer, CHF. The patient is legally blind. SURGICAL HISTORY: Lumpectomy, cardiac stents, cardiac catheterization. SOCIAL HISTORY: The patient is a smoker. No alcohol reported. PHYSICAL EXAMINATION: GENERAL: Reveals a well-nourished lady in no apparent distress. VITAL SIGNS: Stable. HEAD AND NECK: Anicteric sclerae. LUNGS: Bilateral air entry with rales. ABDOMEN: Obese, soft, nontender. No hepatosplenomegaly. Bowel sounds are present. CENTRAL NERVOUS SYSTEM: Nonfocal. RECTAL: Deferred at this time. LABORATORY DATA: Hemoglobin of 6.3, MCV of 68.8. INR is 1. Creatinine 1. IMPRESSION: Microcytic anemia. RECOMMENDATIONS: The patient has had previous workup for her anemia. This has included multiple endoscopies, colonoscopies, small-bowel x-rays, and at least 2 capsules endoscopies. She says at one point she was found to have some AVMs that were cauterized. PLAN: At this time, the patient is being transfused. Discussed the case with Dr. Urbina. Once the patient is transfused and his hemoglobin is stable, the patient can be discharged home with GI followup as well as followup with hematology. I will review her outpatient records as well. Dr. Mcnulty is available to follow tomorrow if needed. Thank you for this referral. MD CHARIS Arroyo/marilyn , 04:07 PM , 04:14 PM
[2018-07-20] MEDS: Sod Chloride 0.9% Inj 1,000 ML IV.CONT SCH (17:45)
[2018-07-20] MEDS ORDERED: Sodium Chlor 0.9% Inj 250 ML IV.SIG SCH (18:00)
[2018-07-20] MEDS ORDERED: Pantoprazole Sodium 20 MG DR Tablet PO SCH (21:00)
[2018-07-20 21:27] LABS: Reticulocyte Percent 3.4 % (0.4-3.0)
[2018-07-20 21:41] LABS: % Iron Saturation 3.4 % (20-50)
[2018-07-21] MEDS: Acetaminophen 325 MG Tablet PO PRN ×2 (00:59→11:22)
[2018-07-21] MEDS ORDERED: Pantoprazole Inj 80 MG in Sodium Chlor 0.9% Inj 100 ML IV.CONT SCH (02:00)
[2018-07-21 04:16] LABS: Baso # (Auto) 0.1 th/mm3 (0.0-0.2); Eos # (Auto) 0.2 th/mm3 (0.0-0.4); Eos % (Auto) 2.5 % (0.0-4.0); Hematocrit 28.1 % (35.0-46.0); Hemoglobin 8.6 gm/dL (11.6-15.3); Lymph # (Auto) 1.9 th/mm3 (1.0-4.8); Lymph % (Auto) 29.5 % (9.0-44.0); Mean Corpuscular Hemoglobin 22.3 pg (27.0-34.0); Mean Corpuscular Volume 72.4 fL (80.0-100.0); Mean Platelet Volume 9.3 fL (7.0-11.0); Mono # (Auto) 0.6 th/mm3 (0.0-0.9); Mono % (Auto) 9.4 % (0.0-8.0); Neut # (Auto) 3.6 th/mm3 (1.8-7.7); Neut % (Auto) 56.6 % (16.0-70.0); Platelet Count 296 th/mm3 (150-450); Red Blood Count 3.88 mil/mm3 (4.00-5.30); Red Cell Distribution Width 19.8 % (11.6-17.2); White Blood Count 6.4 th/mm3 (4.0-11.0)
[2018-07-21 04:22] LABS: Mean Corpuscular HGB Conc 30.8 % (32.0-36.0)
[2018-07-21 04:30] LABS: Chloride 106 meq/L (98-107); Potassium 4.1 meq/L (3.5-5.1); Sodium 138 meq/L (136-145)
[2018-07-21 04:32] LABS: Calcium 8.2 mg/dL (8.5-10.1)
[2018-07-21 04:33] LABS: Anion Gap 6 meq/L (5-15); Blood Urea Nitrogen 14 mg/dL (7-18); Carbon Dioxide 26.5 meq/L (21.0-32.0); Glucose,Random 90 mg/dL (74-106)
[2018-07-21 04:36] LABS: Alanine Aminotransferase 9 U/L (10-53); Aspartate Aminotransferase 10 U/L (15-37); Glomerular Filtration Rate 49 mL/min (>89)
[2018-07-21 04:38] LABS: Total Protein 6.6 g/dL (6.4-8.2)
[2018-07-21 04:39] LABS: Alkaline Phosphatase 123 U/L (45-117)
[2018-07-21 04:56] LABS: Dimorphic RBC Present; Ovalocytes 1+
[2018-07-21 04:57] LABS: Target Cells 1+
[2018-07-21] MEDS ORDERED: Iron Sucrose Inj 100 MG in Sodium Chlor 0.9% Inj 100 ML IV.SIG ONE (06:00)
[2018-07-21] MEDS ORDERED: Iron Sucrose Inj 100 MG/5 ML Vial IV.PUSH ONE (06:00)
--- NOTE | 2018-07-21 08:09 | P.PNIM ---
Subjective Interval history: f/u; anemia resting comfortably with no distress. no chest pain, sob or dizziness. Physical Exam Vital signs: Last Vital Signs Temp 98.0 F 07/21/18 01:01 Pulse 62 07/21/18 01:01 Resp 18 07/21/18 01:01 BP 139/61 07/21/18 01:01 Pulse Ox 95 07/21/18 01:01 Intake & Output 07/19/18 07/20/18 07/21/18 07/22/18 06:59 06:59 06:59 06:59 Intake Total 1775 / 1775 250 / 250 Balance 1775 / 1775 250 / 250 Weight 79.3 kg Constitutional no acute distress Routine Respiratory Exam Comments: bilateral air entry present. Routine Cardiovascular Exam Present RRR Routine Abdominal Exam Present soft Routine Extremities Exam Comments: no pedal edema. Routine Neurological Exam Present alert and oriented X3 Results Labs CBC & Chem 7: 07/21/18 03:35 07/21/18 03:35 Imaging Imaging: Impressions Chest X-Ray 07/20/18 10:49 CONCLUSION: No acute cardiopulmonary disease. Assessment and Plan Plan A/P Acute symptomatic anemia on top of chronic iron deficiency anemia. -GI consult apprecitaed; patient had previous work up- cleared for discharege once H/H stable. - s/p PRBC and iron transfusion; now H/H improved- will repeat H/H today. History of coronary artery disease status post stenting in the past Hyperlipidemia Hypertension Blood pressure acceptable. Continue home medications including carvedilol, enalapril.will restart aspirin. GERD. Continue medication. COPD. Stable. No acute exacerbation we will continue meds Hypothyroidism. Chronic. Continue meds. Discharge Planning: dc home today after repeated H/H. f/u; pcp, GI and Hematology. see med list. d/w the patient. Progress Note: Quality VTE Deep Vein Thrombosis/Pulmonary Embolism Present on Admission: No
[2018-07-21 08:58] VITALS: BP 148/65; PULSE 79; RESP 20; TEMP 97.4; O2SAT 94
[2018-07-21] MEDS ORDERED: Tiotropium Bromide 18 MCG/ACT Inhaler INH SCH (09:00)
[2018-07-21 10:10] LABS: Hematocrit 28.5 % (35.0-46.0); Hemoglobin 8.9 gm/dL (11.6-15.3)
[2018-07-21] MEDS: Sod Chloride 0.9% Inj 1,000 ML IV.CONT SCH (11:09)
[2018-07-21 11:15] LABS: Bilirubin,Urine Negative (Negative); Clarity,Urine Clear (Clear); Color,Urine Yellow (Yellw/Straw); Glucose,Urine (UA) Negative (Negative); Leukocyte Esterase,Urine Negative (Negative); Nitrite,Urine Negative (Negative); PH,Urine 7.5 (5.0-8.5); Urobilinogen,Urine 0.2 mg/dL (Less than 2)
[2018-07-21 11:21] LABS: Squamous Epithelial Cell,Urine 0-5 /hpf (0-5)
--- NOTE | 2018-07-21 12:53 | P.PNGI ---
Subjective Interval history: Feeling better.Ready to go home .Denies nausea, vomiting, abdominal pain. HB stable , s/p prbc . Physical Exam Vital signs: Vital Signs 07/20/18 13:17 07/20/18 16:00 07/20/18 17:51 Temperature 98.8 F 98.7 F Pulse Rate 65 62 56 L Respiratory Rate 16 16 17 Blood Pressure 158/60 H 143/63 H 131/52 L Pulse Oximetry 96 92 L 94 L 07/20/18 18:08 07/20/18 18:09 07/20/18 18:48 Temperature 97.9 F 97.7 F Pulse Rate 63 65 65 Respiratory Rate 17 18 Blood Pressure 120/48 L 130/55 L 169/71 H Pulse Oximetry 94 L 97 07/20/18 20:00 07/20/18 21:30 07/20/18 21:40 Temperature 98.2 F 98.7 F 98.7 F Pulse Rate 67 62 62 Respiratory Rate 18 18 18 Blood Pressure 123/49 L 120/49 L 120/49 L Pulse Oximetry 94 L 07/20/18 21:55 07/20/18 23:10 07/21/18 00:00 Temperature 98.6 F 98.1 F 97 F L Pulse Rate 62 64 Respiratory Rate 18 18 18 Blood Pressure 136/51 L 136/72 174/70 H Pulse Oximetry 95 97 07/21/18 01:01 07/21/18 08:00 Temperature 98.0 F 97.4 F L Pulse Rate 62 79 Respiratory Rate 18 20 Blood Pressure 139/61 148/65 H Pulse Oximetry 95 94 L Intake & Output 07/20/18 07/21/18 07/21/18 18:59 06:59 18:59 Intake Total 0 / 0 1775 / 1775 350 / 350 Balance 0 / 0 1775 / 1775 350 / 350 Weight 79.5 kg 79.3 kg Intake: IV 105 / 105 350 / 350 Protonix Inj 80 MG In NS Inj 100 / 100 100 ML @ 10 mls/hr IV.CONT Q10H YANI Rx#:[id number] Venofer Inj 100 MG In NS Inj 105 / 105 100 ML @ 420 mls/hr IV.SIG ONCE ONE Rx#:[id number] NS Inj 250 ML @ 15 mls/hr IV. 250 / 250 SIG ONCE YANI Rx#:[id number] Oral 0 / 0 720 / 720 Other 150 / 150 Rbc As-3 Leukoreduced Unit 50 / 50 [id number] Rbc As-3 Leukoreduced Unit 100 / 100 [id number] Intake (Blood Product) Amt 0 / 0 800 / 800 Rbc As-3 Leukoreduced Unit 0 / 0 400 / 400 [id number] Rbc As-3 Leukoreduced Unit 400 / 400 [id number] Other: Other Intake Source Rbc As-3 Leukoreduced Unit Saline Solution [id number] Rbc As-3 Leukoreduced Unit Saline Solution [id number] # Voids 0 1 # Bowel Movements 0 - Constitutional no acute distress - Routine HEENT Exam Head: Present: normocephalic Eye: Present: EOMI ENT: Present: mucous membranes moist - Routine Neck Exam Present: supple - Routine Respiratory Exam Present: diminished air movement - Routine Cardiovascular Exam Present: S1, S2 - Routine Abdominal Exam Present: soft - Routine Extremities Exam Present: full ROM, pulses intact - Routine Skin Exam Present: intact - Routine Neurological Exam Present: alert, oriented X3 - Detailed Neurological Exam: Coma Scale Verbal Response: Oriented - Routine Psychiatric Exam Present: normal affect Results - Labs CBC & Chem 7: 07/21/18 10:05 07/21/18 03:35 Laboratory Results - last 24 hr 07/20/18 07/20/18 07/20/18 11:20 11:20 11:20 CBC w Diff WBC RBC Hgb Hct MCV MCH MCHC RDW Plt Count MPV Neut % (Auto) Lymph % (Auto) [place] % (Auto) Eos % (Auto) Baso % (Auto) Neut # (Auto) Lymph # (Auto) [place] # (Auto) Eos # (Auto) Baso # (Auto) WBC Differential Diff Scan Differential Comment Dimorphic RBCs Target Cells Ovalocytes Retic Count 3.4 H Absolute Retic 102.3 Sodium Potassium Chloride Carbon Dioxide Anion Gap BUN Creatinine Estimated GFR Random Glucose Calcium Iron 15 L TIBC 440 % Saturation 3.4 L Ferritin 7 L Total Bilirubin AST ALT Alkaline Phosphatase Total Protein Albumin TSH Ur Collection Type Urine Color Urine Clarity Urine pH Ur Specific [place] Urine Protein Urine Glucose (UA) Urine Ketones Urine Occult Blood Urine Nitrate Urine Bilirubin Urine Urobilinogen Ur Leukocyte Esterase Ur Squamous Epith Cells Micro UA Comment Ur Microscopic Review Urine Culture Comments Blood Type A Positive Antibody Screen Negative MTS Gel Crossmatch 07/20/18 07/20/18 07/21/18 11:20 12:00 03:35 CBC w Diff Slide review pending WBC 6.4 RBC 3.88 L Hgb 8.6 L D Hct 28.1 L MCV 72.4 L D MCH 22.3 L MCHC 30.8 L RDW 19.8 H Plt Count 296 MPV 9.3 Neut % (Auto) 56.6 Lymph % (Auto) 29.5 [place] % (Auto) 9.4 H Eos % (Auto) 2.5 Baso % (Auto) 2.0 Neut # (Auto) 3.6 Lymph # (Auto) 1.9 [place] # (Auto) 0.6 Eos # (Auto) 0.2 Baso # (Auto) 0.1 WBC Differential . Diff Scan Auto diff confirmed Differential Comment . Dimorphic RBCs Present H Target Cells 1+ H Ovalocytes 1+ H Retic Count Absolute Retic Sodium Potassium Chloride Carbon Dioxide Anion Gap BUN Creatinine Estimated GFR Random Glucose Calcium Iron TIBC % Saturation Ferritin Total Bilirubin AST ALT Alkaline Phosphatase Total Protein Albumin TSH 5.740 H Ur Collection Type Urine Color Urine Clarity Urine pH Ur Specific [place] Urine Protein Urine Glucose (UA) Urine Ketones Urine Occult Blood Urine Nitrate Urine Bilirubin Urine Urobilinogen Ur Leukocyte Esterase Ur Squamous Epith Cells Micro UA Comment Ur Microscopic Review Urine Culture Comments Blood Type Antibody Screen MTS Gel Crossmatch See Detail 07/21/18 07/21/18 07/21/18 03:35 10:05 10:50 CBC w Diff WBC RBC Hgb 8.9 L Hct 28.5 L MCV MCH MCHC RDW Plt Count MPV Neut % (Auto) Lymph % (Auto) [place] % (Auto) Eos % (Auto) Baso % (Auto) Neut # (Auto) Lymph # (Auto) [place] # (Auto) Eos # (Auto) Baso # (Auto) WBC Differential Diff Scan Differential Comment Dimorphic RBCs Target Cells Ovalocytes Retic Count Absolute Retic Sodium 138 Potassium 4.1 Chloride 106 Carbon Dioxide 26.5 Anion Gap 6 BUN 14 Creatinine 1.10 H Estimated GFR 49 L Random Glucose 90 Calcium 8.2 L Iron TIBC % Saturation Ferritin Total Bilirubin 1.6 H AST 10 L ALT 9 L Alkaline Phosphatase 123 H Total Protein 6.6 D Albumin 3.0 L TSH Ur Collection Type Clean catch Urine Color Yellow Urine Clarity Clear Urine pH 7.5 Ur Specific [place] 1.010 Urine Protein Negative Urine Glucose (UA) Negative Urine Ketones Negative Urine Occult Blood Negative Urine Nitrate Negative Urine Bilirubin Negative Urine Urobilinogen 0.2 Ur Leukocyte Esterase Negative Ur Squamous Epith Cells 0-5 Micro UA Comment Culture not ind Ur Microscopic Review Microscopic reviewed Urine Culture Comments Culture not ind Blood Type Antibody Screen MTS Gel Crossmatch Assessment and Plan - Plan ok to dc home from gi point fu gi in 2 weeks avoid nsaids hematology consult op iron supplementation celiac panel op if not done yet - Attending Attestation Recurrent anemia -had extensive gi work-up -no source of bleeding identified
--- NOTE | 2018-07-21 19:08 | ECG ---
Date Performed: 07/20/2018 Time Performed: 11:16:03 PTAGE: 73 years EKG: Sinus rhythm BORDERLINE LEFT AXIS DEVIATION MINOR NONSPECIFIC T WAVE CHANGES Since the previous tracing, no signi ficant change noted BORDERLINE ECG PREVIOUS TRACING : 01/29/2018 07.29 DOCTOR: Hemanth Payan Interpretating Date/Time 07/21/2018 19:06:41
== END 2018-07-21 12:52 | disposition home or self-care (01) | DRG 812 ==
LOC: PHEDA 10:16 → PHED 10:16 → PH3 13:56
PROVIDERS: ADMIT Internal Medicine; ATTEND Internal Medicine
CPT/HCPCS: 36430; 71010; 71045; 80053; 81001; 82550; 82728; 83520; 83540; 83550; 83880; 84443; 84484; 85014; 85018; 85025; 85044; 85610; 85730; 86850; 86900; 86901; 86923; 93005; C9113; J1756; J7030; J7050; P9016